=== PATIENT | male | born 1955 | race Native Hawaiian/Other Pacific Islander ===

== ENCOUNTER 2017-03-18 13:05 | Inpatient (IN) | payer MEDICARE ==
[2017-03-18] MEDS ORDERED: Sodium Chloride 0.9% 1,000 ML IV ONE ×2 (14:02→14:41)
[2017-03-18 14:13] LABS: BASO % 0.2 % (0.0-2.0); HEMATOCRIT 43.9 % (35.0-51.0); LYMPH # 0.2 K/uL (1.0-4.3); MEAN CELL VOLUME 83.5 fL (80.0-94.0); MEAN CORPUSCULAR HEMOGLOBIN 28.2 pg (27.0-31.0); MEAN CORPUSCULAR HGB CONC 33.8 g/dL (33.0-37.0); MONO # 0.4 K/uL (0.0-0.8); MONO % 5.1 % (0.0-10.0); PLATELET COUNT 366 K/uL (130-400); RED CELL DISTRIBUTION WIDTH 13.3 % (11.5-14.5); WHITE BLOOD COUNT 8.2 K/uL (4.8-10.8)
[2017-03-18 14:28] LABS: ALB/GLOB RATIO 0.9 (1.0-2.1); ALKALINE PHOSPHATASE 87 U/L (38-126); ALT/SGPT 54 U/L (21-72); AST/SGOT 27 U/L (17-59); BILIRUBIN,TOTAL 1.2 mg/dL (0.2-1.3); BLOOD UREA NITROGEN 18 mg/dL (9-20); CALCIUM 8.8 mg/dl (8.6-10.4); CARBON DIOXIDE 25 mmol/L (22-30); CHLORIDE 101 mmol/L (98-107); GFR AFRICAN-AMERICAN > 60; GLUCOSE,RANDOM 133 mg/dL (75-110); POTASSIUM 4.1 mmol/L (3.6-5.2); SODIUM 137 mmol/L (132-148); TOTAL PROTEIN 7.9 g/dL (6.3-8.3)
[2017-03-18 15:00] LABS: EOSINOPHIL 1 % (0-4); NEUTROPHIL 57 % (50-75); TOTAL CELLS COUNTED 100
--- NOTE | 2017-03-18 15:18 | C.PDOC ---
"History Of Present Illness Patient BIBA for evaluation of multiple episodes of vomiting for the past 1 week. Patient has h/o MS, ambulates only to bathroom/at home, etc with walker. He denies abdominal pain, diarrhea, fever, cough, chest pain, SOB. Patient/ states he has also had decreased appetite for the last several weeks. PMD Dr. Marlon Argueta Neurology Dr. Pelayo Time Seen by Provider: 03/18/17 13:53 Chief Complaint (Nursing): GI Problem History Per: Patient, EMS History/Exam Limitations: no limitations Onset/Duration Of Symptoms: Days (x 1 week) Current Symptoms Are (Timing): Still Present Severity: Mild Associated Symptoms: Nausea, Vomiting. denies: Diarrhea Past Medical History Reviewed: Historical Data, Nursing Documentation, Vital Signs Vital Signs: Last Vital Signs Temp 98.3 F 03/22/17 08:26 Pulse 91 H 03/22/17 08:26 Resp 20 03/22/17 08:26 BP 137/69 03/22/17 08:26 Pulse Ox 95 03/22/17 08:26 - Medical History PMH: Depression, Kidney Stones, Multiple Sclerosis, Chronic Kidney Disease Family History: States: No Known Family Hx - Social History Hx Alcohol Use: No Hx Substance Use: No Review Of Systems Except As Marked, All Systems Reviewed And Found Negative. Constitutional: Negative for: Fever, Chills Cardiovascular: Negative for: Chest Pain Respiratory: Negative for: Cough, Shortness of Breath Gastrointestinal: Positive for: Nausea, Vomiting. Negative for: Abdominal Pain , Diarrhea Genitourinary: Negative for: Dysuria, Hematuria Skin: Negative for: Rash Physical Exam - Physical Exam Appears: Well, Non-toxic, No Acute Distress Head: Normacephalic Eye(s): bilateral: Normal Inspection Oral Mucosa: Dry (fissured tongue) Cardiovascular: Rhythm Regular (tachycardic ) Respiratory: Normal Breath Sounds, No Rales, No Rhonchi, No Wheezing Gastrointestinal/Abdominal: Bowel Sounds, No Tenderness, No Distention, Guarding , No Ascites Neurological/Psych: Oriented x3 ED Course And Treatment - Laboratory Results Result Diagrams: 03/22/17 07:47 03/22/17 07:47 ECG: Interpreted By Me, Viewed By Me (sinus tachycardia 113 bpm, left axis deviation, RBBB, no acute ST changes) ECG Interpretation: Abnormal O2 Sat by Pulse Oximetry: 97 (RA) Pulse Ox Interpretation: Normal - Other Rad CXR X-Ray: Viewed By Me, Read By Radiologist Interpretation: Accession No. : [id number]. Patient Name / ID : FRANKY MEDELLIN / [id number]. Exam Date : 03/18/2017 14:57:46 ( Approved ). Study Comment : Sex / Age : M / 61Y. Creator : Jeremy Flanagan MD. Dictator : Jeremy Flanagan MD. Chef Assistant : Blower Operator : Jeremy Flanagan MD. Approver2 : Report Date : 03/18/2017 15:16:39. My Comment : . Chest x- ray single frontal view. History: Vomiting. Comparison: None available. Findings: Curvilinear radiopaque density seen at the right lung base with possible lucency underneath this level. This is of uncertain clinical etiology and underlying free intraperitoneal air cannot be excluded. Correlation with abdominal series and or CT of the abdomen and pelvis may be helpful for further evaluation if clinically indicated. Moderate venous congestion. Patchy bibasilar airspace opacities. Cardiomegaly. Degenerative changes in the spine and shoulders. Impression: Curvilinear radiopaque density seen at the right lung base with possible lucency underneath this level. This is of uncertain clinical etiology and underlying free intraperitoneal air cannot be excluded. Correlation with abdominal series and or CT of the abdomen and pelvis may be helpful for further evaluation if clinically indicated. Moderate venous congestion. Patchy bibasilar airspace opacities. Cardiomegaly. - CT Scan/US CT ABD/PELVIS Other Rad Studies (CT/US): Read By Radiologist, Radiology Report Reviewed CT/US Interpretation: Name: LACIE WILKINS Age: 61Years M Date: 03/18/2017. Requesting Physician: CHAD VALDEZ : 1955. [facility] Procedure Ordered As Accession Number of. Images. CT ABDOMEN/PELVIS. W. CT ABD PELVIS IV CONTRAST. ONLY. [id number]. J. 645. Provided Clinical History: free air under diaphragm. Page 1 of 2. EXAM: CT Abdomen and Pelvis With Intravenous Contrast. EXAM DATE/TIME: 03/18/2017 4:17 PM. CLINICAL HISTORY: 61 years old, male; Signs and symptoms; Bloating; Additional info: Free air under diaphragm. TECHNIQUE: Axial computed tomography images of the abdomen and pelvis with intravenous contrast. All CT. scans at this facility use one or more dose reduction techniques, viz.: automated exposure control;. ma/kV adjustment per patient size (including targeted exams where dose is matched to indication; i.e. head); or iterative reconstruction technique. Coronal and sagittal reformatted images were created and reviewed. CONTRAST: 100 mL of visipaque 320 administered intravenously. COMPARISON: No relevant prior studies available. FINDINGS: Lower thorax: Patchy alveolar infiltrates in left lower lobe. Wall thickening and edema distal. esophagus. Trace right pleural effusion. Trace pericardial effusion. ABDOMEN: Liver: Unremarkable. No mass. Gallbladder and bile ducts: Unremarkable. No calcified stones. No ductal dilation. Pancreas: Unremarkable. No mass. No ductal dilation. Spleen: Unremarkable. No splenomegaly. LACIE WILKINS | Preliminary Radiology Report. VACATION SALES ADVISOR (QA) DISCREPANCY? If there is a discrepancy between the preliminary and final interpretation, please notify [facility] via [email or web address]. If you do not have access to our QA portal, call our QA team at [phone]. CONFIDENTIALITY STATEMENT. This report is intended only for the use of the referring physician, and only in accordance with law, If you received this in error, call [phone]. Page 2 of 2. Adrenals: Unremarkable. No mass. Kidneys and ureters: Exophytic solid mass left kidney measures 3 cm. Right renal cysts, largest 2.2. cm. Stomach and bowel: Markedly thickened and edematous wall of gastric antrum and pylorus. Extraluminal air adjacent to anterior wall. No dilatation of small or large bowel. No intestinal. mucosal thickening. Appendix: Normal. PELVIS: Bladder : Unremarkable. No mass. Reproductive: Unremarkable as visualized. ABDOMEN and PELVIS: Intraperitoneal space: Free intraperitoneal air. Small amount of free fluid in the dependent pelvis. Bones/joints: No acute fracture. Soft tissues: Unremarkable. Vasculature: Unremarkable. No abdominal aortic aneurysm. Lymph nodes: No enlarged lymph nodes. Other findings: Critical findings were communicated with Dr. VALDEZ, on 03/18/2017 5:55 PM EST. The results were understood and acknowledged. IMPRESSION: 1. Abnormal gastric antrum and pylorus, differential considerations between severe peptic. ulcer disease and neoplasm. Anterior wall perforation and pneumoperitoneum. 2. Distal esophagitis. 3. Left solid renal mass. Comparison with the study on final interpretation. 4. Remaining findings as above. Thank you for allowing us to participate in the care of your patient. Dictated and Authenticated by: Tonia Chinchilla MD. 03/18/2017 5:58 PM Eastern Time ([place] & [place]) Progress Note: Blood work, CXR, EKG, UA ordered and reviewed. Patient given IV NS bolus x 2. 3:10pm- CXR reviewed, appears to have free air under right hemidiaphragm. Given patient's recurrent vomiting x 1 week, concerned for ronald alcala/boeerhave's. Dr. Damon's service paged, and sales consultant residential manager aware and will come down for evaluation. 3:45pm- vice president medical affairs has evaluated patient and will discuss with Dr. Damon - pending their recommendation on further imaging. Will admit to medicine Dr. Kay (covers for Marlon Argueta). 5:55pm- Called by [facility] radiology, patient has perforation at gastric antrum/pyloric area. Final read pending. vice president medical affairs aware of finding, requests CT surgery Dr. John consult be entered. She will come down and insert NG tube. 6:05PM- Patient to go to OR with Dr. Damon. 6:25pm- Dr. Pelayo aware of consult and patient condition, has spoken with patient's Nikki on the phone. - Physician Consult Information Physician Contacted: Dennys Kay Outcome Of Conversation: Discussed patient with Dr. Kay, agrees with admission to his service. Currently pending CT scan/surgery consult for further eval of free air under diaphragm. Critical Care Time - Critical Care Note Total Time (in mins): 50 Documented critical care: time excludes all time spent performing seperately billable procedures. Disposition - Disposition Disposition: HOSPITALIZED Disposition Time: 16:05 Condition: GUARDED - Clinical Impression Clinical Impression: Free intraperitoneal air, Tachycardia, Bandemia, Multiple sclerosis, Perforated abdominal viscus Decision To Admit - Pt Status Changed To: Hospital Disposition Of: Inpatient - Admit Certification Admit to Inpatient:: After my assessment, the patient will require hospitalization for at least two midnights. This is because of the severity of symptoms shown, intensity of services needed, and/or the medical risk in this patient being treated as an outpatient. - InPatient: Physician Admission Certification:: see notes - . Bed Request Type: Telemetry Admitting Physician: Dennys Kay Patient Diagnosis: Free intraperitoneal air, Tachycardia, Bandemia, Multiple sclerosis, Perforated abdominal viscus"
[2017-03-18] MEDS ORDERED: Piperacillin/Tazobact 3.375 gm 100 ML IV STA (15:45)
[2017-03-18 15:52] LABS: VENOUS BLOOD GAS BASE EXCESS -0.8 mmol/L (0.0-2.0); VENOUS BLOOD GAS PCO2 41 mmHg (40-60); VENOUS BLOOD PH 7.38 (7.32-7.43)
[2017-03-18 15:54] LABS: INR 1.3
[2017-03-18 15:58] LABS: RBC URINE 24 /hpf (0-3); URINE BACTERIA OCC (<OCC); URINE BILIRUBIN NEGATIVE (NEGATIVE); URINE BLOOD 1+ (NEGATIVE); URINE COLOR Amber (YELLOW); URINE GLUCOSE (UA) NORMAL (Normal); URINE KETONE TRACE mg/dL (NEGATIVE); URINE LEUKOCYTE ESTERASE TRACE Leu/uL (Negative); URINE PROTEIN 2+ mg/dL (NEGATIVE); WBC URINE 57 /hpf (0-5)
--- NOTE | 2017-03-18 16:19 | CP.PCM.CON ---
History of Present Illness - History of Present Illness History of Present Illness: General surgery consult note for Dr. Annie Haile, PGY-1 Pt S & E at bedside. History as per at bedside- pt with slurred speech. 61M w/PMH sig for MS consulted for findings concerning for free air on Abdominal x-ray. Per , pt has been having emesis x 1 week. Initially, emesis was with solid foods, pt able to tolerate Pedilyte, Gatorade, yogurt, apple sauce. Over last few days, pt has been vomiting with all PO intake. On day of consult, pt had emesis x 4 that was dark brown (pt had been given coffee). reports "gurgling" when pt breaths, slight non productive cough, last BM was 2 days prior to evaluation - normal caliber & consistency (normal BM habit is daily). Admits to sick contacts, some noted sputum in emesis, increased slurred speech, change in baseline mentation. Notes that pt does have increased dysphagia when MS episode occurring. Pt denies abdominal pain, changes in normal flatus habits, increased bleching, changes in baseline urinary habits (normally has frequent urination), dysuria, hematuria, jo ann hematemesis, other complaints or changes from baseline. PMH: MS (dx in 2004) w/neurogenic bladder PSH: Denies All: NDKA SH: Denies ETOH use, admits to tobacco use/hx avg 1ppd x 50 yrs, denies ilicit drug use; uses walker & wheelchair PMD: [facility] Neuro: Pierce Review of Systems - Review of Systems All systems: reviewed and no additional remarkable complaints except - Constitutional Constitutional: Weakness (chronic). absent: Chills, Fever - EENT Nose/Mouth/Throat: Dry Mouth, Dysphagia - Cardiovascular Cardiovascular: absent: Chest Pain, Palpitations - Respiratory Respiratory: Cough, Chest Congestion. absent: Hemoptysis - Gastrointestinal Gastrointestinal: Change in Bowel Habits, Nausea, Vomiting. absent: Abdominal Pain, Belching, Bloating, Change in Stool Character, Coffee Ground Emesis, Constipation, Diarrhea, Excessive Flatus, Hematemesis, Hematochezia, Melena - Genitourinary Genitourinary: Urinary Frequency (neurogenic bladder). absent: Change in Urinary Stream, Dysuria, Hematuria - Musculoskeletal Musculoskeletal: Muscle Weakness - Integumentary Integumentary: absent: Erythema - Psychiatric Psychiatric: Change in Appetite Past Patient History - Past Medical History & Family History Past Medical History?: Yes - Past Social History Smoking Status: Heavy Smoker > 10 Cigarettes Daily - CARDIAC Hx Cardiac Disorders: No - PULMONARY Hx Respiratory Disorders: No - NEUROLOGICAL Hx Multiple Sclerosis: Yes - HEENT Hx HEENT Problems: No - RENAL Hx Chronic Kidney Disease: Yes Hx Kidney Stones: Yes - ENDOCRINE/METABOLIC Hx Endocrine Disorders: No - HEMATOLOGICAL/ONCOLOGICAL Hx Blood Disorders: No - INTEGUMENTARY Hx Dermatological Problems: No - MUSCULOSKELETAL/RHEUMATOLOGICAL Hx Musculoskeletal Disorders: No - GASTROINTESTINAL Hx Gastrointestinal Disorders: No - GENITOURINARY/GYNECOLOGICAL Hx Genitourinary Disorders: Yes Hx Hematuria: Yes - PSYCHIATRIC Hx Depression: Yes Hx Substance Use: No - SURGICAL HISTORY Hx Surgeries: No - ANESTHESIA Hx Anesthesia: No Meds Allergies/Adverse Reactions: Allergies Allergy/AdvReac Type Severity Reaction Status Date / Time No Known Allergies Allergy Verified 03/18/17 13:37 Physical Exam - Constitutional Appears: Non-toxic, No Acute Distress - Head Exam Head Exam: ATRAUMATIC, NORMAL INSPECTION, NORMOCEPHALIC - Eye Exam Eye Exam: EOMI, Normal appearance - ENT Exam ENT Exam: Mucous Membranes Dry - Neck Exam Neck exam: Positive for: Full Rom, Normal Inspection - Respiratory Exam Respiratory Exam: Clear to Auscultation Bilateral, NORMAL BREATHING PATTERN. absent: Accessory Muscle Use, Decreased Breath Sounds, Rales, Rhonchi, Wheezes, Respiratory Distress, Stridor - Cardiovascular Exam Cardiovascular Exam: Tachycardia, +S1, +S2 - GI/Abdominal Exam GI & Abdominal Exam: Normal Bowel Sounds, Soft. absent: Distended, Firm, Guarding, Rebound, Rigid, Tenderness - Rectal Exam Rectal Exam: Deferred - Extremities Exam Extremities exam: Negative for: pedal edema - Neurological Exam Neurological exam: Alert, Oriented x3 Additional comments: speech slurred - Psychiatric Exam Psychiatric exam: Normal Affect, Normal Mood - Skin Skin Exam: Dry, Intact, Normal Color Additional comments: hands cold Results - Vital Signs Recent Vital Signs: Last Vital Signs Temp 98.2 F 03/18/17 13:36 Pulse 107 H 03/18/17 15:58 Resp 18 03/18/17 15:58 BP 146/84 03/18/17 15:58 Pulse Ox 97 03/18/17 16:00 - Labs Result Diagrams: 03/18/17 14:07 03/18/17 14:06 Labs: Laboratory Results - last 24 hr 03/18/17 03/18/17 03/18/17 14:06 14:07 15:42 WBC 8.2 RBC 5.26 Hgb 14.8 Hct 43.9 MCV 83.5 MCH 28.2 MCHC 33.8 RDW 13.3 Plt Count 366 MPV 10.0 Neut % (Auto) 91.7 H Lymph % (Auto) 3.0 L [place] % (Auto) 5.1 Eos % (Auto) 0.0 Baso % (Auto) 0.2 Neut # 7.6 H Lymph # 0.2 L [place] # 0.4 Eos # 0.0 Baso # 0.0 Neutrophils % (Manual) 57 Band Neutrophils % 27 H* Lymphocytes % (Manual) 8 L Monocytes % (Manual) 7 Eosinophils % (Manual) 1 Platelet Estimate Normal Ovalocytes Slight PT INR APTT pO2 VBG pH VBG pCO2 VBG HCO3 VBG Total CO2 VBG O2 Sat (Calc) VBG Base Excess VBG Potassium Glucose Lactate Sodium 137 Potassium 4.1 Chloride 101 Carbon Dioxide 25 Anion Gap 15 BUN 18 Creatinine 1.1 Est GFR ( Amer) > 60 Est GFR (Non-Af Amer) > 60 Random Glucose 133 H Calcium 8.8 Total Bilirubin 1.2 AST 27 ALT 54 Alkaline Phosphatase 87 Total Protein 7.9 Albumin 3.8 Globulin 4.1 H Albumin/Globulin Ratio 0.9 L Lipase 52 Venous Blood Potassium Urine Color [place] Urine Clarity Hazy Urine pH 5.0 Ur Specific [place] 1.020 Urine Protein 2+ H Urine Glucose (UA) Normal Urine Ketones Trace Urine Blood 1+ H Urine Nitrate Negative Urine Bilirubin Negative Urine Urobilinogen 4.0 Ur Leukocyte Esterase Trace Urine WBC (Auto) 57 H Urine RBC (Auto) 24 H Ur Squamous Epith Cells 2 Urine Bacteria Occ H 03/18/17 03/18/17 03/18/17 15:42 15:49 16:02 WBC RBC Hgb Hct MCV MCH MCHC RDW Plt Count MPV Neut % (Auto) Lymph % (Auto) [place] % (Auto) Eos % (Auto) Baso % (Auto) Neut # Lymph # [place] # Eos # Baso # Neutrophils % (Manual) Band Neutrophils % Lymphocytes % (Manual) Monocytes % (Manual) Eosinophils % (Manual) Platelet Estimate Ovalocytes PT 14.8 H INR 1.3 APTT 27 pO2 21 L VBG pH 7.38 VBG pCO2 41 VBG HCO3 22.6 VBG Total CO2 25.6 VBG O2 Sat (Calc) 42.9 VBG Base Excess -0.8 L VBG Potassium 4.0 Glucose 112 H Lactate 1.7 Sodium 137.0 Potassium Chloride 105.0 Carbon Dioxide Anion Gap BUN Creatinine Est GFR ( Amer) Est GFR (Non-Af Amer) Random Glucose Calcium Total Bilirubin AST ALT Alkaline Phosphatase Total Protein Albumin Globulin Albumin/Globulin Ratio Lipase 53 Venous Blood Potassium 4.0 Urine Color Urine Clarity Urine pH Ur Specific [place] Urine Protein Urine Glucose (UA) Urine Ketones Urine Blood Urine Nitrate Urine Bilirubin Urine Urobilinogen Ur Leukocyte Esterase Urine WBC (Auto) Urine RBC (Auto) Ur Squamous Epith Cells Urine Bacteria Assessment & Plan - Assessment and Plan (Free Text) Assessment: 61M w/PMH sig for MS consulted for findings concerning for free air on Abdominal x-ray Plan: Abx Fluid resuscitation NPO Insert NGT CT abdomen w/free air For OR tonight per attending Will consent DW attending Lazara, PGY-1 - Date & Time Date: 03/18/17 Time: 16:20
[2017-03-18] MEDS ORDERED: Iodixanol 320 MG/ML 100 ML BOTTLE IV ONE (17:10)
[2017-03-18] MEDS ORDERED: Lactated Ringer's 1,000 ML IV SCH (17:30)
[2017-03-18] MEDS ORDERED: Morphine 4 MG/ML VIAL IVP PRN (17:30)
[2017-03-18] MEDS ORDERED: Lactated Ringer's 1,000 ML IV ONE ×2 (20:20→21:18)
[2017-03-18] MEDS ORDERED: Succinylcholine Chloride 20 mg/ml Syr (5 ml) IV ONE (20:32)
[2017-03-18] MEDS ORDERED: Propofol 10 mg/ml Inj (20 ML) ONE (20:32)
[2017-03-18] MEDS ORDERED: Ciprofloxacin 400mg/200ml D5W 400 MG/200 ML BAG IVPB ONE (20:32)
[2017-03-18] MEDS ORDERED: Midazolam 2 MG/2 ML VIAL ONE (20:32)
[2017-03-18] MEDS ORDERED: Rocuronium 10 mg/ml (5 ml) ONE (20:32)
[2017-03-18] MEDS ORDERED: metroNIDAZOLE IV 500 mg/100 ml 500 MG/100 ML BAG ONE (20:32)
[2017-03-18] MEDS ORDERED: ePHEDrine 50 mg/ml Inj ONE (20:39)
[2017-03-18] MEDS ORDERED: Phenylephrine 10 mg/ml Inj ONE (20:41)
[2017-03-18] MEDS: Ciprofloxacin 400mg/200ml D5W 400 MG/200 ML BAG IVPB SCH (20:53)
[2017-03-18] MEDS ORDERED: HYDROmorphone 0.5 mg/0.5 ml ISec IVP PRN (21:13)
[2017-03-18] MEDS ORDERED: Lactated Ringer's 1,000 ML IV PRN (21:13)
[2017-03-18] MEDS ORDERED: Neostigmine Methylsulfate 3mg/3ml Syringe IV ONE (21:25)
[2017-03-18] MEDS ORDERED: Morphine 4 MG/ML VIAL ONE (21:39)
--- NOTE | 2017-03-18 21:51 | PCM.SURG1 ---
Surgeon's Initial Post Op Note - Surgeon's Notes Surgeon: Escobar Damon MD Pecan Gatherer: Soco Haile PGY-1 Pre-Operative Diagnosis: Abdominal free air due to small bowel perforation Operative Findings: See op report Post-Operative Diagnosis: Duodenal ulcer with perforation Operation Performed: Rubio patch repair of duodenal ulcer with perforation Specimen/Specimens Removed: None Estimated Blood Loss: EBL {In ML}: 50 Blood Products Given: N/A Drains Used: Bhupinder Post-Op Condition: Good Date of Surgery/Procedure: 03/18/17 Time of Surgery/Procedure: 21:51
[2017-03-18] MEDS: metroNIDAZOLE IV 500 mg/100 ml 500 MG/100 ML BAG IVPB SCH (22:32)
[2017-03-19] MEDS: Lactated Ringer's 1,000 ML IV SCH ×2 (02:50→14:14)
[2017-03-19] MEDS: metroNIDAZOLE IV 500 mg/100 ml 500 MG/100 ML BAG IVPB SCH ×3 (05:24→22:39)
--- NOTE | 2017-03-19 07:11 | CP.PCM.CON ---
History of Present Illness - History of Present Illness History of Present Illness: CONSULT DICTATED END STAGE MS PERFORATED DEUDINAL ULCER POST REPAIR NEURO STABLE Past Patient History - Past Medical History & Family History Past Medical History?: Yes - Past Social History Smoking Status: Heavy Smoker > 10 Cigarettes Daily - CARDIAC Hx Cardiac Disorders: No - PULMONARY Hx Respiratory Disorders: No - NEUROLOGICAL Hx Multiple Sclerosis: Yes - HEENT Hx HEENT Problems: No - RENAL Hx Chronic Kidney Disease: Yes Hx Kidney Stones: Yes - ENDOCRINE/METABOLIC Hx Endocrine Disorders: No - HEMATOLOGICAL/ONCOLOGICAL Hx Blood Disorders: No - INTEGUMENTARY Hx Dermatological Problems: No - MUSCULOSKELETAL/RHEUMATOLOGICAL Hx Musculoskeletal Disorders: No - GASTROINTESTINAL Hx Gastrointestinal Disorders: No - GENITOURINARY/GYNECOLOGICAL Hx Genitourinary Disorders: Yes Hx Hematuria: Yes - PSYCHIATRIC Hx Depression: Yes Hx Substance Use: No - SURGICAL HISTORY Hx Surgeries: No - ANESTHESIA Hx Anesthesia: No Meds Allergies/Adverse Reactions: Allergies Allergy/AdvReac Type Severity Reaction Status Date / Time No Known Allergies Allergy Verified 03/18/17 13:37 - Medications Medications: Current Medications Ciprofloxacin (Cipro 400mg/200ml Dsw) 400 mg in 200 mls @ 133 mls/hr IVPB Q12H [facility] [place] Last Admin: 03/18/17 20:53 Dose: Not Given Metronidazole (Flagyl) 500 mg in 100 mls @ 100 mls/hr IVPB Q8 [facility] [place] Last Admin: 03/19/17 05:24 Dose: 100 mls/hr Lactated Ringer's (Lactated Ringer's) 1,000 mls @ 1,000 mls/hr IV .Q1H PRN PRN Reason: Hypotension Lactated Ringer's (Lactated Ringer's) 1,000 mls @ 150 mls/hr IV .Q6H40M [facility] [place] Last Admin: 03/19/17 02:50 Dose: 150 mls/hr Morphine Sulfate (Morphine) 4 mg IVP Q6H PRN PRN Reason: Pain, severe (8-10) Morphine Sulfate (Morphine) 2 mg IVP Q4 PRN PRN Reason: Pain, moderate (4-7) Ondansetron HCl (Zofran Inj) 4 mg IVP Q6H PRN PRN Reason: Nausea/Vomiting Pantoprazole Sodium (Protonix Inj) 40 mg IVP DAILY [facility] [place] Pneumococcal Polyvalent Vaccine (Pneumovax 23 Vaccine) 0.5 ml IM .ONCE ONE Stop: 03/21/17 10:01 Results - Vital Signs Recent Vital Signs: Last Vital Signs Temp 98.0 F 03/19/17 04:20 Pulse 90 03/19/17 04:20 Resp 20 03/19/17 04:20 BP 122/80 03/19/17 04:20 Pulse Ox 99 03/19/17 04:20 - Labs Result Diagrams: 03/18/17 14:07 03/18/17 14:06 Labs: Laboratory Results - last 24 hr 03/18/17 03/18/17 03/18/17 14:06 14:07 15:42 WBC 8.2 RBC 5.26 Hgb 14.8 Hct 43.9 MCV 83.5 MCH 28.2 MCHC 33.8 RDW 13.3 Plt Count 366 MPV 10.0 Neut % (Auto) 91.7 H Lymph % (Auto) 3.[address] [place] % (Auto) 5.1 Eos % (Auto) 0.0 Baso % (Auto) 0.2 Neut # 7.6 H Lymph # 0.[address] [place] # 0.4 Eos # 0.0 Baso # 0.0 Neutrophils % (Manual) 57 Band Neutrophils % 27 H* Lymphocytes % (Manual) 8 L Monocytes % (Manual) 7 Eosinophils % (Manual) 1 Platelet Estimate Normal Ovalocytes Slight PT INR APTT pO2 VBG pH VBG pCO2 VBG HCO3 VBG Total CO2 VBG O2 Sat (Calc) VBG Base Excess VBG Potassium Glucose Lactate Sodium 137 Potassium 4.1 Chloride 101 Carbon Dioxide 25 Anion Gap 15 BUN 18 Creatinine 1.1 Est GFR ( Amer) > 60 Est GFR (Non-Af Amer) > 60 Random Glucose 133 H Calcium 8.8 Total Bilirubin 1.2 AST 27 ALT 54 Alkaline Phosphatase 87 Total Protein 7.9 Albumin 3.8 Globulin 4.1 H Albumin/Globulin Ratio 0.9 L Lipase 52 Venous Blood Potassium Urine Color [place] Urine Clarity Hazy Urine pH 5.0 Ur Specific [place] 1.020 Urine Protein 2+ H Urine Glucose (UA) Normal Urine Ketones Trace Urine Blood 1+ H Urine Nitrate Negative Urine Bilirubin Negative Urine Urobilinogen 4.0 Ur Leukocyte Esterase Trace Urine WBC (Auto) 57 H Urine RBC (Auto) 24 H Ur Squamous Epith Cells 2 Urine Bacteria Occ H Blood Type Antibody Screen 03/18/17 03/18/1717 15:42 15:49 15:53 WBC RBC Hgb Hct MCV MCH MCHC RDW Plt Count MPV Neut % (Auto) Lymph % (Auto) [place] % (Auto) Eos % (Auto) Baso % (Auto) Neut # Lymph # [place] # Eos # Baso # Neutrophils % (Manual) Band Neutrophils % Lymphocytes % (Manual) Monocytes % (Manual) Eosinophils % (Manual) Platelet Estimate Ovalocytes PT 14.8 H INR 1.3 APTT 27 pO2 21 L VBG pH 7.38 VBG pCO2 41 VBG HCO3 22.6 VBG Total CO2 25.6 VBG O2 Sat (Calc) 42.9 VBG Base Excess -0.8 L VBG Potassium 4.0 Glucose 112 H Lactate 1.7 Sodium 137.0 Potassium Chloride 105.0 Carbon Dioxide Anion Gap BUN Creatinine Est GFR ( Amer) Est GFR (Non-Af Amer) Random Glucose Calcium Total Bilirubin AST ALT Alkaline Phosphatase Total Protein Albumin Globulin Albumin/Globulin Ratio Lipase Venous Blood Potassium 4.0 Urine Color Urine Clarity Urine pH Ur Specific [place] Urine Protein Urine Glucose (UA) Urine Ketones Urine Blood Urine Nitrate Urine Bilirubin Urine Urobilinogen Ur Leukocyte Esterase Urine WBC (Auto) Urine RBC (Auto) Ur Squamous Epith Cells Urine Bacteria Blood Type A POSITIVE Antibody Screen Negative 03/18/17 16:02 WBC RBC Hgb Hct MCV MCH MCHC RDW Plt Count MPV Neut % (Auto) Lymph % (Auto) [place] % (Auto) Eos % (Auto) Baso % (Auto) Neut # Lymph # [place] # Eos # Baso # Neutrophils % (Manual) Band Neutrophils % Lymphocytes % (Manual) Monocytes % (Manual) Eosinophils % (Manual) Platelet Estimate Ovalocytes PT INR APTT pO2 VBG pH VBG pCO2 VBG HCO3 VBG Total CO2 VBG O2 Sat (Calc) VBG Base Excess VBG Potassium Glucose Lactate Sodium Potassium Chloride Carbon Dioxide Anion Gap BUN Creatinine Est GFR ( Amer) Est GFR (Non-Af Amer) Random Glucose Calcium Total Bilirubin AST ALT Alkaline Phosphatase Total Protein Albumin Globulin Albumin/Globulin Ratio Lipase 53 Venous Blood Potassium Urine Color Urine Clarity Urine pH Ur Specific [place] Urine Protein Urine Glucose (UA) Urine Ketones Urine Blood Urine Nitrate Urine Bilirubin Urine Urobilinogen Ur Leukocyte Esterase Urine WBC (Auto) Urine RBC (Auto) Ur Squamous Epith Cells Urine Bacteria Blood Type Antibody Screen
[2017-03-19 08:10] LABS: EOS % 0.1 % (0.0-4.0); MEAN PLATELET VOLUME 9.4 fL (7.2-11.7); MONO # 0.5 K/uL (0.0-0.8)
[2017-03-19 08:16] LABS: BASO % 0.1 % (0.0-2.0); HEMATOCRIT 33.3 % (35.0-51.0); LYMPH # 0.5 K/uL (1.0-4.3); LYMPH % 6.3 % (20.0-40.0); MEAN CELL VOLUME 82.1 fL (80.0-94.0); MEAN CORPUSCULAR HEMOGLOBIN 28.4 pg (27.0-31.0); MEAN CORPUSCULAR HGB CONC 34.6 g/dL (33.0-37.0); MONO % 7.6 % (0.0-10.0); RED CELL DISTRIBUTION WIDTH 13.3 % (11.5-14.5); WHITE BLOOD COUNT 7.2 K/uL (4.8-10.8)
[2017-03-19 08:19] LABS: PLATELET COUNT 249 K/uL (130-400)
--- NOTE | 2017-03-19 08:21 | RAD ---
HISTORY: NGT placement COMPARISON: Plain radiographs performed the same day. FINDINGS: The nasogastric tube terminates in the stomach LUNGS: The lungs are well inflated. There is diffuse pulmonary venous congestion. There are chronic changes in both lower lobes. PLEURA: No significant pleural effusion identified, no pneumothorax apparent. CARDIOVASCULAR: The heart is enlarged and there is prominent central vasculature. OSSEOUS STRUCTURES: No significant abnormalities. VISUALIZED UPPER ABDOMEN: Normal. OTHER FINDINGS: There is free air under the diaphragms also seen on the prior examination. IMPRESSION: Nasogastric tube terminates in the stomach. Persistent cardiomegaly and pulmonary venous congestion. Redemonstration of pneumoperitoneum.
[2017-03-19 08:33] LABS: ALB/GLOB RATIO 1.2 (1.0-2.1); ALKALINE PHOSPHATASE 72 U/L (38-126); ALT/SGPT 56 U/L (21-72); AST/SGOT 28 U/L (17-59); BILIRUBIN,TOTAL 1.6 mg/dL (0.2-1.3); BLOOD UREA NITROGEN 14 mg/dL (9-20); CALCIUM 7.7 mg/dl (8.6-10.4); CARBON DIOXIDE 25 mmol/L (22-30); CHLORIDE 106 mmol/L (98-107); GFR AFRICAN-AMERICAN > 60; GLUCOSE,RANDOM 74 mg/dL (75-110); POTASSIUM 3.8 mmol/L (3.6-5.2); SODIUM 138 mmol/L (132-148); TOTAL PROTEIN 4.7 g/dL (6.3-8.3)
[2017-03-19] MEDS: Ciprofloxacin 400mg/200ml D5W 400 MG/200 ML BAG IVPB SCH ×2 (08:33→19:16)
[2017-03-19 09:24] LABS: NEUTROPHIL 84 % (50-75); TOTAL CELLS COUNTED 100
--- NOTE | 2017-03-19 09:36 | CON ---
DATE: 03/18/2017 PREOPERATIVE DIAGNOSIS: Perforated viscus. POSTOPERATIVE DIAGNOSIS: Perforated duodenal ulcer, large. PROCEDURE PERFORMED: Exploratory laparotomy and Rubio patch to the ulcer. FINDINGS: There is a considerable amount of fluid in the peritoneal cavity consistent with visceral perforation. There is a large area of induration noted in the second portion of the duodenum, just underneath the liver. A huge ulcer measuring approximately 4 cm x 3 cm was noted in this area with borders like very, very friable and almost immovable. A portion of the side of the ulcer was adherent to the undersurface of the liver. DESCRIPTION OF PROCEDURE: Under general anesthesia, patient was prepared and draped in the usual sterile fashion. A midline incision was made from the xyphoid process down to almost the umbilicus. The incision was then carried down through the subcutaneous tissue. Bleeding was controlled with electrocautery. The peritoneal cavity was entered and then the above finding was demonstrated. The suctioning of the peritoneal fluid was done and then manual examination suggested that there was a very large indurate area with a palpable perforation noted on the second portion of the duodenum. This perforation measures at least 4 cm in length and about 2 cm to 3 cm in width. It has immovable borders as most of the superior border of the ulcer was adherent to the under surface of the liver. First the transverse colon was rolled off with laparotomy pads. Traction was applied on the stomach by applying some [place] forceps. The ulcer was then visible and functional mobilization of the ulcer was done by taking the adhesions down with sharp dissection of the liver. Multiple sutures of 0-silk were applied on each side of the ulcer, starting from the distal tip to the proximal tip. The number of sutures, number about 3 and then in the middle of which a piece of omentum was mobilized to cover that and then the sutures were tied around the omentum to keep it in place and to cover the wide opening by the ulcer. A drain was left in the left upper quadrant of the abdomen, close to the area of the perforation. The area was irrigated with a large amount of saline solution. The irrigating fluid was suctioned out. The wound was then closed utilizing continuous over and over suture of #1 Maxon double strand to suture the fascia, muscle and peritoneum all in one layer. Skin was closed with multiple skin james. The estimated blood loss for the procedure, approximately about 50 mL. Incidentally, this patient throughout the admission did not complain of any pain and we attributed this to the multiple sclerosis that the patient was suffering from. The only positive finding was the presence of some guarding and free air underneath the diaphragm on x-ray. Escobar Damon MD
--- NOTE | 2017-03-19 09:54 | CP.PCM.PN ---
Subjective - Date & Time of Evaluation Date of Evaluation: 03/19/17 Time of Evaluation: 06:10 - Subjective Subjective: General Surgery Dr. Damon Pt S&E @bedside. Pt underwent ex-lap w/ Rubio patch repair of perf'ed duodenal ulcer overnight. Pt tolerated the procedure well w/ no complications. Pt denies pain this AM. reports some throat irritation from the NGT. Denies F/C, N/V. Pt is NPO. Objective - Vital Signs/Intake and Output Vital Signs (last 24 hours): Temp Pulse Resp BP Pulse Ox 98.2 F 75 20 132/78 99 03/19/17 07:49 03/19/17 07:49 03/19/17 07:49 03/19/17 07:49 03/19/17 07:49 Intake and Output: 03/19/17 03/19/17 06:59 18:59 Intake Total 1150 Output Total 480 Balance 670 - Medications Medications: Current Medications Ciprofloxacin (Cipro 400mg/200ml Dsw) 400 mg in 200 mls @ 133 mls/hr IVPB Q12H [facility] Last Admin: 03/19/17 08:33 Dose: 133 mls/hr Metronidazole (Flagyl) 500 mg in 100 mls @ 100 mls/hr IVPB Q8 [facility] Last Admin: 03/19/17 05:24 Dose: 100 mls/hr Lactated Ringer's (Lactated Ringer's) 1,000 mls @ 1,000 mls/hr IV .Q1H PRN PRN Reason: Hypotension Lactated Ringer's (Lactated Ringer's) 1,000 mls @ 150 mls/hr IV .Q6H40M [facility] Last Admin: 03/19/17 02:50 Dose: 150 mls/hr Morphine Sulfate (Morphine) 4 mg IVP Q6H PRN PRN Reason: Pain, severe (8-10) Morphine Sulfate (Morphine) 2 mg IVP Q4 PRN PRN Reason: Pain, moderate (4-7) Ondansetron HCl (Zofran Inj) 4 mg IVP Q6H PRN PRN Reason: Nausea/Vomiting Pantoprazole Sodium (Protonix Inj) 40 mg IVP DAILY [facility] Pneumococcal Polyvalent Vaccine (Pneumovax 23 Vaccine) 0.5 ml IM .ONCE ONE Stop: 03/21/17 10:01 - Labs Labs: 03/19/17 08:03 03/19/17 08:03 PT 14.8 SECONDS (9.7-12.2) H 03/18/17 15:42 INR 1.3 03/18/17 15:42 APTT 27 SECONDS (21-34) 03/18/17 15:42 - Constitutional Appears: Non-toxic, No Acute Distress - Head Exam Head Exam: NORMAL INSPECTION - Eye Exam Eye Exam: Normal appearance - ENT Exam ENT Exam: Mucous Membranes Moist - Respiratory Exam Respiratory Exam: NORMAL BREATHING PATTERN. absent: Accessory Muscle Use, Respiratory Distress - Cardiovascular Exam Cardiovascular Exam: absent: Bradycardia, Tachycardia - GI/Abdominal Exam GI & Abdominal Exam: Soft, Tenderness (srikanth-incisional TTP). absent: Distended , Firm, Guarding, Rebound Additional comments: dressing c.d.i - Exam Additional comments: breen catheter in place - Extremities Exam Extremities Exam: Normal Inspection - Neurological Exam Neurological Exam: Alert, Awake - Psychiatric Exam Psychiatric exam: Normal Affect, Normal Mood - Skin Skin Exam: Dry, Normal Color, Warm Assessment and Plan - Assessment and Plan (Free Text) Assessment: 61 y/o M POD#1 s/p ex-lap w/ Rubio patch repair of perf'ed duodenal ulcer - cont NPO, IVF - NGT on low continuous suction - Urology consulted for Hx of neurogenic bladder --> to stay in place as per Dr. Nation - monitor outputs - monitor bowel function - cont pain management - monitor electrolytes - replete PRN - GI/DVT PPx - encourage OOB to chair/Amb/IS use Pt discussed w/ Dr. Nelson Snyder DO PGY2
--- NOTE | 2017-03-19 11:07 | CT ---
PROCEDURE: CT Abdomen and Pelvis with contrast HISTORY: free air under diaphragm COMPARISON: Abdomen pelvis CT examination with contrast 12/09/2014. TECHNIQUE: Contrast dose: Visipaque 320, 100 cc Radiation dose: Total exam DLP = 528.24 mGy-cm. This CT exam was performed using one or more of the following dose reduction techniques: Automated exposure control, adjustment of the mA and/or kV according to patient size, and/or use of iterative reconstruction technique. FINDINGS: LOWER THORAX: Hiatal hernia is appreciate well as bilateral dependent atelectasis and mild cardiomegaly. Thickening of the distal esophagus is appreciated suspicious for esophagitis or even gastritis involving the hiatal hernia. LIVER: Hepatic steatosis is appreciate without discrete mass evident. No intrahepatic biliary dilatation. GALLBLADDER AND BILE DUCTS: Gallbladder is contracted with thick escobar likely a function of hydrops as limited ascites is seen in the upper abdomen centrally. PANCREAS: No pancreatic lesion is identified. SPLEEN: Unremarkable. ADRENALS: Unremarkable. No mass. KIDNEYS AND URETERS: Unremarkable. No hydronephrosis. No solid massMultiple cysts are seen at the right kidney in the dominant cyst at the lower pole measuring 2.9 cm once again. A 3.4 x 2.9 cm exophytic mass seen related to the midpole left kidney anteriorly once again. This is increased in size compared to 1.8 cm previously on 12/09/2014 CT. VASCULATURE: Unremarkable. No aortic aneurysm. BOWEL: Images through the stomach reveal trace local extraluminal gas and adjacent to the antrum with a few bubbles also seen in the gastrohepatic ligament. Trace fluid is appreciated posterior to the antrum as well with prominent mural thickening seen throughout the antrum in a pattern suspicious for possible perforation, potentially from gastric peptic ulcer disease. This is the likely source of the free intrarenal gas noted in the upper abdomen. Further clinical correlation is recommended. Lack of oral contrast limits exam. The bowel is not appear obstructed or unusually thick walled. A moderate amount retained fecal material scattered throughout the ascending colon predominantly. APPENDIX: Normal appendix. PERITONEUM: Limited ascites seen the pelvis and upper abdomen. LYMPH NODES: Unremarkable. No enlarged lymph nodes. BLADDER: Unremarkable. REPRODUCTIVE: Prostate gland enlargement again evident. BONES: No acute fracture. OTHER FINDINGS: None. IMPRESSION: 1. A [id number] free intrarenal gas in the upper abdomen, likely a function of gastric antral perforation, potentially from peptic ulcer disease. Clinically correlate further. Limited upper abdominal and lower pelvic ascites is identified. Please see discussion above. 2. Hepatic steatosis. 3. Enlarging left renal mass as discussed above. 4. Distal esophagitis suggested versus as gastritis hiatal hernia gastric folds. Concordant preliminary report from [facility], 03/18/2017.
--- NOTE | 2017-03-19 13:55 | CP.PCM.HP ---
History of Present Illness - History of Present Illness History of Present Illness: AMITTED WITH 1 WEEK H/O VOMITING AT HOME PT HAS MS WALKS AT HOME WITH WALKER FOR 1 WEEK PT HAD FEW VOMITING A DAY AND ON DOA PT HAD FEW VOMITING IN SHORT TIME NO DIARRHEA OR GI BLEEDING EPIGASTRIC PAIN SMOKES 10 CIG. A DAY FOR [address] OF ABD SHOWED PERFORATION OF DU AND INCREASING MASS IN LEFT KIDNEY PT WENT TO OR WITH SURGICAL CORRECTION OF PERFORATED DU Present on Admission - Present on Admission Any Indicators Present on Admission: No Review of Systems - Constitutional Constitutional: Fatigue, Malaise. absent: Chills, Fever - EENT Eyes: absent: As Per HPI, Blind Spots, Blurred Vision, Change in Vision, Decreased Night Vision, Diplopia, Discharge, Dry Eye, Exophthalmos, Floaters, Irritation, Itchy Eyes, Loss of Peripheral Vision, Pain, Photophobia, Requires Corrective Lenses, Sees Flashes, Spots in Vision, Tunnel Vision, Other Visual Disturbances, Loss of Vision, Other Nose/Mouth/Throat: absent: As Per HPI, Epistaxis, Nasal Congestion, Nasal Discharge, Nasal Obstruction, Nasal Trauma, Nose Pain, Post Nasal Drip, Sinus Pain, Sinus Pressure, Bleeding Gums, Change in Voice, Dental Pain, Dry Mouth, Dysphagia, Halitosis, Hoarsness, Lip Swelling, Mouth Lesions, Mouth Pain, Odynophagia, Sore Throat, Throat Swelling, Tongue Swelling, Facial Pain, Neck Pain, Neck Mass, Other - Cardiovascular Cardiovascular: absent: As Per HPI, Acrocyanosis, Chest Pain, Chest Pain at Rest , Chest Pain with Activity, Claudication, Diaphoresis, Dyspnea, Dyspnea on Exertion, Edema, Irregular Heart Rhythm, Pain Radiating to Arm/Neck/Jaw, Leg Edema, Leg Ulcers, Lightheadedness, Orthopnea, Palpitations, Paroxysmal Nocturnal Dyspnea, Pedal Edema, Radiating Pain, Rapid Heart Rate, Slow Heart Rate, Syncope, Other - Respiratory Respiratory: absent: As Per HPI, Cough, Dyspnea, Hemoptysis, Dyspnea on Exertion , Wheezing, Snoring, Stridor, Pain on Inspiration, Chest Congestion, Excessive Mucous Production, Change in Mucous Color, Pain with Coughing, Other - Gastrointestinal Gastrointestinal: Abdominal Pain, Bloating, Nausea. absent: Coffee Ground Emesis, Diarrhea, Hematemesis, Melena - Genitourinary Genitourinary: Urinary Incontinence, Urinary Urgency - Musculoskeletal Musculoskeletal: Abnormal Gait, Limited Range of Motion, Muscle Cramps, Muscle Weakness - Integumentary Integumentary: absent: As Per HPI, Acne, Alopecia, Bleeding Lesions, Change in Hair, Change in Nails, Change in Pigmentation, Changing Lesions, Dry Skin, Erythema, Furuncle, Hirsutism, Lesions, New Lesions, Non-Healing Lesions, Photosensitivity, Pruritus, Rash, Skin Pain, Skin Ulcer, Sores, Striae, Swelling , Unusual Bruising, Wounds, Jaundice, Other Past Patient History - Past Medical History & Family History Past Medical History?: Yes - Past Social History Smoking Status: Heavy Smoker > 10 Cigarettes Daily - CARDIAC Hx Cardiac Disorders: No - PULMONARY Hx Respiratory Disorders: No - NEUROLOGICAL Hx Multiple Sclerosis: Yes - HEENT Hx HEENT Problems: No - RENAL Hx Chronic Kidney Disease: Yes Hx Kidney Stones: Yes - ENDOCRINE/METABOLIC Hx Endocrine Disorders: No - HEMATOLOGICAL/ONCOLOGICAL Hx Blood Disorders: No - INTEGUMENTARY Hx Dermatological Problems: No - MUSCULOSKELETAL/RHEUMATOLOGICAL Hx Musculoskeletal Disorders: No - GASTROINTESTINAL Hx Gastrointestinal Disorders: No - GENITOURINARY/GYNECOLOGICAL Hx Genitourinary Disorders: Yes Hx Hematuria: Yes - PSYCHIATRIC Hx Depression: Yes Hx Substance Use: No - SURGICAL HISTORY Hx Surgeries: No - ANESTHESIA Hx Anesthesia: No Meds Allergies/Adverse Reactions: Allergies Allergy/AdvReac Type Severity Reaction Status Date / Time No Known Allergies Allergy Verified 03/18/17 13:37 Physical Exam - Constitutional Appears: Non-toxic - Head Exam Head Exam: ATRAUMATIC - Eye Exam Eye Exam: EOMI, Normal appearance, PERRL - ENT Exam ENT Exam: Mucous Membranes Moist, Normal Exam - Neck Exam Neck exam: Positive for: Normal Inspection - Respiratory Exam Respiratory Exam: Clear to Auscultation Bilateral, NORMAL BREATHING PATTERN - Cardiovascular Exam Cardiovascular Exam: REGULAR RHYTHM, +S1, +S2, +S4 - GI/Abdominal Exam GI & Abdominal Exam: Soft, Tenderness - Rectal Exam Rectal Exam: Deferred - Extremities Exam Extremities exam: Negative for: calf tenderness, joint swelling - Neurological Exam Neurological exam: Alert, CN II-XII Intact, Oriented x3 Results - Vital Signs Recent Vital Signs: Last Vital Signs Temp 98.2 F 03/19/17 07:49 Pulse 97 H 03/19/17 08:00 Resp 20 03/19/17 07:49 BP 132/78 03/19/17 07:49 Pulse Ox 99 03/19/17 07:49 - Labs Result Diagrams: 03/19/17 08:03 03/19/17 08:03 Labs: Laboratory Results - last 24 hr 03/18/17 03/18/17 03/18/17 14:06 14:07 15:42 WBC 8.2 RBC 5.26 Hgb 14.8 Hct 43.9 MCV 83.5 MCH 28.2 MCHC 33.8 RDW 13.3 Plt Count 366 MPV 10.0 Neut % (Auto) 91.7 H Lymph % (Auto) 3.0 L [place] % (Auto) 5.1 Eos % (Auto) 0.0 Baso % (Auto) 0.2 Neut # 7.6 H Lymph # 0.2 L [place] # 0.4 Eos # 0.0 Baso # 0.0 Neutrophils % (Manual) 57 Band Neutrophils % 27 H* Lymphocytes % (Manual) 8 L Monocytes % (Manual) 7 Eosinophils % (Manual) 1 Platelet Estimate Normal Polychromasia Hypochromasia (manual) Microcytosis (manual) Ovalocytes Slight Jayme Cells PT INR APTT pO2 VBG pH VBG pCO2 VBG HCO3 VBG Total CO2 VBG O2 Sat (Calc) VBG Base Excess VBG Potassium Glucose Lactate Sodium 137 Potassium 4.1 Chloride 101 Carbon Dioxide 25 Anion Gap 15 BUN 18 Creatinine 1.1 Est GFR ( Amer) > 60 Est GFR (Non-Af Amer) > 60 Random Glucose 133 H Calcium 8.8 Total Bilirubin 1.2 AST 27 ALT 54 Alkaline Phosphatase 87 Total Protein 7.9 Albumin 3.8 Globulin 4.1 H Albumin/Globulin Ratio 0.9 L Lipase 52 Venous Blood Potassium Urine Color Kenna Urine Clarity Hazy Urine pH 5.0 Ur Specific [place] 1.020 Urine Protein 2+ H Urine Glucose (UA) Normal Urine Ketones Trace Urine Blood 1+ H Urine Nitrate Negative Urine Bilirubin Negative Urine Urobilinogen 4.0 Ur Leukocyte Esterase Trace Urine WBC (Auto) 57 H Urine RBC (Auto) 24 H Ur Squamous Epith Cells 2 Urine Bacteria Occ H Blood Type Antibody Screen 03/18/17 03/18/17 03/18/17 15:42 15:49 15:53 WBC RBC Hgb Hct MCV MCH MCHC RDW Plt Count MPV Neut % (Auto) Lymph % (Auto) [place] % (Auto) Eos % (Auto) Baso % (Auto) Neut # Lymph # [place] # Eos # Baso # Neutrophils % (Manual) Band Neutrophils % Lymphocytes % (Manual) Monocytes % (Manual) Eosinophils % (Manual) Platelet Estimate Polychromasia Hypochromasia (manual) Microcytosis (manual) Ovalocytes [place] Cells PT 14.8 H INR 1.3 APTT 27 pO2 21 L VBG pH 7.38 VBG pCO2 41 VBG HCO3 22.6 VBG Total CO2 25.6 VBG O2 Sat (Calc) 42.9 VBG Base Excess -0.8 L VBG Potassium 4.0 Glucose 112 H Lactate 1.7 Sodium 137.0 Potassium Chloride 105.0 Carbon Dioxide Anion Gap BUN Creatinine Est GFR ( Amer) Est GFR (Non-Af Amer) Random Glucose Calcium Total Bilirubin AST ALT Alkaline Phosphatase Total Protein Albumin Globulin Albumin/Globulin Ratio Lipase Venous Blood Potassium 4.0 Urine Color Urine Clarity Urine pH Ur Specific [place] Urine Protein Urine Glucose (UA) Urine Ketones Urine Blood Urine Nitrate Urine Bilirubin Urine Urobilinogen Ur Leukocyte Esterase Urine WBC (Auto) Urine RBC (Auto) Ur Squamous Epith Cells Urine Bacteria Blood Type A POSITIVE Antibody Screen Negative 03/18/17 03/19/17 03/19/17 16:02 08:03 08:03 WBC 7.2 RBC 4.06 L Hgb 11.5 L D Hct 33.3 L MCV 82.1 MCH 28.4 MCHC 34.6 RDW 13.3 Plt Count 249 D MPV 9.4 Neut % (Auto) 85.9 H Lymph % (Auto) 6.3 L [place] % (Auto) 7.6 Eos % (Auto) 0.1 Baso % (Auto) 0.1 Neut # 6.2 Lymph # 0.5 L [place] # 0.5 Eos # 0.0 Baso # 0.0 Neutrophils % (Manual) 84 H Band Neutrophils % 6 H Lymphocytes % (Manual) 7 L Monocytes % (Manual) 3 Eosinophils % (Manual) Platelet Estimate Normal Polychromasia Slight Hypochromasia (manual) Slight Microcytosis (manual) Slight Ovalocytes Slight [place] Cells Slight PT INR APTT pO2 VBG pH VBG pCO2 VBG HCO3 VBG Total CO2 VBG O2 Sat (Calc) VBG Base Excess VBG Potassium Glucose Lactate Sodium 138 Potassium 3.8 Chloride 106 Carbon Dioxide 25 Anion Gap 10 BUN 14 Creatinine 0.7 L Est GFR ( Amer) > 60 Est GFR (Non-Af Amer) > 60 Random Glucose 74 L Calcium 7.7 L Total Bilirubin 1.6 H AST 28 ALT 56 Alkaline Phosphatase 72 Total Protein 4.7 L Albumin 2.6 L D Globulin 2.1 L Albumin/Globulin Ratio 1.2 Lipase 53 Venous Blood Potassium Urine Color Urine Clarity Urine pH Ur Specific [place] Urine Protein Urine Glucose (UA) Urine Ketones Urine Blood Urine Nitrate Urine Bilirubin Urine Urobilinogen Ur Leukocyte Esterase Urine WBC (Auto) Urine RBC (Auto) Ur Squamous Epith Cells Urine Bacteria Blood Type Antibody Screen Assessment & Plan (1) Perforated abdominal viscus Status: Acute Comment: SURGICALLY CORRECTED (2) Neurogenic bladder Status: Chronic (3) Mass of left kidney Status: Chronic Comment: INCREASE IN SIZE . URO EVAL (4) Multiple sclerosis Status: Chronic
--- NOTE | 2017-03-19 22:16 | CARD ---
APPROVED REPORT EKG Measurement Heart [id number] <Conclusion> Sinus tachycardia Right bundle branch block Abnormal ECG
[2017-03-20] MEDS: Lactated Ringer's 1,000 ML IV SCH (01:20)
[2017-03-20] MEDS: metroNIDAZOLE IV 500 mg/100 ml 500 MG/100 ML BAG IVPB SCH ×3 (05:35→21:16)
[2017-03-20 06:37] LABS: BASO % 0.1 % (0.0-2.0); EOS % 0.1 % (0.0-4.0); HEMATOCRIT 33.1 % (35.0-51.0); LYMPH # 0.3 K/uL (1.0-4.3); LYMPH % 3.4 % (20.0-40.0); MEAN CELL VOLUME 82.3 fL (80.0-94.0); MEAN CORPUSCULAR HEMOGLOBIN 28.3 pg (27.0-31.0); MEAN CORPUSCULAR HGB CONC 34.4 g/dL (33.0-37.0); MEAN PLATELET VOLUME 9.6 fL (7.2-11.7); MONO # 0.5 K/uL (0.0-0.8); MONO % 6.2 % (0.0-10.0); PLATELET COUNT 242 K/uL (130-400); RED CELL DISTRIBUTION WIDTH 13.1 % (11.5-14.5); WHITE BLOOD COUNT 8.2 K/uL (4.8-10.8)
[2017-03-20 06:59] LABS: ALB/GLOB RATIO 0.8 (1.0-2.1); ALKALINE PHOSPHATASE 76 U/L (38-126); ALT/SGPT 47 U/L (21-72); AST/SGOT 27 U/L (17-59); BILIRUBIN,TOTAL 0.9 mg/dL (0.2-1.3); BLOOD UREA NITROGEN 12 mg/dL (9-20); CALCIUM 7.8 mg/dl (8.6-10.4); CARBON DIOXIDE 24 mmol/L (22-30); CHLORIDE 101 mmol/L (98-107); GFR AFRICAN-AMERICAN > 60; GLUCOSE,RANDOM 65 mg/dL (75-110); POTASSIUM 3.4 mmol/L (3.6-5.2); SODIUM 130 mmol/L (132-148); TOTAL PROTEIN 5.8 g/dL (6.3-8.3)
--- NOTE | 2017-03-20 07:49 | CON ---
DATE: 03/19/2017 REASON FOR THE CONSULTATION: Multiple sclerosis. CHIEF COMPLAINT: The patient was brought in as per the advise of mine because of history of persistent vomiting and throwing up, could not be able to keep his food down. HISTORY OF PRESENT ILLNESS: Mr. Antonio Jose is a 61-year-old right-handed [place] male, who is known to me for more than 15 years, been diagnosed for multiple sclerosis, failed with 2 to 3 drugs for MS, been treated recently with Lemtrada infusion few months ago, been stable at home, recently developed gastrointestinal symptoms. The patient's called in last week for the management of his persistent nausea, vomiting. The patient was advised to brought into [facility] for further evaluation, if symptoms persist. During the hospitalization, the patient was found to have perforated duodenal ulcer, who had undergone emergency surgery by laparotomy and repair of the ulcer with Rubio patch. PAST MEDICAL HISTORY: As stated above. PERSONAL HISTORY: He is a constant smoker. No alcohol use. He is wheelchair-bound. REVIEW OF SYSTEMS: Twelve-point system had been reviewed. From neuro, existing multiple sclerosis. MEDICATIONS: Cipro, Flagyl, morphine, pantoprazole, and ondansetron. PHYSICAL EXAMINATION: VITAL SIGNS: Blood pressure 122/80, mean arterial pressure 94, respiratory rate 16, temperature is afebrile. NECK: Supple. No carotid bruit. HEART: Sounds are regular. CHEST: Fair air entry. EXTREMITIES: No edema in legs. NEUROLOGIC: The patient is awake, alert, and oriented to person, place. Speech is coherent. He follows 1 to 2 step command. No right and left confusion. Cranial nerves: Visual field intact. Pupils react to light. Extraocular movement normal. No nystagmus. No facial sensory deficit. No facial asymmetry. Tone is increased in all 4 extremities. Deep tendon reflexes 2+, both knees are 2+, both ankles are absent. Plantars are upgoing on both sides. Sensory: Responds to pain symmetrically on both sides. Coordination is deferred at this time. The patient did have surgery and surgical dressing had been noted with drainage. LABORATORY WORKUP: WBC 8.2, hemoglobin 14.8, hematocrit 43.9, bands 27. PT 14.8, INR 1.3, PTT 27. Urinalysis; 2+ proteinuria, 1+ blood, and 54 wbc's noted. CONCLUSION: Mr. Antonio Jose has been presenting with gastroenterological system problem manifesting with persistent nausea and vomiting with the diagnosis of perforated duodenal ulcer, been repaired. At present from neurological point of view, stable. No further workup is needed. The patient has to be followed by study director for further management. When he is stable, the patient should get physical therapy while he is in the hospital. The patient will be followed while he is in the hospital. Tariq Pelayo MD
--- NOTE | 2017-03-20 08:05 | CP.PCM.PN ---
Subjective - Date & Time of Evaluation Date of Evaluation: 03/20/17 Time of Evaluation: 08:03 - Subjective Subjective: General Surgery: Dr Damon Pt S&E. BRANDON. Resting comfortably. Has not been OOB to ambulate yet. Denies N/V, F/C. Making adequate urine. Objective - Vital Signs/Intake and Output Vital Signs (last 24 hours): Temp Pulse Resp BP Pulse Ox 98.2 F 97 H 20 148/86 96 03/20/17 04:08 03/20/17 04:11 03/20/17 04:08 03/20/17 04:08 03/20/17 04:08 Intake and Output: 03/20/17 03/20/17 06:59 18:59 Intake Total 1150 Output Total 690 Balance 460 - Medications Medications: Current Medications Ciprofloxacin (Cipro 400mg/200ml Dsw) 400 mg in 200 mls @ 133 mls/hr IVPB Q12H [facility] Last Admin: 03/19/17 19:16 Dose: 133 mls/hr Metronidazole (Flagyl) 500 mg in 100 mls @ 100 mls/hr IVPB Q8 [facility] Last Admin: 03/20/17 05:35 Dose: 100 mls/hr Acyclovir 100 mg/ Sodium (Chloride) 100 mls @ 100 mls/hr IV Q8H [facility] Sodium Chloride (Sodium Chloride 0.9%) 1,000 mls @ 125 mls/hr IV .Q8H [facility] Morphine Sulfate (Morphine) 4 mg IVP Q6H PRN PRN Reason: Pain, severe (8-10) Morphine Sulfate (Morphine) 2 mg IVP Q4 PRN PRN Reason: Pain, moderate (4-7) Ondansetron HCl (Zofran Inj) 4 mg IVP Q6H PRN PRN Reason: Nausea/Vomiting Pantoprazole Sodium (Protonix Inj) 40 mg IVP DAILY [facility] Last Admin: 03/19/17 11:18 Dose: 40 mg Pneumococcal Polyvalent Vaccine (Pneumovax 23 Vaccine) 0.5 ml IM .ONCE ONE Stop: 03/21/17 10:01 - Labs Labs: 03/20/17 06:23 03/20/17 06:23 PT 14.8 SECONDS (9.7-12.2) H 03/18/17 15:42 INR 1.3 03/18/17 15:42 APTT 27 SECONDS (21-34) 03/18/17 15:42 - Constitutional Appears: Non-toxic, No Acute Distress - ENT Exam ENT Exam: Mucous Membranes Dry - Respiratory Exam Respiratory Exam: absent: Accessory Muscle Use, Respiratory Distress - Cardiovascular Exam Cardiovascular Exam: REGULAR RHYTHM - GI/Abdominal Exam GI & Abdominal Exam: Soft, Tenderness (post-op and appropriate). absent: Distended, Firm, Guarding - Neurological Exam Neurological Exam: Alert, Awake, Oriented x3 - Psychiatric Exam Psychiatric exam: Normal Affect, Normal Mood - Skin Skin Exam: Normal Color, Warm Assessment and Plan - Assessment and Plan (Free Text) Assessment: 61M POD#2 s/p ex-lap with Rubio patch repair of perforated duodenal ulcer Plan: keep NGT to LIS being seen by urology for neurogenic bladder - continue breen will order physical therapy LR switched to NS given hyponatremia K+ replaced will monitor closely d/w Dr Nelson Paniagua, PGY3
[2017-03-20] MEDS: Ciprofloxacin 400mg/200ml D5W 400 MG/200 ML BAG IVPB SCH ×2 (08:12→19:56)
--- NOTE | 2017-03-20 08:44 | CON ---
DATE: 03/19/2017 UROLOGY CONSULTATION REASON FOR CONSULTATION: Postop retention. HISTORY OF PRESENT ILLNESS: History is from the patient and from the and he is here at the bedside actually with his mother, and the patient. The patient is a very pleasant 61-year-old gentleman. He comes in with a perforated ulcer and he underwent a surgical resection last night and repair as an emergency operation. Urology is consulted for urinary retention. However, his baseline is quite sometime ago he had seen Dr. Tovar, his urologist for one visit and then has not recently seen anybody. He has multiple sclerosis. He voids with urinary frequency. He has difficulty ambulating, getting out of bed. He is not sure whether he empties his bladder all the way and that is difficult for him to assess, but he is going frequently anywhere from every 20 minutes to every hour round the clock. Right now, he has a Montanez catheter in place. I am not sure of the exact volume for this catheter (although, this may irrelevant even if it was. The patient may have come in very dry with the perforation and tachycardia and potential sepsis). From urology standpoint, he currently has an indwelling Montanez catheter and he is relatively comfortable and Urology is consulted for further recommendations. Past medical and surgical as listed on the chart. SOCIAL HISTORY: As mentioned. PHYSICAL EXAMINATION: GENERAL: He is a well-nourished male. He is currently resting comfortably in his bed. He has an NG tube still in place and he has a Montanez catheter draining clear yellow urine. RECTAL: Deferred at this point (that will be a plan). DIAGNOSES: Voiding dysfunction, urinary frequency, possible urinary retention. PLAN: The plan is as follows. He is a very pleasant gentleman who is 61 years old. I explained to the patient, the family, I believe multiple issues including enlargement of his prostate, it could also be neurologic involvement secondary to his multiple sclerosis. The recommended testing would be cystograms, cystoscopy and a urodynamic study. The timing will need to be worked out. I have to find out if there is urodynamics available in this hospital. We can still perform a cystogram. Either way, for now, the patient is definitely more comfortable with an indwelling Montanez catheter and not have to run to the bathroom, so for now, we are going to leave that catheter. The plan is as follows, therefore, 1. PSA. 2. Maintain Montanez. 3. We will discuss workup and testing and the timing depending on the patient's clinical course. Thank you for the urology consult. Daniel Nation MD
[2017-03-20] MEDS: Sodium Chloride 0.9% 1,000 ML IV SCH ×2 (08:54→21:17)
[2017-03-20 09:35] LABS: NEUTROPHIL 86 % (50-75); TOTAL CELLS COUNTED 100
[2017-03-20] MEDS ORDERED: SODIUM CHLORIDE 0.9% IV SCH ×2 (10:00→14:00)
[2017-03-20] MEDS ORDERED: ACYCLOVIR IV SCH ×2 (10:00→14:00)
--- NOTE | 2017-03-20 11:00 | PN ---
DATE: NEUROLOGICAL PROBLEM: End-stage multiple sclerosis. The patient did undergo laparotomy for his duodenal ulcer. Still he is n.p.o. PHYSICAL EXAMINATION: Unchanged. The patient used to take acyclovir for his antiviral prophylaxis because being under Lemtrada treatment. Because of the n.p.o., the medications can be switched to acyclovir IV form 100 mg q.8 hour period for now. When the patient tolerated p.o., then we will switch to acyclovir p.o. 400 mg daily. The patient will be followed closely with you. Tariq Pelayo MD
--- NOTE | 2017-03-20 13:30 | CP.PCM.PN ---
Subjective - Date & Time of Evaluation Date of Evaluation: 03/20/17 Time of Evaluation: 13:27 - Subjective Subjective: CHIEF COMPLAINTS TODAY : DOES NOT GIVE ANY COMPLAINTS ROS. HEENT : N. Resp : No cough, wheezing ,pleuritic CP ,or hemoptysis Cardio : No anginal CP, PND, orthopnea, palpitation GI : No abd.pain, n/v ,diarrhea or GI bleeding . REGIONAL CRA : No headache, vertigo, focal deficit. Musculoskel : No joint swelling , Derm : No rash Psych : Normal affect. Ext : No swelling ,calf pain PE. Pt. is alert awake in no distress. V.S As noted in the chart Head ,ear nose,throat and eyes : Normal. Neck : Supple with normal carotids. Lungs: Clear air entry. Heart : S1 & S2 normal with S4. No murmur. Abd : Soft non tender with normal bowel sounds. POST OP Neuro : Moves all ext. with no POOR POOR Ext : No edema with intact pulses.Non tender calves Derm : No rashes or decubitus ulcer. LABS/RADIOLOGY: ASSESSMENT/PLAN : PT. WAS RECENTLY ON LEVATRAD FOR MS, MONOCLONAL AB , ON PROPHYLACTIC IV ZOVIREX UNEVENTFUL POST OP RECOVERY NEED TO D/W UROLOGY OF LEFT KIDNEY MASS Objective - Vital Signs/Intake and Output Vital Signs (last 24 hours): Temp Pulse Resp BP Pulse Ox 98.2 F 96 H 20 148/86 96 03/20/17 04:08 03/20/17 13:06 03/20/17 04:08 03/20/17 04:08 03/20/17 04:08 Intake and Output: 03/20/17 03/20/17 11:59 23:59 Intake Total 1150 Output Total 805 Balance 345 - Medications Medications: Current Medications Ciprofloxacin (Cipro 400mg/200ml Dsw) 400 mg in 200 mls @ 133 mls/hr IVPB Q12H [facility] Last Admin: 03/20/17 08:12 Dose: 133 mls/hr Metronidazole (Flagyl) 500 mg in 100 mls @ 100 mls/hr IVPB Q8 [facility] Last Admin: 03/20/17 13:25 Dose: 100 mls/hr Sodium Chloride (Sodium Chloride 0.9%) 1,000 mls @ 125 mls/hr IV .Q8H [facility] Last Admin: 03/20/17 08:54 Dose: 125 mls/hr Acyclovir 100 mg/ Sodium (Chloride) 100 mls @ 100 mls/hr IV Q8H [facility] Morphine Sulfate (Morphine) 4 mg IVP Q6H PRN PRN Reason: Pain, severe (8-10) Morphine Sulfate (Morphine) 2 mg IVP Q4 PRN PRN Reason: Pain, moderate (4-7) Last Admin: 03/20/17 10:03 Dose: 2 mg Ondansetron HCl (Zofran Inj) 4 mg IVP Q6H PRN PRN Reason: Nausea/Vomiting Pantoprazole Sodium (Protonix Inj) 40 mg IVP DAILY [facility] Last Admin: 03/20/17 10:03 Dose: 40 mg Pneumococcal Polyvalent Vaccine (Pneumovax 23 Vaccine) 0.5 ml IM .ONCE ONE Stop: 03/21/17 10:01 - Labs Labs: 03/20/17 06:23 03/20/17 06:23 PT 14.8 SECONDS (9.7-12.2) H 03/18/17 15:42 INR 1.3 03/18/17 15:42 APTT 27 SECONDS (21-34) 03/18/17 15:42 Assessment and Plan (1) Perforated abdominal viscus Status: Acute (2) Neurogenic bladder Status: Chronic (3) Mass of left kidney Status: Chronic (4) Multiple sclerosis Status: Chronic
--- NOTE | 2017-03-20 16:11 | RAD ---
HISTORY: congested COMPARISON: 03/18/2017 FINDINGS: LUNGS: Minimal left basal infiltrate and/or atelectasis and/or pleural effusion possible given left hemidiaphragmatic obscuration PLEURA: No significant right pleural effusion identified ; minimal left pleural effusion not excluded, no pneumothorax apparent. CARDIOVASCULAR: Cardiomegaly similar. Central pulmonary vasculature minimally prominent-not significantly changed. Some central perihilar cystic emphysematous changes not excluded. OSSEOUS STRUCTURES: Unremarkable VISUALIZED UPPER ABDOMEN: The prior right subdiaphragmatic free air is not real produced on this semi-erect portable operate OTHER FINDINGS: The NG tube insertion tip probably in stomach multiple overlying lines wires leads over lower chest upper abdomen IMPRESSION: Right subdiaphragmatic free air no longer seen- re-absorption inferred Cardiomegaly as before. Small left pleural effusion possible. Left hemidiaphragm obscured -contiguous left pleural effusion, minimal infiltrate here and/or minimal atelectasis - are all considerations.
--- NOTE | 2017-03-20 22:04 | PCM.URO ---
Urology Progress Note - Objective Lab Studies: Reviewed (no gu change maintain breen) Lab Results Last 24 Hours: Laboratory Results - last 24 hr 03/20/17 03/20/17 06:23 06:23 WBC 8.2 RBC 4.02 L Hgb 11.4 L Hct 33.1 L MCV 82.3 MCH 28.3 MCHC 34.4 RDW 13.1 Plt Count 242 MPV 9.6 Neut % (Auto) 90.2 H Lymph % (Auto) 3.4 L [place] % (Auto) 6.2 Eos % (Auto) 0.1 Baso % (Auto) 0.1 Neut # 7.4 H Lymph # 0.3 L [place] # 0.5 Eos # 0.0 Baso # 0.0 Neutrophils % (Manual) 86 H Band Neutrophils % 8 H Lymphocytes % (Manual) 2 L Monocytes % (Manual) 4 Platelet Estimate Normal Polychromasia Slight Hypochromasia (manual) Slight Ovalocytes Slight [place] Cells Slight Sodium 130 L Potassium 3.4 L Chloride 101 Carbon Dioxide 24 Anion Gap 8 L BUN 12 Creatinine 0.6 L Est GFR ( Amer) > 60 Est GFR (Non-Af Amer) > 60 Random Glucose 65 L Calcium 7.8 L Total Bilirubin 0.9 AST 27 ALT 47 Alkaline Phosphatase 76 Total Protein 5.8 L Albumin 2.6 L Globulin 3.3 Albumin/Globulin Ratio 0.8 L Intake & Output: Intake & Output 03/20/17 03/20/17 03/21/17 06:59 18:59 06:59 Intake Total 1150 1025 Output Total 805 950 Balance 345 75 Intake: Intake, IV Amount 1150 1025 Left Antecubital 1150 1025 Oral 0 Output: Gastric Amount 80 310 Left Nares 80 310 Drainage 125 340 Right Abdomen 125 340 Urine 600 300 Urethral (Beren) 600 300 Vital Signs: Vital Signs - 24 hr 03/19/17 03/20/17 03/20/17 23:15 00:18 00:59 Temperature 98.1 F Pulse Rate 102 H 122 H 103 H Respiratory 20 Rate Blood Pressure 128/81 O2 Sat by Pulse 95 Oximetry 03/20/17 03/20/17 03/20/17 04:08 04:11 07:06 Temperature 98.2 F Pulse Rate 99 H 97 H 100 H Respiratory 20 Rate Blood Pressure 148/86 O2 Sat by Pulse 96 Oximetry 03/20/17 03/20/17 03/20/17 13:06 15:45 16:00 Temperature 98.2 F Pulse Rate 96 H 67 95 H Respiratory 20 Rate Blood Pressure 130/77 O2 Sat by Pulse 94 L Oximetry
[2017-03-20] MEDS: WATER IV SCH (22:49)
[2017-03-20] MEDS: DEXTROSE 5% IV SCH (22:49)
[2017-03-20] MEDS: ACYCLOVIR IV SCH (22:49)
[2017-03-21] MEDS: metroNIDAZOLE IV 500 mg/100 ml 500 MG/100 ML BAG IVPB SCH ×3 (05:15→23:31)
[2017-03-21] MEDS: DEXTROSE 5% IV SCH ×3 (06:22→22:03)
[2017-03-21] MEDS: ACYCLOVIR IV SCH ×3 (06:22→22:03)
[2017-03-21] MEDS: WATER IV SCH ×3 (06:22→22:03)
[2017-03-21 06:52] LABS: BASO % 0.5 % (0.0-2.0); EOS # 0.1 K/uL (0.0-0.7); EOS % 1.4 % (0.0-4.0); HEMATOCRIT 31.6 % (35.0-51.0); LYMPH # 0.3 K/uL (1.0-4.3); LYMPH % 3.7 % (20.0-40.0); MEAN CELL VOLUME 81.1 fL (80.0-94.0); MEAN CORPUSCULAR HEMOGLOBIN 28.2 pg (27.0-31.0); MEAN CORPUSCULAR HGB CONC 34.7 g/dL (33.0-37.0); MEAN PLATELET VOLUME 9.4 fL (7.2-11.7); MONO # 0.5 K/uL (0.0-0.8); MONO % 6.8 % (0.0-10.0); PLATELET COUNT 252 K/uL (130-400); RED CELL DISTRIBUTION WIDTH 13.3 % (11.5-14.5); WHITE BLOOD COUNT 6.8 K/uL (4.8-10.8)
[2017-03-21 07:07] LABS: ALB/GLOB RATIO 0.8 (1.0-2.1); ALKALINE PHOSPHATASE 60 U/L (38-126); ALT/SGPT 33 U/L (21-72); AST/SGOT 31 U/L (17-59); BILIRUBIN,TOTAL 0.7 mg/dL (0.2-1.3); BLOOD UREA NITROGEN 13 mg/dL (9-20); CALCIUM 7.5 mg/dl (8.6-10.4); CARBON DIOXIDE 24 mmol/L (22-30); CHLORIDE 102 mmol/L (98-107); GFR AFRICAN-AMERICAN > 60; GLUCOSE,RANDOM 65 mg/dL (75-110); POTASSIUM 3.4 mmol/L (3.6-5.2); SODIUM 132 mmol/L (132-148); TOTAL PROTEIN 5.4 g/dL (6.3-8.3)
--- NOTE | 2017-03-21 08:09 | PN ---
NEUROLOGICAL PROBLEM: End-stage multiple sclerosis, stable status post Lemtrada. Status post laparotomy surgery for duodenal ulcer. PHYSICAL EXAMINATION: VITAL SIGNS: Blood pressure 113/71, mean arterial pressure of 85, respiratory rate 18, temperature 98.6, pulse rate 89 and regular. NEUROLOGIC: The patient is comfortably lying down in the bed. Mentation is normal. Speech is intact and he moves all 4 extremities. ASSESSMENT: The patient is neurologically stable. The patient has been getting acyclovir intravenous because of prophylactic measures because of Lemtrada. Lemtrada infusion in the past. RECOMMENDATION: Continue the present management. When the patient is stable to get p.o., at that point acyclovir IV can be switched to acyclovir 400 mg once a day. From neurological point of view, no further workup is needed. When medically stable, the patient can be discharged and should have followup visit with me as outpatient. Tariq Pelayo MD
[2017-03-21] MEDS: Ciprofloxacin 400mg/200ml D5W 400 MG/200 ML BAG IVPB SCH ×2 (08:19→20:25)
[2017-03-21 09:01] LABS: EOSINOPHIL 1 % (0-4); NEUTROPHIL 90 % (50-75); TOTAL CELLS COUNTED 100
[2017-03-21] MEDS ORDERED: Pneumococcal 23-Valent Vaccine IM ONE (10:00)
--- NOTE | 2017-03-21 13:25 | CP.PCM.PN ---
Subjective - Date & Time of Evaluation Date of Evaluation: 03/21/17 Time of Evaluation: 13:24 - Subjective Subjective: CHIEF COMPLAINTS TODAY : DOES NOT GIVE ANY COMPLAINTS POST OP ROS. HEENT : N. Resp : No cough, wheezing ,pleuritic CP ,or hemoptysis Cardio : No anginal CP, PND, orthopnea, palpitation GI : No abd.pain, n/v ,diarrhea or GI bleeding . 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 Musculoskel : No joint swelling , Derm : No rash Psych : Normal affect. Ext : No swelling ,calf pain PE. Pt. is alert awake in no distress. V.S As noted in the chart Head ,ear nose,throat and eyes : Normal. Neck : Supple with normal carotids. Lungs: Clear air entry. Heart : S1 & S2 normal with S4. No murmur. Abd : Soft non tender with normal bowel sounds. POST OP Neuro : Moves all ext. with no POOR POOR Ext : No edema with intact pulses.Non tender calves Derm : No rashes or decubitus ulcer. LABS/RADIOLOGY: ASSESSMENT/PLAN : PT. WAS RECENTLY ON LEVATRAD FOR MS, MONOCLONAL AB , ON PROPHYLACTIC IV ZOVIREX PER SURGERY POST OP CARE NEED TO D/W UROLOGY OF LEFT KIDNEY MASS Objective - Vital Signs/Intake and Output Vital Signs (last 24 hours): Temp Pulse Resp BP Pulse Ox 97.2 F L 90 18 134/73 95 03/21/17 08:02 03/21/17 11:44 03/21/17 08:02 03/21/17 08:02 03/21/17 11:44 Intake and Output: 03/21/17 03/21/17 11:59 23:59 Intake Total 950 Output Total 465 Balance 485 - Medications Medications: Current Medications Ciprofloxacin (Cipro 400mg/200ml Dsw) 400 mg in 200 mls @ 133 mls/hr IVPB Q12H [facility] Last Admin: 03/21/17 08:19 Dose: 133 mls/hr Metronidazole (Flagyl) 500 mg in 100 mls @ 100 mls/hr IVPB Q8 [facility] Last Admin: 03/21/17 05:15 Dose: 100 mls/hr Sodium Chloride (Sodium Chloride 0.9%) 1,000 mls @ 125 mls/hr IV .Q8H [facility] Last Admin: 03/20/17 21:17 Dose: 125 mls/hr Acyclovir 100 mg/ Dextrose 100 mls @ 100 mls/hr IV Q8H [facility] Last Admin: 03/21/17 06:22 Dose: 100 mls/hr Morphine Sulfate (Morphine) 4 mg IVP Q6H PRN PRN Reason: Pain, severe (8-10) Morphine Sulfate (Morphine) 2 mg IVP Q4 PRN PRN Reason: Pain, moderate (4-7) Last Admin: 03/20/17 18:36 Dose: 2 mg Ondansetron HCl (Zofran Inj) 4 mg IVP Q6H PRN PRN Reason: Nausea/Vomiting Pantoprazole Sodium (Protonix Inj) 40 mg IVP DAILY [facility] Last Admin: 03/21/17 10:29 Dose: 40 mg - Labs Labs: 03/21/17 06:33 03/21/17 06:33 PT 14.8 SECONDS (9.7-12.2) H 03/18/17 15:42 INR 1.3 03/18/17 15:42 APTT 27 SECONDS (21-34) 03/18/17 15:42 Assessment and Plan (1) Perforated abdominal viscus Status: Acute (2) Neurogenic bladder Status: Chronic (3) Mass of left kidney Status: Chronic (4) Multiple sclerosis Status: Chronic
[2017-03-21] MEDS: Sodium Chloride 0.9% 1,000 ML IV SCH ×2 (14:15→18:06)
--- NOTE | 2017-03-21 14:22 | CP.PCM.PN ---
Subjective - Date & Time of Evaluation Date of Evaluation: 03/21/17 Time of Evaluation: 08:45 - Subjective Subjective: General Surgery Dr. Damon Pt S&E @bedside. NAEO. John in better spirits today. No complaints. Denies F/C, N/ V, D/C. currently NPO Objective - Vital Signs/Intake and Output Vital Signs (last 24 hours): Temp Pulse Resp BP Pulse Ox 97.2 F L 90 18 134/73 95 03/21/17 08:02 03/21/17 11:44 03/21/17 08:02 03/21/17 08:02 03/21/17 11:44 Intake and Output: 03/21/17 03/21/17 06:59 18:59 Intake Total 1500 Output Total 1075 Balance 425 - Medications Medications: Current Medications Ciprofloxacin (Cipro 400mg/200ml Dsw) 400 mg in 200 mls @ 133 mls/hr IVPB Q12H [facility] Last Admin: 03/21/17 08:19 Dose: 133 mls/hr Metronidazole (Flagyl) 500 mg in 100 mls @ 100 mls/hr IVPB Q8 [facility] Last Admin: 03/21/17 05:15 Dose: 100 mls/hr Sodium Chloride (Sodium Chloride 0.9%) 1,000 mls @ 125 mls/hr IV .Q8H [facility] Last Admin: 03/21/17 14:15 Dose: 125 mls/hr Acyclovir 100 mg/ Dextrose 100 mls @ 100 mls/hr IV Q8H [facility] Last Admin: 03/21/17 14:13 Dose: 100 mls/hr Morphine Sulfate (Morphine) 4 mg IVP Q6H PRN PRN Reason: Pain, severe (8-10) Morphine Sulfate (Morphine) 2 mg IVP Q4 PRN PRN Reason: Pain, moderate (4-7) Last Admin: 03/20/17 18:36 Dose: 2 mg Ondansetron HCl (Zofran Inj) 4 mg IVP Q6H PRN PRN Reason: Nausea/Vomiting Pantoprazole Sodium (Protonix Inj) 40 mg IVP DAILY [facility] Last Admin: 03/21/17 10:29 Dose: 40 mg - Labs Labs: 03/21/17 06:33 03/21/17 06:33 PT 14.8 SECONDS (9.7-12.2) H 03/18/17 15:42 INR 1.3 03/18/17 15:42 APTT 27 SECONDS (21-34) 03/18/17 15:42 - Constitutional Appears: Non-toxic, No Acute Distress - Head Exam Head Exam: NORMAL INSPECTION - Eye Exam Eye Exam: Normal appearance - ENT Exam ENT Exam: Mucous Membranes Moist Additional comments: NGT in place light green drainage present - Respiratory Exam Respiratory Exam: NORMAL BREATHING PATTERN. absent: Accessory Muscle Use, Respiratory Distress - Cardiovascular Exam Cardiovascular Exam: REGULAR RHYTHM. absent: Bradycardia, Tachycardia - GI/Abdominal Exam GI & Abdominal Exam: Soft. absent: Firm, Guarding, Tenderness Additional comments: dressings c/d/i - Exam Additional comments: breen in place - Extremities Exam Extremities Exam: Normal Inspection - Neurological Exam Neurological Exam: Alert, Awake, Oriented x3 - Psychiatric Exam Psychiatric exam: Normal Affect, Normal Mood - Skin Skin Exam: Dry, Normal Color, Warm Assessment and Plan - Assessment and Plan (Free Text) Assessment: 61 y/o M POD#3 s/p ex-lap w/ Rubio patch of perf'ed duodenal ulcer - cont pain management - Encourage OOB to chair/Amb/IS use - aggressive physical therapy - clamp NGT, advance to CLD - cont PTX - cont medical management Pt discussed w/ Dr. Nelson Snyder DO PGY2
--- NOTE | 2017-03-21 23:37 | PCM.URO ---
Urology Progress Note - General General: NPO (NG tube in place) - Subjective Flank Pain: No Voiding Well: No (catheter in place) Chest Pain: No - Objective Lab Studies: Reviewed Lab Results Last 24 Hours: Laboratory Results - last 24 hr 03/21/17 03/21/17 06:33 06:33 WBC 6.8 RBC 3.90 L Hgb 11.0 L Hct 31.6 L MCV 81.1 MCH 28.2 MCHC 34.7 RDW 13.3 Plt Count 252 MPV 9.4 Neut % (Auto) 87.6 H Lymph % (Auto) 3.7 L [place] % (Auto) 6.8 Eos % (Auto) 1.4 Baso % (Auto) 0.5 Neut # 6.0 Lymph # 0.3 L [place] # 0.5 Eos # 0.1 Baso # 0.0 Neutrophils % (Manual) 90 H Lymphocytes % (Manual) 5 L Monocytes % (Manual) 4 Eosinophils % (Manual) 1 Platelet Estimate Normal RBC Morphology Normal Sodium 132 Potassium 3.4 L Chloride 102 Carbon Dioxide 24 Anion Gap 9 L BUN 13 Creatinine 0.6 L Est GFR ( Amer) > 60 Est GFR (Non-Af Amer) > 60 Random Glucose 65 L Calcium 7.5 L Total Bilirubin 0.7 AST 31 ALT 33 Alkaline Phosphatase 60 Total Protein 5.4 L Albumin 2.3 L Globulin 3.0 Albumin/Globulin Ratio 0.8 L Intake & Output: Intake & Output 03/21/17 03/21/17 03/22/17 06:59 18:59 06:59 Intake Total 1500 1200 Output Total 1075 630 Balance 425 570 Intake: Intake, IV Amount 1500 900 Left Antecubital 1500 900 Oral 0 300 Output: Gastric Amount 380 0 Left Nares 380 0 Drainage 120 30 Right Abdomen 120 30 Urine 575 600 Urethral (Montanez) 575 600 Stool 0 Vital Signs: Vital Signs - 24 hr 03/21/17 03/21/17 03/21/17 00:22 08:02 08:27 Temperature 97.2 F L Pulse Rate 87 87 94 H Respiratory 18 Rate Blood Pressure 134/73 O2 Sat by Pulse 95 Oximetry 03/21/17 03/21/17 11:44 16:00 Temperature 98.9 F Pulse Rate 90 95 H Respiratory 20 Rate Blood Pressure 164/77 H O2 Sat by Pulse 95 95 Oximetry Imaging Studies: Reviewed - Physical Exam Abdominal Exam: Soft, Non-Distended Dressing: Intact Back: No CVA Tenderness Genitalia: Without Inflammation Urinary Catheter Draining Well: Yes Urine Color: Yellow - Plan Additional Information: Imp: Stable p laparotomy. urinary catheter in place. L renal mass, prob carcinoma. Multiple sclerosis. Dementia. REC/P: Catheter in place poss trial of voiding t/f, once overall status imporves. and once level of activity increases. Further rx of L renal mass to be considered. Discussed with patient's family, i.e. and son - Date & Time of Note Date: 03/21/17 Time: 16:10
[2017-03-22] MEDS: metroNIDAZOLE IV 500 mg/100 ml 500 MG/100 ML BAG IVPB SCH ×3 (05:12→21:39)
[2017-03-22] MEDS: WATER IV SCH (06:20)
[2017-03-22] MEDS: ACYCLOVIR IV SCH ×2 (06:20→22:35)
[2017-03-22] MEDS: DEXTROSE 5% IV SCH (06:20)
[2017-03-22 08:02] LABS: BASO % 0.2 % (0.0-2.0); EOS # 0.2 K/uL (0.0-0.7); EOS % 2.5 % (0.0-4.0); HEMATOCRIT 31.5 % (35.0-51.0); LYMPH # 0.3 K/uL (1.0-4.3); LYMPH % 4.3 % (20.0-40.0); MEAN CELL VOLUME 81.2 fL (80.0-94.0); MEAN CORPUSCULAR HEMOGLOBIN 28.7 pg (27.0-31.0); MEAN CORPUSCULAR HGB CONC 35.3 g/dL (33.0-37.0); MEAN PLATELET VOLUME 9.1 fL (7.2-11.7); MONO # 0.5 K/uL (0.0-0.8); MONO % 7.8 % (0.0-10.0); PLATELET COUNT 262 K/uL (130-400); RED CELL DISTRIBUTION WIDTH 13.3 % (11.5-14.5); WHITE BLOOD COUNT 6.6 K/uL (4.8-10.8)
[2017-03-22 08:12] LABS: ALKALINE PHOSPHATASE 68 U/L (38-126); ALT/SGPT 32 U/L (21-72); AST/SGOT 29 U/L (17-59); BILIRUBIN,TOTAL 0.7 mg/dL (0.2-1.3); BLOOD UREA NITROGEN 11 mg/dL (9-20); CALCIUM 7.6 mg/dl (8.6-10.4); CARBON DIOXIDE 25 mmol/L (22-30); CHLORIDE 101 mmol/L (98-107); GFR AFRICAN-AMERICAN > 60; GLUCOSE,RANDOM 105 mg/dL (75-110); POTASSIUM 3.4 mmol/L (3.6-5.2); SODIUM 131 mmol/L (132-148); TOTAL PROTEIN 5.6 g/dL (6.3-8.3)
[2017-03-22 08:13] LABS: ALB/GLOB RATIO 0.8 (1.0-2.1)
[2017-03-22] MEDS: Sodium Chloride 0.9% 1,000 ML IV SCH ×2 (08:33→16:25)
[2017-03-22] MEDS: Ciprofloxacin 400mg/200ml D5W 400 MG/200 ML BAG IVPB SCH ×2 (08:34→20:36)
[2017-03-22 09:08] LABS: EOSINOPHIL 1 % (0-4); MYELOCYTE 1 % (0-0); NEUTROPHIL 87 % (50-75); TOTAL CELLS COUNTED 100
--- NOTE | 2017-03-22 09:16 | CP.PCM.PN ---
Subjective - Date & Time of Evaluation Date of Evaluation: 03/22/17 Time of Evaluation: 09:14 - Subjective Subjective: Gen Surg: Dr Damon Pt S&E. BRANDON. Has had NGT clamped for ~24 hours while on CLD. There have been no residuals. Pt has been OOB to chair. Using incentive spirometer. Pain well controlled Objective - Vital Signs/Intake and Output Vital Signs (last 24 hours): Temp Pulse Resp BP Pulse Ox 98.3 F 91 H 20 137/69 95 03/22/17 08:26 03/22/17 08:26 03/22/17 08:26 03/22/17 08:26 03/22/17 08:26 Intake and Output: 03/22/17 03/22/17 06:59 18:59 Intake Total 2200 Output Total 850 Balance 1350 - Medications Medications: Current Medications Ciprofloxacin (Cipro 400mg/200ml Dsw) 400 mg in 200 mls @ 133 mls/hr IVPB Q12H [facility] Last Admin: 03/22/17 08:34 Dose: 133 mls/hr Metronidazole (Flagyl) 500 mg in 100 mls @ 100 mls/hr IVPB Q8 [facility] Last Admin: 03/22/17 05:12 Dose: 100 mls/hr Sodium Chloride (Sodium Chloride 0.9%) 1,000 mls @ 125 mls/hr IV .Q8H [facility] Last Admin: 03/22/17 08:33 Dose: 125 mls/hr Acyclovir 100 mg/ Dextrose 100 mls @ 100 mls/hr IV Q8H [facility] Last Admin: 03/22/17 06:20 Dose: 100 mls/hr Potassium Chloride (Potassium Chloride 20 Meq/100 Ml) 20 meq in 100 mls @ 25 mls/hr IVPB ONCE ONE Stop: 03/22/17 12:59 Morphine Sulfate (Morphine) 4 mg IVP Q6H PRN PRN Reason: Pain, severe (8-10) Morphine Sulfate (Morphine) 2 mg IVP Q4 PRN PRN Reason: Pain, moderate (4-7) Last Admin: 03/20/17 18:36 Dose: 2 mg Ondansetron HCl (Zofran Inj) 4 mg IVP Q6H PRN PRN Reason: Nausea/Vomiting Pantoprazole Sodium (Protonix Inj) 40 mg IVP DAILY [facility] Last Admin: 03/21/17 10:29 Dose: 40 mg - Labs Labs: 03/22/17 07:47 03/22/17 07:47 PT 14.8 SECONDS (9.7-12.2) H 03/18/17 15:42 INR 1.3 03/18/17 15:42 APTT 27 SECONDS (21-34) 03/18/17 15:42 - Constitutional Appears: Non-toxic, No Acute Distress - Head Exam Head Exam: NORMAL INSPECTION - ENT Exam ENT Exam: Mucous Membranes Dry - Respiratory Exam Respiratory Exam: absent: Respiratory Distress - Cardiovascular Exam Cardiovascular Exam: REGULAR RHYTHM. absent: Tachycardia - GI/Abdominal Exam GI & Abdominal Exam: Soft. absent: Distended, Firm, Guarding, Tenderness Additional comments: filiberto serosanguinous - Extremities Exam Extremities Exam: absent: Pedal Edema - Neurological Exam Neurological Exam: Alert, Awake, Oriented x3 - Psychiatric Exam Psychiatric exam: Normal Affect, Normal Mood - Skin Skin Exam: Normal Color, Warm Assessment and Plan - Assessment and Plan (Free Text) Assessment: 61M POD#4 s/p ex-lap with rosa patch of perf duodenal ulcer Plan: cont NGT off suction monitor filiberto for billous output cont CLD OOB and ambulate K+ replaced, Na will be addressed via NS d/w Dr Nelson [place], PGY3
[2017-03-22] MEDS ORDERED: Influenza Vaccine 60 mcg/0.5 mL SYR (4YR UP) IM ONE (10:00)
--- NOTE | 2017-03-22 12:17 | PN ---
DATE: 03/22/2017 TIME OF EVALUATION: 07:10 a.m. NEUROLOGICAL PROBLEM: End-stage multiple sclerosis, which is stable at present. Status post laparotomy for his duodenal ulcer. PHYSICAL EXAMINATION: GENERAL: The patient is on NG tube. NEUROLOGIC: The patient is awake, alert, and oriented to person and place. He moves all 4 extremities. His neuro status is unchanged. ASSESSMENT AND PLAN: When medically stable, the patient can be getting p.o. The patient states that he has been passing gas; however, he did have no bowel movement. Continue the present management and follow up with the recommendation from the head of english. Tariq Pelayo MD MTDD
--- NOTE | 2017-03-22 13:54 | CP.PCM.PN ---
Subjective - Date & Time of Evaluation Date of Evaluation: 03/22/17 Time of Evaluation: 13:53 - Subjective Subjective: CHIEF COMPLAINTS TODAY : DOES NOT GIVE ANY COMPLAINTS POST OP OOB CHAIR ROS. HEENT : N. Resp : No cough, wheezing ,pleuritic CP ,or hemoptysis Cardio : No anginal CP, PND, orthopnea, palpitation GI : No abd.pain, n/v ,diarrhea or GI bleeding . HAND STEMMER : No headache, vertigo, focal deficit. Musculoskel : No joint swelling , Derm : No rash Psych : Normal affect. Ext : No swelling ,calf pain PE. Pt. is alert awake in no distress. V.S As noted in the chart Head ,ear nose,throat and eyes : Normal. Neck : Supple with normal carotids. Lungs: Clear air entry. Heart : S1 & S2 normal with S4. No murmur. Abd : Soft non tender with normal bowel sounds. POST OP Neuro : Moves all ext. with no POOR POOR Ext : No edema with intact pulses.Non tender calves Derm : No rashes or decubitus ulcer. LABS/RADIOLOGY: ASSESSMENT/PLAN : PT. WAS RECENTLY ON LEVATRAD FOR MS, MONOCLONAL AB , ON PROPHYLACTIC IV ZOVIREX PER SURGERY POST OP CARE NEED TO D/W UROLOGY OF LEFT KIDNEY MASS Objective - Vital Signs/Intake and Output Vital Signs (last 24 hours): Temp Pulse Resp BP Pulse Ox 98.3 F 91 H 20 137/69 97 03/22/17 08:26 03/22/17 11:56 03/22/17 08:26 03/22/17 08:26 03/22/17 10:42 Intake and Output: 03/22/17 03/22/17 11:59 23:59 Intake Total 1000 Output Total 220 Balance 780 - Medications Medications: Current Medications Ciprofloxacin (Cipro 400mg/200ml Dsw) 400 mg in 200 mls @ 133 mls/hr IVPB Q12H [facility] Last Admin: 03/22/17 08:34 Dose: 133 mls/hr Metronidazole (Flagyl) 500 mg in 100 mls @ 100 mls/hr IVPB Q8 [facility] Last Admin: 03/22/17 13:23 Dose: 100 mls/hr Sodium Chloride (Sodium Chloride 0.9%) 1,000 mls @ 125 mls/hr IV .Q8H [facility] Last Admin: 03/22/17 08:33 Dose: 125 mls/hr Acyclovir 100 mg/ Sodium (Chloride) 100 mls @ 100 mls/hr IV Q8H [facility] Morphine Sulfate (Morphine) 4 mg IVP Q6H PRN PRN Reason: Pain, severe (8-10) Morphine Sulfate (Morphine) 2 mg IVP Q4 PRN PRN Reason: Pain, moderate (4-7) Last Admin: 03/20/17 18:36 Dose: 2 mg Ondansetron HCl (Zofran Inj) 4 mg IVP Q6H PRN PRN Reason: Nausea/Vomiting Pantoprazole Sodium (Protonix Inj) 40 mg IVP DAILY [facility] Last Admin: 03/22/17 11:08 Dose: 40 mg - Labs Labs: 03/22/17 07:47 03/22/17 07:47 PT 14.8 SECONDS (9.7-12.2) H 03/18/17 15:42 INR 1.3 03/18/17 15:42 APTT 27 SECONDS (21-34) 03/18/17 15:42 Assessment and Plan (1) Perforated abdominal viscus Status: Acute (2) Neurogenic bladder Status: Chronic (3) Mass of left kidney Status: Chronic (4) Multiple sclerosis Status: Chronic
[2017-03-22] MEDS: SODIUM CHLORIDE 0.9% IV SCH (22:35)
[2017-03-23] MEDS: Sodium Chloride 0.9% 1,000 ML IV SCH ×4 (00:48→18:59)
[2017-03-23] MEDS: SODIUM CHLORIDE 0.9% IV SCH ×4 (05:33→23:17)
[2017-03-23] MEDS: ACYCLOVIR IV SCH ×4 (05:33→23:17)
[2017-03-23] MEDS: metroNIDAZOLE IV 500 mg/100 ml 500 MG/100 ML BAG IVPB SCH ×3 (05:34→22:18)
[2017-03-23 06:41] LABS: BASO % 0.3 % (0.0-2.0); EOS # 0.3 K/uL (0.0-0.7); EOS % 5.1 % (0.0-4.0); LYMPH # 0.3 K/uL (1.0-4.3); LYMPH % 4.4 % (20.0-40.0); MEAN CELL VOLUME 81.5 fL (80.0-94.0); MEAN CORPUSCULAR HEMOGLOBIN 28.5 pg (27.0-31.0); MEAN CORPUSCULAR HGB CONC 34.9 g/dL (33.0-37.0); MEAN PLATELET VOLUME 8.8 fL (7.2-11.7); MONO # 0.5 K/uL (0.0-0.8); MONO % 8.3 % (0.0-10.0); PLATELET COUNT 253 K/uL (130-400); RED CELL DISTRIBUTION WIDTH 13.1 % (11.5-14.5); WHITE BLOOD COUNT 6.5 K/uL (4.8-10.8)
--- NOTE | 2017-03-23 08:01 | CP.PCM.PN ---
Subjective - Date & Time of Evaluation Date of Evaluation: 03/23/17 Time of Evaluation: 12:04 - Subjective Subjective: Surgery Progress note. Dr. Damon Patient seen and examined at bedside. No acute events overnight. Tolerating CLD. No N/V/D. No F/C. Ambulating with room. Pulled out his NG tube yesterday. Objective - Vital Signs/Intake and Output Vital Signs (last 24 hours): Temp Pulse Resp BP Pulse Ox 98.6 F 87 20 154/89 H 97 03/22/17 23:15 03/22/17 23:15 03/22/17 23:15 03/22/17 23:15 03/22/17 23:15 Intake and Output: 03/23/17 03/23/17 06:59 18:59 Intake Total 1100 Output Total 1255 Balance -155 - Medications Medications: Current Medications Ciprofloxacin (Cipro 400mg/200ml Dsw) 400 mg in 200 mls @ 133 mls/hr IVPB Q12H [facility] Last Admin: 03/22/17 20:36 Dose: 133 mls/hr Metronidazole (Flagyl) 500 mg in 100 mls @ 100 mls/hr IVPB Q8 [facility] Last Admin: 03/23/17 05:34 Dose: 100 mls/hr Sodium Chloride (Sodium Chloride 0.9%) 1,000 mls @ 125 mls/hr IV .Q8H [facility] Last Admin: 03/23/17 00:48 Dose: 125 mls/hr Acyclovir 100 mg/ Sodium (Chloride) 100 mls @ 100 mls/hr IV Q8H [facility] Last Admin: 03/23/17 05:33 Dose: 100 mls/hr Ondansetron HCl (Zofran Inj) 4 mg IVP Q6H PRN PRN Reason: Nausea/Vomiting Last Admin: 03/22/17 17:57 Dose: 4 mg Pantoprazole Sodium (Protonix Inj) 40 mg IVP DAILY [facility] Last Admin: 03/22/17 11:08 Dose: 40 mg - Labs Labs: 03/23/17 06:25 03/22/17 07:47 PT 14.8 SECONDS (9.7-12.2) H 03/18/17 15:42 INR 1.3 03/18/17 15:42 APTT 27 SECONDS (21-34) 03/18/17 15:42 - Constitutional Appears: Well, Non-toxic, No Acute Distress - Head Exam Head Exam: ATRAUMATIC, NORMAL INSPECTION, NORMOCEPHALIC - Eye Exam Eye Exam: EOMI - ENT Exam ENT Exam: Mucous Membranes Moist - Respiratory Exam Respiratory Exam: NORMAL BREATHING PATTERN. absent: Accessory Muscle Use, Wheezes - GI/Abdominal Exam GI & Abdominal Exam: Soft. absent: Distended, Guarding, Rigid, Tenderness Additional comments: Midline incision intact with james. ALBERTO drain in place with serosanguinous output. Two mild skin blisters noted at adhesive tape site. - Extremities Exam Extremities Exam: absent: Calf Tenderness, Pedal Edema - Neurological Exam Neurological Exam: Alert, Awake, Oriented x3 - Skin Skin Exam: Dry, Intact, Warm Assessment and Plan - Assessment and Plan (Free Text) Assessment: 61yo M s/p Ex Lap Rubio Patch repair of perforated duodenal ulcer. POD 5 - Encourage OOB to chair, Ambulation, IS use - Pain management - NGT removed by patient yesterday - Monitor ALBERTO output - Continue with clears Further recs as per Dr. Nelson Juarez PGY1 surgery pager: [phone]
[2017-03-23 08:42] LABS: ALB/GLOB RATIO 0.8 (1.0-2.1); ALKALINE PHOSPHATASE 58 U/L (38-126); ALT/SGPT 29 U/L (21-72); AST/SGOT 24 U/L (17-59); BILIRUBIN,TOTAL 0.7 mg/dL (0.2-1.3); BLOOD UREA NITROGEN 7 mg/dL (9-20); CALCIUM 7.3 mg/dl (8.6-10.4); CARBON DIOXIDE 25 mmol/L (22-30); CHLORIDE 101 mmol/L (98-107); GFR AFRICAN-AMERICAN > 60; GLUCOSE,RANDOM 84 mg/dL (75-110); POTASSIUM 3.6 mmol/L (3.6-5.2); SODIUM 130 mmol/L (132-148); TOTAL PROTEIN 5.3 g/dL (6.3-8.3)
--- NOTE | 2017-03-23 08:52 | PCM.URO ---
Urology Progress Note - Subjective Frequency: Yes - Objective Lab Studies: Reviewed (gu dx: retention , and renal mass gu plans : regarding the mass , will follow and suggest out pt work up) Lab Results Last 24 Hours: Laboratory Results - last 24 hr 03/22/17 03/23/17 03/23/17 07:47 06:25 06:25 WBC 6.5 RBC 4.04 L Hgb 11.5 L Hct 33.0 L MCV 81.5 MCH 28.5 MCHC 34.9 RDW 13.1 Plt Count 253 MPV 8.8 Neut % (Auto) 81.9 H Lymph % (Auto) 4.4 L Kerr % (Auto) 8.3 Eos % (Auto) 5.1 H Baso % (Auto) 0.3 Neut # 5.3 Lymph # 0.3 L Kerr # 0.5 Eos # 0.3 Baso # 0.0 Neutrophils % (Manual) 87 H Band Neutrophils % 1 Lymphocytes % (Manual) 6 L Monocytes % (Manual) 4 Eosinophils % (Manual) 1 Myelocytes % 1 H Platelet Estimate Normal Hypochromasia (manual) Slight Poikilocytosis (manual Slight Anisocytosis (manual) Slight Sodium 130 L Potassium 3.6 Chloride 101 Carbon Dioxide 25 Anion Gap 8 L BUN 7 L Creatinine 0.5 L Est GFR ( Amer) > 60 Est GFR (Non-Af Amer) > 60 Random Glucose 84 Calcium 7.3 L Total Bilirubin 0.7 AST 24 ALT 29 Alkaline Phosphatase 58 Total Protein 5.3 L Albumin 2.3 L Globulin 3.0 Albumin/Globulin Ratio 0.8 L Intake & Output: Intake & Output 03/22/17 03/23/17 03/23/17 18:59 06:59 18:59 Intake Total 1009 1100 Output Total 345 1255 Balance 664 -155 Intake: Intake, IV Amount 769 1100 Left Antecubital 769 1100 Oral 240 Output: Drainage 20 5 Right Abdomen 20 5 Urine 325 1250 Urethral (Montanez) 325 1250 Other: # Bowel Movements 0 Vital Signs: Vital Signs - 24 hr 03/22/17 03/22/17 03/22/17 10:42 11:56 15:08 Temperature 98.7 F Pulse Rate 91 H 92 H Respiratory 20 Rate Blood Pressure 146/90 O2 Sat by Pulse 97 98 Oximetry 03/22/17 03/22/17 03/23/17 16:23 23:15 08:00 Temperature 98.6 F Pulse Rate 90 87 80 Respiratory 20 Rate Blood Pressure 154/89 H O2 Sat by Pulse 97 Oximetry 03/23/17 08:29 Temperature 97.4 F L Pulse Rate 80 Respiratory 18 Rate Blood Pressure 135/74 O2 Sat by Pulse 98 Oximetry
[2017-03-23 09:05] LABS: EOSINOPHIL 3 % (0-4); NEUTROPHIL 79 % (50-75); REACTIVE LYMPHOCYTES 2 % (0-0); TOTAL CELLS COUNTED 100
[2017-03-23 09:06] LABS: GIANT PLATELETS PRESENT
[2017-03-23] MEDS: Ciprofloxacin 400mg/200ml D5W 400 MG/200 ML BAG IVPB SCH ×2 (09:31→19:42)
--- NOTE | 2017-03-23 14:01 | CP.PCM.PN ---
Subjective - Date & Time of Evaluation Date of Evaluation: 03/23/17 Time of Evaluation: 14:00 - Subjective Subjective: CHIEF COMPLAINTS TODAY : DOES NOT GIVE ANY COMPLAINTS POST OP OOB CHAIR ROS. HEENT : N. Resp : No cough, wheezing ,pleuritic CP ,or hemoptysis Cardio : No anginal CP, PND, orthopnea, palpitation GI : No abd.pain, n/v ,diarrhea or GI bleeding . SEWER INSPECTOR : No headache, vertigo, focal deficit. Musculoskel : No joint swelling , Derm : No rash Psych : Normal affect. Ext : No swelling ,calf pain PE. Pt. is alert awake in no distress. V.S As noted in the chart Head ,ear nose,throat and eyes : Normal. Neck : Supple with normal carotids. Lungs: Clear air entry. Heart : S1 & S2 normal with S4. No murmur. Abd : Soft non tender with normal bowel sounds. POST OP Neuro : Moves all ext. with no POOR POOR Ext : No edema with intact pulses.Non tender calves Derm : No rashes or decubitus ulcer. LABS/RADIOLOGY: ASSESSMENT/PLAN : PT. WAS RECENTLY ON LEVATRAD FOR MS, MONOCLONAL AB , ON PROPHYLACTIC IV ZOVIREX PER SURGERY POST OP CARE KIDNEY MASS , W/U LATER PER [facility] Objective - Vital Signs/Intake and Output Vital Signs (last 24 hours): Temp Pulse Resp BP Pulse Ox 97.4 F L 84 18 135/74 98 03/23/17 08:29 03/23/17 12:15 03/23/17 08:29 03/23/17 08:29 03/23/17 08:29 Intake and Output: 03/23/17 03/23/17 11:59 23:59 Output Total 705 Balance -705 - Medications Medications: Current Medications Ciprofloxacin (Cipro 400mg/200ml Dsw) 400 mg in 200 mls @ 133 mls/hr IVPB Q12H [facility] Last Admin: 03/23/17 09:31 Dose: 133 mls/hr Metronidazole (Flagyl) 500 mg in 100 mls @ 100 mls/hr IVPB Q8 [facility] Last Admin: 03/23/17 13:14 Dose: 100 mls/hr Sodium Chloride (Sodium Chloride 0.9%) 1,000 mls @ 125 mls/hr IV .Q8H [facility] Last Admin: 03/23/17 09:43 Dose: Not Given Acyclovir 100 mg/ Sodium (Chloride) 100 mls @ 100 mls/hr IV Q8H [facility] Last Admin: 03/23/17 13:20 Dose: 100 mls/hr Ondansetron HCl (Zofran Inj) 4 mg IVP Q6H PRN PRN Reason: Nausea/Vomiting Last Admin: 03/22/17 17:57 Dose: 4 mg Pantoprazole Sodium (Protonix Inj) 40 mg IVP DAILY [facility] Last Admin: 03/23/17 11:03 Dose: 40 mg - Labs Labs: 03/23/17 06:25 03/23/17 06:25 PT 14.8 SECONDS (9.7-12.2) H 03/18/17 15:42 INR 1.3 03/18/17 15:42 APTT 27 SECONDS (21-34) 03/18/17 15:42 Assessment and Plan (1) Perforated abdominal viscus Status: Acute (2) Neurogenic bladder Status: Chronic (3) Mass of left kidney Status: Chronic (4) Multiple sclerosis Status: Chronic
[2017-03-24] MEDS: Sodium Chloride 0.9% 1,000 ML IV SCH ×4 (00:22→23:52)
[2017-03-24] MEDS: ACYCLOVIR IV SCH ×3 (05:17→23:02)
[2017-03-24] MEDS: metroNIDAZOLE IV 500 mg/100 ml 500 MG/100 ML BAG IVPB SCH ×3 (05:17→21:44)
[2017-03-24] MEDS: SODIUM CHLORIDE 0.9% IV SCH ×3 (05:17→23:02)
[2017-03-24 07:46] LABS: BASO % 0.3 % (0.0-2.0); EOS # 0.3 K/uL (0.0-0.7); EOS % 3.9 % (0.0-4.0); HEMATOCRIT 33.6 % (35.0-51.0); LYMPH # 0.5 K/uL (1.0-4.3); LYMPH % 5.9 % (20.0-40.0); MEAN CELL VOLUME 80.5 fL (80.0-94.0); MEAN CORPUSCULAR HEMOGLOBIN 28.7 pg (27.0-31.0); MEAN CORPUSCULAR HGB CONC 35.7 g/dL (33.0-37.0); MEAN PLATELET VOLUME 8.8 fL (7.2-11.7); MONO # 0.5 K/uL (0.0-0.8); MONO % 6.5 % (0.0-10.0); PLATELET COUNT 301 K/uL (130-400); RED CELL DISTRIBUTION WIDTH 13.2 % (11.5-14.5); WHITE BLOOD COUNT 8.1 K/uL (4.8-10.8)
[2017-03-24 08:16] LABS: ALB/GLOB RATIO 0.8 (1.0-2.1); ALKALINE PHOSPHATASE 76 U/L (38-126); ALT/SGPT 27 U/L (21-72); AST/SGOT 26 U/L (17-59); BILIRUBIN,TOTAL 0.5 mg/dL (0.2-1.3); BLOOD UREA NITROGEN 5 mg/dL (9-20); CALCIUM 7.6 mg/dl (8.6-10.4); CARBON DIOXIDE 27 mmol/L (22-30); CHLORIDE 100 mmol/L (98-107); GFR AFRICAN-AMERICAN > 60; GLUCOSE,RANDOM 93 mg/dL (75-110); POTASSIUM 3.8 mmol/L (3.6-5.2); SODIUM 131 mmol/L (132-148); TOTAL PROTEIN 5.5 g/dL (6.3-8.3)
[2017-03-24] MEDS: Ciprofloxacin 400mg/200ml D5W 400 MG/200 ML BAG IVPB SCH ×2 (08:24→19:59)
[2017-03-24 09:01] LABS: EOSINOPHIL 1 % (0-4); METAMYELOCYTE 1 % (0-0); NEUTROPHIL 81 % (50-75); TOTAL CELLS COUNTED 100
--- NOTE | 2017-03-24 14:37 | CP.PCM.PN ---
Subjective - Date & Time of Evaluation Date of Evaluation: 03/24/17 Time of Evaluation: 14:36 - Subjective Subjective: CHIEF COMPLAINTS TODAY : DOES NOT GIVE ANY COMPLAINTS POST OP OOB CHAIR ROS. HEENT : N. Resp : No cough, wheezing ,pleuritic CP ,or hemoptysis Cardio : No anginal CP, PND, orthopnea, palpitation GI : No abd.pain, n/v ,diarrhea or GI bleeding . NEWS OPERATIONS MANAGER : No headache, vertigo, focal deficit. Musculoskel : No joint swelling , Derm : No rash Psych : Normal affect. Ext : No swelling ,calf pain PE. Pt. is alert awake in no distress. V.S As noted in the chart Head ,ear nose,throat and eyes : Normal. Neck : Supple with normal carotids. Lungs: Clear air entry. Heart : S1 & S2 normal with S4. No murmur. Abd : Soft non tender with normal bowel sounds. POST OP Neuro : Moves all ext. with no POOR POOR Ext : No edema with intact pulses.Non tender calves Derm : No rashes or decubitus ulcer. LABS/RADIOLOGY: ALBERTO STILL DRAINING ASSESSMENT/PLAN : ARON POST OP CARE AND IV AB PER SURGERY Objective - Vital Signs/Intake and Output Vital Signs (last 24 hours): Temp Pulse Resp BP Pulse Ox 97.3 F L 86 18 130/72 95 03/24/17 08:40 03/24/17 12:44 03/24/17 08:40 03/24/17 08:40 03/24/17 08:40 Intake and Output: 03/24/17 03/24/17 11:59 23:59 Output Total 1105 1740 Balance -1105 -1740 - Medications Medications: Current Medications Ciprofloxacin (Cipro 400mg/200ml Dsw) 400 mg in 200 mls @ 133 mls/hr IVPB Q12H [facility] Last Admin: 03/24/17 08:24 Dose: 133 mls/hr Sodium Chloride (Sodium Chloride 0.9%) 1,000 mls @ 125 mls/hr IV .Q8H [facility] Last Admin: 03/24/17 08:27 Dose: 125 mls/hr Acyclovir 100 mg/ Sodium (Chloride) 100 mls @ 100 mls/hr IV Q8H [facility] Last Admin: 03/24/17 14:31 Dose: 100 mls/hr Metronidazole (Flagyl) 500 mg in 100 mls @ 100 mls/hr IVPB Q8 [facility] Last Admin: 03/24/17 13:41 Dose: 100 mls/hr Ondansetron HCl (Zofran Inj) 4 mg IVP Q6H PRN PRN Reason: Nausea/Vomiting Last Admin: 03/22/17 17:57 Dose: 4 mg Pantoprazole Sodium (Protonix Inj) 40 mg IVP DAILY [facility] Last Admin: 03/24/17 10:19 Dose: 40 mg - Labs Labs: 03/24/17 07:32 03/24/17 07:32 PT 14.8 SECONDS (9.7-12.2) H 03/18/17 15:42 INR 1.3 03/18/17 15:42 APTT 27 SECONDS (21-34) 03/18/17 15:42 Assessment and Plan (1) Perforated abdominal viscus Status: Acute (2) Neurogenic bladder Status: Chronic (3) Mass of left kidney Status: Chronic (4) Multiple sclerosis Status: Chronic
--- NOTE | 2017-03-24 18:18 | CP.PCM.PN ---
Subjective - Date & Time of Evaluation Date of Evaluation: 03/24/17 Time of Evaluation: 17:30 - Subjective Subjective: General surgery progress note for Dr. Annie Haile, PGY-1 Pt S & E at bedside. Pt reports tolerating FLD- declining diet advancement - reports he is not hungry. Denies N & V, F & C, abdominal pain, other complaints. Bhupinder with 75cc serous, slightly sanguinous output/24H. No acute events overnight as per nursing. Objective - Vital Signs/Intake and Output Vital Signs (last 24 hours): Temp Pulse Resp BP Pulse Ox 97.9 F 89 20 117/74 96 03/24/17 16:00 03/24/17 16:00 03/24/17 16:00 03/24/17 16:00 03/24/17 16:00 Intake and Output: 03/24/17 03/24/17 06:59 18:59 Intake Total 1200 Output Total 720 2845 Balance 480 -2845 - Medications Medications: Current Medications Ciprofloxacin (Cipro 400mg/200ml Dsw) 400 mg in 200 mls @ 133 mls/hr IVPB Q12H [facility] Last Admin: 03/24/17 08:24 Dose: 133 mls/hr Sodium Chloride (Sodium Chloride 0.9%) 1,000 mls @ 125 mls/hr IV .Q8H [facility] Last Admin: 03/24/17 16:52 Dose: Not Given Acyclovir 100 mg/ Sodium (Chloride) 100 mls @ 100 mls/hr IV Q8H [facility] Last Admin: 03/24/17 14:31 Dose: 100 mls/hr Metronidazole (Flagyl) 500 mg in 100 mls @ 100 mls/hr IVPB Q8 [facility] Last Admin: 03/24/17 13:41 Dose: 100 mls/hr Ondansetron HCl (Zofran Inj) 4 mg IVP Q6H PRN PRN Reason: Nausea/Vomiting Last Admin: 03/22/17 17:57 Dose: 4 mg Pantoprazole Sodium (Protonix Inj) 40 mg IVP DAILY [facility] Last Admin: 03/24/17 10:19 Dose: 40 mg - Labs Labs: 03/24/17 07:32 03/24/17 07:32 PT 14.8 SECONDS (9.7-12.2) H 03/18/17 15:42 INR 1.3 03/18/17 15:42 APTT 27 SECONDS (21-34) 03/18/17 15:42 - Constitutional Appears: Non-toxic, No Acute Distress - Head Exam Head Exam: ATRAUMATIC, NORMAL INSPECTION, NORMOCEPHALIC - Eye Exam Eye Exam: EOMI, Normal appearance - ENT Exam ENT Exam: Mucous Membranes Moist, Normal Exam - Neck Exam Neck Exam: Full ROM, Normal Inspection - Respiratory Exam Respiratory Exam: NORMAL BREATHING PATTERN - Cardiovascular Exam Cardiovascular Exam: REGULAR RHYTHM, +S1, +S2 - GI/Abdominal Exam GI & Abdominal Exam: Guarding, Soft. absent: Distended, Firm, Rigid, Tenderness Additional comments: Bhupinder with ~15cc serosanguinous output. Midline incision with james in place - slightly erythematous/no drainage noted. Superficial skin tear with medihoney and dressing in place lateral to midline incision. - Exam Additional comments: Montanez in place with clear urine - Extremities Exam Extremities Exam: Normal Inspection - Neurological Exam Neurological Exam: Alert, Awake, CN II-XII Intact, Oriented x3 - Psychiatric Exam Psychiatric exam: Normal Affect, Normal Mood - Skin Skin Exam: Dry, Intact, Normal Color, Warm Assessment and Plan - Assessment and Plan (Free Text) Assessment: 61yo M s/p Ex Lap Rubio Patch repair of perforated duodenal ulcer. POD 6 Plan: OOBTC Encourage IS use Encourage ambulation/working with PT Monitor ALBERTO output Cont FLD DW attending Lazara, PGY-1
[2017-03-25] MEDS: metroNIDAZOLE IV 500 mg/100 ml 500 MG/100 ML BAG IVPB SCH ×3 (05:40→21:00)
[2017-03-25] MEDS: ACYCLOVIR IV SCH ×3 (05:40→21:00)
[2017-03-25] MEDS: SODIUM CHLORIDE 0.9% IV SCH ×3 (05:40→21:00)
[2017-03-25] MEDS: Ciprofloxacin 400mg/200ml D5W 400 MG/200 ML BAG IVPB SCH ×2 (08:36→19:02)
[2017-03-25] MEDS: Sodium Chloride 0.9% 1,000 ML IV SCH (08:38)
[2017-03-25 08:54] LABS: BASO % 0.5 % (0.0-2.0); EOS # 0.3 K/uL (0.0-0.7); EOS % 3.8 % (0.0-4.0); HEMATOCRIT 33.2 % (35.0-51.0); LYMPH # 0.3 K/uL (1.0-4.3); LYMPH % 4.6 % (20.0-40.0); MEAN CELL VOLUME 81.1 fL (80.0-94.0); MEAN CORPUSCULAR HEMOGLOBIN 28.5 pg (27.0-31.0); MEAN CORPUSCULAR HGB CONC 35.2 g/dL (33.0-37.0); MONO # 0.5 K/uL (0.0-0.8); MONO % 6.3 % (0.0-10.0); PLATELET COUNT 326 K/uL (130-400); RED CELL DISTRIBUTION WIDTH 13.4 % (11.5-14.5); WHITE BLOOD COUNT 7.4 K/uL (4.8-10.8)
--- NOTE | 2017-03-25 09:02 | CP.PCM.PN ---
Subjective - Date & Time of Evaluation Date of Evaluation: 03/25/17 Time of Evaluation: 07:10 - Subjective Subjective: General surgery progress note for Dr. Annie Haile, PGY-1 Pt S & E at bedside. Pt still tolerating FLD- stil declining diet advancement (not hungry). Denies N & V, F & C, abdominal pain, other complaints. Bhupinder with 105cc serous output/ 24H. No acute events overnight. Objective - Vital Signs/Intake and Output Vital Signs (last 24 hours): Temp Pulse Resp BP Pulse Ox 98.2 F 81 19 128/72 97 03/25/17 05:46 03/25/17 07:07 03/25/17 05:46 03/25/17 05:46 03/24/17 23:15 Intake and Output: 03/25/17 03/25/17 06:59 18:59 Intake Total 2300 Output Total 1860 Balance 440 - Medications Medications: Current Medications Ciprofloxacin (Cipro 400mg/200ml Dsw) 400 mg in 200 mls @ 133 mls/hr IVPB Q12H [facility] Last Admin: 03/25/17 08:36 Dose: 133 mls/hr Sodium Chloride (Sodium Chloride 0.9%) 1,000 mls @ 125 mls/hr IV .Q8H [facility] Last Admin: 03/25/17 08:38 Dose: Not Given Acyclovir 100 mg/ Sodium (Chloride) 100 mls @ 100 mls/hr IV Q8H [facility] Last Admin: 03/25/17 05:40 Dose: 100 mls/hr Metronidazole (Flagyl) 500 mg in 100 mls @ 100 mls/hr IVPB Q8 [facility] Last Admin: 03/25/17 05:40 Dose: 100 mls/hr Ondansetron HCl (Zofran Inj) 4 mg IVP Q6H PRN PRN Reason: Nausea/Vomiting Last Admin: 03/22/17 17:57 Dose: 4 mg Pantoprazole Sodium (Protonix Inj) 40 mg IVP DAILY [facility] Last Admin: 03/24/17 10:19 Dose: 40 mg - Labs Labs: 03/25/17 08:24 03/24/17 07:32 PT 14.8 SECONDS (9.7-12.2) H 03/18/17 15:42 INR 1.3 03/18/17 15:42 APTT 27 SECONDS (21-34) 03/18/17 15:42 - Constitutional Appears: Non-toxic, No Acute Distress - Head Exam Head Exam: ATRAUMATIC, NORMAL INSPECTION, NORMOCEPHALIC - Eye Exam Eye Exam: EOMI, Normal appearance - ENT Exam ENT Exam: Mucous Membranes Moist, Normal Exam - Neck Exam Neck Exam: Full ROM, Normal Inspection - Respiratory Exam Respiratory Exam: NORMAL BREATHING PATTERN - Cardiovascular Exam Cardiovascular Exam: REGULAR RHYTHM, +S1, +S2 - GI/Abdominal Exam GI & Abdominal Exam: Soft, Normal Bowel Sounds. absent: Distended, Firm, Rigid , Tenderness, Mass Additional comments: Midline incision with james in place, no drainage noted. Bhupinder drain with ~ 5cc serous output. - Extremities Exam Extremities Exam: Normal Inspection - Neurological Exam Neurological Exam: Alert, Awake, CN II-XII Intact, Oriented x3 - Psychiatric Exam Psychiatric exam: Depressed, Normal Affect - Skin Skin Exam: Dry, Intact, Normal Color, Warm Assessment and Plan - Assessment and Plan (Free Text) Assessment: 61yo M s/p Ex Lap Rubio Patch repair of perforated duodenal ulcer. POD 7 Plan: Monitor ALBERTO output - will d Cont FLD OOBTC Encourage IS use Encourage ambulation/working with PT KARAN attending Lazara, PGY-1
[2017-03-25 09:04] LABS: ALKALINE PHOSPHATASE 71 U/L (38-126); ALT/SGPT 28 U/L (21-72); AST/SGOT 26 U/L (17-59); BILIRUBIN,TOTAL 0.5 mg/dL (0.2-1.3); BLOOD UREA NITROGEN 4 mg/dL (9-20); CALCIUM 7.5 mg/dl (8.6-10.4); CARBON DIOXIDE 27 mmol/L (22-30); CHLORIDE 101 mmol/L (98-107); GFR AFRICAN-AMERICAN > 60; GLUCOSE,RANDOM 83 mg/dL (75-110); POTASSIUM 3.6 mmol/L (3.6-5.2); SODIUM 130 mmol/L (132-148); TOTAL PROTEIN 4.8 g/dL (6.3-8.3)
[2017-03-25 10:41] LABS: EOSINOPHIL 6 % (0-4); NEUTROPHIL 83 % (50-75); TOTAL CELLS COUNTED 100
--- NOTE | 2017-03-25 15:30 | CP.PCM.PN ---
Subjective - Date & Time of Evaluation Date of Evaluation: 03/25/17 Time of Evaluation: 15:30 - Subjective Subjective: CHIEF COMPLAINTS TODAY : DOES NOT GIVE ANY COMPLAINTS POST OP OOB CHAIR ROS. HEENT : N. Resp : No cough, wheezing ,pleuritic CP ,or hemoptysis Cardio : No anginal CP, PND, orthopnea, palpitation GI : No abd.pain, n/v ,diarrhea or GI bleeding . SHIRT CREASER : No headache, vertigo, focal deficit. Musculoskel : No joint swelling , Derm : No rash Psych : Normal affect. Ext : No swelling ,calf pain PE. Pt. is alert awake in no distress. V.S As noted in the chart Head ,ear nose,throat and eyes : Normal. Neck : Supple with normal carotids. Lungs: Clear air entry. Heart : S1 & S2 normal with S4. No murmur. Abd : Soft non tender with normal bowel sounds. POST OP Neuro : Moves all ext. with no POOR POOR Ext : No edema with intact pulses.Non tender calves Derm : No rashes or decubitus ulcer. LABS/RADIOLOGY: ALBERTO STILL DRAINING ASSESSMENT/PLAN : ARON POST OP CARE AND IV AB PER SURGER Objective - Vital Signs/Intake and Output Vital Signs (last 24 hours): Temp Pulse Resp BP Pulse Ox 97.9 F 96 H 20 149/87 95 03/25/17 08:00 03/25/17 12:11 03/25/17 08:00 03/25/17 08:00 03/25/17 08:00 Intake and Output: 03/25/17 03/25/17 11:59 23:59 Intake Total 1000 Output Total 1120 1540 Balance -120 -1540 - Medications Medications: Current Medications Ciprofloxacin (Cipro 400mg/200ml Dsw) 400 mg in 200 mls @ 133 mls/hr IVPB Q12H [facility] Last Admin: 03/25/17 08:36 Dose: 133 mls/hr Acyclovir 100 mg/ Sodium (Chloride) 100 mls @ 100 mls/hr IV Q8H [facility] Last Admin: 03/25/17 14:19 Dose: 100 mls/hr Metronidazole (Flagyl) 500 mg in 100 mls @ 100 mls/hr IVPB Q8 [facility] Last Admin: 03/25/17 13:30 Dose: 100 mls/hr Ondansetron HCl (Zofran Inj) 4 mg IVP Q6H PRN PRN Reason: Nausea/Vomiting Last Admin: 03/22/17 17:57 Dose: 4 mg Pantoprazole Sodium (Protonix Inj) 40 mg IVP DAILY [facility] Last Admin: 03/25/17 10:12 Dose: 40 mg - Labs Labs: 03/25/17 08:24 03/25/17 08:24 PT 14.8 SECONDS (9.7-12.2) H 03/18/17 15:42 INR 1.3 03/18/17 15:42 APTT 27 SECONDS (21-34) 03/18/17 15:42 Assessment and Plan (1) Perforated abdominal viscus Status: Acute (2) Neurogenic bladder Status: Chronic (3) Mass of left kidney Status: Chronic (4) Multiple sclerosis Status: Chronic
--- NOTE | 2017-03-26 05:23 | CP.PCM.PN ---
Subjective - Date & Time of Evaluation Date of Evaluation: 03/26/17 Time of Evaluation: 05:22 - Subjective Subjective: General Surgery: Dr Damon Pt S&E. BRANDON. Pt has been tolerating FLD. Having BMs. Has been OOB w/ PT but minimally. Pt remains non-verbal by choice. Per family is depressed. Objective - Vital Signs/Intake and Output Vital Signs (last 24 hours): Temp Pulse Resp BP Pulse Ox 98.4 F 87 20 140/93 H 98 03/25/17 23:10 03/26/17 04:41 03/25/17 23:10 03/25/17 23:10 03/25/17 23:10 Intake and Output: 03/25/17 03/26/17 18:59 06:59 Intake Total 1000 Output Total 2039 1030 Balance -2039 - Medications Medications: Current Medications Ciprofloxacin (Cipro 400mg/200ml Dsw) 400 mg in 200 mls @ 133 mls/hr IVPB Q12H [facility] Last Admin: 03/25/17 19:02 Dose: 133 mls/hr Acyclovir 100 mg/ Sodium (Chloride) 100 mls @ 100 mls/hr IV Q8H [facility] Last Admin: 03/25/17 21:00 Dose: 100 mls/hr Metronidazole (Flagyl) 500 mg in 100 mls @ 100 mls/hr IVPB Q8 [facility] Last Admin: 03/25/17 21:00 Dose: 100 mls/hr Ondansetron HCl (Zofran Inj) 4 mg IVP Q6H PRN PRN Reason: Nausea/Vomiting Last Admin: 03/22/17 17:57 Dose: 4 mg Pantoprazole Sodium (Protonix Inj) 40 mg IVP DAILY [facility] Last Admin: 03/25/17 10:12 Dose: 40 mg - Labs Labs: 03/25/17 08:24 03/25/17 08:24 PT 14.8 SECONDS (9.7-12.2) H 03/18/17 15:42 INR 1.3 03/18/17 15:42 APTT 27 SECONDS (21-34) 03/18/17 15:42 - Constitutional Appears: Non-toxic, No Acute Distress - Eye Exam Eye Exam: Normal appearance - Respiratory Exam Respiratory Exam: absent: Respiratory Distress - Cardiovascular Exam Cardiovascular Exam: REGULAR RHYTHM. absent: Tachycardia - GI/Abdominal Exam GI & Abdominal Exam: Soft. absent: Distended, Firm, Guarding, Tenderness Additional comments: midline incision c/d/i filiberto drain serosanguinous - Neurological Exam Neurological Exam: Alert, Awake, Oriented x3 Assessment and Plan - Assessment and Plan (Free Text) Assessment: 61M POD#8 s/p ex-lap with rosa patch Plan: adv to regular diet from a surgical standpoint pt is doing well, clear for d/c from home vs rehab at discretion of primary pt pending breen removal as per further mgmt per primary team will d/w Dr Nelson Paniagua, PGY3
[2017-03-26] MEDS: Sodium Chloride 0.9% 1,000 ML IV SCH (05:25)
[2017-03-26] MEDS: metroNIDAZOLE IV 500 mg/100 ml 500 MG/100 ML BAG IVPB SCH ×3 (05:26→21:08)
[2017-03-26] MEDS: SODIUM CHLORIDE 0.9% IV SCH ×3 (06:38→21:09)
[2017-03-26] MEDS: ACYCLOVIR IV SCH ×3 (06:38→21:09)
[2017-03-26 06:51] LABS: BASO % 0.5 % (0.0-2.0); EOS # 0.2 K/uL (0.0-0.7); EOS % 3.4 % (0.0-4.0); HEMATOCRIT 34.1 % (35.0-51.0); LYMPH # 0.3 K/uL (1.0-4.3); LYMPH % 4.4 % (20.0-40.0); MEAN CELL VOLUME 80.9 fL (80.0-94.0); MEAN CORPUSCULAR HEMOGLOBIN 27.7 pg (27.0-31.0); MEAN CORPUSCULAR HGB CONC 34.3 g/dL (33.0-37.0); MEAN PLATELET VOLUME 8.6 fL (7.2-11.7); MONO # 0.5 K/uL (0.0-0.8); MONO % 6.4 % (0.0-10.0); PLATELET COUNT 377 K/uL (130-400); RED CELL DISTRIBUTION WIDTH 13.4 % (11.5-14.5); WHITE BLOOD COUNT 7.3 K/uL (4.8-10.8)
[2017-03-26 06:57] LABS: ALB/GLOB RATIO 0.9 (1.0-2.1); ALKALINE PHOSPHATASE 66 U/L (38-126); ALT/SGPT 29 U/L (21-72); AST/SGOT 26 U/L (17-59); BILIRUBIN,TOTAL 0.4 mg/dL (0.2-1.3); BLOOD UREA NITROGEN 5 mg/dL (9-20); CALCIUM 7.5 mg/dl (8.6-10.4); CARBON DIOXIDE 28 mmol/L (22-30); CHLORIDE 98 mmol/L (98-107); GFR AFRICAN-AMERICAN > 60; GLUCOSE,RANDOM 93 mg/dL (75-110); POTASSIUM 3.9 mmol/L (3.6-5.2); SODIUM 127 mmol/L (132-148); TOTAL PROTEIN 5.2 g/dL (6.3-8.3)
[2017-03-26] MEDS: Ciprofloxacin 400mg/200ml D5W 400 MG/200 ML BAG IVPB SCH ×2 (08:30→19:42)
[2017-03-26 10:03] LABS: NEUTROPHIL 90 % (50-75); TOTAL CELLS COUNTED 100
[2017-03-26 10:04] LABS: LARGE PLATELETS PRESENT
--- NOTE | 2017-03-26 14:08 | CP.PCM.PN ---
Subjective - Date & Time of Evaluation Date of Evaluation: 03/26/17 Time of Evaluation: 14:07 - Subjective Subjective: CHIEF COMPLAINTS TODAY : DOES NOT GIVE ANY COMPLAINTS POST OP OOB CHAIR ROS. HEENT : N. Resp : No cough, wheezing ,pleuritic CP ,or hemoptysis Cardio : No anginal CP, PND, orthopnea, palpitation GI : No abd.pain, n/v ,diarrhea or GI bleeding . 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 Musculoskel : No joint swelling , Derm : No rash Psych : Normal affect. Ext : No swelling ,calf pain PE. Pt. is alert awake in no distress. V.S As noted in the chart Head ,ear nose,throat and eyes : Normal. Neck : Supple with normal carotids. Lungs: Clear air entry. Heart : S1 & S2 normal with S4. No murmur. Abd : Soft non tender with normal bowel sounds. POST OP Neuro : Moves all ext. with no POOR POOR Ext : No edema with intact pulses.Non tender calves Derm : No rashes or decubitus ulcer. LABS/RADIOLOGY: ALBERTO STILL DRAINING ASSESSMENT/PLAN : ARON PER SURGERY , ALBERTO WILL STAY NO W/U ORDERED BY FOR MASS Objective - Vital Signs/Intake and Output Vital Signs (last 24 hours): Temp Pulse Resp BP Pulse Ox 97.4 F L 74 18 137/83 98 03/26/17 08:05 03/26/17 08:05 03/26/17 08:05 03/26/17 08:05 03/26/17 08:05 Intake and Output: 03/26/17 03/26/17 11:59 23:59 Intake Total 200 Output Total 690 Balance -490 - Medications Medications: Current Medications Ciprofloxacin (Cipro 400mg/200ml Dsw) 400 mg in 200 mls @ 133 mls/hr IVPB Q12H [facility] Last Admin: 03/26/17 08:30 Dose: 133 mls/hr Acyclovir 100 mg/ Sodium (Chloride) 100 mls @ 100 mls/hr IV Q8H [facility] Last Admin: 03/26/17 13:06 Dose: 100 mls/hr Metronidazole (Flagyl) 500 mg in 100 mls @ 100 mls/hr IVPB Q8 [facility] Last Admin: 03/26/17 13:05 Dose: 100 mls/hr Ondansetron HCl (Zofran Inj) 4 mg IVP Q6H PRN PRN Reason: Nausea/Vomiting Last Admin: 03/22/17 17:57 Dose: 4 mg Pantoprazole Sodium (Protonix Inj) 40 mg IVP DAILY [facility] Last Admin: 03/26/17 10:15 Dose: 40 mg - Labs Labs: 03/26/17 06:31 03/26/17 06:31 PT 14.8 SECONDS (9.7-12.2) H 03/18/17 15:42 INR 1.3 03/18/17 15:42 APTT 27 SECONDS (21-34) 03/18/17 15:42 Assessment and Plan (1) Perforated abdominal viscus Status: Acute (2) Neurogenic bladder Status: Chronic (3) Mass of left kidney Status: Chronic (4) Multiple sclerosis Status: Chronic
[2017-03-26 16:30] VITALS: RESP 20
[2017-03-27] MEDS: metroNIDAZOLE IV 500 mg/100 ml 500 MG/100 ML BAG IVPB SCH ×3 (05:06→23:55)
[2017-03-27] MEDS: SODIUM CHLORIDE 0.9% IV SCH ×2 (06:26→21:34)
[2017-03-27] MEDS: ACYCLOVIR IV SCH ×2 (06:26→21:34)
--- NOTE | 2017-03-27 07:48 | CP.PCM.PN ---
Subjective - Date & Time of Evaluation Date of Evaluation: 03/27/17 Time of Evaluation: 07:45 - Subjective Subjective: Gen Surg: Dr Damon Pt S&E. NAEO. Resting comfortably. Denies pain. Tolerating diet. Having BMs. OOB and ambulating. Objective - Vital Signs/Intake and Output Vital Signs (last 24 hours): Temp Pulse Resp BP Pulse Ox 98.1 F 73 20 134/80 95 03/26/17 23:10 03/27/17 05:00 03/26/17 23:10 03/26/17 23:10 03/26/17 23:10 Intake and Output: 03/27/17 03/27/17 06:59 18:59 Intake Total 1850 Output Total 2240 Balance -390 - Medications Medications: Current Medications Ciprofloxacin (Cipro 400mg/200ml Dsw) 400 mg in 200 mls @ 133 mls/hr IVPB Q[facility]H [facility] Last Admin: 03/26/17 19:42 Dose: 133 mls/hr Acyclovir 100 mg/ Sodium (Chloride) 100 mls @ 100 mls/hr IV Q8H [facility] Last Admin: 03/27/17 06:26 Dose: 100 mls/hr Metronidazole (Flagyl) 500 mg in 100 mls @ 100 mls/hr IVPB Q8 [facility] Last Admin: 03/27/17 05:06 Dose: 100 mls/hr Ondansetron HCl (Zofran Inj) 4 mg IVP Q6H PRN PRN Reason: Nausea/Vomiting Last Admin: 03/22/17 17:57 Dose: 4 mg Pantoprazole Sodium (Protonix Inj) 40 mg IVP DAILY [facility] Last Admin: 03/26/17 10:15 Dose: 40 mg - Labs Labs: 03/26/17 06:31 03/26/17 06:31 PT 14.8 SECONDS (9.7-12.2) H 03/18/17 15:42 INR 1.3 03/18/17 15:42 APTT 27 SECONDS (21-34) 03/18/17 15:42 - Constitutional Appears: Non-toxic, No Acute Distress - Eye Exam Eye Exam: Normal appearance - ENT Exam ENT Exam: Mucous Membranes Moist - Respiratory Exam Respiratory Exam: absent: Accessory Muscle Use, Respiratory Distress - Cardiovascular Exam Cardiovascular Exam: REGULAR RHYTHM - GI/Abdominal Exam GI & Abdominal Exam: Soft. absent: Tenderness Additional comments: midline c/d/i - Extremities Exam Extremities Exam: absent: Pedal Edema - Neurological Exam Neurological Exam: Alert, Awake, Oriented x3 Assessment and Plan - Assessment and Plan (Free Text) Assessment: 61M POD#9 s/p ex-lap with rosa patch of duodenum Plan: pt clear for discharge will remove drain and james breen mgmt per Dr Nation d/w Dr Nelson Paniagua, PGY3
--- NOTE | 2017-03-27 09:28 | US ---
PROCEDURE: Ultrasound of the Kidneys HISTORY: renal mass // cystic or solid-- multiple masses COMPARISON: None available. TECHNIQUE: Sonogram of the kidneys. FINDINGS: RIGHT KIDNEY: Measures: 12.1 x 5.3 x 4.6 cm. No hydro nephrosis is appreciated with the overall size of the kidney appear normal. No perinephric fluid collection or urolithiasis is related however multiple small cysts are identified. Dominant cyst is seen at the lower pole measuring 3.6 x 1.7 by 2.0 cm, avascular on color ultrasound with no nodularity or septation related. A 2.0 x 2.1 x 1.8 cm simple cyst seen at the upper to midpole with both of these 2 Dom 2 largest cysts well seen in the prior CT 03/18/2017. 1.2 cm simple cyst seen at the upper pole right kidney with 2 additional tiny cyst seen in the prior CT not seen on the current exam of the mid and lower pole right kidney. Normal in size, contour and echogenicity. No solid mass lesion visualized. LEFT KIDNEY: Measures: 11.1 x 5.8 x 5.2 cm. The left kidney is also normal in size with no obstructive uropathy urolithiasis identified. There is no perinephric fluid collection appreciated. However, there is a hypo echoic lesion identified at the midpole corresponding to the abnormality in the CT exam noted above, measuring 3.3 x 3.3 x 3.6 cm. There is borderline peripheral color Doppler blood flow. Remainder of the left kidney is unremarkable. OTHER FINDINGS: None. IMPRESSION: A 3.6 cm predominate hypoechoic mass is seen related to the midpole left kidney corresponding to the CT finding from 03/18/2017. Tissue diagnosis is advised. Multiple simple cysts right kidney. No solid mass seen related to the right kidney. No obstructive uropathy bilaterally.
[2017-03-27] MEDS: Ciprofloxacin 400mg/200ml D5W 400 MG/200 ML BAG IVPB SCH ×2 (11:56→20:01)
--- NOTE | 2017-03-27 13:08 | CP.PCM.CON ---
<Geovanni Fong - Last Filed: 03/27/17 12:51> History of Present Illness - History of Present Illness History of Present Illness: 61 yo male patient with PMHx of MS (dx 2005) 9 days s/p Rubio patch repair of duodenal ulcer was seen at bedside this morning after request for podiatry consultation concerning painful, elongated, mycotic toenails. Patient complains thickened Left hallux nail that generate pain and irritation upon walking in shoe. Patient first noticed the thickening and discoloration of the left hallux toenail a few years ago, but is not sure when it started. Patient denies of being treated for the mycotic nail in the past. Patient denies of any trauma to the left hallux in the past. Patient denies of any other pedal complaints. He denies of any N/V/F/C or SOB today Review of Systems - Constitutional Constitutional: As Per HPI Past Patient History - Past Medical History & Family History Past Medical History?: Yes - Past Social History Smoking Status: Heavy Smoker > 10 Cigarettes Daily - CARDIAC Hx Cardiac Disorders: No - PULMONARY Hx Respiratory Disorders: No - NEUROLOGICAL Hx Multiple Sclerosis: Yes - HEENT Hx HEENT Problems: No - RENAL Hx Chronic Kidney Disease: Yes Hx Kidney Stones: Yes - ENDOCRINE/METABOLIC Hx Endocrine Disorders: No - HEMATOLOGICAL/ONCOLOGICAL Hx Blood Disorders: No - INTEGUMENTARY Hx Dermatological Problems: No - MUSCULOSKELETAL/RHEUMATOLOGICAL Hx Musculoskeletal Disorders: No - GASTROINTESTINAL Hx Gastrointestinal Disorders: No - GENITOURINARY/GYNECOLOGICAL Hx Genitourinary Disorders: Yes Hx Hematuria: Yes - PSYCHIATRIC Hx Depression: Yes Hx Substance Use: No - SURGICAL HISTORY Hx Surgeries: No - ANESTHESIA Hx Anesthesia: No Meds Allergies/Adverse Reactions: Allergies Allergy/AdvReac Type Severity Reaction Status Date / Time No Known Allergies Allergy Verified 03/18/17 13:37 - Medications Medications: Current Medications Ciprofloxacin (Cipro 400mg/200ml Dsw) 400 mg in 200 mls @ 133 mls/hr IVPB Q12H [facility] Last Admin: 03/27/17 11:56 Dose: 133 mls/hr Acyclovir 100 mg/ Sodium (Chloride) 100 mls @ 100 mls/hr IV Q8H [facility] Last Admin: 03/27/17 06:26 Dose: 100 mls/hr Metronidazole (Flagyl) 500 mg in 100 mls @ 100 mls/hr IVPB Q8 [facility] Last Admin: 03/27/17 05:06 Dose: 100 mls/hr Ondansetron HCl (Zofran Inj) 4 mg IVP Q6H PRN PRN Reason: Nausea/Vomiting Last Admin: 03/22/17 17:57 Dose: 4 mg Pantoprazole Sodium (Protonix Inj) 40 mg IVP DAILY [facility] Last Admin: 03/27/17 09:07 Dose: 40 mg Physical Exam - Constitutional Appears: Well, Non-toxic, No Acute Distress - Head Exam Head Exam: ATRAUMATIC - Extremities Exam Additional comments: Bilateral lower extremity exam DERM: No open wound noted bilaterally. No erythema noted, no drainage is noted. No interdigital maceration is noted. Painful, elongated, thickened, discolored, mycotic toenail was noted to Left hallux consistent with onychogryphosis. No sign of acute infection is noted anywhere in the bilateral feet. VASC: Palpable DP and PT noted bilaterally 2/4. [employer]CH[employer] less than 3 secodns noted to all digits bilaterally. ORTHO: No pain on palpation to lower extremities. NEURO: Gross sensation intact bilaterally tested with Brunson Joselyn Monofilament. - Neurological Exam Neurological exam: Alert, Oriented x3 - Psychiatric Exam Psychiatric exam: Normal Affect, Normal Mood - Skin Skin Exam: Warm Results - Vital Signs Recent Vital Signs: Last Vital Signs Temp 97.8 F 03/27/17 07:46 Pulse 85 03/27/17 09:00 Resp 20 03/27/17 07:46 BP 144/89 03/27/17 07:46 Pulse Ox 90 L 03/27/17 07:46 - Labs Result Diagrams: 03/26/17 06:31 03/26/17 06:31 Assessment & Plan - Assessment and Plan (Free Text) Assessment: 61 yo male patient 9 days s/p Rubio patch to perforated duodenal ulceration presents with Onychogryphosis to Left hallux nail Plan: Patient was seen at bedside this morning Labs and vitals reviewed Discussed with attending Dr. Argueta in detail Utilizing a nail nipper, thickened, mycotic nail to Left hallux was sharply cut up to level of normal length without any incident. Patient was advised to follow up with a hospital aide as an outpatient for the treatment of Left hallux mycotic toenail. Podiatry signing off, please re-consult if any other pedal problems arise. Thank you very much for the opportunity to treat this patient. <Ugo Argueta - Last Filed: 03/27/17 13:31> Meds - Medications Medications: Current Medications Ciprofloxacin (Cipro 400mg/200ml Dsw) 400 mg in 200 mls @ 133 mls/hr IVPB Q12H [facility] Last Admin: 03/27/17 11:56 Dose: 133 mls/hr Acyclovir 100 mg/ Sodium (Chloride) 100 mls @ 100 mls/hr IV Q8H [facility] Last Admin: 03/27/17 06:26 Dose: 100 mls/hr Metronidazole (Flagyl) 500 mg in 100 mls @ 100 mls/hr IVPB Q8 [facility] Last Admin: 03/27/17 05:06 Dose: 100 mls/hr Ondansetron HCl (Zofran Inj) 4 mg IVP Q6H PRN PRN Reason: Nausea/Vomiting Last Admin: 03/22/17 17:57 Dose: 4 mg Pantoprazole Sodium (Protonix Inj) 40 mg IVP DAILY [facility] Last Admin: 03/27/17 09:07 Dose: 40 mg Results - Vital Signs Recent Vital Signs: Last Vital Signs Temp 97.8 F 03/27/17 07:46 Pulse 85 03/27/17 09:00 Resp 20 03/27/17 07:46 BP 144/89 03/27/17 07:46 Pulse Ox 90 L 03/27/17 07:46 - Labs Result Diagrams: 03/26/17 06:31 03/26/17 06:31 Attending/Attestation - Attestation I have personally seen and examined this patient.: Yes I have fully participated in the care of the patient.: Yes I have reviewed all pertinent clinical information: Yes Notes (Text): 03/27/17 13:31 Pt given RX for Ciclopirox - to be used as directed. Pt to f/u in office when D /C to home.
--- NOTE | 2017-03-27 13:52 | CP.PCM.PN ---
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 HEENT : N. Resp : No cough, wheezing ,pleuritic CP ,or hemoptysis Cardio : No anginal CP, PND, orthopnea, palpitation GI : No abd.pain, n/v ,diarrhea or GI bleeding . 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 Musculoskel : No joint swelling , Derm : No rash Psych : Normal affect. Ext : No swelling ,calf pain PE. Pt. is alert awake in no distress. V.S As noted in the chart Head ,ear nose,throat and eyes : Normal. Neck : Supple with normal carotids. Lungs: Clear air entry. Heart : S1 & S2 normal with S4. No murmur. Abd : Soft non tender with normal bowel sounds. POST OP Neuro : Moves all ext. with no POOR POOR Ext : No edema with intact pulses.Non tender calves Derm : No rashes or decubitus ulcer. LABS/RADIOLOGY: ALBERTO STILL DRAINING ASSESSMENT/PLAN : ARON PER SURGERY , ALBERTO D/CR NO W/U ORDERED BY FOR MASS Objective - Vital Signs/Intake and Output Vital Signs (last 24 hours): Temp Pulse Resp BP Pulse Ox 97.8 F 85 20 144/89 90 L 03/27/17 07:46 03/27/17 09:00 03/27/17 07:46 03/27/17 07:46 03/27/17 07:46 Intake and Output: 03/27/17 03/27/17 11:59 23:59 Intake Total 850 Output Total 1600 Balance -750 - Medications Medications: Current Medications Ciprofloxacin (Cipro 400mg/200ml Dsw) 400 mg in 200 mls @ 133 mls/hr IVPB Q12H [facility] Last Admin: 03/27/17 11:56 Dose: 133 mls/hr Acyclovir 100 mg/ Sodium (Chloride) 100 mls @ 100 mls/hr IV Q8H [facility] Last Admin: 03/27/17 06:26 Dose: 100 mls/hr Metronidazole (Flagyl) 500 mg in 100 mls @ 100 mls/hr IVPB Q8 [facility] Last Admin: 03/27/17 13:35 Dose: 100 mls/hr Ondansetron HCl (Zofran Inj) 4 mg IVP Q6H PRN PRN Reason: Nausea/Vomiting Last Admin: 03/22/17 17:57 Dose: 4 mg Pantoprazole Sodium (Protonix Inj) 40 mg IVP DAILY [facility] Last Admin: 03/27/17 09:07 Dose: 40 mg - Labs Labs: 03/26/17 06:31 03/26/17 06:31 PT 14.8 SECONDS (9.7-12.2) H 03/18/17 15:42 INR 1.3 03/18/17 15:42 APTT 27 SECONDS (21-34) 03/18/17 15:42 Assessment and Plan (1) Perforated abdominal viscus Status: Acute (2) Neurogenic bladder Status: Chronic (3) Mass of left kidney Status: Chronic (4) Multiple sclerosis Status: Chronic
--- NOTE | 2017-03-27 16:24 | MRI ---
MRI abdomen without IV contrast Indication: Left renal mass on CT Technique: Multiplanar, multi sequence magnetic resonance images of the abdomen were obtained without the administration of intravenous gadolinium. A total of 549 images submitted for review Comparison: CT abdomen pelvis with contrast performed 03/18/17, renal ultrasound performed 03/27/17 Findings: Examination is severely degraded by patient motion and limited by lack of IV contrast. Complex heterogeneous appearing left upper pole renal mass seen to better advantage on prior CT performed 03/18/17 ; lesion measures approximately 3.5 x 2.7 cm and appearance remains worrisome for malignant neoplasm. Additional T2 renal hyperdensities favored to reflect cysts. Cholelithiasis. The liver, spleen, pancreas, adrenal glands and adrenal glands appear grossly unremarkable. No bulky adenopathy appreciated. Suspect gastric wall thickening of the mid to distal portions of the stomach; suboptimally visualized by MRI. Correlate clinically. Limited views of the inferior thorax appear unremarkable. Impression: Examination is severely degraded by patient motion and limited by lack of IV contrast. Complex heterogeneous appearing left upper pole renal mass seen to better advantage on prior CT performed 03/18/17 ; lesion measures approximately 3.5 x 2.7 cm and appearance remains worrisome for malignant neoplasm. Additional T2 renal hyperdensities favored to reflect cysts. Cholelithiasis. Suspect gastric wall thickening of the mid to distal portions of the stomach; suboptimally visualized by MRI. Correlate clinically.
[2017-03-28] MEDS: metroNIDAZOLE IV 500 mg/100 ml 500 MG/100 ML BAG IVPB SCH ×2 (05:00→13:17)
[2017-03-28] MEDS: ACYCLOVIR IV SCH ×2 (05:58→14:59)
[2017-03-28] MEDS: SODIUM CHLORIDE 0.9% IV SCH ×2 (05:58→14:59)
[2017-03-28 08:13] VITALS: O2SAT 98
[2017-03-28] MEDS: Ciprofloxacin 400mg/200ml D5W 400 MG/200 ML BAG IVPB SCH (08:39)
--- NOTE | 2017-03-28 14:11 | CP.PCM.DIS ---
Provider - Provider Date of Admission: 03/18/17 16:05 Attending physician: Dennys Kay MD Time Spent in preparation of Discharge (in minutes): 35 Diagnosis - Discharge Diagnosis (1) Perforated abdominal viscus Status: Acute (2) Neurogenic bladder Status: Chronic (3) Mass of left kidney Status: Chronic (4) Multiple sclerosis Status: Chronic Hospital Course - Lab Results Lab Results: Micro Results 03/18/17 20:45 Blood Blood Culture - Final NO GROWTH AFTER 5 DAYS 03/18/17 20:45 Blood Gram Stain - Final TEST NOT PERFORMED 03/18/17 20:45 Blood Blood Culture - Final NO GROWTH AFTER 5 DAYS 03/18/17 20:45 Blood Gram Stain - Final TEST NOT PERFORMED Most Recent Lab Values WBC 7.3 K/uL (4.8-10.8) 03/26/17 06:31 RBC 4.22 Mil/uL (4.40-5.90) L 03/26/17 06:31 Hgb 11.7 g/dL (12.0-18.0) L 03/26/17 06:31 Hct 34.1 % (35.0-51.0) L 03/26/17 06:31 MCV 80.9 fL (80.0-94.0) 03/26/17 06:31 MCH 27.7 pg (27.0-31.0) 03/26/17 06:31 MCHC 34.3 g/dL (33.0-37.0) 03/26/17 06:31 RDW 13.4 % (11.5-14.5) 03/26/17 06:31 Plt Count 377 K/uL (130-400) 03/26/17 06:31 MPV 8.6 fL (7.2-11.7) 03/26/17 06:31 Neut % (Auto) 85.3 % (50.0-75.0) H 03/26/17 06:31 Lymph % (Auto) 4.4 % (20.0-40.0) L 03/26/17 06:31 [place] % (Auto) 6.4 % (0.0-10.0) 03/26/17 06:31 Eos % (Auto) 3.4 % (0.0-4.0) 03/26/17 06:31 Baso % (Auto) 0.5 % (0.0-2.0) 03/26/17 06:31 Neut # 6.2 K/uL (1.8-7.0) 03/26/17 06:31 Lymph # 0.3 K/uL (1.0-4.3) L 03/26/17 06:31 [place] # 0.5 K/uL (0.0-0.8) 03/26/17 06:31 Eos # 0.2 K/uL (0.0-0.7) 03/26/17 06:31 Baso # 0.0 K/uL (0.0-0.2) 03/26/17 06:31 Neutrophils % (Manual) 90 % (50-75) H 03/26/17 06:31 Band Neutrophils % 4 % (0-2) H 03/24/17 07:32 Lymphocytes % (Manual) 3 % (20-40) L 03/26/17 06:31 Reactive Lymphs % 2 % (0-0) H 03/23/17 06:25 Monocytes % (Manual) 7 % (0-10) 03/26/17 06:31 Eosinophils % (Manual) 6 % (0-4) H 03/25/17 08:24 Metamyelocytes % 1 % (0-0) H 03/24/17 07:32 Myelocytes % 1 % (0-0) H 03/22/17 07:47 Toxic Granulation Present 03/26/17 06:31 Platelet Estimate Normal (NORMAL) 03/26/17 06:31 Plt Clumps, EDTA 03/23/17 06:25 Large Platelets Present 03/26/17 06:31 Giant Platelets Present 03/23/17 06:25 RBC Morphology Normal 03/25/17 08:24 Polychromasia Slight 03/26/17 06:31 Hypochromasia (manual) Slight 03/26/17 06:31 Poikilocytosis (manual Slight 03/26/17 06:31 Anisocytosis (manual) Slight 03/26/17 06:31 Microcytosis (manual) Slight 03/19/17 08:03 Ovalocytes Slight 03/26/17 06:31 Odem Cells Slight 03/20/17 06:23 PT 14.8 SECONDS (9.7-12.2) H 03/18/17 15:42 INR 1.3 03/18/17 15:42 APTT 27 SECONDS (21-34) 03/18/17 15:42 pO2 21 mm/Hg (30-55) L 03/18/17 15:49 VBG pH 7.38 (7.32-7.43) 03/18/17 15:49 VBG pCO2 41 mmHg (40-60) 03/18/17 15:49 VBG HCO3 22.6 mmol/L 03/18/17 15:49 VBG Total CO2 25.6 mmol/L (22-28) 03/18/17 15:49 VBG O2 Sat (Calc) 42.9 % (40-65) 03/18/17 15:49 VBG Base Excess -0.8 mmol/L (0.0-2.0) L 03/18/17 15:49 VBG Potassium 4.0 mmol/L (3.6-5.2) 03/18/17 15:49 Sodium 137.0 mmol/l (132-148) 03/18/17 15:49 Chloride 105.0 mmol/L (98-107) 03/18/17 15:49 Glucose 112 mg/dl (75-110) H 03/18/17 15:49 Lactate 1.7 mmol/L (0.7-2.1) 03/18/17 15:49 Sodium 127 mmol/L (132-148) L 03/26/17 06:31 Potassium 3.9 mmol/L (3.6-5.2) 03/26/17 06:31 Chloride 98 mmol/L (98-107) 03/26/17 06:31 Carbon Dioxide 28 mmol/L (22-30) 03/26/17 06:31 Anion Gap 5 (10-20) L 03/26/17 06:31 BUN 5 mg/dL (9-20) L 03/26/17 06:31 Creatinine 0.5 mg/dL (0.8-1.5) L 03/26/17 06:31 Est GFR ( Amer) > 60 03/26/17 06:31 Est GFR (Non-Af Amer) > 60 03/26/17 06:31 Random Glucose 93 mg/dL (75-110) 03/26/17 06:31 Calcium 7.5 mg/dl (8.6-10.4) L 03/26/17 06:31 Total Bilirubin 0.4 mg/dL (0.2-1.3) 03/26/17 06:31 AST 26 U/L (17-59) 03/26/17 06:31 ALT 29 U/L (21-72) 03/26/17 06:31 Alkaline Phosphatase 66 U/L (38-126) 03/26/17 06:31 Total Protein 5.2 g/dL (6.3-8.3) L 03/26/17 06:31 Albumin 2.5 g/dL (3.5-5.0) L 03/26/17 06:31 Globulin 2.7 gm/dL (2.2-3.9) 03/26/17 06:31 Albumin/Globulin Ratio 0.9 (1.0-2.1) L 03/26/17 06:31 Lipase 53 U/L (23-300) 03/18/17 16:02 Venous Blood Potassium 4.0 mmol/L (3.6-5.2) 03/18/17 15:49 Urine Color [place] (YELLOW) 03/18/17 15:42 Urine Clarity Hazy (Clear) 03/18/17 15:42 Urine pH 5.0 (5.0-8.0) 03/18/17 15:42 Ur Specific [place] 1.020 (1.003-1.030) 03/18/17 15:42 Urine Protein 2+ mg/dL (NEGATIVE) H 03/18/17 15:42 Urine Glucose (UA) Normal mg/dL (Normal) 03/18/17 15:42 Urine Ketones Trace mg/dL (NEGATIVE) 03/18/17 15:42 Urine Blood 1+ (NEGATIVE) H 03/18/17 15:42 Urine Nitrate Negative (NEGATIVE) 03/18/17 15:42 Urine Bilirubin Negative (NEGATIVE) 03/18/17 15:42 Urine Urobilinogen 4.0 mg/dL (0.2-1.0) 03/18/17 15:42 Ur Leukocyte Esterase Trace Tanja/uL (Negative) 03/18/17 15:42 Urine WBC (Auto) 57 /hpf (0-5) H 03/18/17 15:42 Urine RBC (Auto) 24 /hpf (0-3) H 12/17/17 15:42 Ur Squamous Epith Cells 2 /hpf (0-5) 03/18/17 15:42 Urine Bacteria Occ (<OCC) H 03/18/17 15:42 Blood Type A POSITIVE 03/18/17 15:53 Antibody Screen Negative 03/18/17 15:53 - Hospital Course Hospital Course: AMITTED WITH 1 WEEK H/O VOMITING AT HOME PT HAS MS WALKS AT HOME WITH WALKER FOR 1 WEEK PT HAD FEW VOMITING A DAY AND ON DOA PT HAD FEW VOMITING IN SHORT TIME NO DIARRHEA OR GI BLEEDING EPIGASTRIC PAIN SMOKES 10 CIG. A DAY FOR [address] OF ABD SHOWED PERFORATION OF DU AND INCREASING MASS IN LEFT KIDNEY PT WENT TO OR WITH SURGICAL CORRECTION OF PERFORATED DU PT HAD PATCH PLACED ON PERFORATION UNEVENTFUL POST OP[ HAS NEUROGENIC BLADDER WILL NEED ALEX S CATHER FOR TIME BEING ALL STABLES AND AXEL REMOVED PT TRANSFERRED TO [facility] PT ALSO HAS KIDNEY MASS ANS PER WILL NEED W/U LATER AND POSSIBLE PARTIAL NEPHRECTOMY Discharge Exam - Head Exam Head Exam: ATRAUMATIC Discharge Plan - Follow Up Plan Condition: GUARDED Disposition: HOME/ ROUTINE Referrals: Escobar Damon MD [Staff Provider] - Tariq Pelayo MD [Staff Provider] - Dennys Kay MD [Staff Provider] - Ugo Argueta DPM [Staff Provider] - Kingston Nation MD [Staff Provider] -
[2017-03-28 14:22] LABS: BASO % 0.5 % (0.0-2.0); EOS # 0.1 K/uL (0.0-0.7); HEMATOCRIT 34.2 % (35.0-51.0); LYMPH # 0.4 K/uL (1.0-4.3); LYMPH % 7.7 % (20.0-40.0); MEAN CELL VOLUME 81.2 fL (80.0-94.0); MEAN CORPUSCULAR HEMOGLOBIN 28.4 pg (27.0-31.0); MEAN PLATELET VOLUME 8.5 fL (7.2-11.7); MONO # 0.4 K/uL (0.0-0.8); MONO % 7.7 % (0.0-10.0); PLATELET COUNT 448 K/uL (130-400); RED CELL DISTRIBUTION WIDTH 13.8 % (11.5-14.5); WHITE BLOOD COUNT 5.6 K/uL (4.8-10.8)
[2017-03-28 14:42] LABS: BLOOD UREA NITROGEN 6 mg/dL (9-20); CALCIUM 7.9 mg/dl (8.6-10.4); CARBON DIOXIDE 26 mmol/L (22-30); CHLORIDE 99 mmol/L (98-107); GFR AFRICAN-AMERICAN > 60; GLUCOSE,RANDOM 94 mg/dL (75-110); POTASSIUM 4.2 mmol/L (3.6-5.2); SODIUM 130 mmol/L (132-148)
[2017-03-28 14:45] LABS: EOSINOPHIL 2 % (0-4); NEUTROPHIL 83 % (50-75); REACTIVE LYMPHOCYTES 1 % (0-0); TOTAL CELLS COUNTED 100
--- NOTE | 2017-03-28 15:20 | CP.PCM.PN ---
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 Patient seen today , comfortable, denies any chest pain, sob abdominal pain, tolerating diet a febrile s/p ex-lap with rosa patch of duodenum POD#10 No overnight events reported by RN , Objective - Vital Signs/Intake and Output Vital Signs (last 24 hours): Temp Pulse Resp BP Pulse Ox 97.7 F 87 20 151/72 H 98 03/28/17 07:00 03/28/17 12:56 03/28/17 07:00 03/28/17 07:00 03/28/17 07:00 Intake and Output: 03/28/17 03/28/17 06:59 18:59 Intake Total 720 600 Output Total 1200 750 Balance -480 -150 - Medications Medications: Current Medications Ciprofloxacin (Cipro 400mg/200ml Dsw) 400 mg in 200 mls @ 133 mls/hr IVPB Q12H [facility] Last Admin: 03/28/17 08:39 Dose: 133 mls/hr Acyclovir 100 mg/ Sodium (Chloride) 100 mls @ 100 mls/hr IV Q8H [facility] Last Admin: 03/28/17 14:59 Dose: 100 mls/hr Metronidazole (Flagyl) 500 mg in 100 mls @ 100 mls/hr IVPB Q8 [facility] Last Admin: 03/28/17 13:17 Dose: 100 mls/hr Nystatin (Nystop Topical Powder) 1 applic TOP BID [facility] Last Admin: 03/28/17 15:18 Dose: 1 pow Ondansetron HCl (Zofran Inj) 4 mg IVP Q6H PRN PRN Reason: Nausea/Vomiting Last Admin: 03/22/17 17:57 Dose: 4 mg Oxybutynin Chloride (Ditropan Tab) 5 mg PO TID [facility] Last Admin: 03/28/17 13:17 Dose: 5 mg Pantoprazole Sodium (Protonix Inj) 40 mg IVP DAILY [facility] Last Admin: 03/28/17 10:49 Dose: 40 mg - Labs Labs: 03/28/17 14:13 03/28/17 14:13 PT 14.8 SECONDS (9.7-12.2) H 03/18/17 15:42 INR 1.3 03/18/17 15:42 APTT 27 SECONDS (21-34) 03/18/17 15:42 - Constitutional Appears: Well, No Acute Distress - Respiratory Exam Respiratory Exam: Clear to Ausculation Bilateral, NORMAL BREATHING PATTERN - Cardiovascular Exam Cardiovascular Exam: REGULAR RHYTHM, +S1, +S2 - GI/Abdominal Exam GI & Abdominal Exam: Soft, Normal Bowel Sounds (surgical site clean and intact , ) Assessment and Plan - Assessment and Plan (Free Text) Assessment: A/P 61 yr old male with pmhx of MS admitted with 1 week of abdominal pain an d nausea s/p ex-lap with rosa patch of duodenum POD#10 f/c discontinued today and pt voids after f/c d/c d and ditropan started by Dr. brown Patient [place] [facility] [place]W Dr. Kay , stable for discharge to [facility] today and Dr. Veliz will follow the [place] [facility] Discharge plan discussed with patient and at bedside, who understands and agrees with plan
[2017-03-28 16:38] VITALS: PULSE 88
[2017-03-28 17:32] VITALS: BP 118/75; TEMP 98.1
== END 2017-03-28 18:54 | DRG 331 ==
LOC: C.ER 13:05 → C.9E 16:05 → C.6T 17:31 → C.9E 19:04 → C.6T 19:05
PROVIDERS: ADMIT Internal Medicine Cardiovascular Disease; ATTEND Internal Medicine Cardiovascular Disease
PROC: 0DU907Z Supplement Duodenum with Autologous Tissue Substitute, Open Approach (ICD-10-PCS; principal; 2017-03-18 20:00)
DX: K26.5 Chronic or unspecified duodenal ulcer with perforation (principal); K66.8 Other specified disorders of peritoneum; G35 Multiple sclerosis; N28.1 Cyst of kidney, acquired; N31.9 Neuromuscular dysfunction of bladder, unspecified; F17.200 Nicotine dependence, unspecified, uncomplicated; I51.7 Cardiomegaly; K20.9 Esophagitis, unspecified; L60.2 Onychogryphosis; N18.9 Chronic kidney disease, unspecified; N28.89 Other specified disorders of kidney and ureter; R13.10 Dysphagia, unspecified; Z87.442 Personal history of urinary calculi; Z99.3 Dependence on wheelchair; F32.9 Major depressive disorder, single episode, unspecified; R35.0 Frequency of micturition

== ENCOUNTER 2017-04-09 17:22 | Inpatient (IN) | payer MEDICARE ==
[2017-04-09 18:29] LABS: BASO % 0.1 % (0.0-2.0); EOS # 0.1 K/uL (0.0-0.7); EOS % 1.4 % (0.0-4.0); HEMOGLOBIN 12.3 g/dL (12.0-18.0); LYMPH # 0.4 K/uL (1.0-4.3); LYMPH % 4.5 % (20.0-40.0); MEAN CELL VOLUME 81.8 fL (80.0-94.0); MEAN CORPUSCULAR HEMOGLOBIN 27.3 pg (27.0-31.0); MEAN CORPUSCULAR HGB CONC 33.3 g/dL (33.0-37.0); MEAN PLATELET VOLUME 8.4 fL (7.2-11.7); MONO # 0.9 K/uL (0.0-0.8); MONO % 9.3 % (0.0-10.0); NEUT # 8.3 K/uL (1.8-7.0); NEUT % 84.7 % (50.0-75.0); NRBC % 0.1 % (0.0-2.0); PLATELET COUNT 273 K/uL (130-400); RED CELL DISTRIBUTION WIDTH 14.7 % (11.5-14.5); WHITE BLOOD COUNT 9.9 K/uL (4.8-10.8)
[2017-04-09 18:37] LABS: INR 1.4; PROTHROMBIN TIME 15.4 SECONDS (9.7-12.2)
[2017-04-09 18:59] LABS: ALBUMIN 3.7 g/dL (3.5-5.0); CALCIUM 8.7 mg/dl (8.6-10.4)
[2017-04-09 19:01] LABS: EOSINOPHIL 1 % (0-4); LYMPHOCYTE 3 % (20-40); MONOCYTE 11 % (0-10); NEUTROPHIL 85 % (50-75); PLATELET ESTIMATE NORMAL (NORMAL); TOTAL CELLS COUNTED 100
[2017-04-09 19:57] LABS: URINE AMORPHOUS SEDIMENT FEW /ul (<OCC); URINE BACTERIA OCC (<OCC); URINE BILIRUBIN NEGATIVE (NEGATIVE); URINE BLOOD 3+ (NEGATIVE); URINE CLARITY Hazy (Clear); URINE COLOR Amber (YELLOW); URINE GLUCOSE (UA) NORMAL (Normal); URINE LEUKOCYTE ESTERASE TRACE Leu/uL (Negative); URINE NITRATE NEGATIVE (NEGATIVE); URINE PROTEIN 2+ mg/dL (NEGATIVE); URINE UROBILINOGEN NORMAL mg/dL (0.2-1.0)
--- NOTE | 2017-04-09 20:22 | C.PDOC ---
History Of Present Illness 61 year old male, whose PMHx includes multiple sclerosis, is brought to the ED via EMS after [facility] for evaluation of hematuria. Patient' s also notes that he is bleeding from his mouth. Patient denies fever, chills, abdominal pain, back pain, dysuria. Patient underwent a surgery in March after he was found to have free air in his abdomen. Patient underwent exploratory laparoscopy for a gram patch for peptic ulcer perforation on 03/18. Patient previously had a breen catheter placed during his previous admission for urinary retention. Time Seen by Provider: 04/09/17 18:59 Chief Complaint (Nursing): Male Genitourinary History Per: Patient, Family History/Exam Limitations: no limitations Onset/Duration Of Symptoms: Hrs Current Symptoms Are (Timing): Still Present Associated Symptoms: Urinary Symptoms (hematuria ). denies: Fever, Chills, Back Pain Additional History Per: Patient, Family, Halfway Past Medical History Reviewed: Historical Data, Nursing Documentation, Vital Signs Vital Signs: Last Vital Signs Temp 98 F 04/10/17 00:07 Pulse 83 04/10/17 00:07 Resp 20 04/10/17 00:07 BP 112/67 04/10/17 00:07 Pulse Ox 98 04/10/17 00:07 - Medical History PMH: Depression, Kidney Stones, Multiple Sclerosis, Chronic Kidney Disease - [facility] Procedures SUPPLEMENT DUODENUM WITH AUTOL SUB, OPEN APPROACH (03/18/17) Family History: States: No Known Family Hx - Social History Hx Alcohol Use: No Hx Substance Use: No - Immunization History Hx Tetanus Toxoid Vaccination: No Hx Influenza Vaccination: No Hx Pneumococcal Vaccination: Yes Review Of Systems Constitutional: Negative for: Fever, Chills Gastrointestinal: Negative for: Abdominal Pain Genitourinary: Positive for: Hematuria. Negative for: Dysuria Musculoskeletal: Negative for: Back Pain Physical Exam - Physical Exam Appears: Non-toxic, No Acute Distress Skin: Normal Color, Warm, Dry Head: Atraumatic, Normacephalic Eye(s): bilateral: Normal Inspection Oral Mucosa: Moist Neck: Supple Chest: Symmetrical, No Deformity, No Tenderness Cardiovascular: Rhythm Regular, No Murmur Respiratory: Normal Breath Sounds, No Rales, No Rhonchi, No Wheezing Gastrointestinal/Abdominal: No Guarding, No Rebound, Other (suprapubic fullness. midline surgical scar and bandage in epigastrium ) Extremity: Normal ROM, Capillary Refill (less than 2 seconds ) Neurological/Psych: Oriented x3, Normal Speech, Normal Cognition Gait: Steady ED Course And Treatment - Laboratory Results Result Diagrams: 04/09/17 18:26 04/09/17 18:26 Lab Interpretation: Abnormal (c/w acute renal insufficiency, prior creat 0.5 ) ECG: Interpreted By Me ECG Rhythm: Sinus Rhythm O2 Sat by Pulse Oximetry: 99 (on RA ) Pulse Ox Interpretation: Normal - Radiology CXR: Interpreted by Me CXR Interpretation: Yes: No Acute Disease - Other Rad abd x 2 X-Ray: Interpreted by Me (increased stool/gas, no free air) Progress Note: Bloodwork, Urinalysis, CT A/P, Obstructive Series abdomen ordered and reviewed. - Physician Consult Information Outcome Of Conversation: 2129: d/w Dr. Kay- adm Med/Surg. 2139: d/w Dr. Venecia Nation- Urology- will consult. Medical Decision Making Medical Decision Making: urinary retention for 1500 cc's, post-renal acute kidney injury with creat increased to 3.8 from 0.5 L renal mass pending further eval. breen in place, continue to hydrate Disposition Doctor Will See Patient In The: Hospital Counseled Patient/Family Regarding: Studies Performed, Diagnosis - Disposition Disposition: HOSPITALIZED Disposition Time: 21:41 Condition: GOOD - Clinical Impression Clinical Impression: Mass of left kidney, Acute urinary retention, Multiple sclerosis, Acute renal insufficiency - Scribe Statement The provider has reviewed the documentation as recorded by the Scribe (Daisha Rick) Provider Attestation: All medical record entries made by the Scribe were at my direction and personally dictated by me. I have reviewed the chart and agree that the record accurately reflects my personal performance of the history, physical exam, medical decision making, and the department course for this patient. I have also personally directed, reviewed, and agree with the discharge instructions and disposition.
[2017-04-09] MEDS ORDERED: Sodium Chloride 0.9% 1,000 ML IV ONE ×2 (20:42→21:54)
[2017-04-09] MEDS ORDERED: Sodium Chloride 0.9% 1,000 ML ONE ×2 (21:00→21:54)
--- NOTE | 2017-04-09 21:24 | CT ---
EXAM: CT Abdomen and Pelvis Without Intravenous Contrast EXAM DATE/TIME: 04/09/2017 7:33 PM CLINICAL HISTORY: 61 years old, male; Condition or disease; Kidney or ureter condition; Other: Urinary retention; Additional info: Urinary retention, ? renal. Duodenal perf 3 wks TECHNIQUE: Axial computed tomography images of the abdomen and pelvis without intravenous contrast. All CT scans at this facility use one or more dose reduction techniques, viz.: automated exposure control; ma/kV adjustment per patient size (including targeted exams where dose is matched to indication; i.e. head); or iterative reconstruction technique. Coronal and sagittal reformatted images were created and reviewed. COMPARISON: CT - ABD PELVIS IV CONTRAST ONLY 2017-03-18 17:19 FINDINGS: Artifacts: Motion artifact degrades image quality. Lower thorax: The lung bases are hyperinflated. There is atelectasis and scarring. The heart is enlarged. There are coronary artery calcifications. There is a small hiatal hernia. ABDOMEN: Liver: unremarkable Gallbladder and bile ducts: Gallbladder is partially distended. There is a stone in the dependent portions.There is prominence of the common duct. Pancreas: unremarkable Spleen: unremarkable Adrenals: unremarkable Kidneys and ureters: Lack of intravenous contrast limits evaluation of the kidneys. There are multiple right renal cysts better visualized on the prior study. There is an exophytic 2.8 x 3 x 3 cm solid left renal mass. There are bilateral nonobstructing renal stones. There is mild bilateral pelvocaliectasis and ureterectasis. There are no ureteral stones. Stomach and bowel: Stomach is incompletely distended which accentuates the gastric wall. Motion limits evaluation of the gastric wall. Duodenum is mildly distended with air and fluid. Rotation is normal. There is fluid and air throughout the small bowel. There are focally dilated small bowel loops in the left abdomen. There is no obstruction. Terminal ileum is distended with fluid. is unremarkable.Colon is incompletely distended which limits evaluation. Appendix: See stomach and bowel PELVIS: Bladder: Bladder is partially distended. There is bladder wall thickening and irregularity. There is a Montanez catheter. Reproductive: Unremarkable ABDOMEN and PELVIS: Intraperitoneal space: Prostate is enlarged. Seminal vesicles are unremarkable.There is no free air or free fluid. Bones/joints: Bony structures are osteopenic with degenerative change. Soft tissues: There is a tiny fat-containing hernia. There is a small fat containing umbilical hernia. Vasculature: There are vascular calcifications. Lymph nodes: There is shotty para-aortic adenopathy. IMPRESSION: 2.8 x 3 x 3 cm solid left renal mass suspicious for malignancy, similar findings seen on the prior study; Enlarged prostate; partially distended bladder with Montanez catheter, bladder wall thickening; mild pelvocaliectasis and ureterectasis may be secondary to enlarged prostate and bladder outlet obstruction; gallstone; possible enteritis; limited evaluation of the stomach due to motion, interval resolution of pneumoperitoneum Additional findings as described above.
--- NOTE | 2017-04-09 22:41 | CP.PCM.HP ---
History of Present Illness - History of Present Illness History of Present Illness: COMPREHENSIVE HISTORY & PHYSICAL EXAM HPI TRANSERRED FROM [facility] WITH HEMATURIA . PAINLESS AND SPONTANEOUS, NO ALEX'S PAST HIST. RECENTLY D/C FROM AFTER DU PERFORATION WITH PATCH HAD ISSUES WITH NEUROGENIC BLADDER UNDER THE CARE OF UROLOGY HAS LEFT KIDNEY MASS MULTIPLE SCLEROSIS AND HAD RECEIVED IMMUNO THERAPY IN [facility] PT HAS NOT EATEN FOR FEW DAYS LATELY THERE WAS DISCHARGE FROM ABD. WOUND AND GREW MRSA PERSONAL HIST: Smoking. N Alcohol. N Allergy N Travel_- . FAMILY HIST : ROS : Constitutional: DEPRESSED, FLAT AFFECT Eyes: Negative for redness, swelling, itching, discharge, vision changes, blurry vision, double vision, glaucoma, cataracts, Ears: Negative for hearing loss, ringing, , tinnitus, vertigo Nose: Negative for rhinorrhea, stuffiness, sniffing, itching, postnasal drip, discoloration, nasal congestion and epistaxis. Throat: Negative for throat clearing, sore throat, hoarseness, difficulty swallowing and difficulty speaking. Respiratory: Negative for cough, , sputum production, chest tightness, wheezing, pleuritic chest pain ,daytime somnolence, chronic cough, hemoptysis, snoring at night, Cardiovascular: Negative for chest pain, palpitations, orthopnea, PND, Edema of legs, leg cramps, angina, claudication, , irregular heartbeat, Neurology: Negative for irritability, muscle weakness, numbness and tingling, seizures, tremors, migraines, slurred speech, syncope, memory loss, mood changes , recurrent headaches Gastrointestinal: Negative for difficulty swallowing, diarrhea, constipation, black stools, rectal bleeding, nausea, flatulence, reflux, poor appetite, changes in bowel habits, abdominal pain Genitourinary: Negative for frequent urination, hematuria, discharge, incontinence, urinary retention, frequent UTI, Psychiatric: POS for depression , Musculoskeletal: Negative for swollen joints, back pain, , neck pain, morning stiffness of joints, . Skin: Negative for rash, ulcers, itching, dry skin and pigmented lesions. P/E: Constitutional: Appears stated age and in no apparent distress. Head: Normocephalic. Ears: External ear canals patent without inflammation. Tympanic membranes intact with normal light reflex and landmark. Eyes: Pupils are central, bilaterally equal, symmetrical and reacts to light with normal movements and no icterus or pallor. Nose: External nares are patent. Mucosa is pink Mouth-Throat: Good general appearance and condition. No post-pharyngeal/oropharyngeal erythema and tonsillar hypertrophy. Good dental hygiene. Neck-Lymphatic: Neck is supple with normal ROM, no thyromegaly, lymph nodes or masses. JVD is normal with no carotid bruit. Lungs: Clear to percussion and auscultation with bilateral normal air entry. Cardiovascular: S1 and S2 are normal with no murmurs, gallops and rub. GI Exam: No hepatomegaly. Abdomen is soft and non-tender. No Organomegaly , masses or hernias are evident and bowel sounds are normal and active. Neurology: Higher function and all cranial nerves intact, with LOWER EXT WEAKNESS Musculoskeletal: No tender spots with normal curvature of the spine with no swelling or restricted ROM of the small and large joints. Extremities: Homans sign absent. Intact pulses with no pitting edema, calf tenderness or skin color changes. Skin: No rash, eruptions or abnormal skin pigmentation LAB/RADIOLOGY: ASSESMENT : HEMATURIA , INFECTION v MALIGNANCY MS MRSA FROM ABD. WOUND COPD NEUROGENIC BLADDER S/P RECENT PATCH FOR PERFORATED DU ACUTE RENAL FAILUR PLAN: IV AB . IV FLUIDS ID/ EVAL Present on Admission - Present on Admission Any Indicators Present on Admission: No Past Patient History - Past Medical History & Family History Past Medical History?: Yes - Past Social History Smoking Status: Former Smoker - CARDIAC Hx Cardiac Disorders: No - PULMONARY Hx Respiratory Disorders: No - NEUROLOGICAL Hx Multiple Sclerosis: Yes - HEENT Hx HEENT Problems: No - RENAL Hx Chronic Kidney Disease: Yes Hx Kidney Stones: Yes - ENDOCRINE/METABOLIC Hx Endocrine Disorders: No - HEMATOLOGICAL/ONCOLOGICAL Hx Blood Disorders: No - INTEGUMENTARY Hx Dermatological Problems: No - MUSCULOSKELETAL/RHEUMATOLOGICAL Hx Musculoskeletal Disorders: No - GASTROINTESTINAL Hx Gastrointestinal Disorders: No - GENITOURINARY/GYNECOLOGICAL Hx Genitourinary Disorders: Yes Hx Hematuria: Yes - PSYCHIATRIC Hx Depression: Yes Hx Substance Use: No - SURGICAL HISTORY Hx Surgeries: Yes Other/Comment: "PERFORATED ULCER" - ANESTHESIA Hx Anesthesia: Yes Hx Anesthesia Reactions: No Hx Malignant Hyperthermia: No Meds Allergies/Adverse Reactions: Allergies Allergy/AdvReac Type Severity Reaction Status Date / Time No Known Allergies Allergy Verified 04/09/17 17:30 Results - Vital Signs Recent Vital Signs: Last Vital Signs Temp 97.3 F L 04/09/17 22:27 Pulse 87 01/08/18 22:27 Resp 18 04/09/17 22:27 BP 158/84 H 04/09/17 22:27 Pulse Ox 98 04/09/17 22:27 - Labs Result Diagrams: 04/10/17 08:42 04/10/17 08:42 Labs: Laboratory Results - last 24 hr 04/09/17 04/09/17 04/09/17 18:26 18:26 18:26 WBC 9.9 D RBC 4.50 Hgb 12.3 Hct 36.8 MCV 81.8 MCH 27.3 MCHC 33.3 RDW 14.7 H Plt Count 273 D MPV 8.4 Neut % (Auto) 84.7 H Lymph % (Auto) 4.5 L [place] % (Auto) 9.3 Eos % (Auto) 1.4 Baso % (Auto) 0.1 Neut # 8.3 H Lymph # 0.4 L [place] # 0.9 H Eos # 0.1 Baso # 0.0 Neutrophils % (Manual) 85 H Lymphocytes % (Manual) 3 L Monocytes % (Manual) 11 H Eosinophils % (Manual) 1 Platelet Estimate Normal RBC Morphology Normal PT 15.4 H INR 1.4 APTT 26 Sodium 131 L Potassium 4.3 Chloride 95 L Carbon Dioxide 27 Anion Gap 14 BUN 100 H* D Creatinine 3.8 H Est GFR ( Amer) 20 Est GFR (Non-Af Amer) 16 Random Glucose 108 Calcium 8.7 Total Bilirubin 0.8 AST 50 ALT 72 D Alkaline Phosphatase 216 H D Total Protein 7.4 Albumin 3.7 Globulin 3.7 Albumin/Globulin Ratio 1.0 Lipase Urine Color Urine Clarity Urine pH Ur Specific [place] Urine Protein Urine Glucose (UA) Urine Ketones Urine Blood Urine Nitrate Urine Bilirubin Urine Urobilinogen Ur Leukocyte Esterase Urine WBC (Auto) Urine RBC (Auto) Amorphous Sediment Urine Bacteria 04/09/17 04/09/17 19:13 19:39 WBC RBC Hgb Hct MCV MCH MCHC RDW Plt Count MPV Neut % (Auto) Lymph % (Auto) [place] % (Auto) Eos % (Auto) Baso % (Auto) Neut # Lymph # [place] # Eos # Baso # Neutrophils % (Manual) Lymphocytes % (Manual) Monocytes % (Manual) Eosinophils % (Manual) Platelet Estimate RBC Morphology PT INR APTT Sodium Potassium Chloride Carbon Dioxide Anion Gap BUN Creatinine Est GFR ( Amer) Est GFR (Non-Af Amer) Random Glucose Calcium Total Bilirubin AST ALT Alkaline Phosphatase Total Protein Albumin Globulin Albumin/Globulin Ratio Lipase 51 Urine Color [place] Urine Clarity Hazy Urine pH 5.0 Ur Specific [place] 1.010 Urine Protein 2+ H Urine Glucose (UA) Normal Urine Ketones Negative Urine Blood 3+ H Urine Nitrate Negative Urine Bilirubin Negative Urine Urobilinogen Normal Ur Leukocyte Esterase Trace Urine WBC (Auto) 19 H Urine RBC (Auto) 33 H Amorphous Sediment Few H Urine Bacteria Occ H
[2017-04-09] MEDS ORDERED: ACETAMINOPHEN 650 MG PO PRN (22:54)
[2017-04-09] MEDS ORDERED: Magnesium Hydroxide Susp 30 ml UD PO PRN (22:54)
[2017-04-09] MEDS: Dextrose 5%/0.45% NS 1,000 ML IV SCH (23:31)
--- NOTE | 2017-04-10 00:04 | CP.PCM.CON ---
History of Present Illness - History of Present Illness History of Present Illness: INFECTIOUS DISEASE CONSULT; HPI; 61 year old male, whose PMHx includes multiple sclerosis, is brought to the ED via EMS after being sent from [facility] for evaluation of hematuria. Patient' s also notes that he is bleeding from his mouth. Patient denies fever, chills, abdominal pain, back pain, dysuria. Patient underwent surgery in March after he was found to have free air in his abdomen. Patient underwent EXPLORATORY LAPAROTOMY WITH A MARITZA PATCH/AND REPAIR OF DUODENAL ULCER WITH PERFORATION on 03/18. Patient previously had a breen catheter placed during his previous admission for urinary retention. CT OF THE ABDOMEN AND PELVIS WITHOUT BY MOUTH OR iv CONTRAST IN ER SHOWED A LEFT RENAL MASS 2.8 X 3 X 3 CM AND ENLARGED PROSTATE WITH DISTENDED BLADDER WALL THICKENING.ALSO IT WAS POSITIVE FOR GALLSTONES, AND ENTERITIS (SEE FULL REPORT ) PATIENT WAS FOUND TO HAVE CREATININE OF 3.8 WITH BUN OF 100. PATIENT WAS FOUND TO HAVE DARK RED AND HEMORRHAGIC URINE. Patient was also reported to have drainage from the postoperative site which was positive for MRSA in subacute rehabilitation INFECTIOUS DISEASE CONSULTATION THEREFORE REQUESTED FOR HEMATURIA /UROSEPSIS/ AND URINARY RETENTION /and postoperative wound infection abdomen. PMH: Depression, Kidney Stones, Multiple Sclerosis, Chronic Kidney Disease - [facility] Procedures SUPPLEMENT DUODENUM WITH AUTOL SUB, OPEN APPROACH (03/18/17) Family History: States: No Known Family Hx - Social History Hx Alcohol Use: No Hx Substance Use: No - Immunization History Hx Tetanus Toxoid Vaccination: No Hx Influenza Vaccination: No Hx Pneumococcal Vaccination: Yes Review Of Systems Constitutional: Negative for: Fever, Chills Gastrointestinal: Negative for: Abdominal Pain Genitourinary: Positive for: Hematuria. Negative for: Dysuria Musculoskeletal: Negative for: Back Pain Past Patient History - Past Medical History & Family History Past Medical History?: Yes - Past Social History Smoking Status: Former Smoker - CARDIAC Hx Cardiac Disorders: No - PULMONARY Hx Respiratory Disorders: No - NEUROLOGICAL Hx Multiple Sclerosis: Yes - HEENT Hx HEENT Problems: No - RENAL Hx Chronic Kidney Disease: Yes Hx Kidney Stones: Yes - ENDOCRINE/METABOLIC Hx Endocrine Disorders: No - HEMATOLOGICAL/ONCOLOGICAL Hx Blood Disorders: No - INTEGUMENTARY Hx Dermatological Problems: No - MUSCULOSKELETAL/RHEUMATOLOGICAL Hx Musculoskeletal Disorders: No - GASTROINTESTINAL Hx Gastrointestinal Disorders: No - GENITOURINARY/GYNECOLOGICAL Hx Genitourinary Disorders: Yes Hx Hematuria: Yes - PSYCHIATRIC Hx Depression: Yes Hx Substance Use: No - SURGICAL HISTORY Hx Surgeries: Yes Other/Comment: "PERFORATED ULCER" - ANESTHESIA Hx Anesthesia: Yes Hx Anesthesia Reactions: No Hx Malignant Hyperthermia: No Meds Allergies/Adverse Reactions: Allergies Allergy/AdvReac Type Severity Reaction Status Date / Time No Known Allergies Allergy Verified 04/09/17 17:30 - Medications Medications: Current Medications Home Med (Acetaminophen [8 Hour]) 650 mg PO Q4 PRN PRN Reason: PAIN, TEMPERATURE 101F & ABOVE Dextrose/Sodium Chloride (Dextrose 5%/0.45% Ns 1000 Ml) 1,000 mls @ 100 mls/hr IV .Q10H TERESE Last Admin: 04/09/17 23:31 Dose: 100 mls/hr Linezolid (Zyvox 600mg/300ml D5w) 600 mg in 300 mls @ 200 mls/hr IVPB Q12 TERESE Cefepime HCl 1 gm/ Dextrose 50 mls @ 100 mls/hr IVPB Q24H TERESE Magnesium Hydroxide (Milk Of Magnesia) 30 ml PO HS PRN PRN Reason: Constipation Multivitamins (Hexavitamin) 1 tab PO DAILY [facility] Nystatin (Nystop Topical Powder) 15 applic TOP BID TERESE Oxybutynin Chloride (Ditropan Tab) 5 mg PO TID TERESE Pantoprazole Sodium (Protonix Ec Tab) 40 mg PO DAILY [facility] Physical Exam - Constitutional Appears: No Acute Distress - Head Exam Head Exam: NORMAL INSPECTION - Eye Exam Eye Exam: EOMI, PERRL - ENT Exam ENT Exam: Normal Oropharynx - Neck Exam Neck exam: Positive for: Normal Inspection - Respiratory Exam Respiratory Exam: Clear to Auscultation Bilateral - Cardiovascular Exam Cardiovascular Exam: REGULAR RHYTHM, +S1, +S2 - GI/Abdominal Exam GI & Abdominal Exam: Hypoactive Bowel Sounds (POST OPTIVE MIDLINE SCAR WITH SOME YELLOWISH DRAINAGE.), Soft - Extremities Exam Extremities exam: Positive for: pedal pulses present. Negative for: calf tenderness, pedal edema - Neurological Exam Neurological exam: Alert - Psychiatric Exam Psychiatric exam: Normal Mood - Skin Skin Exam: Warm Results - Vital Signs Recent Vital Signs: Last Vital Signs Temp 97.3 F L 04/09/17 22:27 Pulse 87 04/09/17 22:27 Resp 18 04/09/17 22:27 BP 158/84 H 04/09/17 22:27 Pulse Ox 98 04/09/17 22:27 - Labs Result Diagrams: 04/09/17 18:26 04/09/17 18:26 Labs: Laboratory Results - last 24 hr 04/09/17 04/09/17 04/09/17 18:26 18:26 18:26 WBC 9.9 D RBC 4.50 Hgb 12.3 Hct 36.8 MCV 81.8 MCH 27.3 MCHC 33.3 RDW 14.7 H Plt Count 273 D MPV 8.4 Neut % (Auto) 84.7 H Lymph % (Auto) 4.5 L [place] % (Auto) 9.3 Eos % (Auto) 1.4 Baso % (Auto) 0.1 Neut # 8.3 H Lymph # 0.4 L [place] # 0.9 H Eos # 0.1 Baso # 0.0 Neutrophils % (Manual) 85 H Lymphocytes % (Manual) 3 L Monocytes % (Manual) 11 H Eosinophils % (Manual) 1 Platelet Estimate Normal RBC Morphology Normal PT 15.4 H INR 1.4 APTT 26 Sodium 131 L Potassium 4.3 Chloride 95 L Carbon Dioxide 27 Anion Gap 14 BUN 100 H* D Creatinine 3.8 H Est GFR ( Amer) 20 Est GFR (Non-Af Amer) 16 Random Glucose 108 Calcium 8.7 Total Bilirubin 0.8 AST 50 ALT 72 D Alkaline Phosphatase 216 H D Total Protein 7.4 Albumin 3.7 Globulin 3.7 Albumin/Globulin Ratio 1.0 Lipase Urine Color Urine Clarity Urine pH Ur Specific [place] Urine Protein Urine Glucose (UA) Urine Ketones Urine Blood Urine Nitrate Urine Bilirubin Urine Urobilinogen Ur Leukocyte Esterase Urine WBC (Auto) Urine RBC (Auto) Amorphous Sediment Urine Bacteria 04/09/17 04/09/17 19:13 19:39 WBC RBC Hgb Hct MCV MCH MCHC RDW Plt Count MPV Neut % (Auto) Lymph % (Auto) [place] % (Auto) Eos % (Auto) Baso % (Auto) Neut # Lymph # [place] # Eos # Baso # Neutrophils % (Manual) Lymphocytes % (Manual) Monocytes % (Manual) Eosinophils % (Manual) Platelet Estimate RBC Morphology PT INR APTT Sodium Potassium Chloride Carbon Dioxide Anion Gap BUN Creatinine Est GFR ( Amer) Est GFR (Non-Af Amer) Random Glucose Calcium Total Bilirubin AST ALT Alkaline Phosphatase Total Protein Albumin Globulin Albumin/Globulin Ratio Lipase 51 Urine Color [place] Urine Clarity Hazy Urine pH 5.0 Ur Specific [place] 1.010 Urine Protein 2+ H Urine Glucose (UA) Normal Urine Ketones Negative Urine Blood 3+ H Urine Nitrate Negative Urine Bilirubin Negative Urine Urobilinogen Normal Ur Leukocyte Esterase Trace Urine WBC (Auto) 19 H Urine RBC (Auto) 33 H Amorphous Sediment Few H Urine Bacteria Occ H Assessment & Plan (1) Acute urinary retention Assessment and Plan: patient's Breen changed as per ER and 1200 mL hemorrhagic urine drained. Blood cultures 2 sets UA urine culture. Start cefepime 1 g once a day daily. Add IV Zyvox 600 mg every 12 hourly for staph and mrsa coverage in view of nephrotoxicity and azotemia. Status: Acute (2) Cystitis Status: Acute (3) Hematuria Status: Acute (4) Acute renal insufficiency Assessment and Plan: BUN 100 /creatinine 3.8 IV fluids as per PMD. Renal insufficiency most likely secondary to obstructive uropathy. Status: Acute (5) Mass of left kidney Assessment and Plan: patient has a left renal mass. aware since last admission on March. Patient was too sick and was supposed to follow-up later with . Status: Chronic (6) Postoperative wound infection Assessment and Plan: wound cultures ordered. History of MRSA in the wound in subacute rehabilitation. Start IV Zyvox 600 every 12 hourly while awaiting cultures. CONTACT ISOLATION.. Case discussed with PMD. Status: Acute
[2017-04-10] MEDS: Linezolid 600 mg in D5W 300 ml 600 MG/300 ML BAG IVPB SCH ×3 (02:04→21:14)
[2017-04-10 08:50] LABS: EOS # 0.3 K/uL (0.0-0.7); LYMPH # 0.4 K/uL (1.0-4.3); MEAN CORPUSCULAR HEMOGLOBIN 27.5 pg (27.0-31.0); MONO # 0.6 K/uL (0.0-0.8); NEUT % 75.6 % (50.0-75.0); RBC 3.74 Mil/uL (4.40-5.90)
[2017-04-10 08:56] LABS: BASO % 0.2 % (0.0-2.0); EOS % 5.6 % (0.0-4.0); LYMPH % 7.7 % (20.0-40.0); MEAN CELL VOLUME 81.5 fL (80.0-94.0); MEAN CORPUSCULAR HGB CONC 33.7 g/dL (33.0-37.0); MEAN PLATELET VOLUME 8.8 fL (7.2-11.7); MONO % 10.9 % (0.0-10.0); NEUT # 3.9 K/uL (1.8-7.0); NRBC % 0.1 % (0.0-2.0); PLATELET COUNT 220 K/uL (130-400); RED CELL DISTRIBUTION WIDTH 14.7 % (11.5-14.5); WHITE BLOOD COUNT 5.2 K/uL (4.8-10.8)
[2017-04-10 08:58] LABS: HEMOGLOBIN 10.3 g/dL (12.0-18.0)
[2017-04-10] MEDS: Pantoprazole 40 mg EC Tab PO SCH (09:15)
[2017-04-10] MEDS: Dextrose 5%/0.45% NS 1,000 ML IV SCH ×2 (09:15→19:55)
[2017-04-10] MEDS: Multiple Vitamins Tab PO SCH (09:15)
[2017-04-10 09:36] LABS: ALB/GLOB RATIO 0.9 (1.0-2.1); ALBUMIN 2.8 g/dL (3.5-5.0); ALT/SGPT 59 U/L (21-72); AST/SGOT 30 U/L (17-59); BLOOD UREA NITROGEN 40 mg/dL (9-20); CALCIUM 8.2 mg/dl (8.6-10.4); GFR AFRICAN-AMERICAN > 60; GFR NON-AFRICAN AMERICAN > 60
[2017-04-10] MEDS ORDERED: Influenza Vaccine 60 mcg/0.5 mL SYR (4YR UP) IM ONE (10:00)
[2017-04-10 10:03] LABS: EOSINOPHIL 1 % (0-4); LYMPHOCYTE 3 % (20-40); MONOCYTE 6 % (0-10); NEUTROPHIL 90 % (50-75); PLATELET ESTIMATE NORMAL (NORMAL); TOTAL CELLS COUNTED 100
[2017-04-10 10:04] LABS: HYPOCHROMIC SLIGHT; OVALOCYTES SLIGHT; POLYCHROMIC SLIGHT
[2017-04-10 10:05] LABS: MICROCYTOSIS SLIGHT
--- NOTE | 2017-04-10 13:43 | RAD ---
PROCEDURE: Radiographs of the chest and abdomen (obstructive series) HISTORY: abd pain prior history of free air from duodenum ulcer COMPARISON: CT abdomen 03/18/2017 TECHNIQUE: AP radiograph of the chest, with upright and supine radiographs of the abdomen. FINDINGS: CHEST: Lungs: Clear. Cardiovascular: Normal size heart. No pulmonary vascular congestion. Pleura: No pleural fluid. No pneumothorax. Other findings: None. ABDOMEN AND PELVIS: Bowel: Mild moderate stool retention. No evidence of mechanical obstruction. Free air: None. Bones: Unremarkable. Other findings: None. IMPRESSION: No persistent or interval recurrence of free air seen as noted on the prior CT report. No evidence of mechanical bowel obstruction. Mild moderate stool retention
--- NOTE | 2017-04-10 14:04 | CP.PCM.PN ---
Subjective - Date & Time of Evaluation Date of Evaluation: 04/10/17 Time of Evaluation: 14:02 - Subjective Subjective: CHIEF COMPLAINTS TODAY : NO SP. COMPLAINTS ROS. HEENT : N. Resp : No cough, wheezing ,pleuritic CP ,or hemoptysis Cardio : No anginal CP, PND, orthopnea, palpitation GI : No abd.pain, n/v ,diarrhea or GI bleeding . POLYSOM TECH : No headache, vertigo, focal deficit. Musculoskel : No joint swelling , Derm : No rash Psych : Normal affect. Ext : No swelling ,calf pain PE. Pt. is alert awake in no distress. V.S As noted in the chart Head ,ear nose,throat and eyes : Normal. Neck : Supple with normal carotids. Lungs: Clear air entry. Heart : S1 & S2 normal with S4. No murmur. Abd : Soft non tender with normal bowel sounds. UPPER ABD SURGICAL WOUND Neuro : Moves all ext. with no localized deficit. Ext : No edema with intact pulses.Non tender calves Derm : No rashes or decubitus ulcer. LABS/RADIOLOGY: ASSESSMENT/PLAN : RENAL FAILURE HAS IMPROVED , BUN 40, CR. 1.0 IV AB EVAL Objective - Vital Signs/Intake and Output Vital Signs (last 24 hours): Temp Pulse Resp BP Pulse Ox 98.1 F 89 20 126/73 96 04/10/17 10:58 04/10/17 10:58 04/10/17 10:58 04/10/17 10:58 04/10/17 10:58 Intake and Output: 04/10/17 04/10/17 11:59 23:59 Intake Total 1050 Output Total 1500 Balance -450 - Medications Medications: Current Medications Home Med (Acetaminophen [8 Hour]) 650 mg PO Q4 PRN PRN Reason: PAIN, TEMPERATURE 101F & ABOVE Dextrose/Sodium Chloride (Dextrose 5%/0.45% Ns 1000 Ml) 1,000 mls @ 100 mls/hr IV .Q10H [facility] Last Admin: 04/10/17 09:15 Dose: Not Given Linezolid (Zyvox 600mg/300ml D5w) 600 mg in 300 mls @ 200 mls/hr IVPB Q12 [facility] Last Admin: 04/10/17 02:04 Dose: 200 mls/hr Cefepime HCl 1 gm/ Dextrose 50 mls @ 100 mls/hr IVPB Q24H [facility] Last Admin: 04/10/17 01:11 Dose: 100 mls/hr Magnesium Hydroxide (Milk Of Magnesia) 30 ml PO HS PRN PRN Reason: Constipation Multivitamins (Hexavitamin) 1 tab PO DAILY [facility] Last Admin: 04/10/17 09:15 Dose: 1 tab Nystatin (Nystop Topical Powder) 15 applic TOP BID [facility] Oxybutynin Chloride (Ditropan Tab) 5 mg PO TID [facility] Last Admin: 04/10/17 09:15 Dose: 5 mg Pantoprazole Sodium (Protonix Ec Tab) 40 mg PO DAILY [facility] Last Admin: 04/10/17 09:15 Dose: 40 mg - Labs Labs: 04/10/17 08:42 04/10/17 08:42 PT 15.4 SECONDS (9.7-12.2) H 04/09/17 18:26 INR 1.4 04/09/17 18:26 APTT 26 SECONDS (21-34) 04/09/17 18:26
--- NOTE | 2017-04-10 14:58 | PCM.URO ---
Urology Progress Note - Objective Lab Studies: Reviewed (retention, renal failure, plans : breen to sd, antibiotics, full note dictated) Lab Results Last 24 Hours: Laboratory Results - last 24 hr 04/09/17 04/09/17 04/09/17 18:26 18:26 18:26 WBC 9.9 D RBC 4.50 Hgb 12.3 Hct 36.8 MCV 81.8 MCH 27.3 MCHC 33.3 RDW 14.7 H Plt Count 273 D MPV 8.4 Neut % (Auto) 84.7 H Lymph % (Auto) 4.5 L [place] % (Auto) 9.3 Eos % (Auto) 1.4 Baso % (Auto) 0.1 Neut # 8.3 H Lymph # 0.4 L [place] # 0.9 H Eos # 0.1 Baso # 0.0 Neutrophils % (Manual) 85 H Lymphocytes % (Manual) 3 L Monocytes % (Manual) 11 H Eosinophils % (Manual) 1 Platelet Estimate Normal RBC Morphology Normal Polychromasia Hypochromasia (manual) Microcytosis (manual) Ovalocytes PT 15.4 H INR 1.4 APTT 26 Sodium 131 L Potassium 4.3 Chloride 95 L Carbon Dioxide 27 Anion Gap 14 BUN 100 H* D Creatinine 3.8 H Est GFR ( Amer) 20 Est GFR (Non-Af Amer) 16 Random Glucose 108 Calcium 8.7 Total Bilirubin 0.8 AST 50 ALT 72 D Alkaline Phosphatase 216 H D Total Protein 7.4 Albumin 3.7 Globulin 3.7 Albumin/Globulin Ratio 1.0 Lipase Urine Color Urine Clarity Urine pH Ur Specific [place] Urine Protein Urine Glucose (UA) Urine Ketones Urine Blood Urine Nitrate Urine Bilirubin Urine Urobilinogen Ur Leukocyte Esterase Urine WBC (Auto) Urine RBC (Auto) Amorphous Sediment Urine Bacteria 04/09/17 04/09/17 04/10/17 19:13 19:39 08:42 WBC 5.2 RBC 3.74 L Hgb 10.3 L D Hct 30.5 L MCV 81.5 MCH 27.5 MCHC 33.7 RDW 14.7 H Plt Count 220 MPV 8.8 Neut % (Auto) 75.6 H Lymph % (Auto) 7.7 L [place] % (Auto) 10.9 H Eos % (Auto) 5.6 H Baso % (Auto) 0.2 Neut # 3.9 Lymph # 0.4 L [place] # 0.6 Eos # 0.3 Baso # 0.0 Neutrophils % (Manual) 90 H Lymphocytes % (Manual) 3 L Monocytes % (Manual) 6 Eosinophils % (Manual) 1 Platelet Estimate Normal RBC Morphology Polychromasia Slight Hypochromasia (manual) Slight Microcytosis (manual) Slight Ovalocytes Slight PT INR APTT Sodium Potassium Chloride Carbon Dioxide Anion Gap BUN Creatinine Est GFR ( Amer) Est GFR (Non-Af Amer) Random Glucose Calcium Total Bilirubin AST ALT Alkaline Phosphatase Total Protein Albumin Globulin Albumin/Globulin Ratio Lipase 51 Urine Color [place] Urine Clarity Hazy Urine pH 5.0 Ur Specific [place] 1.010 Urine Protein 2+ H Urine Glucose (UA) Normal Urine Ketones Negative Urine Blood 3+ H Urine Nitrate Negative Urine Bilirubin Negative Urine Urobilinogen Normal Ur Leukocyte Esterase Trace Urine WBC (Auto) 19 H Urine RBC (Auto) 33 H Amorphous Sediment Few H Urine Bacteria Occ H 04/10/17 08:42 WBC RBC Hgb Hct MCV MCH MCHC RDW Plt Count MPV Neut % (Auto) Lymph % (Auto) [place] % (Auto) Eos % (Auto) Baso % (Auto) Neut # Lymph # [place] # Eos # Baso # Neutrophils % (Manual) Lymphocytes % (Manual) Monocytes % (Manual) Eosinophils % (Manual) Platelet Estimate RBC Morphology Polychromasia Hypochromasia (manual) Microcytosis (manual) Ovalocytes PT INR APTT Sodium 137 Potassium 3.6 Chloride 104 Carbon Dioxide 28 Anion Gap 9 L BUN 40 H Creatinine 1.0 Est GFR ( Amer) > 60 Est GFR (Non-Af Amer) > 60 Random Glucose 119 H Calcium 8.2 L Total Bilirubin 0.5 AST 30 ALT 59 Alkaline Phosphatase 160 H D Total Protein 5.9 L Albumin 2.8 L D Globulin 3.1 Albumin/Globulin Ratio 0.9 L Lipase Urine Color Urine Clarity Urine pH Ur Specific [place] Urine Protein Urine Glucose (UA) Urine Ketones Urine Blood Urine Nitrate Urine Bilirubin Urine Urobilinogen Ur Leukocyte Esterase Urine WBC (Auto) Urine RBC (Auto) Amorphous Sediment Urine Bacteria Intake & Output: Intake & Output 04/09/17 04/10/17 04/10/17 18:59 06:59 18:59 Intake Total 400 650 Output Total 3100 600 Balance -2700 50 Weight 145 lb Intake: Intake, IV Amount 400 400 Right Antecubital 400 400 Oral 250 Output: Urine 3100 600 Urethral (Breen) 900 600 Other: # Bowel Movements 0 Vital Signs: Vital Signs - 24 hr 04/09/17 04/09/17 04/10/17 17:26 22:27 00:00 Temperature 98.4 F 97.3 F L Pulse Rate 100 H 87 Respiratory 18 18 Rate Blood Pressure 119/79 158/84 H O2 Sat by Pulse 99 98 97 Oximetry 04/10/17 04/10/17 04/10/17 00:07 00:44 04:00 Temperature 98 F Pulse Rate 83 Respiratory 20 Rate Blood Pressure 112/67 O2 Sat by Pulse 98 99 97 Oximetry 04/10/17 04/10/17 04/10/17 08:00 08:20 10:58 Temperature 97.8 F 98.1 F Pulse Rate 83 89 Respiratory 20 20 Rate Blood Pressure 139/59 L 126/73 O2 Sat by Pulse 96 99 96 Oximetry
--- NOTE | 2017-04-11 02:17 | CON ---
DATE: 04/10/2017 REASON FOR CONSULTATION: Urinary retention. HISTORY OF PRESENT ILLNESS: Mr. Jose is a very pleasant 61-year-old male. Recently, he was in the hospital; he had originally presented for a perforated ulcer. With voiding dysfunction and frequency, put a Montanez catheter and whether it is overflow incontinence or overflow frequency and urgency whether secondary to BPH, he is 61 years old, we did not get a chance to do urine dynamics testing yet, we are planning for this and cystoscopy, etc., see the previously dictated notes. He also was noted to have a left renal mass, which we are working on. Looks like it is a malignancy, but now it is not the right time for anything surgical for him right now. Meanwhile, when he went home, he was doing okay, but then he presented last night with retention greater than a liter in his bladder and the creatinine above 3 and urology was consulted. Past medical and surgical, all listed on the chart, underlying main problem of the patient is MS. SOCIAL HISTORY: He is . He has a family. REVIEW OF SYSTEMS: As above. PHYSICAL EXAMINATION: GENERAL: He is a well-nourished male, in no apparent distress. VITAL SIGNS: Within normal limits. ABDOMEN: Soft, nontender, now he has normal bowel sounds . GENITOURINARY: Montanez catheter in place. Draining well. LABORATORY DATA: See chart. DIAGNOSES: Renal failure, urinary retention, azotemia, voiding dysfunction, and a left renal mass that is concerning for malignancy. PLAN: 1. For now, we are going to maintain the Montanez. BUN and creatinine is up, then we will discuss the options. We will discuss CIC. We will discuss indwelling Montanez, suprapubic tube. Various options discussed. We will need to consider TURP. Further plans will follow depending on what we find clinically. 2. Regarding the left renal mass, we are going to observe him now, we are going to see how the patient does clinically. So, the plan is as follows: 1. Maintain Montanez catheter. 2. Antibiotic was ordered and then further plans to follow. Thank you for the Urology consultation. Daniel Nation MD [facility] # [id number]
[2017-04-11] MEDS: Dextrose 5%/0.45% NS 1,000 ML IV SCH ×2 (04:43→14:07)
[2017-04-11 07:12] LABS: BASO % 0.3 % (0.0-2.0); EOS # 0.3 K/uL (0.0-0.7); EOS % 6.9 % (0.0-4.0); HEMOGLOBIN 10.2 g/dL (12.0-18.0); LYMPH # 0.6 K/uL (1.0-4.3); LYMPH % 11.4 % (20.0-40.0); MEAN CORPUSCULAR HEMOGLOBIN 27.6 pg (27.0-31.0); MEAN PLATELET VOLUME 8.6 fL (7.2-11.7); MONO # 0.6 K/uL (0.0-0.8); NEUT # 3.5 K/uL (1.8-7.0); NEUT % 69.4 % (50.0-75.0); RBC 3.71 Mil/uL (4.40-5.90); RED CELL DISTRIBUTION WIDTH 14.5 % (11.5-14.5); WHITE BLOOD COUNT 5.1 K/uL (4.8-10.8)
[2017-04-11 07:42] LABS: ALB/GLOB RATIO 0.9 (1.0-2.1); ALBUMIN 2.8 g/dL (3.5-5.0); ALT/SGPT 56 U/L (21-72); AST/SGOT 33 U/L (17-59); BLOOD UREA NITROGEN 10 mg/dL (9-20); CALCIUM 7.8 mg/dl (8.6-10.4); GFR AFRICAN-AMERICAN > 60; GFR NON-AFRICAN AMERICAN > 60
[2017-04-11] MEDS: Linezolid 600 mg in D5W 300 ml 600 MG/300 ML BAG IVPB SCH ×2 (09:41→21:14)
[2017-04-11] MEDS: Multiple Vitamins Tab PO SCH (09:42)
[2017-04-11] MEDS: Pantoprazole 40 mg EC Tab PO SCH (09:42)
--- NOTE | 2017-04-11 13:48 | CP.PCM.PN ---
Subjective - Date & Time of Evaluation Date of Evaluation: 04/11/17 Time of Evaluation: 13:46 - Subjective Subjective: CHIEF COMPLAINTS TODAY : NO SP. COMPLAINTS ROS. HEENT : N. Resp : No cough, wheezing ,pleuritic CP ,or hemoptysis Cardio : No anginal CP, PND, orthopnea, palpitation GI : No abd.pain, n/v ,diarrhea or GI bleeding . PACU RN : No headache, vertigo, focal deficit. Musculoskel : No joint swelling , Derm : No rash Psych : Normal affect. Ext : No swelling ,calf pain PE. Pt. is alert awake in no distress. V.S As noted in the chart Head ,ear nose,throat and eyes : Normal. Neck : Supple with normal carotids. Lungs: Clear air entry. Heart : S1 & S2 normal with S4. No murmur. Abd : Soft non tender with normal bowel sounds. UPPER ABD SURGICAL WOUND Neuro : Moves all ext. with no localized deficit. Ext : No edema with intact pulses.Non tender calves Derm : No rashes or decubitus ulcer. LABS/RADIOLOGY: SEE MICRO REPORT FROM [facility] ON MRSA ASSESSMENT/PLAN : URO/ID EVAL NOTED IV AB AND FLUIDS Objective - Vital Signs/Intake and Output Vital Signs (last 24 hours): Temp Pulse Resp BP Pulse Ox 97.5 F L 83 20 135/80 97 04/11/17 07:00 04/11/17 07:00 04/11/17 07:00 04/11/17 07:00 04/11/17 07:00 Intake and Output: 04/11/17 04/11/17 11:59 23:59 Output Total 1200 Balance -1200 - Medications Medications: Current Medications Acetaminophen (Tylenol 325mg Tab) 650 mg PO Q4 PRN PRN Reason: PAIN, TEMPERATURE 101F & ABOVE Dextrose/Sodium Chloride (Dextrose 5%/0.45% Ns 1000 Ml) 1,000 mls @ 100 mls/hr IV .Q10H [facility] Last Admin: 04/11/17 04:43 Dose: 100 mls/hr Linezolid (Zyvox 600mg/300ml D5w) 600 mg in 300 mls @ 200 mls/hr IVPB Q12 [facility] Last Admin: 04/11/17 09:41 Dose: 200 mls/hr Cefepime HCl 1 gm/ Dextrose 50 mls @ 100 mls/hr IVPB Q24H [facility] Last Admin: 04/10/17 23:47 Dose: 100 mls/hr Magnesium Hydroxide (Milk Of Magnesia) 30 ml PO HS PRN PRN Reason: Constipation Multivitamins (Hexavitamin) 1 tab PO DAILY [facility] Last Admin: 04/11/17 09:42 Dose: 1 tab Nystatin (Nystop Topical Powder) 0 applic TOP BID [facility] Last Admin: 04/11/17 11:55 Dose: 1 applic Oxybutynin Chloride (Ditropan Tab) 5 mg PO TID [facility] Last Admin: 04/11/17 13:29 Dose: 5 mg Pantoprazole Sodium (Protonix Ec Tab) 40 mg PO DAILY [facility] Last Admin: 04/11/17 09:42 Dose: 40 mg - Labs Labs: 04/11/17 07:02 04/11/17 07:02 PT 15.4 SECONDS (9.7-12.2) H 04/09/17 18:26 INR 1.4 04/09/17 18:26 APTT 26 SECONDS (21-34) 04/09/17 18:26
--- NOTE | 2017-04-11 22:23 | PCM.URO ---
Urology Progress Note - General General: No Complaints, Tolerating Diet - Subjective Abdominal Pain: No Nausea: No Vomiting: No Voiding Well: No (catheter in place) Hematuria: No (resolved) Chest Pain: No Fever & Chills: No - Objective Lab Results Last 24 Hours: Laboratory Results - last 24 hr 04/11/17 04/11/17 07:02 07:02 WBC 5.1 RBC 3.71 L Hgb 10.2 L Hct 30.1 L MCV 81.0 MCH 27.6 MCHC 34.0 RDW 14.5 Plt Count 231 MPV 8.6 Neut % (Auto) 69.4 Lymph % (Auto) 11.4 L [place] % (Auto) 12.0 H Eos % (Auto) 6.9 H Baso % (Auto) 0.3 Neut # 3.5 Lymph # 0.6 L [place] # 0.6 Eos # 0.3 Baso # 0.0 Sodium 132 Potassium 3.8 Chloride 101 Carbon Dioxide 26 Anion Gap 8 L BUN 10 Creatinine 0.6 L Est GFR ( Amer) > 60 Est GFR (Non-Af Amer) > 60 Random Glucose 90 Calcium 7.8 L Total Bilirubin 0.5 AST 33 ALT 56 Alkaline Phosphatase 132 H Total Protein 5.8 L Albumin 2.8 L Globulin 3.0 Albumin/Globulin Ratio 0.9 L Intake & Output: Intake & Output 04/11/17 04/11/17 04/12/17 06:59 18:59 06:59 Intake Total 800 Output Total 1200 900 Balance -1200 -100 Intake: Intake, IV Amount 800 Right Antecubital 800 Output: Urine 1200 900 Urethral ([place]) 1200 900 Vital Signs: Vital Signs - 24 hr 04/10/17 04/11/17 04/11/17 23:52 07:00 08:00 Temperature 97.5 F L 97.5 F L Pulse Rate 86 83 Respiratory 18 20 Rate Blood Pressure 137/78 135/80 O2 Sat by Pulse 97 97 97 Oximetry 04/11/17 04/11/17 12:00 15:19 Temperature 97.5 F L Pulse Rate 85 Respiratory 20 Rate Blood Pressure 120/76 O2 Sat by Pulse 97 97 Oximetry - Physical Exam Genitalia: Without Inflammation Urinary Catheter Draining Well: Yes Urine Color: Clear, Yellow - Plan Catheter Care: Yes Intake & Output: Yes Additional Information: Imp: improved re hematuria. L renal mass. Further treatment to be determined, re previous hematuria and re renal mass. Poss cysto t/f. Discussed w pt' - Date & Time of Note Date: 04/11/17 Time: 12:15
--- NOTE | 2017-04-11 23:23 | CP.PCM.PN ---
Subjective - Date & Time of Evaluation Date of Evaluation: 04/11/17 Time of Evaluation: 23:23 - Subjective Subjective: CHIEF COMPLAINTS TODAY : AFEBRILE. NO NEW COMPLAINTS. seen by GU. AGUAYO HEENT : N. Resp : No cough, wheezing ,pleuritic CP ,or hemoptysis Cardio : No anginal CP, PND, orthopnea, palpitation GI : No abd.pain, n/v ,diarrhea or GI bleeding . 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 Musculoskel : No joint swelling , Derm : No rash Psych : Normal affect. Ext : No swelling ,calf pain PE. Pt. is alert awake in no distress. V.S As noted in the chart Head ,ear nose,throat and eyes : Normal. Neck : Supple with normal carotids. Lungs: Clear air entry. Heart : S1 & S2 normal with S4. No murmur. Abd : Soft non tender with normal bowel sounds. UPPER ABD SURGICAL WOUND - YELLOWISH DRAINAGE ON THE DRESSING INCISION SITE Neuro : Moves all ext. with no localized deficit. Ext : No edema with intact pulses.Non tender calves Derm : No rashes or decubitus ulcer. LABS/RADIOLOGY: WOUND CULTURE [id number] cocci in clusters. blood cultures/Urine cultures negative growth. ASSESSMENT/PLAN : IV AB AND FLUIDS Objective - Vital Signs/Intake and Output Vital Signs (last 24 hours): Temp Pulse Resp BP Pulse Ox 97.8 F 75 20 133/77 97 04/11/17 23:02 04/11/17 23:02 04/11/17 23:02 04/11/17 23:02 04/11/17 23:02 Intake and Output: 04/11/17 04/12/17 18:59 06:59 Intake Total 800 Output Total 1200 900 Balance -1200 -100 - Medications Medications: Current Medications Acetaminophen (Tylenol 325mg Tab) 650 mg PO Q4 PRN PRN Reason: PAIN, TEMPERATURE 101F & ABOVE Dextrose/Sodium Chloride (Dextrose 5%/0.45% Ns 1000 Ml) 1,000 mls @ 100 mls/hr IV .Q10H [facility] Last Admin: 04/11/17 14:07 Dose: Not Given Linezolid (Zyvox 600mg/300ml D5w) 600 mg in 300 mls @ 200 mls/hr IVPB Q12 [facility] Last Admin: 04/11/17 21:14 Dose: 200 mls/hr Cefepime HCl 1 gm/ Dextrose 50 mls @ 100 mls/hr IVPB Q24H [facility] Last Admin: 04/10/17 23:47 Dose: 100 mls/hr Magnesium Hydroxide (Milk Of Magnesia) 30 ml PO HS PRN PRN Reason: Constipation Multivitamins (Hexavitamin) 1 tab PO DAILY [facility] Last Admin: 04/11/17 09:42 Dose: 1 tab Nystatin (Nystop Topical Powder) 0 applic TOP BID [facility] Last Admin: 04/11/17 17:31 Dose: 1 applic Oxybutynin Chloride (Ditropan Tab) 5 mg PO TID [facility] Last Admin: 04/11/17 17:28 Dose: 5 mg Pantoprazole Sodium (Protonix Ec Tab) 40 mg PO DAILY [facility] Last Admin: 04/11/17 09:42 Dose: 40 mg - Labs Labs: 04/11/17 07:02 04/11/17 07:02 PT 15.4 SECONDS (9.7-12.2) H 04/09/17 18:26 INR 1.4 04/09/17 18:26 APTT 26 SECONDS (21-34) 04/09/17 18:26 Assessment and Plan (1) Acute urinary retention Status: Acute (2) Cystitis Status: Acute (3) Hematuria Status: Acute (4) Acute renal insufficiency Status: Acute (5) Mass of left kidney Status: Chronic (6) Postoperative wound infection Status: Acute
[2017-04-12] MEDS: Dextrose 5%/0.45% NS 1,000 ML IV SCH ×4 (01:00→20:47)
[2017-04-12] MEDS: Multiple Vitamins Tab PO SCH (10:32)
[2017-04-12] MEDS: Pantoprazole 40 mg EC Tab PO SCH (10:32)
[2017-04-12] MEDS: Linezolid 600 mg in D5W 300 ml 600 MG/300 ML BAG IVPB SCH ×2 (10:34→22:13)
[2017-04-12 10:53] LABS: BASO % 0.3 % (0.0-2.0); EOS # 0.3 K/uL (0.0-0.7); HEMOGLOBIN 11.6 g/dL (12.0-18.0); LYMPH # 0.7 K/uL (1.0-4.3); LYMPH % 12.6 % (20.0-40.0); MEAN CELL VOLUME 81.8 fL (80.0-94.0); MEAN CORPUSCULAR HGB CONC 33.1 g/dL (33.0-37.0); MEAN PLATELET VOLUME 8.7 fL (7.2-11.7); MONO # 0.4 K/uL (0.0-0.8); MONO % 7.4 % (0.0-10.0); NEUT # 4.1 K/uL (1.8-7.0); NEUT % 74.7 % (50.0-75.0); NRBC % 0.1 % (0.0-2.0); RBC 4.28 Mil/uL (4.40-5.90); RED CELL DISTRIBUTION WIDTH 14.5 % (11.5-14.5); WHITE BLOOD COUNT 5.5 K/uL (4.8-10.8)
[2017-04-12 12:09] LABS: ALB/GLOB RATIO 0.9 (1.0-2.1); ALBUMIN 3.2 g/dL (3.5-5.0); ALT/SGPT 52 U/L (21-72); AST/SGOT 35 U/L (17-59); BLOOD UREA NITROGEN 6 mg/dL (9-20); CALCIUM 8.1 mg/dl (8.6-10.4); GFR AFRICAN-AMERICAN > 60; GFR NON-AFRICAN AMERICAN > 60
--- NOTE | 2017-04-12 13:19 | CP.PCM.PN ---
Subjective - Date & Time of Evaluation Date of Evaluation: 04/12/17 Time of Evaluation: 13:18 - Subjective Subjective: CHIEF COMPLAINTS TODAY : NO SP. COMPLAINTS ROS. HEENT : N. Resp : No cough, wheezing ,pleuritic CP ,or hemoptysis Cardio : No anginal CP, PND, orthopnea, palpitation GI : No abd.pain, n/v ,diarrhea or GI bleeding . 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 Musculoskel : No joint swelling , Derm : No rash Psych : Normal affect. Ext : No swelling ,calf pain PE. Pt. is alert awake in no distress. V.S As noted in the chart Head ,ear nose,throat and eyes : Normal. Neck : Supple with normal carotids. Lungs: Clear air entry. Heart : S1 & S2 normal with S4. No murmur. Abd : Soft non tender with normal bowel sounds. UPPER ABD SURGICAL WOUND Neuro : Moves all ext. with no localized deficit. Ext : No edema with intact pulses.Non tender calves Derm : No rashes or decubitus ulcer. LABS/RADIOLOGY: SEE MICRO REPORT FROM [facility] IN NOT MRSA ASSESSMENT/PLAN : URO/ID EVAL NOTED CULTURE WOUND STAF. COAG. NEG , NOT MRSA NO URINE C/S DONE , ORDERED IN ER Objective - Vital Signs/Intake and Output Vital Signs (last 24 hours): Temp Pulse Resp BP Pulse Ox 98.0 F 84 20 150/83 97 04/12/17 07:00 04/12/17 07:00 04/12/17 07:00 04/12/17 07:00 04/12/17 07:00 - Medications Medications: Current Medications Acetaminophen (Tylenol 325mg Tab) 650 mg PO Q4 PRN PRN Reason: PAIN, TEMPERATURE 101F & ABOVE Dextrose/Sodium Chloride (Dextrose 5%/0.45% Ns 1000 Ml) 1,000 mls @ 100 mls/hr IV .Q10H [facility] Last Admin: 04/12/17 10:38 Dose: Not Given Linezolid (Zyvox 600mg/300ml D5w) 600 mg in 300 mls @ 200 mls/hr IVPB Q12 [facility] Last Admin: 04/12/17 10:34 Dose: 200 mls/hr Cefepime HCl 1 gm/ Dextrose 50 mls @ 100 mls/hr IVPB Q24H [facility] Last Admin: 04/11/17 23:55 Dose: 100 mls/hr Magnesium Hydroxide (Milk Of Magnesia) 30 ml PO HS PRN PRN Reason: Constipation Multivitamins (Hexavitamin) 1 tab PO DAILY [facility] Last Admin: 04/12/17 10:32 Dose: 1 tab Nystatin (Nystop Topical Powder) 0 applic TOP BID [facility] Last Admin: 04/12/17 10:32 Dose: 1 applic Oxybutynin Chloride (Ditropan Tab) 5 mg PO TID [facility] Last Admin: 04/12/17 10:32 Dose: 5 mg Pantoprazole Sodium (Protonix Ec Tab) 40 mg PO DAILY [facility] Last Admin: 04/12/17 10:32 Dose: 40 mg - Labs Labs: 04/12/17 10:49 04/12/17 10:49 PT 15.4 SECONDS (9.7-12.2) H 04/09/17 18:26 INR 1.4 04/09/17 18:26 APTT 26 SECONDS (21-34) 04/09/17 18:26
--- NOTE | 2017-04-12 13:23 | CP.PCM.PN ---
Subjective - Date & Time of Evaluation Date of Evaluation: 04/12/17 Time of Evaluation: 13:23 - Subjective Subjective: CHIEF COMPLAINTS TODAY : AFEBRILE. NO NEW COMPLAINTS. seen by DURAN. HEENT : N. Resp : No cough, wheezing ,pleuritic CP ,or hemoptysis Cardio : No anginal CP, PND, orthopnea, palpitation GI : No abd.pain, n/v ,diarrhea or GI bleeding . RADIO ASSEMBLER : No headache, vertigo, focal deficit. Musculoskel : No joint swelling , Derm : No rash Psych : Normal affect. Ext : No swelling ,calf pain PE. Pt. is alert awake in no distress. V.S As noted in the chart Head ,ear nose,throat and eyes : Normal. Neck : Supple with normal carotids. Lungs: Clear air entry. Heart : S1 & S2 normal with S4. No murmur. Abd : Soft non tender with normal bowel sounds. UPPER ABD SURGICAL WOUND - YELLOWISH DRAINAGE ON THE DRESSING INCISION SITE Neuro : Moves all ext. with no localized deficit. Ext : No edema with intact pulses.Non tender calves Derm : No rashes or decubitus ulcer. LABS/RADIOLOGY: WOUND CULTURE [id number] cocci in clusters.- SCN blood cultures/Urine cultures negative growth. ASSESSMENT; .ACUTE URINARY RETENTION. HEMATURIA. LT. KIDNEY MASS. MICHELLE. POST OPT . WOUND INFECTION. (SCN ? SKIN JACK ) HX . MULTIPLE SCLEROSIS. PLAN : IV CEFIPIME 1GM IVPB [id number].04/10/17 IV ZYVOX 600MG IV Q 12HRLY. 04/10/17. PER ? CYSTOSCOPY. CASE DISCUSSED W . Objective - Vital Signs/Intake and Output Vital Signs (last 24 hours): Temp Pulse Resp BP Pulse Ox 98.0 F 84 20 150/83 97 04/12/17 07:00 04/12/17 07:00 04/12/17 07:00 04/12/17 07:00 04/12/17 07:00 Intake and Output: 04/12/17 04/12/17 06:59 18:59 Intake Total 800 Output Total 900 Balance -100 - Medications Medications: Current Medications Acetaminophen (Tylenol 325mg Tab) 650 mg PO Q4 PRN PRN Reason: PAIN, TEMPERATURE 101F & ABOVE Dextrose/Sodium Chloride (Dextrose 5%/0.45% Ns 1000 Ml) 1,000 mls @ 100 mls/hr IV .Q10H [facility] Last Admin: 04/12/17 10:38 Dose: Not Given Linezolid (Zyvox 600mg/300ml D5w) 600 mg in 300 mls @ 200 mls/hr IVPB Q12 [facility] Last Admin: 04/12/17 10:34 Dose: 200 mls/hr Cefepime HCl 1 gm/ Dextrose 50 mls @ 100 mls/hr IVPB Q24H [facility] Last Admin: 04/11/17 23:55 Dose: 100 mls/hr Magnesium Hydroxide (Milk Of Magnesia) 30 ml PO HS PRN PRN Reason: Constipation Multivitamins (Hexavitamin) 1 tab PO DAILY [facility] Last Admin: 04/12/17 10:32 Dose: 1 tab Nystatin (Nystop Topical Powder) 0 applic TOP BID [facility] Last Admin: 04/12/17 10:32 Dose: 1 applic Oxybutynin Chloride (Ditropan Tab) 5 mg PO TID [facility] Last Admin: 04/12/17 10:32 Dose: 5 mg Pantoprazole Sodium (Protonix Ec Tab) 40 mg PO DAILY [facility] Last Admin: 04/12/17 10:32 Dose: 40 mg - Labs Labs: 04/12/17 10:49 04/12/17 10:49 PT 15.4 SECONDS (9.7-12.2) H 04/09/17 18:26 INR 1.4 04/09/17 18:26 APTT 26 SECONDS (21-34) 04/09/17 18:26 Assessment and Plan (1) Acute urinary retention Status: Acute (2) Cystitis Status: Acute (3) Hematuria Status: Acute (4) Acute renal insufficiency Status: Acute (5) Mass of left kidney Status: Chronic (6) Postoperative wound infection Status: Acute
[2017-04-12] MEDS: Mupirocin 2% Ointment (NASAL) NAS SCH (18:04)
[2017-04-13] MEDS ORDERED: Potassium Chloride 20 mEq ER Tab PO ONE (06:00)
--- NOTE | 2017-04-13 10:29 | PCM.URO ---
Urology Progress Note - General General: No Complaints, Tolerating Diet - Subjective Abdominal Pain: No Flank Pain: No Nausea: No Vomiting: No Hematuria: Yes Good Stream: No (breen catheter in place) - Objective Lab Studies: Reviewed (hct=35 creat=0.6 urine culture negative) Lab Results Last 24 Hours: Laboratory Results - last 24 hr 04/12/17 04/12/17 10:49 10:49 WBC 5.5 RBC 4.28 L Hgb 11.6 L Hct 35.0 MCV 81.8 MCH 27.0 MCHC 33.1 RDW 14.5 Plt Count 274 MPV 8.7 Neut % (Auto) 74.7 Lymph % (Auto) 12.6 L [place] % (Auto) 7.4 Eos % (Auto) 5.0 H Baso % (Auto) 0.3 Neut # 4.1 Lymph # 0.7 L [place] # 0.4 Eos # 0.3 Baso # 0.0 Sodium 136 Potassium 3.5 L Chloride 102 Carbon Dioxide 25 Anion Gap 13 BUN 6 L Creatinine 0.6 L Est GFR ( Amer) > 60 Est GFR (Non-Af Amer) > 60 Random Glucose 125 H Calcium 8.1 L Total Bilirubin 0.4 AST 35 ALT 52 Alkaline Phosphatase 128 H Total Protein 6.6 Albumin 3.2 L Globulin 3.4 Albumin/Globulin Ratio 0.9 L Intake & Output: Intake & Output 04/12/17 04/13/17 04/13/17 18:59 06:59 18:59 Intake Total 2400 Output Total 3200 Balance -800 Intake: Intake, IV Amount 1600 Right Antecubital 1600 Oral 800 Output: Urine 3200 Urethral (Breen) 3200 Other: Voiding Method Indwelling Catheter # Bowel Movements 0 Vital Signs: Vital Signs - 24 hr 04/12/17 04/12/17 04/12/17 15:00 20:45 23:19 Temperature 97.7 F 97.5 F L Pulse Rate 98 H 83 Respiratory 20 18 Rate Blood Pressure 154/84 H 108/68 111/70 O2 Sat by Pulse 95 97 Oximetry 04/13/17 08:05 Temperature 97.6 F Pulse Rate 89 Respiratory 20 Rate Blood Pressure 140/86 O2 Sat by Pulse 95 Oximetry - Physical Exam Abdominal Exam: Soft, Non-Tender, Non-Distended Back: No CVA Tenderness Urinary Catheter Draining Well: Yes Urine Color: [place] - Plan Additional Information: Imp: hematuria. retention. L renal mass. further w/ u and rx to follow. poss cysto, poss renal bx, poss renal surgery - Date & Time of Note Date: 04/13/17 Time: 10:30
[2017-04-13] MEDS: Linezolid 600 mg in D5W 300 ml 600 MG/300 ML BAG IVPB SCH ×2 (10:41→21:07)
[2017-04-13] MEDS: Multiple Vitamins Tab PO SCH (10:41)
[2017-04-13] MEDS: Mupirocin 2% Ointment (NASAL) NAS SCH ×2 (10:41→17:07)
[2017-04-13] MEDS: Pantoprazole 40 mg EC Tab PO SCH (10:41)
[2017-04-13 11:28] LABS: BASO % 0.3 % (0.0-2.0); EOS # 0.2 K/uL (0.0-0.7); EOS % 1.9 % (0.0-4.0); HEMOGLOBIN 12.1 g/dL (12.0-18.0); LYMPH # 0.9 K/uL (1.0-4.3); LYMPH % 10.1 % (20.0-40.0); MEAN CORPUSCULAR HEMOGLOBIN 27.7 pg (27.0-31.0); MEAN CORPUSCULAR HGB CONC 34.3 g/dL (33.0-37.0); MEAN PLATELET VOLUME 8.6 fL (7.2-11.7); MONO # 0.5 K/uL (0.0-0.8); MONO % 6.3 % (0.0-10.0); NEUT # 6.9 K/uL (1.8-7.0); NEUT % 81.4 % (50.0-75.0); RBC 4.36 Mil/uL (4.40-5.90); RED CELL DISTRIBUTION WIDTH 14.4 % (11.5-14.5); WHITE BLOOD COUNT 8.4 K/uL (4.8-10.8)
[2017-04-13 11:50] LABS: ALBUMIN 3.4 g/dL (3.5-5.0); ALT/SGPT 56 U/L (21-72); AST/SGOT 30 U/L (17-59); BLOOD UREA NITROGEN 7 mg/dL (9-20); CALCIUM 8.7 mg/dl (8.6-10.4); GFR AFRICAN-AMERICAN > 60; GFR NON-AFRICAN AMERICAN > 60; MAGNESIUM 1.7 mg/dL (1.6-2.3)
--- NOTE | 2017-04-13 14:14 | CP.PCM.PN ---
Subjective - Date & Time of Evaluation Date of Evaluation: 04/13/17 Time of Evaluation: 14:14 - Subjective Subjective: CHIEF COMPLAINTS TODAY : AFEBRILE. NO NEW COMPLAINTS. seen by - FOR CYSTOSCOPY SUNDAY. AT BEDSIDE. ROS. HEENT : N. Resp : No cough, wheezing ,pleuritic CP ,or hemoptysis Cardio : No anginal CP, PND, orthopnea, palpitation GI : No abd.pain, n/v ,diarrhea or GI bleeding . FISH ICER : No headache, vertigo, focal deficit. Musculoskel : No joint swelling , Derm : No rash Psych : Normal affect. Ext : No swelling ,calf pain PE. Pt. is alert awake in no distress. V.S As noted in the chart Head ,ear nose,throat and eyes : Normal. Neck : Supple with normal carotids. Lungs: Clear air entry. Heart : S1 & S2 normal with S4. No murmur. Abd : Soft non tender with normal bowel sounds. UPPER ABD SURGICAL WOUND - YELLOWISH DRAINAGE DECREASING. Neuro : Moves all ext. with no localized deficit. Ext : No edema with intact pulses.Non tender calves Derm : No rashes or decubitus ulcer. LABS/RADIOLOGY: WOUND CULTURE [id number] cocci in clusters.- SCN blood cultures/Urine cultures negative growth. ASSESSMENT; .ACUTE URINARY RETENTION. HEMATURIA. LT. KIDNEY MASS. MICHELLE. POST OPT . WOUND INFECTION. (SCN ? SKIN JACK ) HX . MULTIPLE SCLEROSIS. PLAN : Gray CATHETER CLEAR URINE NOW. HAD TO BE REINSERTED PATIENT UNABLE TO VOID. IV CEFIPIME 1GM IVPB [id number].04/10/17 IV ZYVOX 600MG IV Q 12HRLY. 04/10/17. PER ? CYSTOSCOPY sunday ? BX KIDNEY MASS. CASE DISCUSSED W . Objective - Vital Signs/Intake and Output Vital Signs (last 24 hours): Temp Pulse Resp BP Pulse Ox 97.6 F 89 20 140/86 95 04/13/17 08:05 04/13/17 08:05 04/13/17 08:05 04/13/17 08:05 04/13/17 08:05 Intake and Output: 04/13/17 04/13/17 06:59 18:59 Intake Total 2400 Output Total 3200 700 Balance -800 -700 - Medications Medications: Current Medications Acetaminophen (Tylenol 325mg Tab) 650 mg PO Q4 PRN PRN Reason: PAIN, TEMPERATURE 101F & ABOVE Linezolid (Zyvox 600mg/300ml D5w) 600 mg in 300 mls @ 200 mls/hr IVPB Q12 [facility] Last Admin: 04/13/17 10:41 Dose: 200 mls/hr Cefepime HCl 1 gm/ Dextrose 50 mls @ 100 mls/hr IVPB Q24H [facility] Last Admin: 04/13/17 01:17 Dose: 100 mls/hr Magnesium Hydroxide (Milk Of Magnesia) 30 ml PO HS PRN PRN Reason: Constipation Multivitamins (Hexavitamin) 1 tab PO DAILY [facility] Last Admin: 04/13/17 10:41 Dose: 1 tab Mupirocin (Bactroban 2% Nasal) 0.5 gm JAYCEE BID [facility] Stop: 04/19/17 18:01 Last Admin: 04/13/17 10:41 Dose: 0.5 gm Nystatin (Nystop Topical Powder) 0 applic TOP BID [facility] Last Admin: 04/13/17 13:38 Dose: 1 applic Oxybutynin Chloride (Ditropan Tab) 5 mg PO TID [facility] Last Admin: 04/13/17 13:38 Dose: 5 mg Pantoprazole Sodium (Protonix Ec Tab) 40 mg PO DAILY [facility] Last Admin: 04/13/17 10:41 Dose: 40 mg - Labs Labs: 04/13/17 11:19 04/13/17 11:19 PT 15.4 SECONDS (9.7-12.2) H 04/09/17 18:26 INR 1.4 04/09/17 18:26 APTT 26 SECONDS (21-34) 04/09/17 18:26 Assessment and Plan (1) Acute urinary retention Status: Acute (2) Cystitis Status: Acute (3) Hematuria Status: Acute (4) Acute renal insufficiency Status: Acute (5) Mass of left kidney Status: Chronic (6) Postoperative wound infection Status: Acute
--- NOTE | 2017-04-13 14:22 | CP.PCM.PN ---
Subjective - Date & Time of Evaluation Date of Evaluation: 04/13/17 Time of Evaluation: 14:22 - Subjective Subjective: CHIEF COMPLAINTS TODAY : NO SP. COMPLAINTS ROS. HEENT : N. Resp : No cough, wheezing ,pleuritic CP ,or hemoptysis Cardio : No anginal CP, PND, orthopnea, palpitation GI : No abd.pain, n/v ,diarrhea or GI bleeding . 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 Musculoskel : No joint swelling , Derm : No rash Psych : Normal affect. Ext : No swelling ,calf pain PE. Pt. is alert awake in no distress. V.S As noted in the chart Head ,ear nose,throat and eyes : Normal. Neck : Supple with normal carotids. Lungs: Clear air entry. Heart : S1 & S2 normal with S4. No murmur. Abd : Soft non tender with normal bowel sounds. UPPER ABD SURGICAL WOUND Neuro : Moves all ext. with no localized deficit. Ext : No edema with intact pulses.Non tender calves Derm : No rashes or decubitus ulcer. LABS/RADIOLOGY: SEE MICRO REPORT FROM [facility] IN NOT MRSA ASSESSMENT/PLAN : AWAITING CYSTO WANTS PT HOME Objective - Vital Signs/Intake and Output Vital Signs (last 24 hours): Temp Pulse Resp BP Pulse Ox 97.6 F 89 20 140/86 95 04/13/17 08:05 04/13/17 08:05 04/13/17 08:05 04/13/17 08:05 04/13/17 08:05 Intake and Output: 04/13/17 04/13/17 11:59 23:59 Intake Total 1000 Output Total 2200 700 Balance -1200 -700 - Medications Medications: Current Medications Acetaminophen (Tylenol 325mg Tab) 650 mg PO Q4 PRN PRN Reason: PAIN, TEMPERATURE 101F & ABOVE Linezolid (Zyvox 600mg/300ml D5w) 600 mg in 300 mls @ 200 mls/hr IVPB Q12 [facility] Last Admin: 04/13/17 10:41 Dose: 200 mls/hr Cefepime HCl 1 gm/ Dextrose 50 mls @ 100 mls/hr IVPB Q24H [facility] Last Admin: 04/13/17 01:17 Dose: 100 mls/hr Magnesium Hydroxide (Milk Of Magnesia) 30 ml PO HS PRN PRN Reason: Constipation Multivitamins (Hexavitamin) 1 tab PO DAILY [facility] Last Admin: 04/13/17 10:41 Dose: 1 tab Mupirocin (Bactroban 2% Nasal) 0.5 gm JAYCEE BID [facility] Stop: 04/19/17 18:01 Last Admin: 04/13/17 10:41 Dose: 0.5 gm Nystatin (Nystop Topical Powder) 0 applic TOP BID [facility] Last Admin: 04/13/17 13:38 Dose: 1 applic Oxybutynin Chloride (Ditropan Tab) 5 mg PO TID [facility] Last Admin: 04/13/17 13:38 Dose: 5 mg Pantoprazole Sodium (Protonix Ec Tab) 40 mg PO DAILY [facility] Last Admin: 04/13/17 10:41 Dose: 40 mg - Labs Labs: 04/13/17 11:19 04/13/17 11:19 PT 15.4 SECONDS (9.7-12.2) H 04/09/17 18:26 INR 1.4 04/09/17 18:26 APTT 26 SECONDS (21-34) 04/09/17 18:26
[2017-04-14] MEDS: Mupirocin 2% Ointment (NASAL) NAS SCH ×2 (10:27→17:52)
[2017-04-14] MEDS: Pantoprazole 40 mg EC Tab PO SCH (10:27)
[2017-04-14] MEDS: Linezolid 600 mg in D5W 300 ml 600 MG/300 ML BAG IVPB SCH ×2 (10:27→21:24)
[2017-04-14] MEDS: Multiple Vitamins Tab PO SCH (10:27)
--- NOTE | 2017-04-14 14:08 | CP.PCM.PN ---
Subjective - Date & Time of Evaluation Date of Evaluation: 04/14/17 Time of Evaluation: 14:08 - Subjective Subjective: CHIEF COMPLAINTS TODAY : NO SP. COMPLAINTS ROS. HEENT : N. Resp : No cough, wheezing ,pleuritic CP ,or hemoptysis Cardio : No anginal CP, PND, orthopnea, palpitation GI : No abd.pain, n/v ,diarrhea or GI bleeding . SURGICAL AIDE : No headache, vertigo, focal deficit. Musculoskel : No joint swelling , Derm : No rash Psych : Normal affect. Ext : No swelling ,calf pain PE. Pt. is alert awake in no distress. V.S As noted in the chart Head ,ear nose,throat and eyes : Normal. Neck : Supple with normal carotids. Lungs: Clear air entry. Heart : S1 & S2 normal with S4. No murmur. Abd : Soft non tender with normal bowel sounds. UPPER ABD SURGICAL WOUND Neuro : Moves all ext. with no localized deficit. Ext : No edema with intact pulses.Non tender calves Derm : No rashes or decubitus ulcer. LABS/RADIOLOGY: SEE MICRO REPORT FROM [facility] IN NOT MRSA ASSESSMENT/PLAN : AWAITING CYSTO WANTS PT HOME Objective - Vital Signs/Intake and Output Vital Signs (last 24 hours): Temp Pulse Resp BP Pulse Ox 98.0 F 79 20 137/79 98 04/14/17 07:00 04/14/17 07:00 04/14/17 07:00 04/14/17 07:00 04/14/17 07:00 Intake and Output: 04/14/17 04/14/17 11:59 23:59 Output Total 850 Balance -850 - Medications Medications: Current Medications Acetaminophen (Tylenol 325mg Tab) 650 mg PO Q4 PRN PRN Reason: PAIN, TEMPERATURE 101F & ABOVE Linezolid (Zyvox 600mg/300ml D5w) 600 mg in 300 mls @ 200 mls/hr IVPB Q12 [facility] Last Admin: 04/14/17 10:27 Dose: 200 mls/hr Cefepime HCl 1 gm/ Dextrose 50 mls @ 100 mls/hr IVPB Q24H [facility] Last Admin: 04/13/17 23:43 Dose: 100 mls/hr Magnesium Hydroxide (Milk Of Magnesia) 30 ml PO HS PRN PRN Reason: Constipation Multivitamins (Hexavitamin) 1 tab PO DAILY [facility] Last Admin: 04/14/17 10:27 Dose: 1 tab Mupirocin (Bactroban 2% Nasal) 0.5 gm JAYCEE BID [facility] Stop: 04/19/17 18:01 Last Admin: 04/14/17 10:27 Dose: 0.5 gm Nystatin (Nystop Topical Powder) 0 applic TOP BID [facility] Last Admin: 04/14/17 10:28 Dose: 1 applic Oxybutynin Chloride (Ditropan Tab) 5 mg PO TID [facility] Last Admin: 04/14/17 13:02 Dose: 5 mg Pantoprazole Sodium (Protonix Ec Tab) 40 mg PO DAILY [facility] Last Admin: 04/14/17 10:27 Dose: 40 mg - Labs Labs: 04/13/17 11:19 04/13/17 11:19 PT 15.4 SECONDS (9.7-12.2) H 04/09/17 18:26 INR 1.4 04/09/17 18:26 APTT 26 SECONDS (21-34) 04/09/17 18:26
--- NOTE | 2017-04-14 14:30 | CP.PCM.PN ---
Subjective - Date & Time of Evaluation Date of Evaluation: 04/14/17 Time of Evaluation: 14:30 - Subjective Subjective: CHIEF COMPLAINTS TODAY : AFEBRILE.VSS NO NEW COMPLAINTS. FOLYS URINE-CLARING seen by - FOR CYSTOSCOPY SUNDAY. ROS. HEENT : N. Resp : No cough, wheezing ,pleuritic CP ,or hemoptysis Cardio : No anginal CP, PND, orthopnea, palpitation GI : No abd.pain, n/v ,diarrhea or GI bleeding . BILINGUAL INTERPRETER : No headache, vertigo, focal deficit. Musculoskel : No joint swelling , Derm : No rash Psych : Normal affect. Ext : No swelling ,calf pain PE. Pt. is alert awake in no distress. V.S As noted in the chart Head ,ear nose,throat and eyes : Normal. Neck : Supple with normal carotids. Lungs: Clear air entry. Heart : S1 & S2 normal with S4. No murmur. Abd : Soft non tender with normal bowel sounds. UPPER ABD SURGICAL WOUND - YELLOWISH DRAINAGE DECREASING. Neuro : Moves all ext. with no localized deficit. Ext : No edema with intact pulses.Non tender calves Derm : No rashes or decubitus ulcer. LABS/RADIOLOGY: URINE CULTURE -REPEAT -VE GROWTH WOUND CULTURE [id number] cocci in clusters.- SCN blood cultures/Urine cultures negative growth. ASSESSMENT; .ACUTE URINARY RETENTION. HEMATURIA. LT. KIDNEY MASS. MICHELLE. POST OPT . WOUND INFECTION. (SCN ? SKIN JACK ) HX . MULTIPLE SCLEROSIS. PLAN : Gray CATHETER CLEAR URINE NOW. HAD TO BE REINSERTED PATIENT UNABLE TO VOID. IV CEFIPIME 1GM IVPB [id number].04/10/17 IV ZYVOX 600MG IV Q 12HRLY. 04/10/17. PER ? CYSTOSCOPY sunday ? BX KIDNEY MASS. Objective - Vital Signs/Intake and Output Vital Signs (last 24 hours): Temp Pulse Resp BP Pulse Ox 98.0 F 79 20 137/79 98 04/14/17 07:00 04/14/17 07:00 04/14/17 07:00 04/14/17 07:00 04/14/17 07:00 Intake and Output: 04/14/17 04/14/17 06:59 18:59 Output Total 1425 Balance -1425 - Medications Medications: Current Medications Acetaminophen (Tylenol 325mg Tab) 650 mg PO Q4 PRN PRN Reason: PAIN, TEMPERATURE 101F & ABOVE Linezolid (Zyvox 600mg/300ml D5w) 600 mg in 300 mls @ 200 mls/hr IVPB Q12 [facility] Last Admin: 04/14/17 10:27 Dose: 200 mls/hr Cefepime HCl 1 gm/ Dextrose 50 mls @ 100 mls/hr IVPB Q24H [facility] Last Admin: 04/13/17 23:43 Dose: 100 mls/hr Magnesium Hydroxide (Milk Of Magnesia) 30 ml PO HS PRN PRN Reason: Constipation Multivitamins (Hexavitamin) 1 tab PO DAILY [facility] Last Admin: 04/14/17 10:27 Dose: 1 tab Mupirocin (Bactroban 2% Nasal) 0.5 gm JAYCEE BID [facility] Stop: 04/19/17 18:01 Last Admin: 04/14/17 10:27 Dose: 0.5 gm Nystatin (Nystop Topical Powder) 0 applic TOP BID [facility] Last Admin: 04/14/17 10:28 Dose: 1 applic Oxybutynin Chloride (Ditropan Tab) 5 mg PO TID [facility] Last Admin: 04/14/17 13:02 Dose: 5 mg Pantoprazole Sodium (Protonix Ec Tab) 40 mg PO DAILY [facility] Last Admin: 04/14/17 10:27 Dose: 40 mg - Labs Labs: 04/13/17 11:19 04/13/17 11:19 PT 15.4 SECONDS (9.7-12.2) H 04/09/17 18:26 INR 1.4 04/09/17 18:26 APTT 26 SECONDS (21-34) 04/09/17 18:26 Assessment and Plan (1) Acute urinary retention Status: Acute (2) Cystitis Status: Acute (3) Hematuria Status: Acute (4) Acute renal insufficiency Status: Acute (5) Mass of left kidney Status: Chronic (6) Postoperative wound infection Status: Acute
[2017-04-15] MEDS: Multiple Vitamins Tab PO SCH (09:41)
[2017-04-15] MEDS: Pantoprazole 40 mg EC Tab PO SCH (09:41)
[2017-04-15] MEDS: Mupirocin 2% Ointment (NASAL) NAS SCH ×2 (09:41→17:23)
[2017-04-15] MEDS: Linezolid 600 mg in D5W 300 ml 600 MG/300 ML BAG IVPB SCH (12:51)
--- NOTE | 2017-04-15 15:22 | CP.PCM.PN ---
Subjective - Date & Time of Evaluation Date of Evaluation: 04/15/17 Time of Evaluation: 15:22 - Subjective Subjective: CHIEF COMPLAINTS TODAY : NO SP. COMPLAINTS ROS. HEENT : N. Resp : No cough, wheezing ,pleuritic CP ,or hemoptysis Cardio : No anginal CP, PND, orthopnea, palpitation GI : No abd.pain, n/v ,diarrhea or GI bleeding . 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 Musculoskel : No joint swelling , Derm : No rash Psych : Normal affect. Ext : No swelling ,calf pain PE. Pt. is alert awake in no distress. V.S As noted in the chart Head ,ear nose,throat and eyes : Normal. Neck : Supple with normal carotids. Lungs: Clear air entry. Heart : S1 & S2 normal with S4. No murmur. Abd : Soft non tender with normal bowel sounds. UPPER ABD SURGICAL WOUND Neuro : Moves all ext. with no localized deficit. Ext : No edema with intact pulses.Non tender calves Derm : No rashes or decubitus ulcer. LABS/RADIOLOGY: SEE MICRO REPORT FROM [facility] IN NOT MRSA ASSESSMENT/PLAN : AWAITING CYSTO WANTS PT HOME Objective - Vital Signs/Intake and Output Vital Signs (last 24 hours): Temp Pulse Resp BP Pulse Ox 97.5 F L 81 18 152/77 H 98 04/15/17 07:00 04/15/17 07:00 04/15/17 07:00 04/15/17 07:00 04/15/17 07:00 Intake and Output: 04/15/17 04/15/17 11:59 23:59 Intake Total 630 Output Total 750 650 Balance -750 -20 - Medications Medications: Current Medications Acetaminophen (Tylenol 325mg Tab) 650 mg PO Q4 PRN PRN Reason: PAIN, TEMPERATURE 101F & ABOVE Cefepime HCl 1 gm/ Dextrose 50 mls @ 100 mls/hr IVPB Q24H [facility] Last Admin: 04/15/17 00:07 Dose: 100 mls/hr Magnesium Hydroxide (Milk Of Magnesia) 30 ml PO HS PRN PRN Reason: Constipation Multivitamins (Hexavitamin) 1 tab PO DAILY [facility] Last Admin: 04/15/17 09:41 Dose: 1 tab Mupirocin (Bactroban 2% Nasal) 0.5 gm JAYCEE BID [facility] Stop: 04/19/17 18:01 Last Admin: 04/15/17 09:41 Dose: 0.5 gm Nystatin (Nystop Topical Powder) 0 applic TOP BID [facility] Last Admin: 04/15/17 09:41 Dose: 1 applic Oxybutynin Chloride (Ditropan Tab) 5 mg PO TID [facility] Last Admin: 04/15/17 13:00 Dose: 5 mg Pantoprazole Sodium (Protonix Ec Tab) 40 mg PO DAILY [facility] Last Admin: 04/15/17 09:41 Dose: 40 mg - Labs Labs: 04/13/17 11:19 04/13/17 11:19 PT 15.4 SECONDS (9.7-12.2) H 04/09/17 18:26 INR 1.4 04/09/17 18:26 APTT 26 SECONDS (21-34) 04/09/17 18:26
--- NOTE | 2017-04-15 20:25 | CP.PCM.PN ---
Subjective - Date & Time of Evaluation Date of Evaluation: 04/15/17 Time of Evaluation: 20:25 - Subjective Subjective: CHIEF COMPLAINTS TODAY : AFEBRILE.VSS NO NEW COMPLAINTS. had 2 x loose stoolsas per RN Ms YU seen by - FOR CYSTOSCOPY SUNDAY. ROS. HEENT : N. Resp : No cough, wheezing ,pleuritic CP ,or hemoptysis Cardio : No anginal CP, PND, orthopnea, palpitation GI : No abd.pain, n/v ,diarrhea or GI bleeding . WARP DYEING TENDER : No headache, vertigo, focal deficit. Musculoskel : No joint swelling , Derm : No rash Psych : Normal affect. Ext : No swelling ,calf pain PE. Pt. is alert awake in no distress. V.S As noted in the chart Head ,ear nose,throat and eyes : Normal. Neck : Supple with normal carotids. Lungs: Clear air entry. Heart : S1 & S2 normal with S4. No murmur. Abd : Soft non tender with normal bowel sounds. UPPER ABD SURGICAL WOUND - DRY NOW. Neuro : Moves all ext. with no localized deficit. Ext : No edema with intact pulses.Non tender calves Derm : No rashes or decubitus ulcer. LABS/RADIOLOGY: URINE CULTURE -REPEAT -VE GROWTH WOUND CULTURE [id number]-[id number] cocci in clusters.- SCN blood cultures/Urine cultures negative growth. ASSESSMENT; .ACUTE URINARY RETENTION. HEMATURIA. LT. KIDNEY MASS. MICHELLE. POST OPT . WOUND INFECTION. (SCN ? SKIN JACK ) HX . MULTIPLE SCLEROSIS. PLAN : CHECK STOOL FOR C .DIFFICILE TOXIN. Grya CATHETER CLEAR URINE NOW. IV CEFIPIME 1GM IVPB [id number].04/10/17 DC IV ZYVOX 600MG IV Q 12HRLY. 04/10/17.- 04/15/17 PER ? CYSTOSCOPY sunday ? BX KIDNEY MASS. Objective - Vital Signs/Intake and Output Vital Signs (last 24 hours): Temp Pulse Resp BP Pulse Ox 97.7 F 90 20 124/75 98 04/15/17 15:59 04/15/17 15:59 04/15/17 15:59 04/15/17 15:59 04/15/17 15:59 Intake and Output: 04/15/17 04/16/17 18:59 06:59 Intake Total 730 Output Total 650 Balance 80 - Medications Medications: Current Medications Acetaminophen (Tylenol 325mg Tab) 650 mg PO Q4 PRN PRN Reason: PAIN, TEMPERATURE 101F & ABOVE Cefepime HCl 1 gm/ Dextrose 50 mls @ 100 mls/hr IVPB Q24H [facility] Last Admin: 04/15/17 00:07 Dose: 100 mls/hr Magnesium Hydroxide (Milk Of Magnesia) 30 ml PO HS PRN PRN Reason: Constipation Multivitamins (Hexavitamin) 1 tab PO DAILY [facility] Last Admin: 04/15/17 09:41 Dose: 1 tab Mupirocin (Bactroban 2% Nasal) 0.5 gm JAYCEE BID [facility] Stop: 04/19/17 18:01 Last Admin: 04/15/17 17:23 Dose: 0.5 gm Nystatin (Nystop Topical Powder) 0 applic TOP BID [facility] Last Admin: 04/15/17 09:41 Dose: 1 applic Oxybutynin Chloride (Ditropan Tab) 5 mg PO TID [facility] Last Admin: 04/15/17 17:24 Dose: 5 mg Pantoprazole Sodium (Protonix Ec Tab) 40 mg PO DAILY [facility] Last Admin: 04/15/17 09:41 Dose: 40 mg - Labs Labs: 04/13/17 11:19 04/13/17 11:19 PT 15.4 SECONDS (9.7-12.2) H 04/09/17 18:26 INR 1.4 04/09/17 18:26 APTT 26 SECONDS (21-34) 04/09/17 18:26 Assessment and Plan (1) Acute urinary retention Status: Acute (2) Cystitis Status: Acute (3) Hematuria Status: Acute (4) Acute renal insufficiency Status: Acute (5) Mass of left kidney Status: Chronic (6) Postoperative wound infection Status: Acute
[2017-04-16] MEDS: Pantoprazole 40 mg EC Tab PO SCH (10:28)
[2017-04-16] MEDS: Mupirocin 2% Ointment (NASAL) NAS SCH ×2 (10:28→18:07)
[2017-04-16] MEDS: Multiple Vitamins Tab PO SCH (10:28)
[2017-04-16 11:44] LABS: BASO % 0.4 % (0.0-2.0); EOS # 0.1 K/uL (0.0-0.7); EOS % 1.7 % (0.0-4.0); HEMOGLOBIN 11.5 g/dL (12.0-18.0); LYMPH # 0.7 K/uL (1.0-4.3); LYMPH % 14.4 % (20.0-40.0); MEAN CELL VOLUME 81.7 fL (80.0-94.0); MEAN CORPUSCULAR HEMOGLOBIN 27.9 pg (27.0-31.0); MEAN CORPUSCULAR HGB CONC 34.2 g/dL (33.0-37.0); MEAN PLATELET VOLUME 8.2 fL (7.2-11.7); MONO # 0.4 K/uL (0.0-0.8); MONO % 7.7 % (0.0-10.0); NEUT # 3.9 K/uL (1.8-7.0); NEUT % 75.8 % (50.0-75.0); NRBC % 0.1 % (0.0-2.0); RBC 4.13 Mil/uL (4.40-5.90); RED CELL DISTRIBUTION WIDTH 14.5 % (11.5-14.5); WHITE BLOOD COUNT 5.2 K/uL (4.8-10.8)
[2017-04-16 12:05] LABS: ALBUMIN 3.4 g/dL (3.5-5.0); ALT/SGPT 46 U/L (21-72); AST/SGOT 29 U/L (17-59); BLOOD UREA NITROGEN 10 mg/dL (9-20); CALCIUM 8.7 mg/dl (8.6-10.4); GFR AFRICAN-AMERICAN > 60; GFR NON-AFRICAN AMERICAN > 60; MAGNESIUM 1.9 mg/dL (1.6-2.3)
--- NOTE | 2017-04-16 13:12 | CP.PCM.PN ---
Subjective - Date & Time of Evaluation Date of Evaluation: 04/16/17 Time of Evaluation: 13:12 - Subjective Subjective: CHIEF COMPLAINTS TODAY : NO SP. COMPLAINTS ROS. HEENT : N. Resp : No cough, wheezing ,pleuritic CP ,or hemoptysis Cardio : No anginal CP, PND, orthopnea, palpitation GI : No abd.pain, n/v ,diarrhea or GI bleeding . LUGGAGE ATTENDANT : No headache, vertigo, focal deficit. Musculoskel : No joint swelling , Derm : No rash Psych : Normal affect. Ext : No swelling ,calf pain PE. Pt. is alert awake in no distress. V.S As noted in the chart Head ,ear nose,throat and eyes : Normal. Neck : Supple with normal carotids. Lungs: Clear air entry. Heart : S1 & S2 normal with S4. No murmur. Abd : Soft non tender with normal bowel sounds. UPPER ABD SURGICAL WOUND Neuro : Moves all ext. with no localized deficit. Ext : No edema with intact pulses.Non tender calves Derm : No rashes or decubitus ulcer. LABS/RADIOLOGY: SEE MICRO REPORT FROM [facility] IN NOT MRSA ASSESSMENT/PLAN : AWAITING CYSTO WANTS PT HOME Objective - Vital Signs/Intake and Output Vital Signs (last 24 hours): Temp Pulse Resp BP Pulse Ox 98.1 F 86 20 135/83 98 04/16/17 07:00 04/16/17 07:00 04/16/17 07:00 04/16/17 07:00 04/16/17 07:00 Intake and Output: 04/16/17 04/16/17 11:59 23:59 Output Total 700 Balance -700 - Medications Medications: Current Medications Acetaminophen (Tylenol 325mg Tab) 650 mg PO Q4 PRN PRN Reason: PAIN, TEMPERATURE 101F & ABOVE Cefepime HCl 1 gm/ Dextrose 50 mls @ 100 mls/hr IVPB Q24H [facility] Last Admin: 04/16/17 00:06 Dose: 100 mls/hr Magnesium Hydroxide (Milk Of Magnesia) 30 ml PO HS PRN PRN Reason: Constipation Multivitamins (Hexavitamin) 1 tab PO DAILY [facility] Last Admin: 04/16/17 10:28 Dose: 1 tab Mupirocin (Bactroban 2% Nasal) 0.5 gm JAYCEE BID [facility] Stop: 01/18/18 18:01 Last Admin: 04/16/17 10:28 Dose: 0.5 gm Nystatin (Nystop Topical Powder) 0 applic TOP BID [facility] Last Admin: 04/16/17 10:32 Dose: 1 applic Oxybutynin Chloride (Ditropan Tab) 5 mg PO TID [facility] Last Admin: 04/16/17 10:27 Dose: 5 mg Pantoprazole Sodium (Protonix Ec Tab) 40 mg PO DAILY [facility] Last Admin: 04/16/17 10:28 Dose: 40 mg - Labs Labs: 04/16/17 11:33 04/16/17 11:33 PT 15.4 SECONDS (9.7-12.2) H 04/09/17 18:26 INR 1.4 04/09/17 18:26 APTT 26 SECONDS (21-34) 04/09/17 18:26
[2017-04-16] MEDS ORDERED: Lidocaine 2% Jelly (Uro-Jet) ONE (18:05)
[2017-04-16] MEDS ORDERED: Lactated Ringer's 1,000 ML IV ONE (18:05)
[2017-04-16] MEDS ORDERED: Midazolam 2 MG/2 ML VIAL ONE (18:15)
[2017-04-16] MEDS ORDERED: Propofol 10 mg/ml Inj (20 ML) ONE (18:17)
[2017-04-16] MEDS ORDERED: Lactated Ringer's 1,000 ML IV SCH (18:45)
--- NOTE | 2017-04-16 23:18 | CP.PCM.PN ---
Subjective - Date & Time of Evaluation Date of Evaluation: 04/16/17 Time of Evaluation: 23:18 - Subjective Subjective: CHIEF COMPLAINTS TODAY : AFEBRILE.VSS NO NEW COMPLAINTS. seen by - FOR CYSTOSCOPY SUNDAY. ROS. HEENT : N. Resp : No cough, wheezing ,pleuritic CP ,or hemoptysis Cardio : No anginal CP, PND, orthopnea, palpitation GI : No abd.pain, n/v ,diarrhea or GI bleeding . 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 Musculoskel : No joint swelling , Derm : No rash Psych : Normal affect. Ext : No swelling ,calf pain PE. Pt. is alert awake in no distress. V.S As noted in the chart Head ,ear nose,throat and eyes : Normal. Neck : Supple with normal carotids. Lungs: Clear air entry. Heart : S1 & S2 normal with S4. No murmur. Abd : Soft non tender with normal bowel sounds. UPPER ABD SURGICAL WOUND - DRY NOW. Neuro : Moves all ext. with no localized deficit. Ext : No edema with intact pulses.Non tender calves Derm : No rashes or decubitus ulcer. LABS/RADIOLOGY: URINE CULTURE -REPEAT -VE GROWTH WOUND CULTURE [id number] cocci in clusters.- SCN blood cultures/Urine cultures negative growth. ASSESSMENT; .ACUTE URINARY RETENTION. HEMATURIA-RESOLVED LT. KIDNEY MASS. MICHELLE. POST OPT . WOUND INFECTION. (SCN ? SKIN JACK ) HX . MULTIPLE SCLEROSIS. PLAN : CHECK STOOL FOR C .DIFFICILE TOXIN. Gray CATHETER CLEAR URINE NOW. IV CEFIPIME 1GM IVPB [id number].04/10/17 DC IV ZYVOX 600MG IV Q 12HRLY. 04/10/17.- 04/15/17 PER ? CYSTOSCOPY ? BX KIDNEY MASS. DR JONES ID COVERING ME , PLEASE CALL FOR R/O ABX OR ANY CHANGE IN PTS STATUS. Objective - Vital Signs/Intake and Output Vital Signs (last 24 hours): Temp Pulse Resp BP Pulse Ox 97.5 F L 88 18 168/60 H 97 04/16/17 20:02 04/16/17 20:02 04/16/17 20:02 04/16/17 20:02 04/16/17 20:02 Intake and Output: 04/16/17 04/17/17 18:59 06:59 Output Total 600 525 Balance -600 -525 - Medications Medications: Current Medications Acetaminophen (Tylenol 325mg Tab) 650 mg PO Q4 PRN PRN Reason: PAIN, TEMPERATURE 101F & ABOVE Cefepime HCl 1 gm/ Dextrose 50 mls @ 100 mls/hr IVPB Q24H [facility] Last Admin: 04/16/17 00:06 Dose: 100 mls/hr Lactated Ringer's (Lactated Ringer's) 1,000 mls @ 100 mls/hr IV .Q10H [facility] Magnesium Hydroxide (Milk Of Magnesia) 30 ml PO HS PRN PRN Reason: Constipation Multivitamins (Hexavitamin) 1 tab PO DAILY [facility] Last Admin: 04/16/17 10:28 Dose: 1 tab Mupirocin (Bactroban 2% Nasal) 0.5 gm JAYCEE BID [facility] Stop: 04/19/17 18:01 Last Admin: 04/16/17 18:07 Dose: Not Given Nystatin (Nystop Topical Powder) 0 applic TOP BID [facility] Last Admin: 04/16/17 18:07 Dose: Not Given Oxybutynin Chloride (Ditropan Tab) 5 mg PO TID [facility] Last Admin: 04/16/17 18:07 Dose: Not Given Pantoprazole Sodium (Protonix Ec Tab) 40 mg PO DAILY [facility] Last Admin: 04/16/17 10:28 Dose: 40 mg - Labs Labs: 04/16/17 11:33 04/16/17 11:33 PT 15.4 SECONDS (9.7-12.2) H 04/09/17 18:26 INR 1.4 04/09/17 18:26 APTT 26 SECONDS (21-34) 04/09/17 18:26 Assessment and Plan (1) Acute urinary retention Status: Acute (2) Cystitis Status: Acute (3) Hematuria Status: Acute (4) Acute renal insufficiency Status: Acute (5) Mass of left kidney Status: Chronic (6) Postoperative wound infection Status: Acute
[2017-04-17 01:20] VITALS: RESP 20
[2017-04-17 08:02] LABS: BASO % 0.3 % (0.0-2.0); EOS # 0.1 K/uL (0.0-0.7); EOS % 1.6 % (0.0-4.0); HEMOGLOBIN 11.3 g/dL (12.0-18.0); LYMPH # 0.6 K/uL (1.0-4.3); LYMPH % 10.9 % (20.0-40.0); MEAN CELL VOLUME 81.3 fL (80.0-94.0); MEAN CORPUSCULAR HEMOGLOBIN 27.5 pg (27.0-31.0); MEAN CORPUSCULAR HGB CONC 33.8 g/dL (33.0-37.0); MONO # 0.5 K/uL (0.0-0.8); MONO % 8.1 % (0.0-10.0); NEUT # 4.6 K/uL (1.8-7.0); NEUT % 79.1 % (50.0-75.0); NRBC % 0.1 % (0.0-2.0); RBC 4.12 Mil/uL (4.40-5.90); WHITE BLOOD COUNT 5.8 K/uL (4.8-10.8)
[2017-04-17 08:41] LABS: ALBUMIN 3.3 g/dL (3.5-5.0); ALT/SGPT 45 U/L (21-72); AST/SGOT 27 U/L (17-59); BLOOD UREA NITROGEN 13 mg/dL (9-20); CALCIUM 8.6 mg/dl (8.6-10.4); GFR AFRICAN-AMERICAN > 60; GFR NON-AFRICAN AMERICAN > 60; MAGNESIUM 1.8 mg/dL (1.6-2.3)
[2017-04-17] MEDS: Pantoprazole 40 mg EC Tab PO SCH (10:33)
[2017-04-17] MEDS: Mupirocin 2% Ointment (NASAL) NAS SCH (10:34)
[2017-04-17] MEDS: Multiple Vitamins Tab PO SCH (10:34)
--- NOTE | 2017-04-17 12:05 | CP.PCM.DIS ---
Provider - Provider Date of Admission: 04/11/17 09:04 Attending physician: Dennys Kay MD Time Spent in preparation of Discharge (in minutes): 30 Hospital Course - Lab Results Lab Results: Micro Results 04/09/17 22:51 Blood Blood Culture - Final NO GROWTH AFTER 5 DAYS 04/09/17 22:51 Blood Gram Stain - Final TEST NOT PERFORMED 04/12/17 Unknown Urine,Alex Urine Culture - Final No Growth (<1,000 CFU/ML) 04/10/17 01:00 Naris MRSA Culture (Admit) - Final MRSA DETECTED 04/10/17 00:44 Abdomen Gram Stain - Final 04/10/17 00:44 Abdomen Wound Culture - Final Coagulase Neg Staphylococcus 04/09/17 22:51 Urine,Catheterized Urine Culture - Final No Growth (<1,000 CFU/ML) Most Recent Lab Values WBC 5.8 K/uL (4.8-10.8) 04/17/17 07:51 RBC 4.12 Mil/uL (4.40-5.90) L 04/17/17 07:51 Hgb 11.3 g/dL (12.0-18.0) L 04/17/17 07:51 Hct 33.4 % (35.0-51.0) L 04/17/17 07:51 MCV 81.3 fL (80.0-94.0) 04/17/17 07:51 MCH 27.5 pg (27.0-31.0) 04/17/17 07:51 MCHC 33.8 g/dL (33.0-37.0) 04/17/17 07:51 RDW 15.0 % (11.5-14.5) H 04/17/17 07:51 Plt Count 347 K/uL (130-400) 04/17/17 07:51 MPV 8.0 fL (7.2-11.7) 04/17/17 07:51 Neut % (Auto) 79.1 % (50.0-75.0) H 04/17/17 07:51 Lymph % (Auto) 10.9 % (20.0-40.0) L 04/17/17 07:51 [place] % (Auto) 8.1 % (0.0-10.0) 04/17/17 07:51 Eos % (Auto) 1.6 % (0.0-4.0) 04/17/17 07:51 Baso % (Auto) 0.3 % (0.0-2.0) 04/17/17 07:51 Neut # 4.6 K/uL (1.8-7.0) 04/17/17 07:51 Lymph # 0.6 K/uL (1.0-4.3) L 04/17/17 07:51 [place] # 0.5 K/uL (0.0-0.8) 04/17/17 07:51 Eos # 0.1 K/uL (0.0-0.7) 04/17/17 07:51 Baso # 0.0 K/uL (0.0-0.2) 04/17/17 07:51 Neutrophils % (Manual) 90 % (50-75) H 04/10/17 08:42 Lymphocytes % (Manual) 3 % (20-40) L 04/10/17 08:42 Monocytes % (Manual) 6 % (0-10) 04/10/17 08:42 Eosinophils % (Manual) 1 % (0-4) 04/10/17 08:42 Platelet Estimate Normal (NORMAL) 04/10/17 08:42 RBC Morphology Normal 04/09/17 18:26 Polychromasia Slight 04/10/17 08:42 Hypochromasia (manual) Slight 04/10/17 08:42 Microcytosis (manual) Slight 04/10/17 08:42 Ovalocytes Slight 04/10/17 08:42 PT 15.4 SECONDS (9.7-12.2) H 04/09/17 18:26 INR 1.4 04/09/17 18:26 APTT 26 SECONDS (21-34) 04/09/17 18:26 Sodium 131 mmol/L (132-148) L 04/17/17 07:51 Potassium 4.3 mmol/L (3.6-5.2) 04/17/17 07:51 Chloride 98 mmol/L (98-107) 04/17/17 07:51 Carbon Dioxide 30 mmol/L (22-30) 04/17/17 07:51 Anion Gap 8 (10-20) L 04/17/17 07:51 BUN 13 mg/dL (9-20) 04/17/17 07:51 Creatinine 0.6 mg/dL (0.8-1.5) L 04/17/17 07:51 Est GFR ( Amer) > 60 04/17/17 07:51 Est GFR (Non-Af Amer) > 60 04/17/17 07:51 Random Glucose 89 mg/dL (75-110) 04/17/17 07:51 Calcium 8.6 mg/dl (8.6-10.4) 04/17/17 07:51 Phosphorus 3.7 mg/dL (2.5-4.5) 04/17/17 07:51 Magnesium 1.8 mg/dL (1.6-2.3) 04/17/17 07:51 Total Bilirubin 0.5 mg/dL (0.2-1.3) 04/17/17 07:51 AST 27 U/L (17-59) 04/17/17 07:51 ALT 45 U/L (21-72) 04/17/17 07:51 Alkaline Phosphatase 101 U/L (38-126) 04/17/17 07:51 Total Protein 6.5 g/dL (6.3-8.3) 04/17/17 07:51 Albumin 3.3 g/dL (3.5-5.0) L 04/17/17 07:51 Globulin 3.2 gm/dL (2.2-3.9) 04/17/17 07:51 Albumin/Globulin Ratio 1.0 (1.0-2.1) 04/17/17 07:51 Lipase 51 U/L (23-300) 04/09/17 19:13 Urine Color [place] (YELLOW) 04/09/17 19:39 Urine Clarity Hazy (Clear) 04/09/17 19:39 Urine pH 5.0 (5.0-8.0) 04/09/17 19:39 Ur Specific [place] 1.010 (1.003-1.030) 04/09/17 19:39 Urine Protein 2+ mg/dL (NEGATIVE) H 04/09/17 19:39 Urine Glucose (UA) Normal mg/dL (Normal) 04/09/17 19:39 Urine Ketones Negative mg/dL (NEGATIVE) 04/09/17 19:39 Urine Blood 3+ (NEGATIVE) H 01/08/18 19:39 Urine Nitrate Negative (NEGATIVE) 04/09/17 19:39 Urine Bilirubin Negative (NEGATIVE) 04/09/17 19:39 Urine Urobilinogen Normal mg/dL (0.2-1.0) 04/09/17 19:39 Ur Leukocyte Esterase Trace Tanja/uL (Negative) 04/09/17 19:39 Urine WBC (Auto) 19 /hpf (0-5) H 04/09/17 19:39 Urine RBC (Auto) 33 /hpf (0-3) H 04/09/17 19:39 Amorphous Sediment Few /ul (<OCC) H 04/09/17 19:39 Urine Bacteria Occ (<OCC) H 04/09/17 19:39 - Hospital Course Hospital Course: TRANSERRED FROM [place] WITH HEMATURIA . PAINLESS AND SPONTANEOUS, NO ALEX'S PAST HIST. 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 WOUND AND GREW NON MRSA /ID CONSULTED CYSTO NEG RENAL MASS W/U LATER PER WOUND RESPONDED TO IV AB REFUSED REHAB D/C HOME Discharge Exam - Head Exam Head Exam: NORMAL INSPECTION Discharge Plan - Follow Up Plan Condition: GOOD Disposition: HOME/ ROUTINE
--- NOTE | 2017-04-17 15:15 | CP.PCM.PN ---
Subjective - Date & Time of Evaluation Date of Evaluation: 04/17/17 Time of Evaluation: 15:15 - Subjective Subjective: PATIENT WAS ADMITTED FOR URINARY RETENTION; COMPLAINING OF UNABLE TO PASS A BM FOR 3 DAYS; DENIES CHEST PAIN, SOB NAUSEA OR VOMITING; NO SIGN OF DISTRESS NOTED Objective - Vital Signs/Intake and Output Vital Signs (last 24 hours): Temp Pulse Resp BP Pulse Ox 97.9 F 83 20 127/76 98 04/17/17 08:19 04/17/17 08:19 04/17/17 08:19 04/17/17 08:19 04/17/17 08:19 Intake and Output: 04/17/17 04/17/17 06:59 18:59 Intake Total 500 Output Total 525 1400 Balance -525 -900 - Medications Medications: Current Medications Acetaminophen (Tylenol 325mg Tab) 650 mg PO Q4 PRN PRN Reason: PAIN, TEMPERATURE 101F & ABOVE Cefepime HCl 1 gm/ Dextrose 50 mls @ 100 mls/hr IVPB Q24H [facility] Last Admin: 04/16/17 23:41 Dose: 100 mls/hr Lactated Ringer's (Lactated Ringer's) 1,000 mls @ 100 mls/hr IV .Q10H [facility] Magnesium Hydroxide (Milk Of Magnesia) 30 ml PO HS PRN PRN Reason: Constipation Multivitamins (Hexavitamin) 1 tab PO DAILY [facility] Last Admin: 04/17/17 10:34 Dose: 1 tab Mupirocin (Bactroban 2% Nasal) 0.5 gm JAYCEE BID [facility] Stop: 04/19/17 18:01 Last Admin: 04/17/17 10:34 Dose: 0.5 gm Nystatin (Nystop Topical Powder) 0 applic TOP BID [facility] Last Admin: 04/17/17 10:33 Dose: 1 applic Oxybutynin Chloride (Ditropan Tab) 5 mg PO TID [facility] Last Admin: 04/17/17 13:24 Dose: 5 mg Pantoprazole Sodium (Protonix Ec Tab) 40 mg PO DAILY [facility] Last Admin: 04/17/17 10:33 Dose: 40 mg - Labs Labs: 04/17/17 07:51 04/17/17 07:51 PT 15.4 SECONDS (9.7-12.2) H 04/09/17 18:26 INR 1.4 04/09/17 18:26 APTT 26 SECONDS (21-34) 04/09/17 18:26 Assessment and Plan - Assessment and Plan (Free Text) Assessment: PATIENT IS SEEN AND EXAMINED AT THE BEDSIDE ALEX IN PLACE AND SECURE URINE IS CLEAR ABDOMINAL WOUND HEAL AND SOFT NON DISTENDED DISCUSS WITH DR MIKE AND TRISTA WHO CLEAR PATIENT FOR DC FOLLOW UP WITH DR MIKE IN 1-2 WEEKS AT HIS OFFICE ---CALL FOR APPOINTMENT FOLLOW UP WITH DR MORALES AT HIS OFFICE 1-2 WEEK---CALL FOR APPOINTMENT FOLLOW UP WITH DR GONZALEZ FOR YOUR MISSING APPOINTMENT ---CALL HIS OFFICE TO RESCHEDULE FOR AN APPOINTMENT FOLLOW WITH DR WESTON NEXT WEEK AT HIS OFFICE FOR THE ALEX CATHETER--CALL FOR APPOINTMENTS AT HIS OFFICE ADDRESS THE ALEX CATHETER DURATION ALEX CATHETER CARE Clean your genital area 2 times every day. Clean your catheter and the area around where it was inserted. ... Secure the catheter tube so you do not pull or move the catheter. This helps prevent pain and bladder spasms. ... Keep a closed drainage system. CONTINUE ALL YOUR HOME MEDICATION DIRECTED NEW PRESCRIPTION GIVEN : COLACE 100 MG BY MOUTH TWICE A DAY FOR CONSTIPATION CALL DR WESTON OR DR MIKE OR GO TO THE EMERGENCY ROOM IF SYMPTOMS RETURN OR WORSENING DISCUSS WITH PATIENT WHO AGREE AND VERBALIZED UNDERSTANDING
[2017-04-17 15:45] VITALS: BP 119/74; PULSE 93; TEMP 97.4; O2SAT 99
== END 2017-04-17 16:00 | disposition home or self-care (01) | DRG 690 ==
LOC: C.ER 17:22 → C.9E 21:31 → C.3T 22:47 → C.5S 04-10 10:19 → OBSVTOIN 04-11 09:04
PROVIDERS: ADMIT Internal Medicine Cardiovascular Disease; ATTEND Internal Medicine Cardiovascular Disease
DX: N30.01 Acute cystitis with hematuria (principal); N17.9 Acute kidney failure, unspecified; G35 Multiple sclerosis; N31.9 Neuromuscular dysfunction of bladder, unspecified; T81.4XXA Infection following a procedure, initial encounter; N13.8 Other obstructive and reflux uropathy; F32.9 Major depressive disorder, single episode, unspecified; N18.9 Chronic kidney disease, unspecified; Z87.442 Personal history of urinary calculi; B95.62 Methicillin resistant Staphylococcus aureus infection as the cause of diseases classified elsewhere; J44.9 Chronic obstructive pulmonary disease, unspecified; Z87.891 Personal history of nicotine dependence; Y83.8 Other surgical procedures as the cause of abnormal reaction of the patient, or of later complication, without mention of misadventure at the time of the procedure; N40.1 Benign prostatic hyperplasia with lower urinary tract symptoms; N28.89 Other specified disorders of kidney and ureter

== ENCOUNTER 2017-10-21 21:15 | Inpatient (IN) | payer MEDICARE ==
[2017-10-21] MEDS ORDERED: Sodium Chloride 0.9% 1,000 ML IV ONE (21:40)
[2017-10-21] MEDS ORDERED: Sodium Chloride 0.9% 1,000 ML ONE (21:54)
[2017-10-21 21:58] LABS: BASO % 0.2 % (0.0-2.0); EOS % 0.1 % (0.0-4.0); HEMOGLOBIN 13.1 g/dL (12.0-18.0); LYMPH # 0.9 K/uL (1.0-4.3); LYMPH % 5.9 % (20.0-40.0); MEAN CELL VOLUME 80.7 fL (80.0-94.0); MEAN CORPUSCULAR HGB CONC 33.4 g/dL (33.0-37.0); MEAN PLATELET VOLUME 8.4 fL (7.2-11.7); MONO # 0.9 K/uL (0.0-0.8); MONO % 5.9 % (0.0-10.0); NEUT # 13.4 K/uL (1.8-7.0); NEUT % 87.9 % (50.0-75.0); NRBC % 0.2 % (0.0-2.0); PLATELET COUNT 312 K/uL (130-400); RBC 4.87 Mil/uL (4.40-5.90); RED CELL DISTRIBUTION WIDTH 14.4 % (11.5-14.5)
[2017-10-21 22:00] LABS: INR 1.3; PROTHROMBIN TIME 13.9 SECONDS (9.7-12.2)
[2017-10-21 22:02] LABS: WHITE BLOOD COUNT 15.2 K/uL (4.8-10.8)
[2017-10-21 22:06] LABS: ALB/GLOB RATIO 1.4 (1.0-2.1); ALBUMIN 4.5 g/dL (3.5-5.0); CALCIUM 9.5 mg/dl (8.6-10.4)
[2017-10-21 22:12] LABS: ANISOCYTOSIS SLIGHT; BANDS 2 % (0-2); LYMPHOCYTE 5 % (20-40); MONOCYTE 3 % (0-10); NEUTROPHIL 90 % (50-75); PLATELET ESTIMATE NORMAL (NORMAL); TOTAL CELLS COUNTED 100
[2017-10-21 22:13] LABS: LARGE PLATELETS PRESENT; OVALOCYTES SLIGHT; POIKILOCYTOSIS SLIGHT
[2017-10-21 22:17] LABS: TROPONIN I 0.029 ng/mL (0.00-0.120)
--- NOTE | 2017-10-21 22:20 | C.PDOC ---
History Of Present Illness 61-year-old male brought in by ambulance for complaints of abdominal distension that was noticed tonight. As per and son at bedside, patient has also been vomiting and had urinary and stool incontinence. Patient has a history of advanced multiple sclerosis, and at baseline walks with a walker and is minimally verbal. Patient had a breen catheter in place up until 1 month ago. He also just completed a course of Cipro for UTI. Family reports patient has been more unstable with gait lately. Temperature on arrival is 100.9. Time Seen by Provider: 10/21/17 21:34 Chief Complaint (Nursing): Abdominal Pain History Per: Patient History/Exam Limitations: clinical condition (minimally verbal) Onset/Duration Of Symptoms: Hrs Current Symptoms Are (Timing): Still Present Additional History Per: EMS, Family Past Medical History Reviewed: Historical Data, Nursing Documentation, Vital Signs Vital Signs: Last Vital Signs Temp 97.9 F 10/25/17 04:00 Pulse 53 L 10/25/17 05:00 Resp 13 10/25/17 05:00 BP 129/58 L 10/25/17 04:51 Pulse Ox 100 10/25/17 05:00 - Medical History PMH: Depression, Kidney Stones, Multiple Sclerosis, Chronic Kidney Disease - [facility] Procedures INSPECTION OF BLADDER, ENDO (04/11/17) SUPPLEMENT DUODENUM WITH AUTOL SUB, OPEN APPROACH (03/18/17) Family History: States: No Known Family Hx - Social History Hx Tobacco Use: Yes Hx Alcohol Use: No Hx Substance Use: No - Immunization History Hx Tetanus Toxoid Vaccination: No Hx Influenza Vaccination: No Hx Pneumococcal Vaccination: Yes Review Of Systems Except As Marked, All Systems Reviewed And Found Negative. Constitutional: Positive for: Fever Gastrointestinal: Positive for: Vomiting, Other (Abdominal distension). Negative for: Diarrhea Genitourinary: Positive for: Incontinence (of urine and stool) Neurological: Positive for: Other (Unsteady gait) Physical Exam - Physical Exam Appears: Well, No Acute Distress, Other (Smiling, speaking few words) Skin: Normal Color, Warm, Dry Head: Atraumatic, Normacephalic Eye(s): bilateral: Normal Inspection, PERRL, EOMI Oral Mucosa: Moist Neck: Normal ROM, Supple Chest: Symmetrical Cardiovascular: Rhythm Regular, No Murmur Respiratory: Normal Breath Sounds, No Rales, No Rhonchi, No Wheezing Gastrointestinal/Abdominal: Bowel Sounds (diminished), No Tenderness, Distention (Abdomen is distended and tense), Other (midline laporotomy scar from the xyphoid to umbilicus from emergency exploratory surgery due to ruptured bowel in April) Back: Normal Inspection Extremity: Bilateral: Atraumatic, No Pedal Edema, Normal Color And Temperature Pulses: Left Dorsalis Pedis: Normal, Right Dorsalis Pedis: Normal Neurological/Psych: Other (Awake, alert, unable to assess orientation, pt answers yes/no questions occasionally) ED Course And Treatment - Laboratory Results Result Diagrams: 10/24/17 05:31 10/24/17 05:31 O2 Sat by Pulse Oximetry: 89 (RA) Pulse Ox Interpretation: Abnormal Medical Decision Making Medical Decision Making: Impression: 61 y/o M with abdominal distension and vomiting Differential Diagnosis included but are not limited to: SBO vs. recurrent perforated bowel Plan: --EKG --CMP --Lipase --Troponin I --CBC --PTT --Prothrombin time --Chest X-Ray --Urinalysis --Bladder Scan --IV fluids --CT Abd/Pelvis with IV contrast Discussed with surgical instruments inspector at 10pm, resident will come to evaluate patient in the ED. Bladder scan shows 750cc. Breen catheter ordered. Disposition Doctor Will See Patient In The: Hospital Counseled Patient/Family Regarding: Studies Performed, Diagnosis - Disposition Disposition: HOSPITALIZED Disposition Time: 05:00 Condition: GOOD - Clinical Impression Clinical Impression: Abdominal bloating, Cystitis, Pyelonephritis - Scribe Statement The provider has reviewed the documentation as recorded by the Scribe (Lanny Stanton) Provider Attestation: All medical record entries made by the Parulibe were at my direction and personally dictated by me. I have reviewed the chart and agree that the record accurately reflects my personal performance of the history, physical exam, medical decision making, and the department course for this patient. I have also personally directed, reviewed, and agree with the discharge instructions and disposition.
--- NOTE | 2017-10-21 22:49 | CP.PCM.CON ---
History of Present Illness - History of Present Illness History of Present Illness: 61M w/ PMH of MS and PSH of ex-lap s/p perforated ulcer, presents to the ED today with abdominal pain, bloating, nausea, and 1 episode of NBNB vomiting. Pt is nonverbal and history was obtained by son and at bedside in the ED. On sunday he had a suspected flare-up of his MS and since then he has been unable to ambulate with his walker and has had 3 falls. He is not on any medications for the MS, but is getting Lemtrada infusions with 3 more remaining in October. Since yesterday he has been unable to pass gas, have a bowel movement, or urinate. He was recently diagnosed with a UTI for which he completed a 7 day course of cipro. Admits to subjective fevers, nausea, 1 episode of NBNB vomit. Denies chills, diarrhea, SOB, CP. PMH: MS, kidney mass being followed up by Dr. Nation PSH: Ex-lap s/p perforated ulcer in April ALL: NKDA Soc: heavy smoker for 50 years stopped in march, denies a/d Review of Systems - Review of Systems Systems not reviewed;Unavailable: Other (Nonverbal 2/2 Advancing MS) - Constitutional Constitutional: Fever, Frequent Falls, Weakness. absent: Chills - EENT Eyes: absent: Blurred Vision, Change in Vision Ears: absent: Ear Discharge, Ear Pain Nose/Mouth/Throat: absent: Nasal Congestion, Nasal Discharge - Cardiovascular Cardiovascular: absent: Chest Pain, Dyspnea - Respiratory Respiratory: absent: Cough, Dyspnea - Gastrointestinal Gastrointestinal: Abdominal Pain, Bloating, Nausea, Vomiting. absent: Diarrhea - Genitourinary Genitourinary: Difficulty Urinating, Bladder Distension - Musculoskeletal Musculoskeletal: Muscle Weakness, Stiffness - Integumentary Integumentary: absent: Bleeding Lesions, Changing Lesions - Neurological Neurological: absent: Confusion, Dizziness - Psychiatric Psychiatric: absent: Anxiety, Depression Past Patient History - Past Medical History & Family History Past Medical History?: Yes - Past Social History Smoking Status: Former Smoker - CARDIAC Hx Cardiac Disorders: No - PULMONARY Hx Respiratory Disorders: No - NEUROLOGICAL Hx Multiple Sclerosis: Yes - HEENT Hx HEENT Problems: No - RENAL Hx Chronic Kidney Disease: Yes Hx Kidney Stones: Yes - ENDOCRINE/METABOLIC Hx Endocrine Disorders: No - HEMATOLOGICAL/ONCOLOGICAL Hx Blood Disorders: No - INTEGUMENTARY Hx Dermatological Problems: No - MUSCULOSKELETAL/RHEUMATOLOGICAL Hx Musculoskeletal Disorders: No Hx Falls: No - GASTROINTESTINAL Hx Gastrointestinal Disorders: No - GENITOURINARY/GYNECOLOGICAL Hx Genitourinary Disorders: Yes Hx Hematuria: Yes - PSYCHIATRIC Hx Depression: Yes Hx Substance Use: No - SURGICAL HISTORY Hx Surgeries: Yes Other/Comment: "PERFORATED ULCER" - ANESTHESIA Hx Anesthesia: Yes Hx Anesthesia Reactions: No Hx Malignant Hyperthermia: No Meds Allergies/Adverse Reactions: Allergies Allergy/AdvReac Type Severity Reaction Status Date / Time No Known Allergies Allergy Verified 10/21/17 21:30 Physical Exam - Constitutional Appears: Well, Non-toxic, No Acute Distress - Head Exam Head Exam: ATRAUMATIC, NORMAL INSPECTION, NORMOCEPHALIC - Eye Exam Eye Exam: EOMI, Normal appearance - Respiratory Exam Respiratory Exam: Clear to Auscultation Bilateral, NORMAL BREATHING PATTERN - Cardiovascular Exam Cardiovascular Exam: REGULAR RHYTHM - GI/Abdominal Exam GI & Abdominal Exam: Distended, Normal Bowel Sounds, Soft, Tenderness. absent: Firm, Guarding, Rebound - Exam Additional comments: breen placed - 1100cc dark urine - Neurological Exam Neurological exam: Alert, Motor Sensory Deficit - Skin Skin Exam: Dry, Intact, Normal Color, Warm Additional comments: ex-lap scar Results - Vital Signs Recent Vital Signs: Last Vital Signs Temp 100.9 F H 10/21/17 22:11 Pulse 115 H 10/21/17 21:27 Resp 20 10/21/17 21:27 BP 127/75 10/21/17 21:27 Pulse Ox 89 L 10/21/17 22:27 - Labs Result Diagrams: 10/21/17 21:48 10/21/17 21:48 Labs: Laboratory Results - last 24 hr 10/21/17 10/21/17 10/21/17 21:48 21:48 21:48 WBC 15.2 H D RBC 4.87 Hgb 13.1 Hct 39.3 MCV 80.7 MCH 27.0 MCHC 33.4 RDW 14.4 Plt Count 312 MPV 8.4 Neut % (Auto) 87.9 H Lymph % (Auto) 5.9 L [place] % (Auto) 5.9 Eos % (Auto) 0.1 Baso % (Auto) 0.2 Neut # (Auto) 13.4 H Lymph # (Auto) 0.9 L [place] # (Auto) 0.9 H Eos # (Auto) 0.0 Baso # (Auto) 0.0 Neutrophils % (Manual) 90 H Band Neutrophils % 2 Lymphocytes % (Manual) 5 L Monocytes % (Manual) 3 Platelet Estimate Normal Large Platelets Present Poikilocytosis (manual Slight Anisocytosis (manual) Slight Ovalocytes Slight PT 13.9 H INR 1.3 APTT 25 Sodium 138 Potassium 4.3 Chloride 101 Carbon Dioxide 21 L Anion Gap 21 H BUN 49 H Creatinine 3.0 H Est GFR ( Amer) 26 Est GFR (Non-Af Amer) 21 Random Glucose 194 H Calcium 9.5 Total Bilirubin 0.7 AST 22 ALT 27 Alkaline Phosphatase 84 Troponin I 0.0290 Total Protein 7.8 Albumin 4.5 Globulin 3.3 Albumin/Globulin Ratio 1.4 Lipase 42 Assessment & Plan - Assessment and Plan (Free Text) Assessment: 61M PMH of MS presenting w/ abdominal pain Plan: Clinically improved since arrival because patient had a bowel movement and is passing flatus in the ED Remain NPO, IVF If patient becomes distended/nausea/vomiting will place NGT Breen placed with 1100 cc dark urine - continue to monitor I & Os WBC of 15.2 and Tmax of 100.9 - will continue to monitor with vital signs Q4 and AM labs UA shows UTI - IV Abx per ID recs CT scan shows possible stercoral proctitis, fecal impaction - given Dulcolax suppository CXR - no signs of free air or perforation Will continue with conservative management Medical management of MS per medicine Further recs per Dr. Nelson Sanchez PGY1
[2017-10-21 22:50] LABS: SQUAMOUS EPITHIAL 3 /hpf (0-5); URINE BACTERIA RARE (<OCC); URINE BILIRUBIN NEGATIVE (NEGATIVE); URINE BLOOD 3+ (NEGATIVE); URINE CLARITY Hazy (Clear); URINE COLOR Yellow (YELLOW); URINE GLUCOSE (UA) NORMAL (Normal); URINE LEUKOCYTE ESTERASE 3+ Leu/uL (Negative); URINE PROTEIN 1+ mg/dL (NEGATIVE); URINE UROBILINOGEN NORMAL mg/dL (0.2-1.0); WBC CLUMPS RARE /hpf
[2017-10-21] MEDS ORDERED: Piperacillin/Tazobact 3.375 gm 100 ML IV STA (22:54)
[2017-10-21] MEDS ORDERED: Sodium Chloride 0.9% 1,000 ML IV STA (23:00)
[2017-10-21] MEDS ORDERED: Piperacillin/Tazobact 3.375 gm 100 ML IVPB ONE (23:03)
[2017-10-21] MEDS: Sodium Chloride 0.9% 1,000 ML IV SCH (23:16)
--- NOTE | 2017-10-22 07:12 | CT ---
Date of service: 10/21/2017 PROCEDURE: CT Abdomen and Pelvis without intravenous contrast HISTORY: vom, distended, ? bowel obstr COMPARISON: Comparison is made to the previous study dated 04/09/2017 TECHNIQUE: Axial and reformatted coronal and sagittal CT images of the abdomen and pelvis were obtained without IV or oral contrast administration.. Contrast dose: 0 Radiation dose: Total exam DLP = 611.43 mGy-cm. This CT exam was performed using one or more of the following dose reduction techniques: Automated exposure control, adjustment of the mA and/or kV according to patient size, and/or use of iterative reconstruction technique. FINDINGS: LOWER THORAX: Small airspace opacities at the lung bases are noted may represent atelectasis or less likely aspiration. Diffuse distal esophagus mucosal thickening is noted. There is a trace pericardial effusion. LIVER: Unremarkable. No gross lesion or ductal dilatation. GALLBLADDER AND BILE DUCTS: Gallstone is again noted without evidence of acute cholecystitis PANCREAS: Unremarkable. No gross lesion or ductal dilatation. SPLEEN: Unremarkable. ADRENALS: Unremarkable. No mass. KIDNEYS AND URETERS: Again seen is solid 4 centimeter slightly hyperintense mass lesion protruding from the upper pole of the left kidney which has increased in size since the previous exam. No evidence of obstructing renal calculi or significant hydronephrosis. Foci of vascular calcification are again noted bilaterally. VASCULATURE: Unremarkable. No aortic aneurysm. BOWEL: Moderately distended rectum demonstrate mild diffuse wall thickening and surrounding with mild inflammatory changes. Findings are suspicious for mild stercoral proctitis. [id number] constipation is also noted in the ascending and transverse colon. No evidence of high-grade bowel obstruction. APPENDIX: No evidence of appendicitis. The appendix is not clearly visualized. PERITONEUM: There is trace amount of fluid in the pelvic retroperitoneal space of uncertain etiology. LYMPH NODES: Unremarkable. No enlarged lymph nodes. BLADDER: There is a Montanez catheter extending to the urinary bladder. Small amount of air in the bladder is noted. REPRODUCTIVE: Moderately to markedly enlarged prostate is also noted. BONES: There is lytic destructive bony lesion at the mid and left aspect of the T9 vertebral body measures 5.1 centimeter in the largest AP diameter and 4 centimeter in the transverse diameter extending into the spinal canal and likely compressing on the spinal cord highly suspicious for malignant neoplasm likely osseous metastasis there are also scattered small lytic bony lesion in the rest of the skeleton noted. OTHER FINDINGS: None. IMPRESSION: Moderate constipation. Suspicious for mild stercoral proctitis. Trace lower abdomen and pelvis retroperitoneal fluid of uncertain etiology. Interval increase in the size of solid mass lesion protruding from the upper pole of the left kidney since the previous exam highly suspicious for malignant neoplasm likely renal cell carcinoma. Interval appearance of lytic destructive bony lesion at T9 vertebral body extending to the spinal canal and likely compressing on the spinal cord since the previous exam highly suspicious for osseous metastasis. Further assessment and MRI of the thoracic lumbar spine is recommended. The patient was admitted to the floor last night. The above findings were reported to the nurse taking care of the patient in the 3 tower Mrs. Vega at 7 a.m. on 10/22/2017.
[2017-10-22 08:43] LABS: BASO % 0.2 % (0.0-2.0); EOS # 0.1 K/uL (0.0-0.7); EOS % 0.6 % (0.0-4.0); LYMPH # 1.4 K/uL (1.0-4.3); LYMPH % 13.8 % (20.0-40.0); MEAN CELL VOLUME 80.6 fL (80.0-94.0); MEAN CORPUSCULAR HEMOGLOBIN 27.7 pg (27.0-31.0); MEAN CORPUSCULAR HGB CONC 34.3 g/dL (33.0-37.0); MEAN PLATELET VOLUME 8.3 fL (7.2-11.7); MONO # 0.7 K/uL (0.0-0.8); MONO % 6.9 % (0.0-10.0); NEUT # 7.9 K/uL (1.8-7.0); NEUT % 78.5 % (50.0-75.0); NRBC % 0.1 % (0.0-2.0); RBC 3.84 Mil/uL (4.40-5.90); RED CELL DISTRIBUTION WIDTH 14.3 % (11.5-14.5); WHITE BLOOD COUNT 10.1 K/uL (4.8-10.8)
[2017-10-22 08:45] LABS: HEMOGLOBIN 10.6 g/dL (12.0-18.0)
--- NOTE | 2017-10-22 08:48 | RAD ---
Date of service: 10/21/2017 PROCEDURE: CHEST RADIOGRAPH, 1 VIEW HISTORY: Abdominal pain COMPARISON: 03/20/2017. FINDINGS: LUNGS: The lungs are clear. PLEURA: No pneumothorax or pleural fluid seen. CARDIOVASCULAR: There is mild cardiomegaly. Atherosclerotic aortic arch calcifications are present. OSSEOUS STRUCTURES: No significant abnormalities. VISUALIZED UPPER ABDOMEN: Normal. OTHER FINDINGS: None. IMPRESSION: No active pulmonary disease.
[2017-10-22] MEDS: Multiple Vitamins Tab PO SCH (09:52)
[2017-10-22] MEDS: Sodium Chloride 0.9% 1,000 ML IV SCH (09:57)
[2017-10-22 12:34] LABS: ALB/GLOB RATIO 1.2 (1.0-2.1); ALBUMIN 3.3 g/dL (3.5-5.0); BILIRUBIN,DIRECT 0.3 mg/dL (0.0-0.4); CALCIUM 8.6 mg/dl (8.6-10.4)
--- NOTE | 2017-10-22 13:40 | CP.PCM.HP ---
History of Present Illness - History of Present Illness History of Present Illness: COMPREHENSIVE HISTORY & PHYSICAL EXAM HPI Patient was admitted from emergency room with abdominal distention and 1 time vomiting. Patient was brought to the hospital by ambulance with abdominal distention and vomiting. 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 Patient was given IV fluids. Creatinine was 3.0 and BUN was 46. Urine showed multiple WBCs Patient has history of advanced multiple sclerosis and get some IV infusion medications outpatient. PAST HIST. Patient was admitted recently in the beginning. 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 Currently not sure whether the biopsy was done. PERSONAL HIST: Smoking. Heavy smoking for the last 50 years recently quit Alcohol. N Allergy N Travel_- . FAMILY HIST : ROS : Constitutional: Negative for weight change, chills, Eyes: Negative for redness, swelling, itching, discharge, vision changes, blurry vision, double vision, glaucoma, cataracts, Ears: Negative for hearing loss, ringing, , tinnitus, vertigo Nose: Negative for rhinorrhea, stuffiness, sniffing, itching, postnasal drip, discoloration, nasal congestion and epistaxis. Throat: Negative for throat clearing, sore throat, hoarseness, difficulty swallowing and difficulty speaking. Respiratory: Negative for cough, , sputum production, chest tightness, wheezing, pleuritic chest pain ,daytime somnolence, chronic cough, hemoptysis, snoring at night, Cardiovascular: Negative for chest pain, palpitations, orthopnea, PND, Edema of legs, leg cramps, angina, claudication, , irregular heartbeat, Neurology lower extremities weakness. Gastrointestinal: Negative for difficulty swallowing, diarrhea, constipation, black stools, rectal bleeding, , flatulence, reflux Genitourinary: Negative for frequent urination, hematuria, discharge, Psychiatric: Negative for suicidal tendencies, Musculoskeletal: Negative for swollen joints, back pain, , neck pain, morning stiffness of joints, . Skin: Negative for rash, ulcers, itching, dry skin and pigmented lesions. P/E: Constitutional: Appears stated age and in no apparent distress. Head: Normocephalic. Ears: External ear canals patent without inflammation. Tympanic membranes intact with normal light reflex and landmark. Eyes: Pupils are central, bilaterally equal, symmetrical and reacts to light with normal movements and no icterus or pallor. Nose: External nares are patent. Mucosa is pink Mouth-Throat: Good general appearance and condition. No post-pharyngeal/oropharyngeal erythema and tonsillar hypertrophy. Good dental hygiene. Neck-Lymphatic: Neck is supple with normal ROM, no thyromegaly, lymph nodes or masses. JVD is normal with no carotid bruit. Lungs: Clear to percussion and auscultation with bilateral normal air entry. Cardiovascular: S1 and S2 are normal with no murmurs, gallops and rub. GI Exam: No hepatomegaly. Abdomen is soft and non-tender. No Organomegaly , masses or hernias are evident and bowel sounds are normal and active. Neurology: Higher function and all cranial nerves intact, both lower extremities have 0 power. Musculoskeletal: No tender spots with normal curvature of the spine with no swelling or restricted ROM of the small and large joints. Extremities: Homans sign absent. Intact pulses with no pitting edema, calf tenderness or skin color changes. Skin: No rash, eruptions or abnormal skin pigmentation LAB/RADIOLOGY: ASSESMENT : Urinary tract infection. Acute renal failure. Advanced multiple sclerosis Renal cell carcinoma with possible metastases PLAN: Continue IV antibiotics IV fluids. ID and neurological and surgical follow-up Present on Admission - Present on Admission Any Indicators Present on Admission: No Past Patient History - Past Medical History & Family History Past Medical History?: Yes - Past Social History Smoking Status: Former Smoker - CARDIAC Hx Cardiac Disorders: No - PULMONARY Hx Respiratory Disorders: No - NEUROLOGICAL Hx Multiple Sclerosis: Yes - HEENT Hx HEENT Problems: No - RENAL Hx Chronic Kidney Disease: Yes Hx Kidney Stones: Yes - ENDOCRINE/METABOLIC Hx Endocrine Disorders: No - HEMATOLOGICAL/ONCOLOGICAL Hx Blood Disorders: No - INTEGUMENTARY Hx Dermatological Problems: No - MUSCULOSKELETAL/RHEUMATOLOGICAL Hx Musculoskeletal Disorders: No Hx Falls: No - GASTROINTESTINAL Hx Gastrointestinal Disorders: No - GENITOURINARY/GYNECOLOGICAL Hx Genitourinary Disorders: Yes Hx Hematuria: Yes - PSYCHIATRIC Hx Depression: Yes Hx Substance Use: No - SURGICAL HISTORY Hx Surgeries: Yes Other/Comment: "PERFORATED ULCER" - ANESTHESIA Hx Anesthesia: Yes Hx Anesthesia Reactions: No Hx Malignant Hyperthermia: No Meds Allergies/Adverse Reactions: Allergies Allergy/AdvReac Type Severity Reaction Status Date / Time No Known Allergies Allergy Verified 10/21/17 21:30 Results - Vital Signs Recent Vital Signs: Last Vital Signs Temp 98.5 F 10/22/17 08:00 Pulse 92 H 10/22/17 08:00 Resp 20 10/22/17 08:00 BP 126/64 10/22/17 08:00 Pulse Ox 94 L 10/22/17 08:00 - Labs Result Diagrams: 10/22/17 08:40 10/22/17 12:15 Labs: Laboratory Results - last 24 hr 10/21/17 10/21/17 10/21/17 21:48 21:48 21:48 WBC 15.2 H D RBC 4.87 Hgb 13.1 Hct 39.3 MCV 80.7 MCH 27.0 MCHC 33.4 RDW 14.4 Plt Count 312 MPV 8.4 Neut % (Auto) 87.9 H Lymph % (Auto) 5.9 L Johnston % (Auto) 5.9 Eos % (Auto) 0.1 Baso % (Auto) 0.2 Neut # (Auto) 13.4 H Lymph # (Auto) 0.9 L Johnston # (Auto) 0.9 H Eos # (Auto) 0.0 Baso # (Auto) 0.0 Neutrophils % (Manual) 90 H Band Neutrophils % 2 Lymphocytes % (Manual) 5 L Monocytes % (Manual) 3 Platelet Estimate Normal Large Platelets Present Poikilocytosis (manual Slight Anisocytosis (manual) Slight Ovalocytes Slight ESR PT 13.9 H INR 1.3 APTT 25 Sodium 138 Potassium 4.3 Chloride 101 Carbon Dioxide 21 L Anion Gap 21 H BUN 49 H Creatinine 3.0 H Est GFR ( Amer) 26 Est GFR (Non-Af Amer) 21 Random Glucose 194 H Calcium 9.5 Total Bilirubin 0.7 Direct Bilirubin AST 22 ALT 27 Alkaline Phosphatase 84 Troponin I 0.0290 C-Reactive Protein Total Protein 7.8 Albumin 4.5 Globulin 3.3 Albumin/Globulin Ratio 1.4 Lipase 42 Urine Color Urine Clarity Urine pH Ur Specific [place] Urine Protein Urine Glucose (UA) Urine Ketones Urine Blood Urine Nitrate Urine Bilirubin Urine Urobilinogen Ur Leukocyte Esterase Urine WBC (Auto) Urine RBC (Auto) Urine WBC Clumps (Auto) Ur Squamous Epith Cells Urine Bacteria Hyaline Casts 10/21/17 10/22/1710/22/18 22:40 08:03 08:03 WBC Cancelled RBC Cancelled Hgb Cancelled Hct Cancelled MCV Cancelled MCH Cancelled MCHC Cancelled RDW Cancelled Plt Count Cancelled MPV Cancelled Neut % (Auto) Cancelled Lymph % (Auto) Cancelled Johnston % (Auto) Cancelled Eos % (Auto) Cancelled Baso % (Auto) Cancelled Neut # (Auto) Cancelled Lymph # (Auto) Cancelled Johnston # (Auto) Cancelled Eos # (Auto) Cancelled Baso # (Auto) Cancelled Neutrophils % (Manual) Band Neutrophils % Lymphocytes % (Manual) Monocytes % (Manual) Platelet Estimate Large Platelets Poikilocytosis (manual Anisocytosis (manual) Ovalocytes ESR Cancelled PT INR APTT Sodium Cancelled Potassium Cancelled Chloride Cancelled Carbon Dioxide Cancelled Anion Gap Cancelled BUN Cancelled Creatinine Est GFR ( Amer) Cancelled Est GFR (Non-Af Amer) Cancelled Random Glucose Cancelled Calcium Cancelled Total Bilirubin Cancelled Direct Bilirubin Cancelled AST Cancelled ALT Cancelled Alkaline Phosphatase Cancelled Troponin I C-Reactive Protein 183.50 H Total Protein Cancelled Albumin Cancelled Globulin Cancelled Albumin/Globulin Ratio Cancelled Lipase Urine Color Yellow Urine Clarity Hazy Urine pH 5.0 Ur Specific [place] 1.016 Urine Protein 1+ H Urine Glucose (UA) Normal Urine Ketones Negative Urine Blood 3+ H Urine Nitrate Negative Urine Bilirubin Negative Urine Urobilinogen Normal Ur Leukocyte Esterase 3+ H Urine WBC (Auto) 189 H Urine RBC (Auto) 160 H Urine WBC Clumps (Auto) Rare H Ur Squamous Epith Cells 3 Urine Bacteria Rare Hyaline Casts 3-5 H 10/22/17 10/22/17 08:40 12:15 WBC 10.1 RBC 3.84 L Hgb 10.6 L D Hct 31.0 L MCV 80.6 MCH 27.7 MCHC 34.3 RDW 14.3 Plt Count 246 MPV 8.3 Neut % (Auto) 78.5 H Lymph % (Auto) 13.8 L Johnston % (Auto) 6.9 Eos % (Auto) 0.6 Baso % (Auto) 0.2 Neut # (Auto) 7.9 H Lymph # (Auto) 1.4 Johnston # (Auto) 0.7 Eos # (Auto) 0.1 Baso # (Auto) 0.0 Neutrophils % (Manual) Band Neutrophils % Lymphocytes % (Manual) Monocytes % (Manual) Platelet Estimate Large Platelets Poikilocytosis (manual Anisocytosis (manual) Ovalocytes ESR 73 H PT INR APTT Sodium 138 Potassium 3.6 Chloride 107 Carbon Dioxide 20 L Anion Gap 15 BUN 40 H Creatinine 1.6 H Est GFR ( Amer) 53 Est GFR (Non-Af Amer) 44 Random Glucose 97 Calcium 8.6 Total Bilirubin 0.6 Direct Bilirubin 0.3 AST 20 ALT 28 Alkaline Phosphatase 64 Troponin I C-Reactive Protein Total Protein 6.1 L Albumin 3.3 L D Globulin 2.8 Albumin/Globulin Ratio 1.2 Lipase Urine Color Urine Clarity Urine pH Ur Specific [place] Urine Protein Urine Glucose (UA) Urine Ketones Urine Blood Urine Nitrate Urine Bilirubin Urine Urobilinogen Ur Leukocyte Esterase Urine WBC (Auto) Urine RBC (Auto) Urine WBC Clumps (Auto) Ur Squamous Epith Cells Urine Bacteria Hyaline Casts
--- NOTE | 2017-10-22 13:48 | CP.PCM.CON ---
History of Present Illness - History of Present Illness History of Present Illness: INFECTIOUS DISEASE CONSULT; HPI; 61-year-old male with history of MS, left kidney mass, DX IN APR 2017 WHEN PATIENT WAS HOSPITALIZED FOR RETENTION OF URINE, HEMATURIA, AND POSTOPERATIVE WOUND INFECTION. Pt has , history of perforated duodenal ulcer status post exploratory lap in April 2017, who presented to the ER on 10/21/17 with abdominal pain, distention , nausea and 1 episode of vomiting. As per , on Sunday he had a suspected flareup of his MS and had a fall and since then he has been unable to ambulate with his walker. As per patient had 2 falls on Sunday. Patient presently not on any medications for the MS, but is getting Lemtrada infusions, with 3 more remaining in October. Since yesterday patient has been unable to pass gas or have a bowel movement or urinate. He was recently diagnosed with a UTI by his neurologist who gave him by mouth Cipro for 7 days which he completed 2 days ago. Admits to subjective fevers and nausea and 1 episode of nonbilious nonbloody vomiting. Patient denies any diarrhea, shortness of breath or chest pain. Patient also complaining of inability to move both his lower extremities after the fall. On admission patient was found to have leukocytosis with WBC of 15.2 and creatinine of 3.0/BUN of 49 After appropriate cultures patient was given a dose of Zosyn 3.375. Patient was then started on IV Rocephin 1 g every 24 hourly. INFECTIOUS DISEASE CONSULT WAS REQUESTED BY PMD FOR LEUKOCYTOSIS,SEPSIS? SEPSIS HX OBTAINED FROM . CT ABD/PELVIS W/O PO/OR IV CONTRAST 10/21 -VE SBO ,+VE CONSTIPATION, STERCORAL - PROCTITIS W INCREASE IN SIZE SOLID MASS LEFT UPPER POLE KIDNEY /? SUSPICIOUS FOR MALIGNANT NEOPLASM. ? lYTIC BONY LESION t9 VERTEBRAL BODY COMPRESSING ON SPINAL CORD ? OSSEOUS METASTASES. PMH: MS, kidney mass being followed up by Dr. Nation PSH: Ex-lap s/p perforated ulcer in . ALL: NKDA Soc: heavy smoker for 50 years stopped in march, denies a/d Review of Systems - Constitutional Constitutional: Fever, Frequent Falls. absent: Chills - EENT Eyes: absent: Change in Vision Nose/Mouth/Throat: Dry Mouth. absent: Mouth Lesions, Odynophagia - Cardiovascular Cardiovascular: absent: Chest Pain, Pedal Edema - Respiratory Respiratory: absent: Cough, Dyspnea - Gastrointestinal Gastrointestinal: Abdominal Pain, Bloating, Constipation, Nausea, Vomiting - Genitourinary Genitourinary: Difficulty Urinating, Urinary Incontinence, Bladder Distension - Musculoskeletal Musculoskeletal: Stiffness. absent: Numbness - Neurological Neurological: Frequent Falls, Weakness. absent: Focal Weakness (BILATERAL LOWER EXTREMITIES.), Headaches - Hematologic/Lymphatic Hematologic: As Per HPI. absent: Easy Bleeding, Easy Bruising, Lymphadenopathy Past Patient History - Past Medical History & Family History Past Medical History?: Yes - Past Social History Smoking Status: Former Smoker - CARDIAC Hx Cardiac Disorders: No - PULMONARY Hx Respiratory Disorders: No - NEUROLOGICAL Hx Multiple Sclerosis: Yes - HEENT Hx HEENT Problems: No - RENAL Hx Chronic Kidney Disease: Yes Hx Kidney Stones: Yes - ENDOCRINE/METABOLIC Hx Endocrine Disorders: No - HEMATOLOGICAL/ONCOLOGICAL Hx Blood Disorders: No - INTEGUMENTARY Hx Dermatological Problems: No - MUSCULOSKELETAL/RHEUMATOLOGICAL Hx Musculoskeletal Disorders: No Hx Falls: No - GASTROINTESTINAL Hx Gastrointestinal Disorders: No - GENITOURINARY/GYNECOLOGICAL Hx Genitourinary Disorders: Yes Hx Hematuria: Yes - PSYCHIATRIC Hx Depression: Yes Hx Substance Use: No - SURGICAL HISTORY Hx Surgeries: Yes Other/Comment: "PERFORATED ULCER" - ANESTHESIA Hx Anesthesia: Yes Hx Anesthesia Reactions: No Hx Malignant Hyperthermia: No Meds Allergies/Adverse Reactions: Allergies Allergy/AdvReac Type Severity Reaction Status Date / Time No Known Allergies Allergy Verified 10/21/17 21:30 - Medications Medications: Current Medications Acyclovir (Zovirax) 400 mg PO DAILY [facility] PRN Reason: Protocol Last Admin: 10/22/17 09:53 Dose: 400 mg Famotidine (Pepcid) 20 mg PO DAILY [facility] Last Admin: 10/22/17 09:52 Dose: 20 mg Heparin Sodium (Porcine) (Heparin) 5,000 units SC BID [facility] Last Admin: 10/22/17 09:52 Dose: 5,000 units Sodium Chloride (Sodium Chloride 0.9%) 1,000 mls @ 100 mls/hr IV .Q10H [facility] Last Admin: 10/22/17 09:57 Dose: 100 mls/hr Ceftriaxone Sodium 1 gm/ (Sodium Chloride) 100 mls @ 100 mls/hr IVPB DAILY [facility] PRN Reason: Protocol Last Admin: 10/22/17 09:54 Dose: 100 mls/hr Dextrose/Sodium Chloride (Dextrose 5%/0.45% Ns 1000 Ml) 1,000 mls @ 80 mls/hr IV .[id number] [facility] Multivitamins (Hexavitamin) 1 tab PO DAILY [facility] Last Admin: 10/22/17 09:52 Dose: 1 tab Oxybutynin Chloride (Ditropan Tab) 5 mg PO TID [facility] Last Admin: 10/22/17 09:52 Dose: 5 mg Tamsulosin HCl (Flomax) 0.4 mg PO DAILY [facility] Last Admin: 10/22/17 09:52 Dose: 0.4 mg Physical Exam - Constitutional Appears: No Acute Distress - Head Exam Head Exam: NORMAL INSPECTION - Eye Exam Eye Exam: EOMI, PERRL - ENT Exam ENT Exam: Normal Oropharynx - Neck Exam Neck exam: Positive for: Normal Inspection - Respiratory Exam Respiratory Exam: Clear to Auscultation Bilateral, NORMAL BREATHING PATTERN - Cardiovascular Exam Cardiovascular Exam: REGULAR RHYTHM, +S1, +S2 - GI/Abdominal Exam GI & Abdominal Exam: Distended, Hypoactive Bowel Sounds, Soft - Extremities Exam Extremities exam: Positive for: pedal pulses present. Negative for: calf tenderness, pedal edema - Neurological Exam Neurological exam: Alert, CN II-XII Intact, Oriented x3 - Psychiatric Exam Psychiatric exam: Normal Mood - Skin Skin Exam: Normal Color, Warm Results - Vital Signs Recent Vital Signs: Last Vital Signs Temp 98.5 F 10/22/17 08:00 Pulse 92 H 10/22/17 08:00 Resp 20 10/22/17 08:00 BP 126/64 10/22/17 08:00 Pulse Ox 94 L 10/22/17 08:00 - Labs Result Diagrams: 10/22/17 08:40 10/22/17 12:15 Labs: Laboratory Results - last 24 hr 10/21/17 10/21/17 10/21/17 21:48 21:48 21:48 WBC 15.2 H D RBC 4.87 Hgb 13.1 Hct 39.3 MCV 80.7 MCH 27.0 MCHC 33.4 RDW 14.4 Plt Count 312 MPV 8.4 Neut % (Auto) 87.9 H Lymph % (Auto) 5.9 L [place] % (Auto) 5.9 Eos % (Auto) 0.1 Baso % (Auto) 0.2 Neut # (Auto) 13.4 H Lymph # (Auto) 0.9 L [place] # (Auto) 0.9 H Eos # (Auto) 0.0 Baso # (Auto) 0.0 Neutrophils % (Manual) 90 H Band Neutrophils % 2 Lymphocytes % (Manual) 5 L Monocytes % (Manual) 3 Platelet Estimate Normal Large Platelets Present Poikilocytosis (manual Slight Anisocytosis (manual) Slight Ovalocytes Slight ESR PT 13.9 H INR 1.3 APTT 25 Sodium 138 Potassium 4.3 Chloride 101 Carbon Dioxide 21 L Anion Gap 21 H BUN 49 H Creatinine 3.0 H Est GFR ( Amer) 26 Est GFR (Non-Af Amer) 21 Random Glucose 194 H Calcium 9.5 Total Bilirubin 0.7 Direct Bilirubin AST 22 ALT 27 Alkaline Phosphatase 84 Troponin I 0.0290 C-Reactive Protein Total Protein 7.8 Albumin 4.5 Globulin 3.3 Albumin/Globulin Ratio 1.4 Lipase 42 Urine Color Urine Clarity Urine pH Ur Specific [place] Urine Protein Urine Glucose (UA) Urine Ketones Urine Blood Urine Nitrate Urine Bilirubin Urine Urobilinogen Ur Leukocyte Esterase Urine WBC (Auto) Urine RBC (Auto) Urine WBC Clumps (Auto) Ur Squamous Epith Cells Urine Bacteria Hyaline Casts 10/21/17 10/22/17 10/22/17 22:40 08:03 08:03 WBC Cancelled RBC Cancelled Hgb Cancelled Hct Cancelled MCV Cancelled MCH Cancelled MCHC Cancelled RDW Cancelled Plt Count Cancelled MPV Cancelled Neut % (Auto) Cancelled Lymph % (Auto) Cancelled [place] % (Auto) Cancelled Eos % (Auto) Cancelled Baso % (Auto) Cancelled Neut # (Auto) Cancelled Lymph # (Auto) Cancelled [place] # (Auto) Cancelled Eos # (Auto) Cancelled Baso # (Auto) Cancelled Neutrophils % (Manual) Band Neutrophils % Lymphocytes % (Manual) Monocytes % (Manual) Platelet Estimate Large Platelets Poikilocytosis (manual Anisocytosis (manual) Ovalocytes ESR Cancelled PT INR APTT Sodium Cancelled Potassium Cancelled Chloride Cancelled Carbon Dioxide Cancelled Anion Gap Cancelled BUN Cancelled Creatinine Est GFR ( Amer) Cancelled Est GFR (Non-Af Amer) Cancelled Random Glucose Cancelled Calcium Cancelled Total Bilirubin Cancelled Direct Bilirubin Cancelled AST Cancelled ALT Cancelled Alkaline Phosphatase Cancelled Troponin I C-Reactive Protein 183.50 H Total Protein Cancelled Albumin Cancelled Globulin Cancelled Albumin/Globulin Ratio Cancelled Lipase Urine Color Yellow Urine Clarity Hazy Urine pH 5.0 Ur Specific [place] 1.016 Urine Protein 1+ H Urine Glucose (UA) Normal Urine Ketones Negative Urine Blood 3+ H Urine Nitrate Negative Urine Bilirubin Negative Urine Urobilinogen Normal Ur Leukocyte Esterase 3+ H Urine WBC (Auto) 189 H Urine RBC (Auto) 160 H Urine WBC Clumps (Auto) Rare H Ur Squamous Epith Cells 3 Urine Bacteria Rare Hyaline Casts 3-5 H 10/22/17 10/22/17 08:40 12:15 WBC 10.1 RBC 3.84 L Hgb 10.6 L D Hct 31.0 L MCV 80.6 MCH 27.7 MCHC 34.3 RDW 14.3 Plt Count 246 MPV 8.3 Neut % (Auto) 78.5 H Lymph % (Auto) 13.8 L [place] % (Auto) 6.9 Eos % (Auto) 0.6 Baso % (Auto) 0.2 Neut # (Auto) 7.9 H Lymph # (Auto) 1.4 [place] # (Auto) 0.7 Eos # (Auto) 0.1 Baso # (Auto) 0.0 Neutrophils % (Manual) Band Neutrophils % Lymphocytes % (Manual) Monocytes % (Manual) Platelet Estimate Large Platelets Poikilocytosis (manual Anisocytosis (manual) Ovalocytes ESR 73 H PT INR APTT Sodium 138 Potassium 3.6 Chloride 107 Carbon Dioxide 20 L Anion Gap 15 BUN 40 H Creatinine 1.6 H Est GFR ( Amer) 53 Est GFR (Non-Af Amer) 44 Random Glucose 97 Calcium 8.6 Total Bilirubin 0.6 Direct Bilirubin 0.3 AST 20 ALT 28 Alkaline Phosphatase 64 Troponin I C-Reactive Protein Total Protein 6.1 L Albumin 3.3 L D Globulin 2.8 Albumin/Globulin Ratio 1.2 Lipase Urine Color Urine Clarity Urine pH Ur Specific [place] Urine Protein Urine Glucose (UA) Urine Ketones Urine Blood Urine Nitrate Urine Bilirubin Urine Urobilinogen Ur Leukocyte Esterase Urine WBC (Auto) Urine RBC (Auto) Urine WBC Clumps (Auto) Ur Squamous Epith Cells Urine Bacteria Hyaline Casts Assessment & Plan (1) Leukocytosis Assessment and Plan: PANCULTURE ESR CRP. CONTINUE iv ROCEPHIN 1 G EVERY 24 HOURLY.10/21/17 F/U CULTURES TO ADJUST ANTIBIOTICS MONITOR U/O AND RENAL FUNCTIONS CLOSELY. PER CONSULTANTS. NEUROLOGY CONSULT Status: Acute (2) Abdominal pain Assessment and Plan: ABDOMINAL PAIN IMPROVED AFTER PLACING A Montanez CATHETER. PRESENTLY DISTENTION HAS IMPROVED AND PATIENT FEELS HUNGRY. SURGICAL CONSULT AND F/U NOTED. Status: Acute (3) Acute urinary retention Assessment and Plan: patient had a Montanez cath inserted in the ER patient present urine output good. Urine is joni colored. Status: Acute (4) Acute renal insufficiency Assessment and Plan: on admission creatinine 3.0/BUN 49. today creatinine 1.6/BUN 40. Montanez catheter in place. Status: Acute (5) Mass of left kidney Assessment and Plan: patient has a left kidney mass on the upper pole of the kidney. CT scan of the abdomen shows increasing size of the solid mass suspicious for malignant neoplasm - Renal cell Ca,With lytic bony lesion at T9 vertebral body compressing on spinal cord ?osseous metastasis. CONSULT IN PROGRESS with Dr. Nation. Status: Chronic (6) Multiple sclerosis Assessment and Plan: patient has history of multiple sclerosis. On LEMTRADA infusions PER NEUROLOGIST DR. HOPE. Status: Chronic (7) Neurogenic bladder Assessment and Plan: pATIENT HAS HISTORY OF NEUROGENIC BLADDER. PATIENT HAD HIS Montanez CATHETER REMOVED IN July ,BY DR. NATION iN HIS OFFICE REPORTED BY HIS . PATIENT HAD BEEN VOIDING AFTER THAT. Status: Chronic
[2017-10-22] MEDS: Dextrose 5%/0.45% NS 1,000 ML IV SCH (14:26)
--- NOTE | 2017-10-22 15:08 | MRI ---
Date of service: 10/22/2017 PROCEDURE: MR THORACIC SPINE WITHOUT CONTRAST HISTORY: r/o neoplasm/ spinal cord compression COMPARISON: None available. TECHNIQUE: Multiecho multiplanar sequences were performed through the thoracic spine without the use of intravenous contrast. FINDINGS: ALIGNMENT: There is normal alignment of the thoracic vertebral bodies. There is normal thoracic kyphosis. VERTEBRA: There is abnormal T1 hypo intense and T2/stir hyperintense soft tissue lesion in the T9 vertebral body in the midline and to the left, also involving the left pedicle and lamina. Abnormal soft tissue also extends into the ventral epidural space with mass effect on the conus medullaris and displacement to the right. There is central compression deformity in the T9 vertebral body. The remaining vertebral heights are preserved. MARROW: Abnormal bone marrow signal in the T9 vertebral body, left lamina and pedicle as described above. There is focal T1 hypo intense and T2/stir hyperintense lesion in the left pedicle of T5 and in the anterior superior T6 vertebral body. There is normal bone marrow signal in the remaining thoracic vertebral bodies. Incompletely imaged is T1 hypo intense lesion in the posterior L1 vertebral body. PARASPINAL SOFT TISSUES: The paraspinous soft tissues are normal. CORD: There is compression and rightward displacement of the cord at T9 with abnormal intrinsic T2 signal. DISCS: No disc herniation, spinal canal stenosis, or neuroforaminal narrowing. OTHER FINDINGS: Bilateral small pleural effusions. IMPRESSION: 1. Findings are most compatible with metastatic lesion in the T9 vertebra involving the central and left body, left lamina and pedicle with abnormal dorsal epidural soft tissue and resultant compression and rightward displacement of the spinal cord with focal cord edema/ischemia. 2. Focal metastatic lesions in the left pedicle at T5 and in the anterior superior T6 vertebral body. 3. Incompletely imaged metastatic lesion in the posterior L1 vertebral body. Critical findings were discussed with nurse Galvan on 10/22/2017 at 3:05 p.m.
--- NOTE | 2017-10-22 17:05 | NM ---
Date of service: 10/22/2017 PROCEDURE: Whole Body Bone Scan HISTORY: Increase numbness right lower extremity. COMPARISON: October 22, 2017. MR thoracic spine. Summary of findings on the comparison examination:Findings are most compatible with metastatic lesion in the T9 vertebra involving the central and left body, left lamina and pedicle with abnormal dorsal epidural soft tissue and resultant compression and rightward displacement of the spinal cord with focal cord edema/ischemia. October 21, 2017. CT abdomen and pelvis. Summary of findings on the comparison examination:Interval appearance of lytic destructive bony lesion at T9 vertebral body extending to the spinal canal and likely compressing on the spinal cord since the previous exam highly suspicious for osseous metastasis TECHNIQUE: Following administration of 23.5 miCu of Tc MDP multiplanar whole body images were obtained. FINDINGS: Evidence for bony metastatic disease: Increased uptake T9 consistent with findings on recent cross-sectional imaging studies. Focus of abnormal increased uptake lateral 1st rib on the left. Degenerative uptake: Bilateral lower extremities including knees and feet Physiologic uptake: Normal physiologic activity in the kidneys. Other findings: None. IMPRESSION: Abnormalities T9 vertebral body and the lateral left 1st rib. Findings are suspicious for metastatic disease. No additional abnormalities identified.
[2017-10-23] MEDS: Dextrose 5%/0.45% NS 1,000 ML IV SCH ×4 (02:15→22:17)
[2017-10-23 06:48] LABS: HEMOGLOBIN 10.8 g/dL (12.0-18.0); MEAN CELL VOLUME 79.8 fL (80.0-94.0); MEAN CORPUSCULAR HEMOGLOBIN 27.8 pg (27.0-31.0); MEAN CORPUSCULAR HGB CONC 34.8 g/dL (33.0-37.0); MEAN PLATELET VOLUME 8.4 fL (7.2-11.7); RBC 3.89 Mil/uL (4.40-5.90); WHITE BLOOD COUNT 7.3 K/uL (4.8-10.8)
--- NOTE | 2017-10-23 07:13 | CP.PCM.CON ---
History of Present Illness - History of Present Illness History of Present Illness: CONSULT DICATATED NEW LEG WEAKNESS CORD COMPRESSION T9 METASTATIC DISEASE ?? PRIMARY - SIGNIFICANT SMOKING Hx ALEX STEROID NEURO SURGERY CONSULT WORK UP FOR EXTEND OF DISEASE FALL PRECAUTION Past Patient History - Past Medical History & Family History Past Medical History?: Yes - Past Social History Smoking Status: Former Smoker - CARDIAC Hx Cardiac Disorders: No - PULMONARY Hx Respiratory Disorders: No - NEUROLOGICAL Hx Multiple Sclerosis: Yes - HEENT Hx HEENT Problems: No - RENAL Hx Chronic Kidney Disease: Yes Hx Kidney Stones: Yes - ENDOCRINE/METABOLIC Hx Endocrine Disorders: No - HEMATOLOGICAL/ONCOLOGICAL Hx Blood Disorders: No - INTEGUMENTARY Hx Dermatological Problems: No - MUSCULOSKELETAL/RHEUMATOLOGICAL Hx Musculoskeletal Disorders: No Hx Falls: No - GASTROINTESTINAL Hx Gastrointestinal Disorders: No - GENITOURINARY/GYNECOLOGICAL Hx Genitourinary Disorders: Yes Hx Hematuria: Yes - PSYCHIATRIC Hx Depression: Yes Hx Substance Use: No - SURGICAL HISTORY Hx Surgeries: Yes Other/Comment: "PERFORATED ULCER" - ANESTHESIA Hx Anesthesia: Yes Hx Anesthesia Reactions: No Hx Malignant Hyperthermia: No Meds Allergies/Adverse Reactions: Allergies Allergy/AdvReac Type Severity Reaction Status Date / Time No Known Allergies Allergy Verified 10/21/17 21:30 - Medications Medications: Current Medications Acyclovir (Zovirax) 400 mg PO DAILY [facility] PRN Reason: Protocol Last Admin: 10/22/17 09:53 Dose: 400 mg Dexamethasone (Decadron Inj) 4 mg IV Q8H [facility] Famotidine (Pepcid) 20 mg PO DAILY [facility] Last Admin: 10/22/17 09:52 Dose: 20 mg Heparin Sodium (Porcine) (Heparin) 5,000 units SC BID [facility] Last Admin: 10/22/17 17:26 Dose: 5,000 units Ceftriaxone Sodium 1 gm/ (Sodium Chloride) 100 mls @ 100 mls/hr IVPB DAILY [facility] PRN Reason: Protocol Last Admin: 10/22/17 09:54 Dose: 100 mls/hr Dextrose/Sodium Chloride (Dextrose 5%/0.45% Ns 1000 Ml) 1,000 mls @ 80 mls/hr IV .[id number] [facility] Last Admin: 10/23/17 05:58 Dose: 80 mls/hr Multivitamins (Hexavitamin) 1 tab PO DAILY [facility] Last Admin: 10/22/17 09:52 Dose: 1 tab Oxybutynin Chloride (Ditropan Tab) 5 mg PO TID [facility] Last Admin: 10/22/17 17:27 Dose: 5 mg Tamsulosin HCl (Flomax) 0.4 mg PO DAILY [facility] Last Admin: 10/22/17 09:52 Dose: 0.4 mg Results - Vital Signs Recent Vital Signs: Last Vital Signs Temp 97.8 F 10/23/17 00:02 Pulse 75 10/23/17 00:02 Resp 20 10/23/17 00:02 BP 124/68 10/23/17 00:02 Pulse Ox 97 10/23/17 00:02 - Labs Result Diagrams: 10/23/17 06:38 10/22/17 12:15 Labs: Laboratory Results - last 24 hr 10/22/17 10/22/17 10/22/17 08:03 08:03 08:40 WBC Cancelled 10.1 RBC Cancelled 3.84 L Hgb Cancelled 10.6 L D Hct Cancelled 31.0 L MCV Cancelled 80.6 MCH Cancelled 27.7 MCHC Cancelled 34.3 RDW Cancelled 14.3 Plt Count Cancelled 246 MPV Cancelled 8.3 Neut % (Auto) Cancelled 78.5 H Lymph % (Auto) Cancelled 13.8 L [place] % (Auto) Cancelled 6.9 Eos % (Auto) Cancelled 0.6 Baso % (Auto) Cancelled 0.2 Neut # (Auto) Cancelled 7.9 H Lymph # (Auto) Cancelled 1.4 [place] # (Auto) Cancelled 0.7 Eos # (Auto) Cancelled 0.1 Baso # (Auto) Cancelled 0.0 ESR Cancelled 73 H Sodium Cancelled Potassium Cancelled Chloride Cancelled Carbon Dioxide Cancelled Anion Gap Cancelled BUN Cancelled Creatinine Est GFR ( Amer) Cancelled Est GFR (Non-Af Amer) Cancelled Random Glucose Cancelled Calcium Cancelled Total Bilirubin Cancelled Direct Bilirubin Cancelled AST Cancelled ALT Cancelled Alkaline Phosphatase Cancelled C-Reactive Protein 183.50 H Total Protein Cancelled Albumin Cancelled Globulin Cancelled Albumin/Globulin Ratio Cancelled 10/22/17 10/23/17 12:15 06:38 WBC 7.3 RBC 3.89 L Hgb 10.8 L Hct 31.0 L MCV 79.8 L MCH 27.8 MCHC 34.8 RDW 14.0 Plt Count 255 MPV 8.4 Neut % (Auto) Lymph % (Auto) [place] % (Auto) Eos % (Auto) Baso % (Auto) Neut # (Auto) Lymph # (Auto) [place] # (Auto) Eos # (Auto) Baso # (Auto) ESR Sodium 138 Potassium 3.6 Chloride 107 Carbon Dioxide 20 L Anion Gap 15 BUN 40 H Creatinine 1.6 H Est GFR ( Amer) 53 Est GFR (Non-Af Amer) 44 Random Glucose 97 Calcium 8.6 Total Bilirubin 0.6 Direct Bilirubin 0.3 AST 20 ALT 28 Alkaline Phosphatase 64 C-Reactive Protein Total Protein 6.1 L Albumin 3.3 L D Globulin 2.8 Albumin/Globulin Ratio 1.2
[2017-10-23 08:07] LABS: ALB/GLOB RATIO 1.2 (1.0-2.1); ALBUMIN 3.3 g/dL (3.5-5.0); ALT/SGPT 30 U/L (21-72); AST/SGOT 22 U/L (17-59); BLOOD UREA NITROGEN 22 mg/dL (9-20); CALCIUM 8.8 mg/dl (8.6-10.4); GFR AFRICAN-AMERICAN > 60; GFR NON-AFRICAN AMERICAN > 60
[2017-10-23] MEDS: Dexamethasone 4 mg/1 ml IV SCH ×3 (08:11→22:18)
[2017-10-23] MEDS: Multiple Vitamins Tab PO SCH (11:00)
[2017-10-23 11:45] LABS: INR 1.3; PROTHROMBIN TIME 14.3 SECONDS (9.7-12.2)
--- NOTE | 2017-10-23 12:37 | MRI ---
Date of service: 10/23/2017 PROCEDURE: MRI BRAIN WITHOUT CONTRAST HISTORY: mets- ? primary COMPARISON: None. TECHNIQUE: Multiplanar, multisequence MR images of the brain were obtained without intravenous contrast enhancement. FINDINGS: HEMORRHAGE: None DWI: No evidence of an acute or early subacute infarction. BRAIN PARENCHYMA: There are multifocal T1 hypo intense and T2 hypo intense lesions in the centrum semiovale, [place] radiata and periventricular white matter. There is no mass, mass effect or abnormal extra-axial fluid collection. There is no territorial infarction. VENTRICLES: There is moderate age-related global parenchymal volume loss and proportionate enlargement of the ventricles and cortical sulci. CRANIUM: There is normal bone marrow signal pattern. ORBITS: Grossly unremarkable. PARANASAL SINUSES/MASTOIDS: Predominantly clear. VASCULAR SYSTEM: There are normal signal voids in the larger intracranial arteries. OTHER FINDINGS: None. IMPRESSION: No acute intracranial abnormality. Multifocal supratentorial deep and periventricular white matter lesions are strictly nonspecific, the differential considerations include chronic microangiopathic changes, demyelinating disease including multiple sclerosis, gliosis and vasculitis amongst others. Clinical follow-up is advised.
--- NOTE | 2017-10-23 14:17 | CP.PCM.PN ---
Subjective - Date & Time of Evaluation Date of Evaluation: 10/23/17 Time of Evaluation: 14:14 - Subjective Subjective: patient clinically remains same with loss of power in the lower extremities. MRI of the brain shows multiple sclerosis demanding disease. MRI of the lumbosacral shows metastatic lesions possible lumbar vertebrae. Currently patient is on dexamethasone for possible cord compression. Discussed with neurosurgery planned to go for surgery in a.m. to stabilize the spinal cord and vertebral column. Oncology evaluation for metastatic disease. Plan Patient currently is medically stable for spinal surgery in a.m. Objective - Vital Signs/Intake and Output Vital Signs (last 24 hours): Temp Pulse Resp BP Pulse Ox 97.4 F L 77 20 130/70 95 10/23/17 08:00 10/23/17 08:00 10/23/17 08:00 10/23/17 08:00 10/23/17 08:00 Intake and Output: 10/23/17 10/23/17 11:59 23:59 Intake Total 760 Output Total 700 Balance 60 - Medications Medications: Current Medications Acyclovir (Zovirax) 400 mg PO DAILY [facility] PRN Reason: Protocol Last Admin: 10/23/17 12:26 Dose: 400 mg Dexamethasone (Decadron Inj) 4 mg IV Q8H [facility] Last Admin: 10/23/17 08:11 Dose: 4 mg Famotidine (Pepcid) 20 mg PO DAILY [facility] Last Admin: 10/23/17 11:00 Dose: 20 mg Heparin Sodium (Porcine) (Heparin) 5,000 units SC BID [facility] Last Admin: 10/23/17 11:00 Dose: 5,000 units Ceftriaxone Sodium 1 gm/ (Sodium Chloride) 100 mls @ 100 mls/hr IVPB DAILY [facility] PRN Reason: Protocol Last Admin: 10/23/17 11:00 Dose: 100 mls/hr Dextrose/Sodium Chloride (Dextrose 5%/0.45% Ns 1000 Ml) 1,000 mls @ 80 mls/hr IV .[id number] [facility] Last Admin: 10/23/17 05:58 Dose: 80 mls/hr Multivitamins (Hexavitamin) 1 tab PO DAILY [facility] Last Admin: 10/23/17 11:00 Dose: 1 tab Oxybutynin Chloride (Ditropan Tab) 5 mg PO TID [facility] Last Admin: 10/23/17 11:00 Dose: 5 mg Tamsulosin HCl (Flomax) 0.4 mg PO DAILY [facility] Last Admin: 10/23/17 11:00 Dose: 0.4 mg - Labs Labs: 10/23/17 06:38 10/23/17 06:38 PT 14.3 SECONDS (9.7-12.2) H 10/23/17 11:27 INR 1.3 10/23/17 11:27 APTT 29 SECONDS (21-34) 10/23/17 11:27
--- NOTE | 2017-10-23 15:38 | CT ---
Date of service: 10/23/2017 PROCEDURE: CT Chest, Abdomen and Pelvis without intravenous contrast HISTORY: mets- ? primary COMPARISON: 10/21/2017 CT abdomen and pelvis. 10/22/[address] abdomen and pelvis 12/09/2014 TECHNIQUE: Radiation dose: Total exam DLP = 767 mGy-cm. This CT exam was performed using one or more of the following dose reduction techniques: Automated exposure control, adjustment of the mA and/or kV according to patient size, and/or use of iterative reconstruction technique. FINDINGS: CT CHEST WITHOUT CONTRAST: LUNGS: There are bi basilar dependent atelectatic changes present. Concomitant pleural-based pathology including metastatic pleural based pathology is not excluded in this patient with a left renal mass compatible with renal malignancy and T9 vertebral body lytic lesion with extraosseous assumed metastatic lesion compressing the cord. These findings have been previously noted and previously called up to the current medical personnel per the CT abdomen and pelvic report dated 10/21/2017 Superior to this no pulmonary metastatic nodules are appreciated. MEDIASTINUM: . Normal caliber aorta and pulmonary arterial trunk. Probable top-normal heart size. Minimal pericardial effusion Coronary artery disease LYMPH NODES: Unremarkable. PLEURA: . No pneumothorax. Bilateral dependent small pleural effusions with contiguous subsegmental atelectatic changes and/or consolidation. Findings are referenced above in the lung section BONES: The left sided eccentric lytic lesion with extra osseous metastatic component the T9 vertebral body compressing the cord is renoted and similar to the prior 10/21/2017 images. Please note these findings have been previously noted and previously called up to the current medical personnel per the CT abdomen and pelvic report dated 10/21/2017 Left lateral upper rib lytic lesion -probably the 2nd rib OTHER FINDINGS: None. CT ABDOMEN AND PELVIS: LIVER: Unremarkable. No gross lesion or ductal dilatation. GALLBLADDER AND BILE DUCTS: Large gallstone present probably approximately 14 [id number]-tmtavrxeu no gross dilated ducts. PANCREAS: Unremarkable. No gross lesion or ductal dilatation. SPLEEN: Unremarkable. ADRENALS: Right adrenal nodule 13 mm -inferred as benign probably an adenoma given its similarity since 2014 KIDNEYS AND URETERS: Dominant exophytic left renal mass suspicious for malignancy - -noted previously. . No hydronephrosis. Multiple right renal hypodense masses - and given the sizes of findings on the postcontrast enhanced study 2014-the right renal lesions are probably benign given the similarity since 2014. Nonobstructing calcification less than 5 mm- bilateral perirenal atherosclerotic vascular calcifications. VASCULATURE: Atherosclerotic vascular calcifications present. . No aneurysm seen BOWEL: Patulous rectum with the stool retention. . No obstruction. No gross mural thickening. APPENDIX: Normal appendix. PERITONEUM: Unremarkable. No free fluid. No free air. LYMPH NODES: Unremarkable. No enlarged lymph nodes. BLADDER: Montanez catheter REPRODUCTIVE: Enlarged prostate similar-appearing BONES: T9 osseous lytic lesion with extraosseous soft tissue metastatic pathology suggested -compression on thoracic cord. These findings have been previously noted and previously called up to the current medical personnel per the CT abdomen and pelvic report dated 10/21/2017 OTHER FINDINGS: Fat only containing left groin [id number] IMPRESSION: Known exophytic left renal mass with malignancy. Known T9 vertebral body lytic lesion with extra osseous metastatic soft tissue pathology compressing the thoracic cord at this level these findings have been noted and previously reported to medical personnel on 10/21/2017 per that report. The left lateral expansile assumed metastatic lesion probably is the 2nd rib and also has been noted as a metastatic lesion. A multiple right renal masses are stable since 2014 -benign etiology is inferred here Right adrenal nodule since 2014 compare most compatible with benign etiology
--- NOTE | 2017-10-23 17:11 | CP.PCM.CON ---
History of Present Illness - History of Present Illness History of Present Illness: 61 year old male with a history of multiple sclerosis on alemtuzumab, kidney mass, admitted with worsening lower extremity weakness for 4 days, found to have cord compression, and radiographic metastatic disease. Per his he has been more weak in his legs for several days with inability to weight bare since Sunday. He denies back pain. He has had abdominal bloating and constipation. Imaging revealed a left sided exophytic renal mass, rib and T- spine lesions with T9 cord compression. He has been started on steroids and is for neurosurgery in AM. Past medical history: MS, perforated ulcer Past surgical history: Perferated ulcer repair Family history: Father had cholangiocarcinoma Social history: former 1ppd x 45 years, denies alcohol, and illicit drug use. Allergies: NKA Review of systems: All remaining review of systems including HEENT, cardiovascular, respiratory, gastrointestinal, genitourinary, musculoskeletal, dermatologic, neurologic, and psychiatric are negative unless mentioned in the HPI. Past Patient History - Past Medical History & Family History Past Medical History?: Yes - Past Social History Smoking Status: Former Smoker - CARDIAC Hx Cardiac Disorders: No - PULMONARY Hx Respiratory Disorders: No - NEUROLOGICAL Hx Multiple Sclerosis: Yes - HEENT Hx HEENT Problems: No - RENAL Hx Chronic Kidney Disease: Yes Hx Kidney Stones: Yes - ENDOCRINE/METABOLIC Hx Endocrine Disorders: No - HEMATOLOGICAL/ONCOLOGICAL Hx Blood Disorders: No - INTEGUMENTARY Hx Dermatological Problems: No - MUSCULOSKELETAL/RHEUMATOLOGICAL Hx Musculoskeletal Disorders: No Hx Falls: No - GASTROINTESTINAL Hx Gastrointestinal Disorders: No - GENITOURINARY/GYNECOLOGICAL Hx Genitourinary Disorders: Yes Hx Hematuria: Yes - PSYCHIATRIC Hx Depression: Yes Hx Substance Use: No - SURGICAL HISTORY Hx Surgeries: Yes Other/Comment: "PERFORATED ULCER" - ANESTHESIA Hx Anesthesia: Yes Hx Anesthesia Reactions: No Hx Malignant Hyperthermia: No Meds Allergies/Adverse Reactions: Allergies Allergy/AdvReac Type Severity Reaction Status Date / Time No Known Allergies Allergy Verified 10/21/17 21:30 - Medications Medications: Current Medications Acyclovir (Zovirax) 400 mg PO DAILY [facility] PRN Reason: Protocol Last Admin: 10/23/17 12:26 Dose: 400 mg Dexamethasone (Decadron Inj) 4 mg IV Q8H [facility] Last Admin: 10/23/17 14:28 Dose: 4 mg Famotidine (Pepcid) 20 mg PO DAILY [facility] Last Admin: 10/23/17 11:00 Dose: 20 mg Heparin Sodium (Porcine) (Heparin) 5,000 units SC BID [facility] Last Admin: 10/23/17 17:08 Dose: 5,000 units Ceftriaxone Sodium 1 gm/ (Sodium Chloride) 100 mls @ 100 mls/hr IVPB DAILY [facility] PRN Reason: Protocol Last Admin: 10/23/17 11:00 Dose: 100 mls/hr Dextrose/Sodium Chloride (Dextrose 5%/0.45% Ns 1000 Ml) 1,000 mls @ 80 mls/hr IV .[id number] [facility] Last Admin: 10/23/17 14:28 Dose: Not Given Multivitamins (Hexavitamin) 1 tab PO DAILY [facility] Last Admin: 10/23/17 11:00 Dose: 1 tab Oxybutynin Chloride (Ditropan Tab) 5 mg PO TID [facility] Last Admin: 10/23/17 17:08 Dose: 5 mg Tamsulosin HCl (Flomax) 0.4 mg PO DAILY [facility] Last Admin: 10/23/17 11:00 Dose: 0.4 mg Physical Exam - Head Exam Head Exam: ATRAUMATIC - Eye Exam Eye Exam: Normal appearance - ENT Exam ENT Exam: Mucous Membranes Dry - Respiratory Exam Respiratory Exam: NORMAL BREATHING PATTERN - Cardiovascular Exam Cardiovascular Exam: +S1, +S2 - GI/Abdominal Exam GI & Abdominal Exam: Normal Bowel Sounds - Extremities Exam Extremities exam: Positive for: normal inspection - Neurological Exam Neurological exam: Oriented x3 - Psychiatric Exam Psychiatric exam: Normal Affect, Normal Mood - Skin Skin Exam: Warm Results - Vital Signs Recent Vital Signs: Last Vital Signs Temp 98.4 F 10/23/17 15:48 Pulse 82 10/23/17 15:48 Resp 20 10/23/17 15:48 BP 131/75 10/23/17 15:48 Pulse Ox 94 L 10/23/17 15:48 - Labs Result Diagrams: 10/23/17 06:38 10/23/17 06:38 Labs: Laboratory Results - last 24 hr 10/23/17 10/23/17 10/23/17 06:38 06:38 11:27 WBC 7.3 RBC 3.89 L Hgb 10.8 L Hct 31.0 L MCV 79.8 L MCH 27.8 MCHC 34.8 RDW 14.0 Plt Count 255 MPV 8.4 PT INR APTT Sodium 139 Potassium 4.0 Chloride 107 Carbon Dioxide 22 Anion Gap 14 BUN 22 H Creatinine 0.9 Est GFR ( Amer) > 60 Est GFR (Non-Af Amer) > 60 Random Glucose 92 Calcium 8.8 Total Bilirubin 0.3 AST 22 ALT 30 Alkaline Phosphatase 76 Total Protein 6.0 L Albumin 3.3 L Globulin 2.7 Albumin/Globulin Ratio 1.2 Carcinoembryonic Ag 2.0 10/23/17 11:27 WBC RBC Hgb Hct MCV MCH MCHC RDW Plt Count MPV PT 14.3 H INR 1.3 APTT 29 Sodium Potassium Chloride Carbon Dioxide Anion Gap BUN Creatinine Est GFR ( Amer) Est GFR (Non-Af Amer) Random Glucose Calcium Total Bilirubin AST ALT Alkaline Phosphatase Total Protein Albumin Globulin Albumin/Globulin Ratio Carcinoembryonic Ag Assessment & Plan (1) Cord compression Assessment and Plan: likely secondary to metastatic disease ? renal cell carcinoma on steroids, for decompressive neurosurgery, palliative radiation once surgical wounds healed f/u pathology from neurological procedure Status: Acute (2) Renal mass Assessment and Plan: given bone metastasis, concerning for renal cell carcinoma if confirmed renal cell metastasis, will need to discuss with urology about resection of renal mass Status: Acute (3) Anemia Assessment and Plan: will check retic count, b12, folate, ferritin, FOBT, hgb electropheresis Thank you for this interesting consult. Status: Acute
--- NOTE | 2017-10-23 17:32 | PCM.URO ---
Urology Progress Note - Objective Lab Studies: Reviewed (retention renal mass\ pt for neurosurgery tomorrow and gu will follow along thanks for gu consult) Lab Results Last 24 Hours: Laboratory Results - last 24 hr 10/23/17 10/23/17 10/23/17 06:38 06:38 11:27 WBC 7.3 RBC 3.89 L Hgb 10.8 L Hct 31.0 L MCV 79.8 L MCH 27.8 MCHC 34.8 RDW 14.0 Plt Count 255 MPV 8.4 PT INR APTT Sodium 139 Potassium 4.0 Chloride 107 Carbon Dioxide 22 Anion Gap 14 BUN 22 H Creatinine 0.9 Est GFR ( Amer) > 60 Est GFR (Non-Af Amer) > 60 Random Glucose 92 Calcium 8.8 Total Bilirubin 0.3 AST 22 ALT 30 Alkaline Phosphatase 76 Total Protein 6.0 L Albumin 3.3 L Globulin 2.7 Albumin/Globulin Ratio 1.2 Carcinoembryonic Ag 2.0 10/23/17 11:27 WBC RBC Hgb Hct MCV MCH MCHC RDW Plt Count MPV PT 14.3 H INR 1.3 APTT 29 Sodium Potassium Chloride Carbon Dioxide Anion Gap BUN Creatinine Est GFR ( Amer) Est GFR (Non-Af Amer) Random Glucose Calcium Total Bilirubin AST ALT Alkaline Phosphatase Total Protein Albumin Globulin Albumin/Globulin Ratio Carcinoembryonic Ag Intake & Output: Intake & Output 10/22/17 10/23/17 10/23/17 18:59 06:59 18:59 Intake Total 337 686 3984 Output Total 1000 1200 1900 Balance -200 -280 -140 Intake: Intake, IV Amount 052 211 9377 Right Antecubital 296 118 1779 Oral 300 320 480 Output: Urine 1000 1200 1900 Urethral (Montanez) 1000 1200 1900 Other: # Bowel Movements 0 0 0 Vital Signs: Vital Signs - 24 hr 10/22/17 10/22/17 10/23/17 18:00 20:00 00:02 Temperature 98.6 F 97.8 F Pulse Rate 89 75 Respiratory 18 20 Rate Blood Pressure 124/65 124/68 O2 Sat by Pulse 97 96 97 Oximetry 10/23/17 10/23/17 08:00 15:48 Temperature 97.4 F L 98.4 F Pulse Rate 77 82 Respiratory 20 20 Rate Blood Pressure 130/70 131/75 O2 Sat by Pulse 95 94 L Oximetry
--- NOTE | 2017-10-23 20:31 | CP.PCM.PN ---
Subjective - Date & Time of Evaluation Date of Evaluation: 10/23/17 Time of Evaluation: 20:31 - Subjective Subjective: CHIEF COMPLAINTS TODAY : afebrile, VSS. AWAKE AND RESPONSIVE. B/L LE WEAKNESS. ROS. HEENT : N. Resp : No cough, wheezing ,pleuritic CP ,or hemoptysis Cardio : No anginal CP, PND, orthopnea, palpitation GI : No abd.pain, n/v ,diarrhea or GI bleeding . RESEARCH COORDINATOR : No headache, vertigo, focal deficit. Musculoskel : No joint swelling , Derm : No rash Psych : Normal affect. Ext : No swelling ,calf pain PE. Pt. is alert awake in no distress. V.S As noted in the chart Head ,ear nose,throat and eyes : Normal. Neck : Supple with normal carotids. Lungs: Clear air entry. Heart : S1 & S2 normal with S4. No murmur. Abd : Soft non tender with normal bowel sounds. Neuro : UNABLE TO MOVE LE. BABINSKI UPGOING Ext : No edema with intact pulses.Non tender calves Derm : No rashes or decubitus ulcer. LABS/RADIOLOGY: wbc 7.3, H/H 10.8/31.0 cREATININE 0.9/bun 22 CRP 183.50 ELEVATED U/A - WBC 189,RBC 160, 3+ L BLOOD CULTURES 10/22/17 -VE X 24 HOURS Imaging /RADIOLOGY REVIEWED Objective - Vital Signs/Intake and Output Vital Signs (last 24 hours): Temp Pulse Resp BP Pulse Ox 98.4 F 82 20 131/75 94 L 10/23/17 15:48 10/23/17 15:48 10/23/17 15:48 10/23/17 15:48 10/23/17 15:48 Intake and Output: 10/23/17 10/24/17 18:59 06:59 Intake Total 1760 Output Total 1900 Balance -140 - Medications Medications: Current Medications Acyclovir (Zovirax) 400 mg PO DAILY [facility] PRN Reason: Protocol Last Admin: 10/23/17 12:26 Dose: 400 mg Dexamethasone (Decadron Inj) 4 mg IV Q8H [facility] Last Admin: 10/23/17 14:28 Dose: 4 mg Famotidine (Pepcid) 20 mg PO DAILY [facility] Last Admin: 10/23/17 11:00 Dose: 20 mg Heparin Sodium (Porcine) (Heparin) 5,000 units SC BID [facility] Last Admin: 10/23/17 17:08 Dose: 5,000 units Ceftriaxone Sodium 1 gm/ (Sodium Chloride) 100 mls @ 100 mls/hr IVPB DAILY [facility] PRN Reason: Protocol Last Admin: 10/23/17 11:00 Dose: 100 mls/hr Dextrose/Sodium Chloride (Dextrose 5%/0.45% Ns 1000 Ml) 1,000 mls @ 80 mls/hr IV .[id number] [facility] Last Admin: 10/23/17 14:28 Dose: Not Given Multivitamins (Hexavitamin) 1 tab PO DAILY [facility] Last Admin: 10/23/17 11:00 Dose: 1 tab Oxybutynin Chloride (Ditropan Tab) 5 mg PO TID [facility] Last Admin: 10/23/17 17:08 Dose: 5 mg Tamsulosin HCl (Flomax) 0.4 mg PO DAILY [facility] Last Admin: 10/23/17 11:00 Dose: 0.4 mg - Labs Labs: 10/23/17 06:38 10/23/17 06:38 PT 14.3 SECONDS (9.7-12.2) H 10/23/17 11:27 INR 1.3 10/23/17 11:27 APTT 29 SECONDS (21-34) 10/23/17 11:27 Assessment and Plan (1) Cord compression Assessment & Plan: THORACIC SPINE MRI BONE SCAN REVIEWED-CONSISTENT WITH CORD COMPRESSION-T9/LEFT SECOND RIB LYTIC LESION. Patient seen by neurologist and neurosurgery Patient started on steroids and for OR in a.m. Case discussed with family at bedside Status: Acute (2) Leukocytosis Assessment & Plan: WBC improved 7.3 and H&H stable. Continue IV Rocephin ,increased dose to 1 g every 12 hourly since renal functions improved. Patient for OR in am. Status: Acute (3) Abdominal pain Status: Acute (4) Acute urinary retention Assessment & Plan: PATIENT HAS A Gray CATHETER IN PLACE. PATIENT SEEN BY AND NOTED. Status: Acute (5) Acute renal insufficiency Status: Acute (6) Mass of left kidney Status: Chronic (7) Multiple sclerosis Assessment & Plan: MRI BRAIN SHOWED MULTIPLE WHITE MATTER LESIONS ? MS/ VERSUS DEGENERATIVE DISEASE VERSUS VASCULITIS. Status: Chronic (8) Neurogenic bladder Status: Chronic
--- NOTE | 2017-10-23 21:25 | CARD ---
APPROVED REPORT Date of service: 10/21/2017 EKG Measurement Heart [id number] [id number] <Conclusion> Sinus tachycardia Right bundle branch block Abnormal ECG
[2017-10-24] MEDS: Dextrose 5%/0.45% NS 1,000 ML IV SCH (05:41)
[2017-10-24 05:44] LABS: HEMOGLOBIN 11.7 g/dL (12.0-18.0); MEAN CELL VOLUME 80.6 fL (80.0-94.0); MEAN CORPUSCULAR HEMOGLOBIN 26.6 pg (27.0-31.0); MEAN CORPUSCULAR HGB CONC 33.1 g/dL (33.0-37.0); MEAN PLATELET VOLUME 9.1 fL (7.2-11.7); RBC 4.38 Mil/uL (4.40-5.90); RED CELL DISTRIBUTION WIDTH 14.1 % (11.5-14.5); WHITE BLOOD COUNT 9.3 K/uL (4.8-10.8)
[2017-10-24] MEDS: Dexamethasone 4 mg/1 ml IV SCH ×4 (05:45→22:34)
[2017-10-24] MEDS ORDERED: Bupivacaine Liposomal Inj 20 ml INFIL ONE (06:47)
[2017-10-24] MEDS ORDERED: Lidocaine/Epinephrine 1% 1:100000 10 ML IJ ONE (06:54)
[2017-10-24] MEDS ORDERED: ceFAZolin IV 1 gm in Dextrose 0 GM/0 ML BAG IVPB ONE (06:54)
[2017-10-24] MEDS ORDERED: Absorbable Gelatin Sponge Size 100 ONE (06:54)
[2017-10-24 06:55] LABS: ALB/GLOB RATIO 1.1 (1.0-2.1); ALBUMIN 3.8 g/dL (3.5-5.0); ALT/SGPT 17 U/L (21-72); AST/SGOT 26 U/L (17-59); BLOOD UREA NITROGEN 19 mg/dL (9-20); CALCIUM 9.4 mg/dl (8.6-10.4); GFR AFRICAN-AMERICAN > 60; GFR NON-AFRICAN AMERICAN > 60
[2017-10-24] MEDS ORDERED: ceFAZolin IV 2 gm in Dextrose 0 GM/0 ML BAG IVPB ONE (06:55)
[2017-10-24] MEDS ORDERED: Thrombin Topical 20,000 Intl Units Spray Kit TOP ONE (06:55)
[2017-10-24] MEDS ORDERED: Bacitracin 50,000 UNIT in Sodium Chloride 0.9% Irrig 1,000 ML IR SCH (07:00)
[2017-10-24 07:03] LABS: FOLATE 18.2 ng/mL
[2017-10-24] MEDS ORDERED: Etomidate 20 mg/10ml Inj IV ONE (07:20)
[2017-10-24] MEDS ORDERED: Propofol 10 mg/ml 2,000 MG/200 ML VIAL ONE (07:21)
[2017-10-24] MEDS ORDERED: Propofol 10 mg/ml Inj (20 ML) ONE (07:23)
[2017-10-24] MEDS ORDERED: Phenylephrine 10 mg/ml Inj ONE (07:24)
[2017-10-24] MEDS ORDERED: ePHEDrine 50 mg/ml Inj ONE ×2 (07:24→08:51)
[2017-10-24] MEDS ORDERED: Succinylcholine Chloride 20 mg/ml Syr (5 ml) IV ONE (07:24)
[2017-10-24] MEDS ORDERED: Midazolam 2 MG/2 ML VIAL ONE (07:48)
[2017-10-24] MEDS ORDERED: Thrombin Topical 5,000 Int Units Spray Kit ONE (08:01)
[2017-10-24] MEDS ORDERED: Rocuronium 10 mg/ml (5 ml) ONE (08:13)
[2017-10-24] MEDS ORDERED: Bupivacaine 0.25% 20 ML INJ IJ ONE (08:41)
--- NOTE | 2017-10-24 09:15 | CON ---
DATE: 10/23/2017 ATTENDING PHYSICIAN: Dennys Kay MD REASON FOR CONSULTATION: Leg weakness. CHIEF COMPLAINT: The patient was brought in via ambulance with a history of abdominal distention and leg weakness. Since he carries a history of multiple sclerosis, I was called in to evaluate him for further management. HISTORY OF PRESENT ILLNESS: Mr. Antonio Jose is a 61-year-old right-handed male who is known to me for more than 15 years, been treated for multiple sclerosis. He was wheelchair bound. Lately, he was treated with Lemtrada, been ambulatory with pain, being brought into [facility] with history of abdominal distention and decreased walking. No history of recent fall. However, he had falls frequently in the past. No history of urinary incontinence. He denies any lower back pain. PAST MEDICAL HISTORY: Depression, kidney stone, end-stage multiple sclerosis, chronic renal disease. MEDICATIONS: He is taking SSRI for his depression. PERSONAL HISTORY: He quit smoking recently; however, he had a history of heavy smoking. No history of alcohol use. REVIEW OF SYSTEMS: A 12-point system have been reviewed. From neuro, new leg weakness. PHYSICAL EXAMINATION: VITAL SIGNS: Blood pressure 124/68, mean artery pressure of 86, respiratory rate 18, temperature afebrile. NECK: Supple. No carotid bruits. HEART: Sounds . CHEST: Fair air entry. EXTREMITIES: Both legs are externally rotated. NEUROLOGICAL: Mental status examination: He is awake, alert, oriented to person, place and time. Speech is dysarthric. He moves both upper extremities as per the command. Cranial nerve examination: Visual field, responds to visual threat. Pupils reactive to light. Extraocular movement markedly decreased in all directions. No facial sensory deficit. No facial asymmetry. Hearing seems to be intact. Mouth is moist. Tongue is midline. Good gag. Motor examination: He was able to lift both upper extremities against gravity without any difficulty. However, he was not able to lift both lower extremities by himself any difficulty; however, he could not both lower extremities by him. He is hands to help the thighs to move up. Deep tendon reflexes: Biceps, brachialis, triceps 1+; both knees are 3+; both ankles are 2+. Plantars are upgoing on both sides. Sensory examination: Posterior column is intact. Examination of the spine, no tenderness over the thoracic area and no sensory level as per pinprick. Coordination: Mild bilateral [id number] dysmetria noted. Gait is deferred at this time. WORKUP: MRI of the brain had been reviewed by me, showed metastatic process at the T9 level with cord compression anterior to posterior. He also has metastatic process at other vertebral region. Bone scan showed rib met. EKG, normal sinus rhythm. Blood workup: WBC 7.3, hemoglobin 10.8, hematocrit 31, platelet 255. ESR 73. PT 13.9, INR 1.3, PTT 25. Sodium 138, potassium 3.6, chloride 107, bicarbonate 20. BUN 40, creatinine 1.6. CRP 183.5, total protein 6.1, albumin 3.3. Urinalysis today showed 3+ hematuria, marked wbc and rbc's noted. CONCLUSION: Mr. Antonio Jose has been presenting with paraparesis with no sensory level, probable urinary incontinence and retention. This is probably a metastatic process with unknown primary. The patient is also suffering from end-stage multiple sclerosis, has been under treatment with Lemtrada. However, that treatment is not a cause for this problem. Considering his heavy smoking history, probably primary cause should be worked up. RECOMMENDATIONS: 1. Bed rest. 2. Montanez catheterization. 3. MRI of the brain to rule out any central cause. 4. CT of the chest and abdominal pelvis. 5. Neurosurgery consultation is recommended. The patient's condition will be discussed with his . Tariq Pelayo MD
--- NOTE | 2017-10-24 09:35 | PN ---
DATE: 10/24/2017 LOCATION: The patient is seen in room 66, bed B. TIME OF EVALUATION: 06:35 a.m. NEUROLOGICAL PROBLEM: Cord compression probably metastatic disease with superimposed end-stage demyelinating disease. PHYSICAL EXAMINATION: GENERAL: The patient was seen by neurosurgeon, his documented dictated report is not available in the chart. The patient is scheduled for decompression surgery today this morning. The patient is on steroids. The steroids should be continued for now. VITAL SIGNS: Blood pressure 126/70 with mean atrial pressure of 88, respiratory 16, temperature 97.3 and pulse rate 74 regular. Other medications which has been given during the hospitalization should be continued at present. The patient is cautioned. Fall precautions should be maintained. The patient's condition will be discussed with his . Tariq Pelayo MD
[2017-10-24] MEDS ORDERED: Vancomycin 1 g Inj ONE (10:15)
[2017-10-24] MEDS ORDERED: Sodium Chloride 0.9% 0 ML IV ONE (10:17)
[2017-10-24] MEDS: Multiple Vitamins Tab PO SCH (10:34)
[2017-10-24] MEDS ORDERED: DiphenhydrAMINE 50 mg/ml Inj ONE (10:43)
[2017-10-24] MEDS ORDERED: Dexamethasone 4 mg/1 ml IV SCH (11:00)
[2017-10-24] MEDS ORDERED: DiphenhydrAMINE 50 mg/ml Inj IVP PRN (11:06)
[2017-10-24] MEDS ORDERED: Naloxone 0.4 mg/ml Inj (Adult) IVP PRN (11:06)
[2017-10-24] MEDS ORDERED: HYDROmorphone 0.5 mg/0.5 ml ISec IVP PRN (11:06)
--- NOTE | 2017-10-24 13:40 | OP ---
PROCEDURE DATE: 10/24/2017 SURGEON: Yannick Castro MD. HERD TESTER: Julien Chun MD. 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 OPERATIVE PROCEDURES: Decompressive laminectomy T8-9 with lateral fusion T8-10 with pedicle screw fixation T8-10 harvesting right posterior iliac crest bone marrow, placement of pedicle screw fixation. DESCRIPTION OF PROCEDURE: The patient was brought to the operating room, intubated appropriately, and turned prone onto the Kedar frame. His back was prepped and draped in the usual manner. C-arm fluoroscopy, SSEP and motor evoked potentials were monitored throughout the case. The neuromonitoring demonstrated that motor evoked potentials to the lower extremities could not be obtained. However, the upper extremities were normal. SSEPs were normal. The patient was previously diagnosed with an area in T9 where the vertebral body was infiltrated with what appeared to be tumor causing a significant epidural compression and spinal cord compression. He has had symptoms including inability to move his legs more than trace amounts since Sunday of the week before. He had urinary retention again going back to Sunday. The MRI was done yesterday demonstrating the lesion and it was determined that he had eaten both breakfast and lunch by the time a consult was called, and the fact that this has been ongoing for several days and he would not be taken to the OR in a full stomach for emergency surgery, but it would be delayed till this morning. After prepping and draping, a midline incision was made extending above T8 down below the T10 spinous processes as the muscle and the fascia was stripped off the spinous process and lamina in the exposed region. We identified T9 both radiographically obtaining multiple x-rays accounting up from the sacrum and by direct inspection as the T9 pedicle on the left was completely disrupted and the cortex appeared abnormal. The bone quality was quite abnormal and had gross appearance of being blown out and tumor ridden. At this point, the laminectomy of T8-9 were performed using combination of Leksell rongeurs and Kerrison rongeurs. The spinal cord was decompressed from the tumor by removing the tumor using the combination of blunt dissection with the pituitary rongeurs. The tumor extended into the vertebral body and we removed as much of tumor as possible. There was bleeding from the vertebral body from the tumor site. This was packed with Surgicel and Surgifoam, and we made certain that hemostasis was meticulous before we proceeded downward 04:32. After making certain that the spinal cord was thoroughly decompressed in the area of the tumor. Pedicle screws were placed in T8 and T10 bilaterally in the following manner. We verified our location on x-ray. We then used an awl to open the cortex and then passed the Steffee probe from the pedicle into the vertebral body under x-ray guidance. After sounded the channel and then placed a pedicle screw under x-ray visualization. A 5 x 50 pedicle screws were used in each location. AP and lateral x-rays were taken verifying the locations. The exposed bone of T8 and T10 as well as the remainder of the T9 was decorticated. A trocar was placed in the posterior iliac crest on the right, 90 mL of bone marrow aspirated process using the harvest technique, placed on CONFORM and the contents of an IC chamber and then used as graft material to place over the decorticated bony structures. Two 05:50 rods were then placed over the screw heads. The left caps were tightened appropriately. The dura was then again re-explored making certain that there was no evidence of any further compression. Gelfoam was placed over the exposed dura and two crosslinks were then placed one near the radioisotope technologist and one near the bone screw, they were again tightened and torch. A Hemovac drain was placed through a separate stab wound and the muscle and fascia were re-approximated in multiple layers 0 Vicryl, subcuticular 2-0 Vicryl between the fascia and musculature and above the fascia. Vancomycin powder was placed to decrease the risk of infection. Skin james were applied to the skin edge. Sterile dressings were applied. The patient was turned on to his bed under the process of awakening from anesthesia. Blood loss approximately 750 mL. All counts were correct. The patient received 250 cell saver transfusion only. Yannick Castro MD cc: Dennys Kay MD.
--- NOTE | 2017-10-24 14:12 | CP.PCM.CON ---
<Alesha Nava - Last Filed: 10/24/17 15:44> History of Present Illness - History of Present Illness History of Present Illness: 61 yo M w/ PMHx of recent UTI, MS and perforated bowel, presented to ED on 10/21 w/ complaints of abdominal distension, nausea, vomiting, urinary and fecal incontinence, and B/L LE weakness and instability. MRI revealed cord compression likely 2/2 to metastasis. Pt admitted to ICU s/p decompressive laminectomy T8/9, w/ later fusion and pedicle screw fixation T8//10, POD #0 for further management. Review of Systems - Review of Systems Systems not reviewed;Unavailable: Other (neurodegenerative changes) - Constitutional Constitutional: absent: Fatigue - Cardiovascular Cardiovascular: absent: Chest Pain, Edema - Respiratory Respiratory: absent: Cough, Dyspnea - Gastrointestinal Gastrointestinal: absent: Abdominal Pain, Nausea Past Patient History - Past Medical History & Family History Past Medical History?: Yes - Past Social History Smoking Status: Former Smoker - CARDIAC Hx Cardiac Disorders: No - PULMONARY Hx Respiratory Disorders: No - NEUROLOGICAL Hx Multiple Sclerosis: Yes - HEENT Hx HEENT Problems: No - RENAL Hx Chronic Kidney Disease: Yes Hx Kidney Stones: Yes - ENDOCRINE/METABOLIC Hx Endocrine Disorders: No - HEMATOLOGICAL/ONCOLOGICAL Hx Blood Disorders: No - INTEGUMENTARY Hx Dermatological Problems: No - MUSCULOSKELETAL/RHEUMATOLOGICAL Hx Musculoskeletal Disorders: No Hx Falls: No - GASTROINTESTINAL Hx Gastrointestinal Disorders: No - GENITOURINARY/GYNECOLOGICAL Hx Genitourinary Disorders: Yes Hx Hematuria: Yes - PSYCHIATRIC Hx Depression: Yes Hx Substance Use: No - SURGICAL HISTORY Hx Surgeries: Yes Other/Comment: "PERFORATED ULCER" - ANESTHESIA Hx Anesthesia: Yes Hx Anesthesia Reactions: No Hx Malignant Hyperthermia: No Meds Allergies/Adverse Reactions: Allergies Allergy/AdvReac Type Severity Reaction Status Date / Time No Known Allergies Allergy Verified 10/21/17 21:30 - Medications Medications: Current Medications Acyclovir (Zovirax) 400 mg PO DAILY [facility] PRN Reason: Protocol Last Admin: 10/24/17 10:34 Dose: Not Given Dexamethasone (Decadron Inj) 4 mg IV Q6H [facility] Diphenhydramine HCl (Benadryl) 25 mg IVP Q6 PRN PRN Reason: Itching / Pruritus Famotidine (Pepcid) 20 mg PO DAILY [facility] Last Admin: 10/24/17 10:34 Dose: Not Given Heparin Sodium (Porcine) (Heparin) 5,000 units SC BID [facility] Last Admin: 10/24/17 10:34 Dose: Not Given Hydromorphone/Sodium Chloride (Dilaudid Sales Training Representative) 6 mg IV Q4H PRN; Protocol PRN Reason: Pain, severe (8-10) Dextrose/Sodium Chloride (Dextrose 5%/0.45% Ns 1000 Ml) 1,000 mls @ 80 mls/hr IV .[id number] [facility] Last Admin: 10/24/17 05:41 Dose: Not Given Ceftriaxone Sodium 1 gm/ (Sodium Chloride) 100 mls @ 100 mls/hr IVPB Q12H [facility] PRN Reason: Protocol Last Admin: 10/24/17 05:43 Dose: 100 mls/hr Potassium Chloride/Dextrose/Sod Cl (Potassium Chl 20 Meq In D5-1/2ns) 1,000 mls @ 80 mls/hr IV .[id number] [facility] Multivitamins (Hexavitamin) 1 tab PO DAILY [facility] Last Admin: 10/24/17 10:34 Dose: Not Given Ondansetron HCl (Zofran Inj) 4 mg IVP Q8H PRN PRN Reason: Nausea/Vomiting Oxybutynin Chloride (Ditropan Tab) 5 mg PO TID [facility] Last Admin: 10/24/17 10:32 Dose: Not Given Tamsulosin HCl (Flomax) 0.4 mg PO DAILY [facility] Last Admin: 10/24/17 10:33 Dose: Not Given Physical Exam - Constitutional Appears: Well, Non-toxic - Head Exam Head Exam: ATRAUMATIC, NORMAL INSPECTION, NORMOCEPHALIC - Eye Exam Eye Exam: EOMI Pupil Exam: PERRL - Respiratory Exam Respiratory Exam: Clear to Auscultation Bilateral, NORMAL BREATHING PATTERN - Cardiovascular Exam Cardiovascular Exam: REGULAR RHYTHM - GI/Abdominal Exam GI & Abdominal Exam: Normal Bowel Sounds, Soft. absent: Distended - Neurological Exam Neurological exam: Alert Results - Vital Signs Recent Vital Signs: Last Vital Signs Temp 97.8 F 10/24/17 12:40 Pulse 65 10/24/17 13:10 Resp 20 10/24/17 07:00 BP 126/70 10/24/17 07:00 Pulse Ox 100 10/24/17 13:10 - Labs Result Diagrams: 10/24/17 05:31 10/24/17 05:31 Labs: Laboratory Results - last 24 hr 10/23/17 10/24/17 10/24/17 16:47 05:31 05:31 WBC 9.3 RBC 4.38 L Hgb 11.7 L Hct 35.3 MCV 80.6 MCH 26.6 L MCHC 33.1 RDW 14.1 Plt Count 319 MPV 9.1 Retic Count Sodium 140 Potassium 4.5 Chloride 105 Carbon Dioxide 23 Anion Gap 17 BUN 19 Creatinine 0.7 L Est GFR ( Amer) > 60 Est GFR (Non-Af Amer) > 60 Random Glucose 158 H Calcium 9.4 Ferritin 152.0 Total Bilirubin 0.6 AST 26 ALT 17 L D Alkaline Phosphatase 77 Total Protein 7.4 Albumin 3.8 Globulin 3.6 Albumin/Globulin Ratio 1.1 Vitamin B12 509 Folate 18.2 Blood Type A POSITIVE Antibody Screen Negative 10/24/17 05:31 WBC RBC Hgb Hct MCV MCH MCHC RDW Plt Count MPV Retic Count 1.8 H Sodium Potassium Chloride Carbon Dioxide Anion Gap BUN Creatinine Est GFR ( Amer) Est GFR (Non-Af Amer) Random Glucose Calcium Ferritin Total Bilirubin AST ALT Alkaline Phosphatase Total Protein Albumin Globulin Albumin/Globulin Ratio Vitamin B12 Folate Blood Type Antibody Screen Assessment & Plan - Assessment and Plan (Free Text) Assessment: 61 yo M s/p decompressive laminectomy POD 0 Neuro: s/p cord decompression -neuro checks -decadron 40 q6 -Neurosx Dr. Arambula Heme/Onc: -f/u renal mass? -consult Dr. Pulido GI: -reg diet : Enterococcus faecalis + UTI -rocephin -vanco -ID consult Dr. Ambrocio Urinary retention -flomax .4mg -ditropan 5mg TID -Urology consult Dr. Nation Ppx -heparin 5000 q12 -pepcid 20 -SCD <Felipe Zuñiga S - Last Filed: 10/24/17 18:36> Meds - Medications Medications: Current Medications Acyclovir (Zovirax) 400 mg PO DAILY [facility] PRN Reason: Protocol Last Admin: 10/24/17 10:34 Dose: Not Given Dexamethasone (Decadron Inj) 4 mg IV Q6H [facility] Last Admin: 10/24/17 17:15 Dose: 4 mg Diphenhydramine HCl (Benadryl) 25 mg IVP Q6 PRN PRN Reason: Itching / Pruritus Famotidine (Pepcid) 20 mg PO DAILY [facility] Last Admin: 10/24/17 10:34 Dose: Not Given Heparin Sodium (Porcine) (Heparin) 5,000 units SC BID [facility] Hydromorphone/Sodium Chloride (Dilaudid Sales Training Representative) 6 mg IV Q4H PRN; Protocol PRN Reason: Pain, severe (8-10) Last Admin: 10/24/17 12:05 Dose: 6 mg Ceftriaxone Sodium 1 gm/ (Sodium Chloride) 100 mls @ 100 mls/hr IVPB Q12H [facility] PRN Reason: Protocol Last Admin: 10/24/17 17:15 Dose: 100 mls/hr Potassium Chloride/Dextrose/Sod Cl (Potassium Chl 20 Meq In D5-1/2ns) 1,000 mls @ 80 mls/hr IV .[id number] [facility] Last Admin: 10/24/17 15:04 Dose: 80 mls/hr Vancomycin/Sodium Chloride (Vancomycin 1 Gm/Ns 200 Ml) 1 gm in 200 mls @ 133.333 mls/hr IVPB Q12H [facility] Multivitamins (Hexavitamin) 1 tab PO DAILY [facility] Last Admin: 10/24/17 10:34 Dose: Not Given Ondansetron HCl (Zofran Inj) 4 mg IVP Q8H PRN PRN Reason: Nausea/Vomiting Oxybutynin Chloride (Ditropan Tab) 5 mg PO TID [facility] Last Admin: 10/24/17 16:25 Dose: 5 mg Tamsulosin HCl (Flomax) 0.4 mg PO DAILY [facility] Last Admin: 10/24/17 10:33 Dose: Not Given Results - Vital Signs Recent Vital Signs: Last Vital Signs Temp 97.8 F 10/24/17 12:40 Pulse 74 10/24/17 18:00 Resp 21 10/24/17 18:00 BP 135/64 10/24/17 17:51 Pulse Ox 97 10/24/17 18:00 - Labs Result Diagrams: 10/24/17 05:31 10/24/17 05:31 Labs: Laboratory Results - last 24 hr 10/23/17 10/24/17 10/24/17 16:47 05:31 05:31 WBC 9.3 RBC 4.38 L Hgb 11.7 L Hct 35.3 MCV 80.6 MCH 26.6 L MCHC 33.1 RDW 14.1 Plt Count 319 MPV 9.1 Retic Count Sodium 140 Potassium 4.5 Chloride 105 Carbon Dioxide 23 Anion Gap 17 BUN 19 Creatinine 0.7 L Est GFR ( Amer) > 60 Est GFR (Non-Af Amer) > 60 Random Glucose 158 H Calcium 9.4 Ferritin 152.0 Total Bilirubin 0.6 AST 26 ALT 17 L D Alkaline Phosphatase 77 Total Protein 7.4 Albumin 3.8 Globulin 3.6 Albumin/Globulin Ratio 1.1 Vitamin B12 509 Folate 18.2 Blood Type A POSITIVE Antibody Screen Negative 10/24/17 05:31 WBC RBC Hgb Hct MCV MCH MCHC RDW Plt Count MPV Retic Count 1.8 H Sodium Potassium Chloride Carbon Dioxide Anion Gap BUN Creatinine Est GFR ( Amer) Est GFR (Non-Af Amer) Random Glucose Calcium Ferritin Total Bilirubin AST ALT Alkaline Phosphatase Total Protein Albumin Globulin Albumin/Globulin Ratio Vitamin B12 Folate Blood Type Antibody Screen Attending/Attestation - Attestation I have personally seen and examined this patient.: Yes I have fully participated in the care of the patient.: Yes I have reviewed all pertinent clinical information: Yes Notes (Text): 10/24/17 18:35 patient seen and examined Pt admitted to ICU s/p decompressive laminectomy T8/9, w/ later fusion and pedicle screw fixation T8/9/10 IV steroids IV antibiotics for UTI
--- NOTE | 2017-10-24 14:30 | CP.PCM.PN ---
Subjective - Date & Time of Evaluation Date of Evaluation: 10/24/17 Time of Evaluation: 14:29 - Subjective Subjective: patient is status post laminectomy. As per the chart vital signs are stable Patient had laminectomy done at T8 and 9. Tumor was compressing the spinal cord which was removed as far as possible. Check the pathology and discuss with oncology. Objective - Vital Signs/Intake and Output Vital Signs (last 24 hours): Temp Pulse Resp BP Pulse Ox 97.8 F 71 20 139/65 100 10/24/17 12:40 10/24/17 14:00 10/24/17 07:00 10/24/17 13:51 10/24/17 14:00 Intake and Output: 10/24/17 10/24/17 11:59 23:59 Intake Total 3640 Output Total 800 50 Balance 2840 -50 - Medications Medications: Current Medications Acyclovir (Zovirax) 400 mg PO DAILY [facility] PRN Reason: Protocol Last Admin: 10/24/17 10:34 Dose: Not Given Dexamethasone (Decadron Inj) 4 mg IV Q6H [facility] Diphenhydramine HCl (Benadryl) 25 mg IVP Q6 PRN PRN Reason: Itching / Pruritus Famotidine (Pepcid) 20 mg PO DAILY [facility] Last Admin: 10/24/17 10:34 Dose: Not Given Heparin Sodium (Porcine) (Heparin) 5,000 units SC BID [facility] Hydromorphone/Sodium Chloride (Dilaudid Retail Loan Officer) 6 mg IV Q4H PRN; Protocol PRN Reason: Pain, severe (8-10) Last Admin: 10/24/17 12:05 Dose: 6 mg Ceftriaxone Sodium 1 gm/ (Sodium Chloride) 100 mls @ 100 mls/hr IVPB Q12H [facility] PRN Reason: Protocol Last Admin: 10/24/17 05:43 Dose: 100 mls/hr Potassium Chloride/Dextrose/Sod Cl (Potassium Chl 20 Meq In D5-1/2ns) 1,000 mls @ 80 mls/hr IV .[id number] [facility] Vancomycin HCl 1,000 mg/ (Sodium Chloride) 250 mls @ 166.6 mls/hr IVPB Q12H [facility] PRN Reason: Protocol Multivitamins (Hexavitamin) 1 tab PO DAILY [facility] Last Admin: 10/24/17 10:34 Dose: Not Given Ondansetron HCl (Zofran Inj) 4 mg IVP Q8H PRN PRN Reason: Nausea/Vomiting Oxybutynin Chloride (Ditropan Tab) 5 mg PO TID [facility] Last Admin: 10/24/17 10:32 Dose: Not Given Tamsulosin HCl (Flomax) 0.4 mg PO DAILY [facility] Last Admin: 10/24/17 10:33 Dose: Not Given - Labs Labs: 10/24/17 05:31 10/24/17 05:31 PT 14.3 SECONDS (9.7-12.2) H 10/23/17 11:27 INR 1.3 10/23/17 11:27 APTT 29 SECONDS (21-34) 10/23/17 11:27
[2017-10-24] MEDS: Potassium Ch 20mEq in D5-1/2NS 1,000 ML IV SCH ×2 (15:04→23:00)
[2017-10-24] MEDS ORDERED: POLYETHYLENE GLYCOL 3350 17 GM/Dose PACKET PO ONE (17:45)
--- NOTE | 2017-10-24 21:31 | CP.PCM.PN ---
Subjective - Date & Time of Evaluation Date of Evaluation: 10/24/17 Time of Evaluation: 20:15 - Subjective Subjective: No complaints, pain well controlled s/p Tspine decompression Objective - Vital Signs/Intake and Output Vital Signs (last 24 hours): Temp Pulse Resp BP Pulse Ox 97.5 F L 67 18 134/67 98 10/24/17 20:00 10/24/17 21:00 10/24/17 21:00 10/24/17 20:51 10/24/17 21:00 Intake and Output: 10/24/17 10/25/17 18:59 06:59 Intake Total 3580 160 Output Total 1150 410 Balance 2430 -250 - Medications Medications: Current Medications Acyclovir (Zovirax) 400 mg PO DAILY [facility] PRN Reason: Protocol Last Admin: 10/24/17 10:34 Dose: Not Given Dexamethasone (Decadron Inj) 4 mg IV Q6H [facility] Last Admin: 10/24/17 17:15 Dose: 4 mg Diphenhydramine HCl (Benadryl) 25 mg IVP Q6 PRN PRN Reason: Itching / Pruritus Famotidine (Pepcid) 20 mg PO DAILY [facility] Last Admin: 10/24/17 10:34 Dose: Not Given Heparin Sodium (Porcine) (Heparin) 5,000 units SC BID [facility] Last Admin: 10/24/17 21:06 Dose: 5,000 units Hydromorphone/Sodium Chloride (Dilaudid Battery Hand) 6 mg IV Q4H PRN; Protocol PRN Reason: Pain, severe (8-10) Last Admin: 10/24/17 12:05 Dose: 6 mg Ceftriaxone Sodium 1 gm/ (Sodium Chloride) 100 mls @ 100 mls/hr IVPB Q12H [facility] PRN Reason: Protocol Last Admin: 10/24/17 17:15 Dose: 100 mls/hr Potassium Chloride/Dextrose/Sod Cl (Potassium Chl 20 Meq In D5-1/2ns) 1,000 mls @ 80 mls/hr IV .[id number] [facility] Last Admin: 10/24/17 15:04 Dose: 80 mls/hr Vancomycin/Sodium Chloride (Vancomycin 1 Gm/Ns 200 Ml) 1 gm in 200 mls @ 133.333 mls/hr IVPB Q12H [facility] Multivitamins (Hexavitamin) 1 tab PO DAILY [facility] Last Admin: 10/24/17 10:34 Dose: Not Given Ondansetron HCl (Zofran Inj) 4 mg IVP Q8H [facility] PRN Reason: Nausea/Vomiting Oxybutynin Chloride (Ditropan Tab) 5 mg PO TID [facility] Last Admin: 10/24/17 18:45 Dose: 5 mg Tamsulosin HCl (Flomax) 0.4 mg PO DAILY [facility] Last Admin: 10/24/17 10:33 Dose: Not Given - Labs Labs: 10/24/17 05:31 10/24/17 05:31 PT 14.3 SECONDS (9.7-12.2) H 10/23/17 11:27 INR 1.3 10/23/17 11:27 APTT 29 SECONDS (21-34) 10/23/17 11:27 - Head Exam Head Exam: ATRAUMATIC - Eye Exam Eye Exam: Normal appearance - ENT Exam ENT Exam: Mucous Membranes Dry - Respiratory Exam Respiratory Exam: NORMAL BREATHING PATTERN - Cardiovascular Exam Cardiovascular Exam: +S1, +S2 - GI/Abdominal Exam GI & Abdominal Exam: Normal Bowel Sounds Assessment and Plan (1) Cord compression Assessment & Plan: s/p neurosurgical decompression radiation once surgical wound healed Status: Acute (2) Renal mass Assessment & Plan: suspect renal cell carcinoma; awaiting path from neurosurgery if confirmed renal cell carcinoma, will discuss with urology about primary tumor resection Status: Acute (3) Anemia Assessment & Plan: chronic disease Status: Acute
[2017-10-24] MEDS: Vancomycin 1 gm/NS 200 ml 1 GM/200 ML BAG IVPB SCH (22:34)
--- NOTE | 2017-10-24 23:26 | CP.PCM.PN ---
Subjective - Date & Time of Evaluation Date of Evaluation: 10/24/17 Time of Evaluation: 23:26 - Subjective Subjective: AFEBRILE. VSS S/P T9-LAMINECTOMY WITH T8-T10 FUSION / FIXATION 10/24/17 PAIN CONTROLLED Objective - Vital Signs/Intake and Output Vital Signs (last 24 hours): Temp Pulse Resp BP Pulse Ox 97.5 F L 67 18 134/67 98 10/24/17 20:00 10/24/17 21:00 10/24/17 21:00 10/24/17 20:51 10/24/17 21:00 Intake and Output: 10/24/17 10/25/17 18:59 06:59 Intake Total 3580 160 Output Total 1150 410 Balance 2430 -250 - Medications Medications: Current Medications Acyclovir (Zovirax) 400 mg PO DAILY [facility] PRN Reason: Protocol Last Admin: 10/24/17 10:34 Dose: Not Given Dexamethasone (Decadron Inj) 4 mg IV Q6H [facility] Last Admin: 10/24/17 22:34 Dose: 4 mg Diphenhydramine HCl (Benadryl) 25 mg IVP Q6 PRN PRN Reason: Itching / Pruritus Famotidine (Pepcid) 20 mg PO DAILY [facility] Last Admin: 10/24/17 10:34 Dose: Not Given Heparin Sodium (Porcine) (Heparin) 5,000 units SC BID [facility] Last Admin: 10/24/17 21:06 Dose: 5,000 units Hydromorphone/Sodium Chloride (Dilaudid Loft Patternmaker) 6 mg IV Q4H PRN; Protocol PRN Reason: Pain, severe (8-10) Last Admin: 10/24/17 12:05 Dose: 6 mg Ceftriaxone Sodium 1 gm/ (Sodium Chloride) 100 mls @ 100 mls/hr IVPB Q12H [facility] PRN Reason: Protocol Last Admin: 10/24/17 17:15 Dose: 100 mls/hr Potassium Chloride/Dextrose/Sod Cl (Potassium Chl 20 Meq In D5-1/2ns) 1,000 mls @ 80 mls/hr IV .[id number] [facility] Last Admin: 10/24/17 15:04 Dose: 80 mls/hr Vancomycin/Sodium Chloride (Vancomycin 1 Gm/Ns 200 Ml) 1 gm in 200 mls @ 133.333 mls/hr IVPB Q12H [facility] Last Admin: 10/24/17 22:34 Dose: 133.333 mls/hr Multivitamins (Hexavitamin) 1 tab PO DAILY [facility] Last Admin: 10/24/17 10:34 Dose: Not Given Ondansetron HCl (Zofran Inj) 4 mg IVP Q8H PRN PRN Reason: Nausea/Vomiting Oxybutynin Chloride (Ditropan Tab) 5 mg PO TID [facility] Last Admin: 10/24/17 18:45 Dose: 5 mg Tamsulosin HCl (Flomax) 0.4 mg PO DAILY [facility] Last Admin: 10/24/17 10:33 Dose: Not Given - Labs Labs: 10/24/17 05:31 10/24/17 05:31 PT 14.3 SECONDS (9.7-12.2) H 10/23/17 11:27 INR 1.3 10/23/17 11:27 APTT 29 SECONDS (21-34) 10/23/17 11:27 - Constitutional Appears: No Acute Distress - Head Exam Head Exam: NORMAL INSPECTION - Eye Exam Eye Exam: EOMI, PERRL - ENT Exam ENT Exam: Normal Oropharynx - Neck Exam Neck Exam: Normal Inspection - Respiratory Exam Respiratory Exam: Clear to Ausculation Bilateral, NORMAL BREATHING PATTERN - Cardiovascular Exam Cardiovascular Exam: REGULAR RHYTHM, +S1, +S2 - GI/Abdominal Exam GI & Abdominal Exam: Soft, Normal Bowel Sounds - Extremities Exam Extremities Exam: absent: Calf Tenderness, Pedal Edema - Neurological Exam Neurological Exam: Awake, CN II-XII Intact - Psychiatric Exam Psychiatric exam: Normal Affect - Skin Skin Exam: Normal Color, Warm Assessment and Plan (1) Cord compression Assessment & Plan: STATUS POST t9 LAMINECTOMY/t8-T10 FUSION FIXATION 10/24/17. ANALGESICS PER SURGERY Status: Acute (2) Leukocytosis Assessment & Plan: URINE CULTURE +VE ENTEROCOCCUS FAECALIS S-AMPICILLIN/VANCOMYCIN. bLOOD CULTURES X2 SETS NEGATIVE TO DATE. wbc 9.3, H/H 11.7 CONTINUE iv ROCEPHIN 1 G EVERY 12 HOURLY .10/22/17 ADD IV VANCOMYCIN 1 G EVERY 12 HOURLY 10/24/17. PATIENT GOT ONE DOSE OF CEFAZOLIN / 1 DOSE OF VANCOMYCIN 1 G IN OR 10/24/17. Status: Acute (3) Abdominal pain Status: Acute (4) Acute urinary retention Assessment & Plan: PATIENT PRESENTLY HAS A Gray CATHETER . SEEN BY . Status: Acute (5) Acute renal insufficiency Assessment & Plan: CREATININE 0.7/bun 19 STABLE. Status: Acute (6) Mass of left kidney Status: Chronic (7) Multiple sclerosis Status: Chronic (8) Neurogenic bladder Status: Chronic
[2017-10-25] MEDS: Potassium Ch 20mEq in D5-1/2NS 1,000 ML IV SCH ×2 (05:02→19:30)
[2017-10-25] MEDS: Dexamethasone 4 mg/1 ml IV SCH ×4 (05:31→22:33)
[2017-10-25 06:43] LABS: BASO % 0.1 % (0.0-2.0); HEMOGLOBIN 10.2 g/dL (12.0-18.0); LYMPH # 0.6 K/uL (1.0-4.3); LYMPH % 7.5 % (20.0-40.0); MEAN CELL VOLUME 79.7 fL (80.0-94.0); MEAN CORPUSCULAR HGB CONC 33.9 g/dL (33.0-37.0); MEAN PLATELET VOLUME 8.7 fL (7.2-11.7); MONO # 0.5 K/uL (0.0-0.8); MONO % 5.8 % (0.0-10.0); NEUT % 86.6 % (50.0-75.0); PLATELET COUNT 287 K/uL (130-400); RBC 3.79 Mil/uL (4.40-5.90)
[2017-10-25 07:03] LABS: ALB/GLOB RATIO 1.1 (1.0-2.1); ALT/SGPT 33 U/L (21-72); AST/SGOT 27 U/L (17-59); BLOOD UREA NITROGEN 18 mg/dL (9-20); CALCIUM 8.6 mg/dl (8.6-10.4); GFR AFRICAN-AMERICAN > 60; GFR NON-AFRICAN AMERICAN > 60
[2017-10-25 08:24] LABS: BANDS 1 % (0-2); LYMPHOCYTE 3 % (20-40); MONOCYTE 4 % (0-10); NEUTROPHIL 92 % (50-75); TOTAL CELLS COUNTED 100
[2017-10-25 08:28] LABS: PLATELET ESTIMATE NORMAL (NORMAL)
[2017-10-25] MEDS: Multiple Vitamins Tab PO SCH (08:59)
[2017-10-25] MEDS ORDERED: Pneumococcal 23-Valent Vaccine IM ONE (10:00)
--- NOTE | 2017-10-25 10:24 | CP.PCM.PN ---
Subjective - Date & Time of Evaluation Date of Evaluation: 10/25/17 Time of Evaluation: 10:21 - Subjective Subjective: SPINE Pt resting in ICU. Stable as per nursing. States he's not having much pain. VSS. Hemovac w 110cc out overnight. Sens intact in LE's, but minimal motion (as pre-op). Plan: Pt being transferred to Telemetry. TLSO brace ordered, which pt must have before OOB allowed. Will continue drain another day. Objective - Vital Signs/Intake and Output Vital Signs (last 24 hours): Temp Pulse Resp BP Pulse Ox 97.9 F 65 16 130/66 97 10/25/17 04:00 10/25/17 08:00 10/25/17 08:00 10/25/17 07:51 10/25/17 08:00 Intake and Output: 10/25/17 10/25/17 06:59 18:59 Intake Total 1100 80 Output Total 1680 110 Balance -580 -30 - Medications Medications: Current Medications Acyclovir (Zovirax) 400 mg PO DAILY TERESE PRN Reason: Protocol Last Admin: 10/25/17 08:59 Dose: 400 mg Ascorbic Acid (Vitamin C 500 Mg Tab) 500 mg PO BID REPLACED BY [facility] Dexamethasone (Decadron Inj) 4 mg IV Q6H REPLACED BY [facility] Last Admin: 10/25/17 05:31 Dose: 4 mg Diphenhydramine HCl (Benadryl) 25 mg IVP Q6 PRN PRN Reason: Itching / Pruritus Famotidine (Pepcid) 20 mg PO DAILY REPLACED BY [facility] Last Admin: 10/25/17 08:59 Dose: 20 mg Finasteride (Proscar) 5 mg PO DAILY REPLACED BY [facility] Heparin Sodium (Porcine) (Heparin) 5,000 units SC BID REPLACED BY [facility] Last Admin: 10/25/17 09:01 Dose: 5,000 units Hydromorphone/Sodium Chloride (Dilaudid [employer]) 6 mg IV Q4H PRN; Protocol PRN Reason: Pain, severe (8-10) Last Admin: 10/24/17 12:05 Dose: 6 mg Ceftriaxone Sodium 1 gm/ (Sodium Chloride) 100 mls @ 100 mls/hr IVPB Q12H TERESE PRN Reason: Protocol Last Admin: 10/25/17 05:03 Dose: 100 mls/hr Potassium Chloride/Dextrose/Sod Cl (Potassium Chl 20 Meq In D5-1/2ns) 1,000 mls @ 80 mls/hr IV .[id number] REPLACED BY [facility] Last Admin: 10/25/17 05:02 Dose: 80 mls/hr Vancomycin/Sodium Chloride (Vancomycin 1 Gm/Ns 200 Ml) 1 gm in 200 mls @ 133.333 mls/hr IVPB Q12H REPLACED BY [facility] Last Admin: 10/24/17 22:34 Dose: 133.333 mls/hr Insulin Aspart (Novolog) 0 unit SC ACHS TERESE PRN Reason: Protocol Multivitamins/Vitamin C (Multi-Delyn Liquid) 5 ml PO DAILY REPLACED BY [facility] Ondansetron HCl (Zofran Inj) 4 mg IVP Q8H PRN PRN Reason: Nausea/Vomiting Oxybutynin Chloride (Ditropan Tab) 5 mg PO TID REPLACED BY [facility] Last Admin: 10/25/17 09:00 Dose: 5 mg Senna/Docusate Sodium (Senokot S 50 Mg-8.6 Mg) 1 tab PO DAILY REPLACED BY [facility] Tamsulosin HCl (Flomax) 0.4 mg PO DAILY REPLACED BY [facility] Last Admin: 10/25/17 08:59 Dose: 0.4 mg Zinc Sulfate (Zinc Sulfate 220 Mg Cap) 220 mg PO DAILY REPLACED BY [facility] - Labs Labs: 10/25/17 06:36 10/25/17 06:36 PT 14.3 SECONDS (9.7-12.2) H 10/23/17 11:27 INR 1.3 10/23/17 11:27 APTT 29 SECONDS (21-34) 10/23/17 11:27
[2017-10-25] MEDS: Multiple Vitamins Oral Solution PO SCH (10:42)
[2017-10-25] MEDS: Vancomycin 1 gm/NS 200 ml 1 GM/200 ML BAG IVPB SCH ×2 (10:42→22:33)
[2017-10-25] MEDS: Docusate-Senna 50 mg-8.6 mg Tab PO SCH (10:42)
--- NOTE | 2017-10-25 10:51 | CP.CCUPN ---
Addendum entered and electronically signed by Alesha Nava 10/25/17 12:28: Pt being transferred to [facility] Original Note: <Alesha Nava - Last Filed: 10/25/17 12:27> CCU Subjective - Physician Review Subjective (Free Text): 10/25/17 12:09 61 yo M w/ PMHx of recent UTI, MS and perforated bowel, presented to ED on 10/21 w/ complaints of abdominal distension, nausea, vomiting, urinary and fecal incontinence, and B/L LE weakness and instability. MRI revealed cord compression likely 2/2 to metastasis. Pt admitted to ICU s/p decompressive laminectomy T8/9, w/ later fusion and pedicle screw fixation T8/9/10, POD #1 for further management. No acute events/complaints at this time. Pt waiting for brace before OOB. CCU Objective - Vital Signs / Intake & Output Vital Signs (Last 4 hours): Vital Signs Pulse Resp BP Pulse Ox 10/25/17 10:00 76 14 10/25/17 09:51 98 H 19 130/65 10/25/17 09:00 77 17 98 10/25/17 08:51 73 19 140/54 L 98 10/25/17 08:00 65 16 97 10/25/17 07:51 68 18 130/66 96 10/25/17 07:00 67 20 98 Intake and Output (Last 8hrs): Intake & Output 10/24/17 10/25/17 10/25/17 22:59 06:59 14:59 Intake Total 820 860 700 Output Total 1310 1170 350 Balance -490 -310 350 Intake: Intake, IV Amount 560 860 360 Right Hand 560 860 360 Oral 260 340 Output: Drainage 120 110 Back 120 110 Urine 1190 1060 350 Urethral (Montanez) 1190 1060 350 Emesis 0 0 Other: # Bowel Movements 0 0 - Physical Exam Head: Positive for: Atraumatic, Normocephalic Extroacular Muscles: Positive for: EOMI Mouth: Positive for: Moist Mucous Membranes Respiratory/Chest: Positive for: Clear to Auscultation, Good Air Exchange Cardiovascular: Positive for: Regular Rate and Rhythm. Negative for: Murmurs Upper Extremity: Positive for: Normal Inspection Lower Extremity: Positive for: Normal Inspection Neurological: Positive for: GCS=15 Psychiatric: Positive for: Oriented x 3 - Medications Active Medications: Active Medications Generic Name Dose Route Start Last Admin Trade Name Freq PRN Reason Stop Dose Admin Acyclovir 400 mg 10/23/17 12:15 10/25/17 08:59 Zovirax PO 400 mg DAILY TERESE Administration Protocol Ascorbic Acid 500 mg 10/25/17 10:00 10/25/17 10:41 Vitamin C 500 Mg Tab PO 500 mg BID TERESE Administration Dexamethasone 4 mg 10/24/17 11:00 10/25/17 10:41 Decadron Inj IV 4 mg Q6H TERESE Administration Diphenhydramine HCl 25 mg 10/24/17 11:06 Benadryl IVP Q6 PRN Itching / Pruritus Famotidine 20 mg 10/22/17 10:00 10/25/17 08:59 Pepcid PO 20 mg DAILY TERESE Administration Finasteride 5 mg 10/25/17 10:00 10/25/17 10:41 Proscar PO 5 mg DAILY TERESE Administration Heparin Sodium (Porcine) 5,000 units 10/24/17 22:00 10/25/17 09:01 Heparin SC 5,000 units BID TERESE Administration Hydromorphone/Sodium Chloride 6 mg 10/24/17 11:05 10/24/17 12:05 Dilaudid Swedger IV 6 mg Q4H PRN Administration Pain, severe (8-10) Protocol Ceftriaxone Sodium 1 gm/ 100 mls @ 100 mls/hr 10/24/17 06:00 10/25/17 05:03 Sodium Chloride IVPB 100 mls/hr Q12H TERESE Administration Protocol Potassium Chloride/Dextrose/Sod Cl 1,000 mls @ 80 mls/hr 10/24/17 11:00 10/25 05:02 Potassium Chl 20 Meq In D5-1/2ns IV 80 mls/hr .[id number] TERESE Administration Vancomycin/Sodium Chloride 1 gm in 200 mls @ 133.333 mls/hr 10/24/17 22:45 10:42 Vancomycin 1 Gm/Ns 200 Ml IVPB 133.333 mls/hr Q12H TERESE Administration Insulin Aspart 0 unit 10/25/17 11:30 Novolog SC ACHS TERESE Protocol Multivitamins/Vitamin C 5 ml 10/25/17 10:00 10/25/17 10:42 Multi-Delyn Liquid PO 5 ml DAILY TERESE Administration Ondansetron HCl 4 mg 10/24/17 11:06 Zofran Inj IVP Q8H PRN Nausea/Vomiting Oxybutynin Chloride 5 mg 10/22/17 10:00 10/25/17 09:00 Ditropan Tab PO 5 mg TID TERESE Administration Senna/Docusate Sodium 1 tab 10/25/17 10:00 10/25/17 10:42 Senokot S 50 Mg-8.6 Mg PO 1 tab DAILY TERESE Administration Tamsulosin HCl 0.4 mg 10/22/17 10:00 10/25/17 08:59 Flomax PO 0.4 mg DAILY TERESE Administration Zinc Sulfate 220 mg 10/25/17 10:00 10/25/17 10:41 Zinc Sulfate 220 Mg Cap PO 220 mg DAILY TERESE Administration - Patient Studies Lab Studies: Microbiology Studies 10/22/17 06:20 Blood Culture - Preliminary Blood-Venous NO GROWTH AFTER 3 DAYS 10/22/17 06:20 Blood Culture - Preliminary Blood-Venous NO GROWTH AFTER 3 DAYS 10/22/17 00:20 Urine Culture - Final Urine,Montanez Enterococcus Faecalis Lab Studies 10/25/17 10/25/17 10/23/17 Range/Units 06:36 06:36 11:27 WBC 8.0 (4.8-10.8) K/uL RBC 3.79 L (4.40-5.90) Mil/uL Hgb 10.2 L (12.0-18.0) g/dL Hct 30.2 L (35.0-51.0) % MCV 79.7 L (80.0-94.0) fL MCH 27.0 (27.0-31.0) pg MCHC 33.9 (33.0-37.0) g/dL RDW 14.0 (11.5-14.5) % Plt Count 287 (130-400) K/uL MPV 8.7 (7.2-11.7) fL Neut % (Auto) 86.6 H (50.0-75.0) % Lymph % (Auto) 7.5 L (20.0-40.0) % Jasper % (Auto) 5.8 (0.0-10.0) % Eos % (Auto) 0.0 (0.0-4.0) % Baso % (Auto) 0.1 (0.0-2.0) % Neut # (Auto) 7.0 (1.8-7.0) K/uL Lymph # (Auto) 0.6 L (1.0-4.3) K/uL Jasper # (Auto) 0.5 (0.0-0.8) K/uL Eos # (Auto) 0.0 (0.0-0.7) K/uL Baso # (Auto) 0.0 (0.0-0.2) K/uL Neutrophils % (Manual) 92 H (50-75) % Band Neutrophils % 1 (0-2) % Lymphocytes % (Manual) 3 L (20-40) % Monocytes % (Manual) 4 (0-10) % Platelet Estimate Normal (NORMAL) RBC Morphology Normal Sodium 141 (132-148) mmol/L Potassium 5.2 (3.6-5.2) mmol/L Chloride 106 (98-107) mmol/L Carbon Dioxide 27 (22-30) mmol/L Anion Gap 13 (10-20) BUN 18 (9-20) mg/dL Creatinine 0.7 L (0.8-1.5) mg/dL Est GFR ( Amer) > 60 Est GFR (Non-Af Amer) > 60 Random Glucose 160 H (75-110) mg/dL Calcium 8.6 (8.6-10.4) mg/dl Phosphorus 3.4 (2.5-4.5) mg/dL Magnesium 2.0 (1.6-2.3) mg/dL Total Bilirubin 0.2 (0.2-1.3) mg/dL AST 27 (17-59) U/L ALT 33 (21-72) U/L Alkaline Phosphatase 59 (38-126) U/L Total Protein 5.7 L (6.3-8.3) g/dL Albumin 3.0 L D (3.5-5.0) g/dL Globulin 2.7 (2.2-3.9) gm/dL Albumin/Globulin Ratio 1.1 (1.0-2.1) Serum Immunofixation Detected H (Not Detected) Laboratory Results - last 24 hr 10/23/17 10/25/17 10/25/17 11:27 06:36 06:36 WBC 8.0 RBC 3.79 L Hgb 10.2 L Hct 30.2 L MCV 79.7 L MCH 27.0 MCHC 33.9 RDW 14.0 Plt Count 287 MPV 8.7 Neut % (Auto) 86.6 H Lymph % (Auto) 7.5 L Jasper % (Auto) 5.8 Eos % (Auto) 0.0 Baso % (Auto) 0.1 Neut # (Auto) 7.0 Lymph # (Auto) 0.6 L Jasper # (Auto) 0.5 Eos # (Auto) 0.0 Baso # (Auto) 0.0 Neutrophils % (Manual) 92 H Band Neutrophils % 1 Lymphocytes % (Manual) 3 L Monocytes % (Manual) 4 Platelet Estimate Normal RBC Morphology Normal Sodium 141 Potassium 5.2 Chloride 106 Carbon Dioxide 27 Anion Gap 13 BUN 18 Creatinine 0.7 L Est GFR ( Amer) > 60 Est GFR (Non-Af Amer) > 60 Random Glucose 160 H Calcium 8.6 Phosphorus 3.4 Magnesium 2.0 Total Bilirubin 0.2 AST 27 ALT 33 Alkaline Phosphatase 59 Total Protein 5.7 L Albumin 3.0 L D Globulin 2.7 Albumin/Globulin Ratio 1.1 Serum Immunofixation Detected H Review of Systems - Constitutional Constitutional: absent: Chills, Weakness - Cardiovascular Cardiovascular: absent: Chest Pain, Dyspnea, Edema, Palpitations - Respiratory Respiratory: absent: Cough, Dyspnea - Gastrointestinal Gastrointestinal: absent: Abdominal Pain, Nausea - Musculoskeletal Musculoskeletal: absent: Back Pain Critical Care Progress Note - Nutrition Nutrition: Nutrition Category Date Time Status Regular Diet [DIET] Diets 10/23/17 Dinner Active Assessment/Plan - Assessment and Plan (Free Text) Assessment: 61 yo M s/p decompressive laminectomy POD 1 Neuro: s/p cord decompression -neuro checks -decadron 40 q6 -Neurosx Dr. Arambula Heme/Onc: -f/u renal mass? -consult Dr. Pulido GI: -reg diet Constipation -senna/colace : Enterococcus faecalis + UTI -rocephin -vanco -ID consult Dr. Ambrocio Urinary retention -flomax .4mg -ditropan 5mg TID-neurogenic bladder -Urology consult Dr. Nation Ppx -heparin 5000 q12 -pepcid 20 -SCD Case discussed w/ Dr. Rick PGY1 <Thomas Rick M - Last Filed: 10/26/17 17:05> CCU Objective - Vital Signs / Intake & Output Vital Signs (Last 4 hours): Vital Signs Temp Pulse Resp BP Pulse Ox 10/26/17 15:00 98.2 F 83 20 135/72 96 Intake and Output (Last 8hrs): Intake & Output 10/26/17 10/26/17 10/26/17 06:59 14:59 22:59 Intake Total 660 Output Total 890 40 Balance -890 620 Intake: Intake, IV Amount 660 Right Antecubital 660 Output: Drainage 40 40 Back 40 40 Urine 850 Emesis 0 Other: # Bowel Movements 0 - Medications Active Medications: Active Medications Generic Name Dose Route Start Last Admin Trade Name Freq PRN Reason Stop Dose Admin Acyclovir 400 mg 10/23/17 12:15 10/26/17 09:54 Zovirax PO 400 mg DAILY TERESE Administration Protocol Ascorbic Acid 500 mg 10/25/17 10:00 10/26/17 09:26 Vitamin C 500 Mg Tab PO 500 mg BID TERESE Administration Dexamethasone 4 mg 10/24/17 11:00 10/26/17 10:11 Decadron Inj IV 4 mg Q6H TERESE Administration Diphenhydramine HCl 25 mg 10/24/17 11:06 Benadryl IVP Q6 PRN Itching / Pruritus Famotidine 20 mg 10/22/17 10:00 10/26/17 09:54 Pepcid PO 20 mg DAILY TERESE Administration Finasteride 5 mg 10/25/17 10:00 10/26/17 10:00 Proscar PO 5 mg DAILY TERESE Administration Heparin Sodium (Porcine) 5,000 units 10/25/17 22:00 10/26/17 10:01 Heparin SC 5,000 units Q12 TERESE Administration Ceftriaxone Sodium 1 gm/ 100 mls @ 100 mls/hr 10/24/17 06:00 10/26/17 05:32 Sodium Chloride IVPB 100 mls/hr Q12H TERESE Administration Protocol Potassium Chloride/Dextrose/Sod Cl 1,000 mls @ 80 mls/hr 10/24/17 11:00 10/26 01:25 Potassium Chl 20 Meq In D5-1/2ns IV 80 mls/hr .[id number] TERESE Administration Vancomycin/Sodium Chloride 1 gm in 200 mls @ 133.333 mls/hr 10/24/17 22:45 10:00 Vancomycin 1 Gm/Ns 200 Ml IVPB 133.333 mls/hr Q12H TERESE Administration Insulin Aspart 0 unit 10/25/17 11:30 10/26/17 12:00 Novolog SC Not Given ACHS [facility] Protocol Multivitamins/Vitamin C 5 ml 10/25/17 10:00 10/26/17 09:55 Multi-Delyn Liquid PO 5 ml DAILY TERESE Administration Ondansetron HCl 4 mg 10/24/17 11:06 Zofran Inj IVP Q8H PRN Nausea/Vomiting Oxybutynin Chloride 5 mg 10/22/17 10:00 10/26/17 14:13 Ditropan Tab PO 5 mg TID TERESE Administration Senna/Docusate Sodium 1 tab 10/25/17 10:00 10/26/17 09:54 Senokot S 50 Mg-8.6 Mg PO 1 tab DAILY TREESE Administration Tamsulosin HCl 0.4 mg 10/22/17 10:00 10/26/17 09:26 Flomax PO 0.4 mg DAILY TERESE Administration Zinc Sulfate 220 mg 10/25/17 10:00 10/26/17 09:53 Zinc Sulfate 220 Mg Cap PO 220 mg DAILY TERESE Administration - Patient Studies Lab Studies: Microbiology Studies 10/22/17 06:20 Blood Culture - Preliminary Blood-Venous NO GROWTH AFTER 4 DAYS 10/22/17 06:20 Blood Culture - Preliminary Blood-Venous NO GROWTH AFTER 4 DAYS 10/24/17 14:52 MRSA Culture (Admit) - Final Nose MRSA NOT DETECTED Lab Studies 10/26/17 10/26/17 10/25/17 Range/Units 09:00 06:13 21:28 Hemoglobinopathy Red Blood Count (4.20-5.80) Mill/mcL Hemoglobinopathy Hct (38.5-50.0) % Hemoglobinopathy Hgb (13.2-17.1) g/dL Hemoglobinopathy MCV (80.0-100.0) fL Hemoglobinopathy MCH (27.0-33.0) pg Hemoglobinopathy RDW (11.0-15.0) % Sodium 141 (132-148) mmol/L Potassium 4.7 (3.6-5.2) mmol/L Chloride 106 (98-107) mmol/L Carbon Dioxide 21 L (22-30) mmol/L Anion Gap 18 (10-20) BUN 18 (9-20) mg/dL Creatinine 0.7 L (0.8-1.5) mg/dL Est GFR ( Amer) > 60 Est GFR (Non-Af Amer) > 60 POC Glucose (mg/dL) 151 H 193 H (65-110) mg/dL Random Glucose 131 H (75-110) mg/dL Calcium 9.1 (8.6-10.4) mg/dl Total Bilirubin 0.3 (0.2-1.3) mg/dL AST 27 (17-59) U/L ALT 36 (21-72) U/L Alkaline Phosphatase 71 (38-126) U/L Total Protein 6.2 L (6.3-8.3) g/dL Albumin 3.4 L (3.5-5.0) g/dL Globulin 2.8 (2.2-3.9) gm/dL Albumin/Globulin Ratio 1.2 (1.0-2.1) 10/25/17 10/24/17 Range/Units 16:07 07:43 Hemoglobinopathy Red Blood Count 4.33 (4.20-5.80) Mill/mcL Hemoglobinopathy Hct 36.2 L (38.5-50.0) % Hemoglobinopathy Hgb 11.9 L (13.2-17.1) g/dL Hemoglobinopathy MCV 83.5 (80.0-100.0) fL Hemoglobinopathy MCH 27.5 (27.0-33.0) pg Hemoglobinopathy RDW 14.9 (11.0-15.0) % Sodium (132-148) mmol/L Potassium (3.6-5.2) mmol/L Chloride (98-107) mmol/L Carbon Dioxide (22-30) mmol/L Anion Gap (10-20) BUN (9-20) mg/dL Creatinine (0.8-1.5) mg/dL Est GFR ( Amer) Est GFR (Non-Af Amer) POC Glucose (mg/dL) 159 H (65-110) mg/dL Random Glucose (75-110) mg/dL Calcium (8.6-10.4) mg/dl Total Bilirubin (0.2-1.3) mg/dL AST (17-59) U/L ALT (21-72) U/L Alkaline Phosphatase (38-126) U/L Total Protein (6.3-8.3) g/dL Albumin (3.5-5.0) g/dL Globulin (2.2-3.9) gm/dL Albumin/Globulin Ratio (1.0-2.1) Laboratory Results - last 24 hr 10/24/17 10/25/17 10/25/17 07:43 16:07 21:28 Hemoglobinopathy Red Blood Count 4.33 Hemoglobinopathy Hct 36.2 L Hemoglobinopathy Hgb 11.9 L Hemoglobinopathy MCV 83.5 Hemoglobinopathy MCH 27.5 Hemoglobinopathy RDW 14.9 Sodium Potassium Chloride Carbon Dioxide Anion Gap BUN Creatinine Est GFR ( Amer) Est GFR (Non-Af Amer) POC Glucose (mg/dL) 159 H 193 H Random Glucose Calcium Total Bilirubin AST ALT Alkaline Phosphatase Total Protein Albumin Globulin Albumin/Globulin Ratio 10/26/17 10/26/17 06:13 09:00 Hemoglobinopathy Red Blood Count Hemoglobinopathy Hct Hemoglobinopathy Hgb Hemoglobinopathy MCV Hemoglobinopathy MCH Hemoglobinopathy RDW Sodium 141 Potassium 4.7 Chloride 106 Carbon Dioxide 21 L Anion Gap 18 BUN 18 Creatinine 0.7 L Est GFR ( Amer) > 60 Est GFR (Non-Af Amer) > 60 POC Glucose (mg/dL) 151 H Random Glucose 131 H Calcium 9.1 Total Bilirubin 0.3 AST 27 ALT 36 Alkaline Phosphatase 71 Total Protein 6.2 L Albumin 3.4 L Globulin 2.8 Albumin/Globulin Ratio 1.2 Critical Care Progress Note - Nutrition Nutrition: Nutrition Category Date Time Status Regular Diet [DIET] Diets 10/23/17 Dinner Active Assessment/Plan - Assessment and Plan (Free Text) Assessment: Above patient seen and examined at bedside with above resident. Patient post neurovertebral surgery. -continue treatment as per neurosurgeon -shreya mobilization. pt/ot -resume home medications - Date & Time Date: 10/25/17 Time: 19:00
[2017-10-25] MEDS: (Novolog) Insulin Aspart, Recombinant 100 u/ml 10 ml vial SC SCH ×3 (12:30→21:28)
--- NOTE | 2017-10-25 13:18 | PN ---
DATE: 10/25/2017 TIME OF EVALUATION: 07:15 a.m. SUBJECTIVE: Neurologic problem of cord compression, status post decompression and spinal fusion. Postoperative day #2. PHYSICAL EXAMINATION: GENERAL: The patient has been in good mood. Awake, alert, oriented to person, place, and time. Speech is a little better. Denies any complaints of his back. VITAL SIGNS: Blood pressure 113/65, mean arterial pressure of 81, respiratory rate 18, temperature afebrile with a pulse rate of 67. MOTOR EXAMINATION: Both lower extremities, no movements noted. However, he could appreciate touch, temperature, as well as position sense. Bilateral Babinski sign, which is now changed. The patient is still presenting with upper motor neuron dysfunction. When medically stable, the patient is recommended to be moved to acute rehabilitation. In [place] point of view, the patient has already been treated with Lemtrada. The patient is scheduled to have a second dose of Lemtrada probably soon that can be given as outpatient. That could be scheduled and arranged during outpatient times. Continue the present management. DVT prophylaxis should be continued. The patient will be followed closely with you. Tariq Pelayo MD
--- NOTE | 2017-10-25 13:56 | CP.PCM.PN ---
Subjective - Date & Time of Evaluation Date of Evaluation: 10/25/17 Time of Evaluation: 13:55 - Subjective Subjective: patient is recovering postop #2 Vital signs are stable. No power in the lower extremities so far, but has sensation Urine shows Enterococcus faecalis on 2 IV antibiotics Rocephin plus Vanco Discussed with oncology for further treatment. Objective - Vital Signs/Intake and Output Vital Signs (last 24 hours): Temp Pulse Resp BP Pulse Ox 97.9 F 71 19 148/67 98 10/25/17 04:00 10/25/17 13:00 10/25/17 13:00 10/25/17 12:51 10/25/17 09:00 Intake and Output: 10/25/17 10/25/17 11:59 23:59 Intake Total 1560 300 Output Total 1420 0 Balance 140 300 - Medications Medications: Current Medications Acyclovir (Zovirax) 400 mg PO DAILY [facility] PRN Reason: Protocol Last Admin: 10/25/17 08:59 Dose: 400 mg Ascorbic Acid (Vitamin C 500 Mg Tab) 500 mg PO BID [facility] Last Admin: 10/25/17 10:41 Dose: 500 mg Dexamethasone (Decadron Inj) 4 mg IV Q6H [facility] Last Admin: 10/25/17 10:41 Dose: 4 mg Diphenhydramine HCl (Benadryl) 25 mg IVP Q6 PRN PRN Reason: Itching / Pruritus Famotidine (Pepcid) 20 mg PO DAILY [facility] Last Admin: 10/25/17 08:59 Dose: 20 mg Finasteride (Proscar) 5 mg PO DAILY [facility] Last Admin: 10/25/17 10:41 Dose: 5 mg Heparin Sodium (Porcine) (Heparin) 5,000 units SC BID [facility] Last Admin: 10/25/17 09:01 Dose: 5,000 units Hydromorphone/Sodium Chloride (Dilaudid Babbitter) 6 mg IV Q4H PRN; Protocol PRN Reason: Pain, severe (8-10) Last Admin: 10/24/17 12:05 Dose: 6 mg Ceftriaxone Sodium 1 gm/ (Sodium Chloride) 100 mls @ 100 mls/hr IVPB Q12H TERESE PRN Reason: Protocol Last Admin: 10/25/17 05:03 Dose: 100 mls/hr Potassium Chloride/Dextrose/Sod Cl (Potassium Chl 20 Meq In D5-1/2ns) 1,000 mls @ 80 mls/hr IV .[id number] [facility] Last Admin: 10/25/17 05:02 Dose: 80 mls/hr Vancomycin/Sodium Chloride (Vancomycin 1 Gm/Ns 200 Ml) 1 gm in 200 mls @ 133.333 mls/hr IVPB Q12H [facility] Last Admin: 10/25/17 10:42 Dose: 133.333 mls/hr Insulin Aspart (Novolog) 0 unit SC ACHS TERESE PRN Reason: Protocol Last Admin: 10/25/17 12:30 Dose: 2 u Multivitamins/Vitamin C (Multi-Delyn Liquid) 5 ml PO DAILY [facility] Last Admin: 10/25/17 10:42 Dose: 5 ml Ondansetron HCl (Zofran Inj) 4 mg IVP Q8H PRN PRN Reason: Nausea/Vomiting Oxybutynin Chloride (Ditropan Tab) 5 mg PO TID [facility] Last Admin: 10/25/17 09:00 Dose: 5 mg Senna/Docusate Sodium (Senokot S 50 Mg-8.6 Mg) 1 tab PO DAILY [facility] Last Admin: 10/25/17 10:42 Dose: 1 tab Tamsulosin HCl (Flomax) 0.4 mg PO DAILY [facility] Last Admin: 10/25/17 08:59 Dose: 0.4 mg Zinc Sulfate (Zinc Sulfate 220 Mg Cap) 220 mg PO DAILY [facility] Last Admin: 10/25/17 10:41 Dose: 220 mg - Labs Labs: 10/25/17 06:36 10/25/17 06:36 PT 14.3 SECONDS (9.7-12.2) H 10/23/17 11:27 INR 1.3 10/23/17 11:27 APTT 29 SECONDS (21-34) 10/23/17 11:27
--- NOTE | 2017-10-25 17:37 | RAD ---
Date of service: 10/24/2017 PROCEDURE: Intraoperative Fluoroscopy. HISTORY: SPINAL CORD COMPRESSION FINDINGS: Fluoroscopic assistance was provided for fusion related to spinal cord compression.. Please refer to the operative report from DIOMEDES Samaniego. Total fluoroscopic time (continuous mode) utilized during the procedure 114.5 (seconds) Total exam DLP: 24.95 (mGy)
--- NOTE | 2017-10-25 19:43 | CP.PCM.PN ---
Subjective - Date & Time of Evaluation Date of Evaluation: 10/25/17 Time of Evaluation: 19:43 - Subjective Subjective: CHIEF COMPLAINTS TODAY : s/p OR 10/24/17 POD # 1. AFEBRILE VSS. DENIES ANY PAIN ROS. HEENT : N. Resp : No cough, wheezing ,pleuritic CP ,or hemoptysis Cardio : No anginal CP, PND, orthopnea, palpitation GI : No abd.pain, n/v ,diarrhea or GI bleeding . FRONT END ARCHITECT : No headache, vertigo, focal deficit. Musculoskel : No joint swelling , Derm : No rash Psych : Normal affect. Ext : No swelling ,calf pain PE. Pt. is alert awake in no distress. V.S As noted in the chart Head ,ear nose,throat and eyes : Normal. Neck : Supple with normal carotids. Lungs: Clear air entry. Heart : S1 & S2 normal with S4. No murmur. Abd : Soft non tender with normal bowel sounds. Neuro : Moves all ext. with no localized deficit. Ext : No edema with intact pulses.Non tender calves Derm : No rashes or decubitus ulcer. LABS/RADIOLOGY: wbc 8.0. CREATININE 0.7/bun 18 Objective - Vital Signs/Intake and Output Vital Signs (last 24 hours): Temp Pulse Resp BP Pulse Ox 97.5 F L 90 18 143/76 97 10/25/17 12:00 10/25/17 19:00 10/25/17 19:00 10/25/17 16:51 10/25/17 12:00 Intake and Output: 10/25/17 10/26/17 18:59 06:59 Intake Total 1820 Output Total 1330 Balance 490 - Medications Medications: Current Medications Acyclovir (Zovirax) 400 mg PO DAILY [facility] PRN Reason: Protocol Last Admin: 10/25/17 08:59 Dose: 400 mg Ascorbic Acid (Vitamin C 500 Mg Tab) 500 mg PO BID [facility] Last Admin: 10/25/17 17:17 Dose: 500 mg Dexamethasone (Decadron Inj) 4 mg IV Q6H [facility] Last Admin: 10/25/17 17:18 Dose: 4 mg Diphenhydramine HCl (Benadryl) 25 mg IVP Q6 PRN PRN Reason: Itching / Pruritus Famotidine (Pepcid) 20 mg PO DAILY [facility] Last Admin: 10/25/17 08:59 Dose: 20 mg Finasteride (Proscar) 5 mg PO DAILY [facility] Last Admin: 10/25/17 10:41 Dose: 5 mg Heparin Sodium (Porcine) (Heparin) 5,000 units SC Q12 [facility] Hydromorphone/Sodium Chloride (Dilaudid Stitcher Feeder) 6 mg IV Q4H PRN; Protocol PRN Reason: Pain, severe (8-10) Last Admin: 10/24/17 12:05 Dose: 6 mg Ceftriaxone Sodium 1 gm/ (Sodium Chloride) 100 mls @ 100 mls/hr IVPB Q12H [facility] PRN Reason: Protocol Last Admin: 10/25/17 17:21 Dose: 100 mls/hr Potassium Chloride/Dextrose/Sod Cl (Potassium Chl 20 Meq In D5-1/2ns) 1,000 mls @ 80 mls/hr IV .[id number] [facility] Last Admin: 10/25/17 19:30 Dose: Not Given Vancomycin/Sodium Chloride (Vancomycin 1 Gm/Ns 200 Ml) 1 gm in 200 mls @ 133.333 mls/hr IVPB Q12H [facility] Last Admin: 10/25/17 10:42 Dose: 133.333 mls/hr Insulin Aspart (Novolog) 0 unit SC ACHS [facility] PRN Reason: Protocol Last Admin: 10/25/17 17:20 Dose: 1 u Multivitamins/Vitamin C (Multi-Delyn Liquid) 5 ml PO DAILY [facility] Last Admin: 10/25/17 10:42 Dose: 5 ml Ondansetron HCl (Zofran Inj) 4 mg IVP Q8H PRN PRN Reason: Nausea/Vomiting Oxybutynin Chloride (Ditropan Tab) 5 mg PO TID [facility] Last Admin: 10/25/17 17:17 Dose: 5 mg Senna/Docusate Sodium (Senokot S 50 Mg-8.6 Mg) 1 tab PO DAILY [facility] Last Admin: 10/25/17 10:42 Dose: 1 tab Tamsulosin HCl (Flomax) 0.4 mg PO DAILY [facility] Last Admin: 10/25/17 08:59 Dose: 0.4 mg Zinc Sulfate (Zinc Sulfate 220 Mg Cap) 220 mg PO DAILY [facility] Last Admin: 10/25/17 10:41 Dose: 220 mg - Labs Labs: 10/25/17 06:36 10/25/17 06:36 PT 14.3 SECONDS (9.7-12.2) H 10/23/17 11:27 INR 1.3 10/23/17 11:27 APTT 29 SECONDS (21-34) 10/23/17 11:27 Assessment and Plan (1) Cord compression Assessment & Plan: POD #1 STATUS POST t9 LAMINECTOMY/t8-T10 FUSION FIXATION 10/24/17. LWC PER SURGERY. AWAIT PATH REPORT. AWAIT CULTURES. Status: Acute (2) Leukocytosis Assessment & Plan: IMPROVING LEUKOCYTOSIS. URINE CULTURE +VE ENTEROCOCCUS FAECALIS S-AMPICILLIN/VANCOMYCIN. BLOOD CULTURES X2 SETS NEGATIVE TO DATE. CONTINUE iv ROCEPHIN 1 G EVERY 12 HOURLY .10/22/17 ADD IV VANCOMYCIN 1 G EVERY 12 HOURLY 10/24/17. PATIENT GOT ONE DOSE OF CEFAZOLIN / 1 DOSE OF VANCOMYCIN 1 G IN OR 10/24/17. Status: Acute (3) Abdominal pain Status: Acute (4) Acute urinary retention Status: Acute (5) Acute renal insufficiency Assessment & Plan: PATIENT PRESENTLY HAS A Gray CATHETER IN PLACE Status: Acute (6) Mass of left kidney Assessment & Plan: AWAIT PATH REPORT. PER - Status: Chronic (7) Multiple sclerosis Status: Chronic (8) Neurogenic bladder Status: Chronic
[2017-10-26] MEDS: Potassium Ch 20mEq in D5-1/2NS 1,000 ML IV SCH (01:25)
[2017-10-26] MEDS: Dexamethasone 4 mg/1 ml IV SCH ×3 (05:33→23:59)
[2017-10-26] MEDS: (Novolog) Insulin Aspart, Recombinant 100 u/ml 10 ml vial SC SCH ×2 (07:40→12:00)
--- NOTE | 2017-10-26 09:27 | CP.PCM.PN ---
Subjective - Date & Time of Evaluation Date of Evaluation: 10/26/17 Time of Evaluation: 09:24 - Subjective Subjective: POD 2 no complaints has more strength today breaks gravity with knee extension has some vague sensation,no proprioception wpund clean and dry,drain removed suggest aggressive pt OOb will leave [place] in 2 weeks and follow intermittently Objective - Vital Signs/Intake and Output Vital Signs (last 24 hours): Temp Pulse Resp BP Pulse Ox 97.6 F 67 18 153/80 H 96 10/26/17 07:00 10/26/17 07:00 10/26/17 07:00 10/26/17 07:00 10/26/17 07:00 Intake and Output: 10/26/17 10/26/17 06:59 18:59 Intake Total 660 Output Total 890 40 Balance -890 620 - Medications Medications: Current Medications Acyclovir (Zovirax) 400 mg PO DAILY [facility] PRN Reason: Protocol Last Admin: 10/25/17 08:59 Dose: 400 mg Ascorbic Acid (Vitamin C 500 Mg Tab) 500 mg PO BID [facility] Last Admin: 10/25/17 17:17 Dose: 500 mg Dexamethasone (Decadron Inj) 4 mg IV Q6H [facility] Last Admin: 10/26/17 05:33 Dose: 4 mg Diphenhydramine HCl (Benadryl) 25 mg IVP Q6 PRN PRN Reason: Itching / Pruritus Famotidine (Pepcid) 20 mg PO DAILY [facility] Last Admin: 10/25/17 08:59 Dose: 20 mg Finasteride (Proscar) 5 mg PO DAILY [facility] Last Admin: 10/25/17 10:41 Dose: 5 mg Heparin Sodium (Porcine) (Heparin) 5,000 units SC Q12 [facility] Last Admin: 10/25/17 21:18 Dose: 5,000 units Hydromorphone/Sodium Chloride (Dilaudid Melter Supervisor) 6 mg IV Q4H PRN; Protocol PRN Reason: Pain, severe (8-10) Last Admin: 10/24/17 12:05 Dose: 6 mg Ceftriaxone Sodium 1 gm/ (Sodium Chloride) 100 mls @ 100 mls/hr IVPB Q12H [facility] PRN Reason: Protocol Last Admin: 10/26/17 05:32 Dose: 100 mls/hr Potassium Chloride/Dextrose/Sod Cl (Potassium Chl 20 Meq In D5-1/2ns) 1,000 mls @ 80 mls/hr IV .[id number] [facility] Last Admin: 10/26/17 01:25 Dose: 80 mls/hr Vancomycin/Sodium Chloride (Vancomycin 1 Gm/Ns 200 Ml) 1 gm in 200 mls @ 133.333 mls/hr IVPB Q12H [facility] Last Admin: 10/25/17 22:33 Dose: 133.333 mls/hr Insulin Aspart (Novolog) 0 unit SC ACHS [facility] PRN Reason: Protocol Last Admin: 10/26/17 07:40 Dose: Not Given Multivitamins/Vitamin C (Multi-Delyn Liquid) 5 ml PO DAILY [facility] Last Admin: 10/25/17 10:42 Dose: 5 ml Ondansetron HCl (Zofran Inj) 4 mg IVP Q8H PRN PRN Reason: Nausea/Vomiting Oxybutynin Chloride (Ditropan Tab) 5 mg PO TID [facility] Last Admin: 10/25/17 17:17 Dose: 5 mg Senna/Docusate Sodium (Senokot S 50 Mg-8.6 Mg) 1 tab PO DAILY [facility] Last Admin: 10/25/17 10:42 Dose: 1 tab Tamsulosin HCl (Flomax) 0.4 mg PO DAILY [facility] Last Admin: 10/25/17 08:59 Dose: 0.4 mg Zinc Sulfate (Zinc Sulfate 220 Mg Cap) 220 mg PO DAILY [facility] Last Admin: 10/25/17 10:41 Dose: 220 mg - Labs Labs: 10/25/17 06:36 10/25/17 06:36 PT 14.3 SECONDS (9.7-12.2) H 10/23/17 11:27 INR 1.3 10/23/17 11:27 APTT 29 SECONDS (21-34) 10/23/17 11:27
[2017-10-26] MEDS: Docusate-Senna 50 mg-8.6 mg Tab PO SCH (09:54)
[2017-10-26] MEDS: Multiple Vitamins Oral Solution PO SCH (09:55)
[2017-10-26] MEDS: Vancomycin 1 gm/NS 200 ml 1 GM/200 ML BAG IVPB SCH (10:00)
[2017-10-26 10:22] LABS: MCH 27.5 pg (27.0-33.0); MCV 83.5 fL (80.0-100.0)
[2017-10-26 11:35] LABS: ALB/GLOB RATIO 1.2 (1.0-2.1); ALBUMIN 3.4 g/dL (3.5-5.0); ALT/SGPT 36 U/L (21-72); AST/SGOT 27 U/L (17-59); BLOOD UREA NITROGEN 18 mg/dL (9-20); CALCIUM 9.1 mg/dl (8.6-10.4); GFR AFRICAN-AMERICAN > 60; GFR NON-AFRICAN AMERICAN > 60
--- NOTE | 2017-10-26 11:57 | PN ---
DATE: 10/26/2017 TIME OF EVALUATION: 06:55 a.m. NEUROLOGICAL PROBLEM: Status post decompression and fusion at T8-T9 region with evidence of possible metastatic process. The patient is more awake, alert, oriented to person, place, and time. PHYSICAL EXAMINATION: Paraplegic, some voluntary movement in the toes. Significant Babinski sign. Deep tendon reflexes are 2+ in the knee. Plantars are absent. The patient presenting with status post cord decompression surgery, presenting with paraplegia. His workup consistent with the possible renal cell carcinoma. Still biopsy results are pending. 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 The patient is already seen by oncologist and urologist. The patient has been under workup for the above. Continue the present management and DVT prophylaxis. The patient's condition very well discussed with his yesterday. She is aware of his current problem. The patient will be followed closely with you. Tariq Pelayo MD
--- NOTE | 2017-10-26 12:50 | CP.PCM.PN ---
Subjective - Date & Time of Evaluation Date of Evaluation: 10/25/17 Time of Evaluation: 14:00 - Subjective Subjective: No complaints, more sensation in LE's Objective - Vital Signs/Intake and Output Vital Signs (last 24 hours): Temp Pulse Resp BP Pulse Ox 97.6 F 67 18 153/80 H 96 10/26/17 07:00 10/26/17 07:00 10/26/17 07:00 10/26/17 07:00 10/26/17 07:00 Intake and Output: 10/26/17 10/26/17 06:59 18:59 Intake Total 660 Output Total 890 40 Balance -890 620 - Medications Medications: Current Medications Acyclovir (Zovirax) 400 mg PO DAILY [facility] PRN Reason: Protocol Last Admin: 10/26/17 09:54 Dose: 400 mg Ascorbic Acid (Vitamin C 500 Mg Tab) 500 mg PO BID [facility] Last Admin: 10/26/17 09:26 Dose: 500 mg Dexamethasone (Decadron Inj) 4 mg IV Q6H [facility] Last Admin: 10/26/17 10:11 Dose: 4 mg Diphenhydramine HCl (Benadryl) 25 mg IVP Q6 PRN PRN Reason: Itching / Pruritus Famotidine (Pepcid) 20 mg PO DAILY [facility] Last Admin: 10/26/17 09:54 Dose: 20 mg Finasteride (Proscar) 5 mg PO DAILY [facility] Last Admin: 10/26/17 10:00 Dose: 5 mg Heparin Sodium (Porcine) (Heparin) 5,000 units SC Q12 [facility] Last Admin: 10/26/17 10:01 Dose: 5,000 units Hydromorphone/Sodium Chloride (Dilaudid Medical Laboratory Specialist) 6 mg IV Q4H PRN; Protocol PRN Reason: Pain, severe (8-10) Last Admin: 10/24/17 12:05 Dose: 6 mg Ceftriaxone Sodium 1 gm/ (Sodium Chloride) 100 mls @ 100 mls/hr IVPB Q12H [facility] PRN Reason: Protocol Last Admin: 10/26/17 05:32 Dose: 100 mls/hr Potassium Chloride/Dextrose/Sod Cl (Potassium Chl 20 Meq In D5-1/2ns) 1,000 mls @ 80 mls/hr IV .[id number] [facility] Last Admin: 10/26/17 01:25 Dose: 80 mls/hr Vancomycin/Sodium Chloride (Vancomycin 1 Gm/Ns 200 Ml) 1 gm in 200 mls @ 133.333 mls/hr IVPB Q12H [facility] Last Admin: 10/26/17 10:00 Dose: 133.333 mls/hr Insulin Aspart (Novolog) 0 unit SC ACHS [facility] PRN Reason: Protocol Last Admin: 10/26/17 07:40 Dose: Not Given Multivitamins/Vitamin C (Multi-Delyn Liquid) 5 ml PO DAILY [facility] Last Admin: 10/26/17 09:55 Dose: 5 ml Ondansetron HCl (Zofran Inj) 4 mg IVP Q8H PRN PRN Reason: Nausea/Vomiting Oxybutynin Chloride (Ditropan Tab) 5 mg PO TID [facility] Last Admin: 10/26/17 09:53 Dose: 5 mg Senna/Docusate Sodium (Senokot S 50 Mg-8.6 Mg) 1 tab PO DAILY [facility] Last Admin: 10/26/17 09:54 Dose: 1 tab Tamsulosin HCl (Flomax) 0.4 mg PO DAILY [facility] Last Admin: 10/26/17 09:26 Dose: 0.4 mg Zinc Sulfate (Zinc Sulfate 220 Mg Cap) 220 mg PO DAILY [facility] Last Admin: 10/26/17 09:53 Dose: 220 mg - Labs Labs: 10/25/17 06:36 10/26/17 09:00 PT 14.3 SECONDS (9.7-12.2) H 10/23/17 11:27 INR 1.3 10/23/17 11:27 APTT 29 SECONDS (21-34) 10/23/17 11:27 - Head Exam Head Exam: ATRAUMATIC - Eye Exam Eye Exam: Normal appearance - ENT Exam ENT Exam: Mucous Membranes Dry - Respiratory Exam Respiratory Exam: NORMAL BREATHING PATTERN - Cardiovascular Exam Cardiovascular Exam: +S1, +S2 - GI/Abdominal Exam GI & Abdominal Exam: Normal Bowel Sounds Assessment and Plan (1) Cord compression Assessment & Plan: secondary to metastasis s/p deompressive neurosurgery palliative radiation once surgical wound heals awaiting pathology report; suspect renal primary Status: Acute (2) Renal mass Assessment & Plan: suspect renal cancer; if confirmed, will discuss with urology about primary tumor resection Status: Acute (3) Anemia Assessment & Plan: chronic disease rule out hemoglobinopathy trait given microcytosis; no iron deficiency Status: Acute
--- NOTE | 2017-10-26 12:52 | CP.PCM.PN ---
Subjective - Date & Time of Evaluation Date of Evaluation: 10/26/17 Time of Evaluation: 12:00 - Subjective Subjective: No complaints, some sensation in legs Objective - Vital Signs/Intake and Output Vital Signs (last 24 hours): Temp Pulse Resp BP Pulse Ox 97.6 F 67 18 153/80 H 96 10/26/17 07:00 10/26/17 07:00 10/26/17 07:00 10/26/17 07:00 10/26/17 07:00 Intake and Output: 10/26/17 10/26/17 06:59 18:59 Intake Total 660 Output Total 890 40 Balance -890 620 - Medications Medications: Current Medications Acyclovir (Zovirax) 400 mg PO DAILY [facility] PRN Reason: Protocol Last Admin: 10/26/17 09:54 Dose: 400 mg Ascorbic Acid (Vitamin C 500 Mg Tab) 500 mg PO BID [facility] Last Admin: 10/26/17 09:26 Dose: 500 mg Dexamethasone (Decadron Inj) 4 mg IV Q6H [facility] Last Admin: 10/26/17 10:11 Dose: 4 mg Diphenhydramine HCl (Benadryl) 25 mg IVP Q6 PRN PRN Reason: Itching / Pruritus Famotidine (Pepcid) 20 mg PO DAILY [facility] Last Admin: 10/26/17 09:54 Dose: 20 mg Finasteride (Proscar) 5 mg PO DAILY [facility] Last Admin: 10/26/17 10:00 Dose: 5 mg Heparin Sodium (Porcine) (Heparin) 5,000 units SC Q12 [facility] Last Admin: 10/26/17 10:01 Dose: 5,000 units Hydromorphone/Sodium Chloride (Dilaudid Court Administrator) 6 mg IV Q4H PRN; Protocol PRN Reason: Pain, severe (8-10) Last Admin: 10/24/17 12:05 Dose: 6 mg Ceftriaxone Sodium 1 gm/ (Sodium Chloride) 100 mls @ 100 mls/hr IVPB Q12H [facility] PRN Reason: Protocol Last Admin: 10/26/17 05:32 Dose: 100 mls/hr Potassium Chloride/Dextrose/Sod Cl (Potassium Chl 20 Meq In D5-1/2ns) 1,000 mls @ 80 mls/hr IV .[id number] [facility] Last Admin: 10/26/17 01:25 Dose: 80 mls/hr Vancomycin/Sodium Chloride (Vancomycin 1 Gm/Ns 200 Ml) 1 gm in 200 mls @ 133.333 mls/hr IVPB Q12H [facility] Last Admin: 10/26/17 10:00 Dose: 133.333 mls/hr Insulin Aspart (Novolog) 0 unit SC ACHS [facility] PRN Reason: Protocol Last Admin: 10/26/17 07:40 Dose: Not Given Multivitamins/Vitamin C (Multi-Delyn Liquid) 5 ml PO DAILY [facility] Last Admin: 10/26/17 09:55 Dose: 5 ml Ondansetron HCl (Zofran Inj) 4 mg IVP Q8H PRN PRN Reason: Nausea/Vomiting Oxybutynin Chloride (Ditropan Tab) 5 mg PO TID [facility] Last Admin: 10/26/17 09:53 Dose: 5 mg Senna/Docusate Sodium (Senokot S 50 Mg-8.6 Mg) 1 tab PO DAILY [facility] Last Admin: 10/26/17 09:54 Dose: 1 tab Tamsulosin HCl (Flomax) 0.4 mg PO DAILY [facility] Last Admin: 10/26/17 09:26 Dose: 0.4 mg Zinc Sulfate (Zinc Sulfate 220 Mg Cap) 220 mg PO DAILY [facility] Last Admin: 10/26/17 09:53 Dose: 220 mg - Labs Labs: 10/25/17 06:36 10/26/17 09:00 PT 14.3 SECONDS (9.7-12.2) H 10/23/17 11:27 INR 1.3 10/23/17 11:27 APTT 29 SECONDS (21-34) 10/23/17 11:27 - Head Exam Head Exam: ATRAUMATIC - Eye Exam Eye Exam: Normal appearance - ENT Exam ENT Exam: Mucous Membranes Dry - Respiratory Exam Respiratory Exam: NORMAL BREATHING PATTERN - Cardiovascular Exam Cardiovascular Exam: +S1, +S2 - GI/Abdominal Exam GI & Abdominal Exam: Normal Bowel Sounds Assessment and Plan (1) Cord compression Assessment & Plan: secondary to malignancy s/p decompressive neurosurgery palliative radiation once surgical wound heals suspect renal primary, awaiting pathology Status: Acute (2) Renal mass Assessment & Plan: suspect malignancy if confirmed renal cell primary, will discuss with urology about resection of primary tumor Status: Acute (3) Anemia Assessment & Plan: chronic disease f/u hgb electropheresis no iron deficiency Status: Acute
--- NOTE | 2017-10-26 13:55 | CP.PCM.PN ---
Subjective - Date & Time of Evaluation Date of Evaluation: 10/26/17 Time of Evaluation: 13:53 - Subjective Subjective: patient currently is out of ICU on the floor There is no any specific complaints Patient can move and wiggle toes. Awaiting pathology of the spinal tumor. Discussed extensively with the family further plan and treatment. Continue physical therapy wound healing. Objective - Vital Signs/Intake and Output Vital Signs (last 24 hours): Temp Pulse Resp BP Pulse Ox 97.6 F 67 18 153/80 H 96 10/26/17 07:00 10/26/17 07:00 10/26/17 07:00 10/26/17 07:00 10/26/17 07:00 Intake and Output: 10/26/17 10/26/17 11:59 23:59 Intake Total 660 Output Total 930 Balance -270 - Medications Medications: Current Medications Acyclovir (Zovirax) 400 mg PO DAILY [facility] PRN Reason: Protocol Last Admin: 10/26/17 09:54 Dose: 400 mg Ascorbic Acid (Vitamin C 500 Mg Tab) 500 mg PO BID [facility] Last Admin: 10/26/17 09:26 Dose: 500 mg Dexamethasone (Decadron Inj) 4 mg IV Q6H [facility] Last Admin: 10/26/17 10:11 Dose: 4 mg Diphenhydramine HCl (Benadryl) 25 mg IVP Q6 PRN PRN Reason: Itching / Pruritus Famotidine (Pepcid) 20 mg PO DAILY [facility] Last Admin: 10/26/17 09:54 Dose: 20 mg Finasteride (Proscar) 5 mg PO DAILY [facility] Last Admin: 10/26/17 10:00 Dose: 5 mg Heparin Sodium (Porcine) (Heparin) 5,000 units SC Q12 [facility] Last Admin: 10/26/17 10:01 Dose: 5,000 units Hydromorphone/Sodium Chloride (Dilaudid Premix Concrete Batcher) 6 mg IV Q4H PRN; Protocol PRN Reason: Pain, severe (8-10) Last Admin: 10/24/17 12:05 Dose: 6 mg Ceftriaxone Sodium 1 gm/ (Sodium Chloride) 100 mls @ 100 mls/hr IVPB Q12H [facility] PRN Reason: Protocol Last Admin: 10/26/17 05:32 Dose: 100 mls/hr Potassium Chloride/Dextrose/Sod Cl (Potassium Chl 20 Meq In D5-1/2ns) 1,000 mls @ 80 mls/hr IV .[id number] [facility] Last Admin: 10/26/17 01:25 Dose: 80 mls/hr Vancomycin/Sodium Chloride (Vancomycin 1 Gm/Ns 200 Ml) 1 gm in 200 mls @ 133.333 mls/hr IVPB Q12H [facility] Last Admin: 10/26/17 10:00 Dose: 133.333 mls/hr Insulin Aspart (Novolog) 0 unit SC ACHS [facility] PRN Reason: Protocol Last Admin: 10/26/17 12:00 Dose: Not Given Multivitamins/Vitamin C (Multi-Delyn Liquid) 5 ml PO DAILY [facility] Last Admin: 10/26/17 09:55 Dose: 5 ml Ondansetron HCl (Zofran Inj) 4 mg IVP Q8H PRN PRN Reason: Nausea/Vomiting Oxybutynin Chloride (Ditropan Tab) 5 mg PO TID [facility] Last Admin: 10/26/17 09:53 Dose: 5 mg Senna/Docusate Sodium (Senokot S 50 Mg-8.6 Mg) 1 tab PO DAILY [facility] Last Admin: 10/26/17 09:54 Dose: 1 tab Tamsulosin HCl (Flomax) 0.4 mg PO DAILY [facility] Last Admin: 10/26/17 09:26 Dose: 0.4 mg Zinc Sulfate (Zinc Sulfate 220 Mg Cap) 220 mg PO DAILY [facility] Last Admin: 10/26/17 09:53 Dose: 220 mg - Labs Labs: 10/25/17 06:36 10/26/17 09:00 PT 14.3 SECONDS (9.7-12.2) H 10/23/17 11:27 INR 1.3 10/23/17 11:27 APTT 29 SECONDS (21-34) 10/23/17 11:27
--- NOTE | 2017-10-26 17:37 | PCM.URO ---
Urology Progress Note - Objective Lab Studies: Reviewed (chart reviewed plans to be discussed full note dictated ) Lab Results Last 24 Hours: Laboratory Results - last 24 hr 10/24/17 10/25/17 10/25/17 07:43 16:07 21:28 Hemoglobinopathy Red Blood Count 4.33 Hemoglobinopathy Hct 36.2 L Hemoglobinopathy Hgb 11.9 L Hemoglobinopathy MCV 83.5 Hemoglobinopathy MCH 27.5 Hemoglobinopathy RDW 14.9 Sodium Potassium Chloride Carbon Dioxide Anion Gap BUN Creatinine Est GFR ( Amer) Est GFR (Non-Af Amer) POC Glucose (mg/dL) 159 H 193 H Random Glucose Calcium Total Bilirubin AST ALT Alkaline Phosphatase Total Protein Albumin Globulin Albumin/Globulin Ratio 10/26/17 10/26/17 10/26/17 06:13 09:00 11:49 Hemoglobinopathy Red Blood Count Hemoglobinopathy Hct Hemoglobinopathy Hgb Hemoglobinopathy MCV Hemoglobinopathy MCH Hemoglobinopathy RDW Sodium 141 Potassium 4.7 Chloride 106 Carbon Dioxide 21 L Anion Gap 18 BUN 18 Creatinine 0.7 L Est GFR ( Amer) > 60 Est GFR (Non-Af Amer) > 60 POC Glucose (mg/dL) 151 H 124 H Random Glucose 131 H Calcium 9.1 Total Bilirubin 0.3 AST 27 ALT 36 Alkaline Phosphatase 71 Total Protein 6.2 L Albumin 3.4 L Globulin 2.8 Albumin/Globulin Ratio 1.2 10/26/17 16:23 Hemoglobinopathy Red Blood Count Hemoglobinopathy Hct Hemoglobinopathy Hgb Hemoglobinopathy MCV Hemoglobinopathy MCH Hemoglobinopathy RDW Sodium Potassium Chloride Carbon Dioxide Anion Gap BUN Creatinine Est GFR ( Amer) Est GFR (Non-Af Amer) POC Glucose (mg/dL) 173 H Random Glucose Calcium Total Bilirubin AST ALT Alkaline Phosphatase Total Protein Albumin Globulin Albumin/Globulin Ratio Intake & Output: Intake & Output 10/25/17 10/26/17 10/26/17 18:59 06:59 18:59 Intake Total 1820 660 Output Total 1330 890 40 Balance 490 -890 620 Intake: Intake, IV Amount 840 660 Right Antecubital 660 Right Hand 840 Oral 980 Output: Drainage 120 40 40 Back 120 40 40 Urine 1210 850 Urethral (Montanez) 350 Emesis 0 0 Other: # Bowel Movements 0 0 Vital Signs: Vital Signs - 24 hr 10/25/17 10/25/17 10/25/17 18:00 19:00 20:00 Temperature Pulse Rate 73 90 82 Respiratory 21 18 20 Rate Blood Pressure O2 Sat by Pulse Oximetry 10/25/17 10/25/17 10/25/17 20:45 21:00 21:26 Temperature Pulse Rate 74 82 81 Respiratory 19 26 H 22 Rate Blood Pressure 142/67 142/67 120/64 O2 Sat by Pulse 93 L 95 94 L Oximetry 10/25/17 10/25/17 10/26/17 22:11 23:05 02:54 Temperature 99.9 F H 98.7 F Pulse Rate 72 67 82 Respiratory 20 20 Rate Blood Pressure 147/77 118/69 O2 Sat by Pulse 97 97 Oximetry 10/26/17 10/26/17 07:00 15:00 Temperature 97.6 F 98.2 F Pulse Rate 67 83 Respiratory 18 20 Rate Blood Pressure 153/80 H 135/72 O2 Sat by Pulse 96 96 Oximetry
--- NOTE | 2017-10-26 22:34 | CP.PCM.PN ---
Subjective - Date & Time of Evaluation Date of Evaluation: 10/26/17 Time of Evaluation: 22:34 - Subjective Subjective: CHIEF COMPLAINTS TODAY : s/p OR 10/24/17 POD # 2. AFEBRILE VSS.doing well. DENIES ANY PAIN ROS. HEENT : N. Resp : No cough, wheezing ,pleuritic CP ,or hemoptysis Cardio : No anginal CP, PND, orthopnea, palpitation GI : No abd.pain, n/v ,diarrhea or GI bleeding . 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 Musculoskel : No joint swelling , Derm : No rash Psych : Normal affect. Ext : No swelling ,calf pain PE. Pt. is alert awake in no distress. V.S As noted in the chart Head ,ear nose,throat and eyes : Normal. Neck : Supple with normal carotids. Lungs: Clear air entry. Heart : S1 & S2 normal with S4. No murmur. Abd : Soft non tender with normal bowel sounds. Neuro : B/L LE WEAKNESS +VE UPGOING TOES Ext : No edema with intact pulses.Non tender calves Derm : No rashes or decubitus ulcer. LABS/RADIOLOGY: wbc 8.0. CREATININE 0.7/bun 18 Objective - Vital Signs/Intake and Output Vital Signs (last 24 hours): Temp Pulse Resp BP Pulse Ox 98.2 F 83 20 135/72 96 10/26/17 15:00 10/26/17 15:00 10/26/17 15:00 10/26/17 15:00 10/26/17 15:00 Intake and Output: 10/26/17 10/27/17 18:59 06:59 Intake Total 660 Output Total 40 Balance 620 - Medications Medications: Current Medications Acyclovir (Zovirax) 400 mg PO DAILY [facility] PRN Reason: Protocol Last Admin: 10/26/17 09:54 Dose: 400 mg Ascorbic Acid (Vitamin C 500 Mg Tab) 500 mg PO BID [facility] Last Admin: 10/26/17 21:21 Dose: 500 mg Dexamethasone (Decadron Inj) 4 mg IV Q6H [facility] Last Admin: 10/26/17 10:11 Dose: 4 mg Diphenhydramine HCl (Benadryl) 25 mg IVP Q6 PRN PRN Reason: Itching / Pruritus Famotidine (Pepcid) 20 mg PO DAILY [facility] Last Admin: 10/26/17 09:54 Dose: 20 mg Finasteride (Proscar) 5 mg PO DAILY [facility] Last Admin: 10/26/17 10:00 Dose: 5 mg Heparin Sodium (Porcine) (Heparin) 5,000 units SC Q12 [facility] Last Admin: 10/26/17 10:01 Dose: 5,000 units Ceftriaxone Sodium 1 gm/ (Sodium Chloride) 100 mls @ 100 mls/hr IVPB Q12H [facility] PRN Reason: Protocol Last Admin: 10/26/17 21:21 Dose: 100 mls/hr Potassium Chloride/Dextrose/Sod Cl (Potassium Chl 20 Meq In D5-1/2ns) 1,000 mls @ 80 mls/hr IV .[id number] [facility] Last Admin: 10/26/17 01:25 Dose: 80 mls/hr Vancomycin/Sodium Chloride (Vancomycin 1 Gm/Ns 200 Ml) 1 gm in 200 mls @ 133.333 mls/hr IVPB Q12H [facility] Last Admin: 10/26/17 10:00 Dose: 133.333 mls/hr Insulin Aspart (Novolog) 0 unit SC ACHS [facility] PRN Reason: Protocol Last Admin: 10/26/17 12:00 Dose: Not Given Multivitamins/Vitamin C (Multi-Delyn Liquid) 5 ml PO DAILY [facility] Last Admin: 10/26/17 09:55 Dose: 5 ml Ondansetron HCl (Zofran Inj) 4 mg IVP Q8H PRN PRN Reason: Nausea/Vomiting Oxybutynin Chloride (Ditropan Tab) 5 mg PO TID [facility] Last Admin: 10/26/17 21:20 Dose: 5 mg Senna/Docusate Sodium (Senokot S 50 Mg-8.6 Mg) 1 tab PO DAILY [facility] Last Admin: 10/26/17 09:54 Dose: 1 tab Tamsulosin HCl (Flomax) 0.4 mg PO DAILY [facility] Last Admin: 10/26/17 09:26 Dose: 0.4 mg Zinc Sulfate (Zinc Sulfate 220 Mg Cap) 220 mg PO DAILY [facility] Last Admin: 10/26/17 09:53 Dose: 220 mg - Labs Labs: 10/25/17 06:36 10/26/17 09:00 PT 14.3 SECONDS (9.7-12.2) H 10/23/17 11:27 INR 1.3 07/24/18 11:27 APTT 29 SECONDS (21-34) 10/23/17 11:27 Assessment and Plan (1) Cord compression Assessment & Plan: POD #2 STATUS POST t9 LAMINECTOMY/t8-T10 FUSION FIXATION 10/24/17. LWC PER SURGERY. PT MADE PT STANDUP TODAY. PER ,PT VOIDED URINE. AWAIT PATH REPORT. AWAIT CULTURES. Status: Acute (2) Leukocytosis Assessment & Plan: URINE CULTURE +VE ENTEROCOCCUS FAECALIS S-AMPICILLIN/VANCOMYCIN. BLOOD CULTURES X2 SETS NEGATIVE TO DATE. CONTINUE iv ROCEPHIN 1 G EVERY 12 HOURLY .10/22/17 ADD IV VANCOMYCIN 1 G EVERY 12 HOURLY 10/24/17 F/U VANCO TROUGH LEVEL . Status: Acute (3) Abdominal pain Assessment & Plan: DENIES ABDOMINAL PAIN . HAD A BM TODAY PER . Status: Acute (4) Acute urinary retention Status: Acute (5) Acute renal insufficiency Status: Acute (6) Mass of left kidney Assessment & Plan: AWAIT PATH REPORT OF SPINAL SURGERY. Status: Chronic (7) Multiple sclerosis Status: Chronic (8) Neurogenic bladder Status: Chronic
[2017-10-27] MEDS: Vancomycin 1 gm/NS 200 ml 1 GM/200 ML BAG IVPB SCH ×3 (00:03→22:46)
[2017-10-27] MEDS: (Novolog) Insulin Aspart, Recombinant 100 u/ml 10 ml vial SC SCH ×6 (00:22→22:52)
[2017-10-27] MEDS: Potassium Ch 20mEq in D5-1/2NS 1,000 ML IV SCH (01:58)
--- NOTE | 2017-10-27 05:22 | CON ---
DATE: 10/23/2017 UROLOGY CONSULTATION REASON FOR CONSULTATION: Urinary retention. HISTORY OF PRESENT ILLNESS: Mr. Antonio Jose is a very pleasant gentleman, I know quite well, I had been following him since for about last six months or so from 03/2017. My initial evaluation on the patient was as follows: The patient had presented with an acute abdomen with perforation. At that time, he had postop urinary retention, and we monitored him closely and followed up throughout the hospital, maintaining the indwelling Montanez catheter. He had failed a few voiding trials. Underlying all this, he has multiple sclerosis. He presented with an acute abdomen, and I have been following him through the office. As a separate matter, we have noted the presence of a renal mass. It was about 3 cm in size. I have to check my official records, but it was a relatively small lesion, about 3 x 2. We confirmed the lesion both in the hospital as well, so we have been following him after the initial confirmation for the lesion of the kidney by ultrasound, by CT scan criteria, and we have been observing him. Since the time that he was in the hospital, we then saw him in the office several times. We repeated ultrasound of his kidneys and have been following this known mass. From urology standpoint, we had also been following him for retention. The patient was not able to void until recently. Most recently, the last time when I saw him, the patient and his , she brings him to the office several times, and finally, I decided to give him a voiding trial and he was successful, and the what the reports is since that time, he has been voiding reasonably well with no episodes of retention until now. Now, he presented to the hospital with actually what appears to be a cord compression, and he has been unable to walk. The history here is from the . He is apparently planned for Neurosurgery for surgery tomorrow. He apparently is completely unable to ambulate, and apparently this is not related to the multiple sclerosis. Some other process is going on (see below), but I need to review it in the chart and see what else is being done. PAST MEDICAL AND SURGICAL HISTORY: As listed on the chart. He is the patient of . REVIEW OF SYSTEMS: Listed above. Otherwise, noncontributory. He has baseline multiple sclerosis. On a social note and review of systems' note. Several times he has come to the office, I have seen the patient and his . Each time, the is able to pick him up, move him around. He does not do any ambulation by himself that I have ever seen. His has attended to all his care, and he has been in his routine stable condition. He has been in his usual stable condition until most recently till the above admission process. PHYSICAL EXAMINATION: : Limited physical examination at this point. GENERAL: The patient is currently resting comfortably in his bed. VITAL SIGNS: Noted. ABDOMEN: Overall soft, nontender. Montanez catheter is in place, draining well (this is a relatively new Montanez catheter inserted). At my last office visit with the patient, the patient had a voiding trial and since then he has been able to void. DIAGNOSES: 1. Urinary retention. 2. Hematuria. 3. Voiding dysfunction with urinary retention. 4. New onset of neurologic condition that is preventing ambulation. 5. No renal mass. ASSESSMENT AND PLAN: In summary, a very pleasant gentleman with above history. From Urology standpoint, we are going to monitor the patient closely, leave the Montanez catheter in place. The patient to the OR for the neurosurgeons to evaluate and repair. I had a lengthy discussion with the about further plans. From urology standpoint, we are going to leave the Montanez catheter in place, and then at some point also consider discussing for followup for the renal mass, and then further plans can follow. Daniel Nation MD
[2017-10-27] MEDS: Dexamethasone 4 mg/1 ml IV SCH ×5 (05:25→22:46)
[2017-10-27] MEDS: Docusate-Senna 50 mg-8.6 mg Tab PO SCH (09:36)
[2017-10-27] MEDS: Multiple Vitamins Oral Solution PO SCH (09:54)
[2017-10-27 10:47] LABS: HEMOGLOBIN A 96.9 Percent (>96.0); HEMOGLOBIN A2 2.1 Percent (1.8-3.5)
--- NOTE | 2017-10-27 14:39 | CP.PCM.PN ---
Subjective - Date & Time of Evaluation Date of Evaluation: 10/27/17 Time of Evaluation: 14:38 - Subjective Subjective: currently patient has no complaints. Vital signs are stable afebrile. Physical examination lower extremities very minimal movement of the toes. Improved sensation. Pathology of the tumor removed from the surgery is still pending Continue IV antibiotics for UTI. Discussed with urologist and ID for further plan of treatment Objective - Vital Signs/Intake and Output Vital Signs (last 24 hours): Temp Pulse Resp BP Pulse Ox 97.6 F 76 20 139/76 96 10/27/17 08:00 10/27/17 08:00 10/27/17 08:00 10/27/17 08:00 10/27/17 08:00 Intake and Output: 10/27/17 10/27/17 11:59 23:59 Intake Total 780 Output Total 400 Balance 380 - Medications Medications: Current Medications Acyclovir (Zovirax) 400 mg PO DAILY [facility] PRN Reason: Protocol Last Admin: 10/27/17 09:36 Dose: 400 mg Ascorbic Acid (Vitamin C 500 Mg Tab) 500 mg PO BID [facility] Last Admin: 10/27/17 09:36 Dose: 500 mg Dexamethasone (Decadron Inj) 4 mg IV Q6H [facility] Last Admin: 10/27/17 11:00 Dose: 4 mg Diphenhydramine HCl (Benadryl) 25 mg IVP Q6 PRN PRN Reason: Itching / Pruritus Famotidine (Pepcid) 20 mg PO DAILY [facility] Last Admin: 10/27/17 09:36 Dose: 20 mg Finasteride (Proscar) 5 mg PO DAILY [facility] Last Admin: 10/27/17 09:54 Dose: 5 mg Heparin Sodium (Porcine) (Heparin) 5,000 units SC Q12 [facility] Last Admin: 10/27/17 09:37 Dose: 5,000 units Ceftriaxone Sodium 1 gm/ (Sodium Chloride) 100 mls @ 100 mls/hr IVPB Q12H [facility] PRN Reason: Protocol Last Admin: 10/27/17 06:00 Dose: 100 mls/hr Vancomycin/Sodium Chloride (Vancomycin 1 Gm/Ns 200 Ml) 1 gm in 200 mls @ 133.333 mls/hr IVPB Q12H [facility] Last Admin: 10/27/17 10:45 Dose: 133.333 mls/hr Insulin Aspart (Novolog) 0 unit SC ACHS [facility] PRN Reason: Protocol Last Admin: 10/27/17 12:00 Dose: Not Given Multivitamins/Vitamin C (Multi-Delyn Liquid) 5 ml PO DAILY [facility] Last Admin: 10/27/17 09:54 Dose: 5 ml Ondansetron HCl (Zofran Inj) 4 mg IVP Q8H [facility] PRN Reason: Nausea/Vomiting Oxybutynin Chloride (Ditropan Tab) 5 mg PO TID [facility] Last Admin: 10/27/17 09:36 Dose: 5 mg Senna/Docusate Sodium (Senokot S 50 Mg-8.6 Mg) 1 tab PO DAILY [facility] Last Admin: 10/27/17 09:36 Dose: 1 tab Tamsulosin HCl (Flomax) 0.4 mg PO DAILY [facility] Last Admin: 10/27/17 09:36 Dose: 0.4 mg Zinc Sulfate (Zinc Sulfate 220 Mg Cap) 220 mg PO DAILY [facility] Last Admin: 10/27/17 09:36 Dose: 220 mg - Labs Labs: 10/25/17 06:36 10/26/17 09:00 PT 14.3 SECONDS (9.7-12.2) H 10/23/17 11:27 INR 1.3 10/23/17 11:27 APTT 29 SECONDS (21-34) 10/23/17 11:27
--- NOTE | 2017-10-27 15:56 | CP.PCM.PN ---
Subjective - Date & Time of Evaluation Date of Evaluation: 10/27/17 Time of Evaluation: 15:56 - Subjective Subjective: CHIEF COMPLAINTS TODAY : s/p OR 10/24/17 POD # 3 AFEBRILE no new complaints. very minimal movements of his toes. Sensations intact and feels your touch on lower extremities. ROS. HEENT : N. Resp : No cough, wheezing ,pleuritic CP ,or hemoptysis Cardio : No anginal CP, PND, orthopnea, palpitation GI : No abd.pain, n/v ,diarrhea or GI bleeding . SALT CUTTER : No headache, vertigo, focal deficit. Musculoskel : No joint swelling , Derm : No rash Psych : Normal affect. Ext : No swelling ,calf pain PE. Pt. is alert awake in no distress. V.S As noted in the chart Head ,ear nose,throat and eyes : Normal. Neck : Supple with normal carotids. Lungs: Clear air entry. Heart : S1 & S2 normal with S4. No murmur. Abd : Soft non tender with normal bowel sounds. Neuro : B/L LE WEAKNESS +VE UPGOING TOES Ext : No edema with intact pulses.Non tender calves Derm : No rashes or decubitus ulcer. LABS/RADIOLOGY: MRSA nares nondetected. wbc 8.0. CREATININE 0.7/bun 18 Objective - Vital Signs/Intake and Output Vital Signs (last 24 hours): Temp Pulse Resp BP Pulse Ox 97.6 F 76 20 139/76 96 10/27/17 08:00 10/27/17 08:00 10/27/17 08:00 10/27/17 08:00 10/27/17 08:00 Intake and Output: 10/27/17 10/27/17 06:59 18:59 Intake Total 780 Output Total 1850 Balance -1070 - Medications Medications: Current Medications Acyclovir (Zovirax) 400 mg PO DAILY [facility] PRN Reason: Protocol Last Admin: 10/27/17 09:36 Dose: 400 mg Ascorbic Acid (Vitamin C 500 Mg Tab) 500 mg PO BID [facility] Last Admin: 10/27/17 09:36 Dose: 500 mg Dexamethasone (Decadron Inj) 4 mg IV Q6H [facility] Last Admin: 10/27/17 11:00 Dose: 4 mg Diphenhydramine HCl (Benadryl) 25 mg IVP Q6 PRN PRN Reason: Itching / Pruritus Famotidine (Pepcid) 20 mg PO DAILY [facility] Last Admin: 10/27/17 09:36 Dose: 20 mg Finasteride (Proscar) 5 mg PO DAILY [facility] Last Admin: 10/27/17 09:54 Dose: 5 mg Heparin Sodium (Porcine) (Heparin) 5,000 units SC Q12 [facility] Last Admin: 10/27/17 09:37 Dose: 5,000 units Ceftriaxone Sodium 1 gm/ (Sodium Chloride) 100 mls @ 100 mls/hr IVPB Q12H [facility] PRN Reason: Protocol Last Admin: 10/27/17 06:00 Dose: 100 mls/hr Vancomycin/Sodium Chloride (Vancomycin 1 Gm/Ns 200 Ml) 1 gm in 200 mls @ 133.333 mls/hr IVPB Q12H [facility] Last Admin: 10/27/17 10:45 Dose: 133.333 mls/hr Insulin Aspart (Novolog) 0 unit SC ACHS [facility] PRN Reason: Protocol Last Admin: 10/27/17 12:00 Dose: Not Given Multivitamins/Vitamin C (Multi-Delyn Liquid) 5 ml PO DAILY [facility] Last Admin: 10/27/17 09:54 Dose: 5 ml Ondansetron HCl (Zofran Inj) 4 mg IVP Q8H [facility] PRN Reason: Nausea/Vomiting Oxybutynin Chloride (Ditropan Tab) 5 mg PO TID [facility] Last Admin: 10/27/17 14:00 Dose: 5 mg Senna/Docusate Sodium (Senokot S 50 Mg-8.6 Mg) 1 tab PO DAILY [facility] Last Admin: 10/27/17 09:36 Dose: 1 tab Tamsulosin HCl (Flomax) 0.4 mg PO DAILY [facility] Last Admin: 10/27/17 09:36 Dose: 0.4 mg Zinc Sulfate (Zinc Sulfate 220 Mg Cap) 220 mg PO DAILY [facility] Last Admin: 10/27/17 09:36 Dose: 220 mg - Labs Labs: 10/25/17 06:36 10/26/17 09:00 PT 14.3 SECONDS (9.7-12.2) H 10/23/17 11:27 INR 1.3 10/23/17 11:27 APTT 29 SECONDS (21-34) 10/23/17 11:27 Assessment and Plan (1) Cord compression Assessment & Plan: POD #3 STATUS POST t9 LAMINECTOMY/t8-T10 FUSION FIXATION 10/24/17. LWC PER SURGERY. AWAIT PATH REPORT. AWAIT CULTURES. Status: Acute (2) Leukocytosis Assessment & Plan: URINE CULTURE +VE ENTEROCOCCUS FAECALIS S-AMPICILLIN/VANCOMYCIN. BLOOD CULTURES X2 SETS NEGATIVE TO DATE. CONTINUE iv ROCEPHIN 1 G EVERY 12 HOURLY .10/22/17 ADD IV VANCOMYCIN 1 G EVERY 12 HOURLY 10/24/17 F/U VANCO TROUGH LEVEL . Status: Acute (3) Abdominal pain Status: Acute (4) Acute urinary retention Status: Acute (5) Acute renal insufficiency Status: Acute (6) Mass of left kidney Assessment & Plan: f/u noted... AWAIT PATH REPORT. Status: Chronic (7) Multiple sclerosis Status: Chronic (8) Neurogenic bladder Status: Chronic
[2017-10-28] MEDS: Dexamethasone 4 mg/1 ml IV SCH ×4 (05:27→21:59)
[2017-10-28 07:44] LABS: ALB/GLOB RATIO 1.2 (1.0-2.1); ALBUMIN 2.7 g/dL (3.5-5.0); ALT/SGPT 32 U/L (21-72); AST/SGOT 13 U/L (17-59); BLOOD UREA NITROGEN 19 mg/dL (9-20); CALCIUM 7.9 mg/dl (8.6-10.4); GFR AFRICAN-AMERICAN > 60; GFR NON-AFRICAN AMERICAN > 60
[2017-10-28] MEDS: (Novolog) Insulin Aspart, Recombinant 100 u/ml 10 ml vial SC SCH ×4 (08:00→21:15)
[2017-10-28] MEDS: Docusate-Senna 50 mg-8.6 mg Tab PO SCH (09:36)
[2017-10-28] MEDS: Multiple Vitamins Oral Solution PO SCH (09:38)
--- NOTE | 2017-10-28 10:41 | CP.PCM.PN ---
Subjective - Date & Time of Evaluation Date of Evaluation: 10/28/17 Time of Evaluation: 10:39 - Subjective Subjective: stable unfortunately no neurological improvement wound clean and dry PT OT Objective - Vital Signs/Intake and Output Vital Signs (last 24 hours): Temp Pulse Resp BP Pulse Ox 98.0 F 63 20 127/70 97 10/28/17 07:15 10/28/17 07:40 10/28/17 07:15 10/28/17 07:15 10/28/17 07:15 Intake and Output: 10/28/17 10/28/17 06:59 18:59 Intake Total 780 Output Total 200 Balance 580 - Medications Medications: Current Medications Acyclovir (Zovirax) 400 mg PO DAILY [facility] PRN Reason: Protocol Last Admin: 10/27/17 09:36 Dose: 400 mg Ascorbic Acid (Vitamin C 500 Mg Tab) 500 mg PO BID [facility] Last Admin: 10/28/17 09:36 Dose: 500 mg Dexamethasone (Decadron Inj) 4 mg IV Q6H [facility] Last Admin: 10/28/17 05:27 Dose: 4 mg Diphenhydramine HCl (Benadryl) 25 mg IVP Q6 PRN PRN Reason: Itching / Pruritus Famotidine (Pepcid) 20 mg PO DAILY [facility] Last Admin: 10/28/17 09:36 Dose: 20 mg Finasteride (Proscar) 5 mg PO DAILY [facility] Last Admin: 10/28/17 09:37 Dose: 5 mg Heparin Sodium (Porcine) (Heparin) 5,000 units SC Q12 [facility] Last Admin: 10/28/17 09:37 Dose: 5,000 units Ceftriaxone Sodium 1 gm/ (Sodium Chloride) 100 mls @ 100 mls/hr IVPB Q12H [facility] PRN Reason: Protocol Last Admin: 10/28/17 05:30 Dose: 100 mls/hr Vancomycin/Sodium Chloride (Vancomycin 1 Gm/Ns 200 Ml) 1 gm in 200 mls @ 133.333 mls/hr IVPB Q12H [facility] Last Admin: 10/27/17 22:46 Dose: 133.333 mls/hr Insulin Aspart (Novolog) 0 unit SC ACHS [facility] PRN Reason: Protocol Last Admin: 10/28/17 08:00 Dose: Not Given Multivitamins/Vitamin C (Multi-Delyn Liquid) 5 ml PO DAILY [facility] Last Admin: 10/28/17 09:38 Dose: 5 ml Ondansetron HCl (Zofran Inj) 4 mg IVP Q8H [facility]N PRN Reason: Nausea/Vomiting Oxybutynin Chloride (Ditropan Tab) 5 mg PO TID [facility] Last Admin: 10/28/17 09:40 Dose: 5 mg Senna/Docusate Sodium (Senokot S 50 Mg-8.6 Mg) 1 tab PO DAILY [facility] Last Admin: 10/28/17 09:36 Dose: 1 tab Tamsulosin HCl (Flomax) 0.4 mg PO DAILY [facility] Last Admin: 10/28/17 09:37 Dose: 0.4 mg Zinc Sulfate (Zinc Sulfate 220 Mg Cap) 220 mg PO DAILY [facility] Last Admin: 10/28/17 09:37 Dose: 220 mg - Labs Labs: 10/25/17 06:36 10/28/17 07:04 PT 14.3 SECONDS (9.7-12.2) H 10/23/17 11:27 INR 1.3 10/23/17 11:27 APTT 29 SECONDS (21-34) 10/23/17 11:27
[2017-10-28] MEDS: Vancomycin 1 gm/NS 200 ml 1 GM/200 ML BAG IVPB SCH ×2 (10:45→21:59)
--- NOTE | 2017-10-28 14:57 | CP.PCM.PN ---
Subjective - Date & Time of Evaluation Date of Evaluation: 10/28/17 Time of Evaluation: 14:56 - Subjective Subjective: currently patient is has no complaints Vital signs are stable Physical examination remained same Awaiting pathology report from the resected tumor in the back Objective - Vital Signs/Intake and Output Vital Signs (last 24 hours): Temp Pulse Resp BP Pulse Ox 98.0 F 63 20 127/70 97 10/28/17 07:15 10/28/17 07:40 10/28/17 07:15 10/28/17 07:15 10/28/17 07:15 Intake and Output: 10/28/17 10/28/17 11:59 23:59 Intake Total 780 Output Total 200 Balance 580 - Medications Medications: Current Medications Acyclovir (Zovirax) 400 mg PO DAILY [facility] PRN Reason: Protocol Last Admin: 10/28/17 11:10 Dose: 400 mg Ascorbic Acid (Vitamin C 500 Mg Tab) 500 mg PO BID [facility] Last Admin: 10/28/17 09:36 Dose: 500 mg Dexamethasone (Decadron Inj) 4 mg IV Q6H [facility] Last Admin: 10/28/17 11:12 Dose: 4 mg Diphenhydramine HCl (Benadryl) 25 mg IVP Q6 PRN PRN Reason: Itching / Pruritus Famotidine (Pepcid) 20 mg PO DAILY [facility] Last Admin: 10/28/17 09:36 Dose: 20 mg Finasteride (Proscar) 5 mg PO DAILY [facility] Last Admin: 10/28/17 09:37 Dose: 5 mg Heparin Sodium (Porcine) (Heparin) 5,000 units SC Q12 [facility] Last Admin: 10/28/17 09:37 Dose: 5,000 units Ceftriaxone Sodium 1 gm/ (Sodium Chloride) 100 mls @ 100 mls/hr IVPB Q12H [facility] PRN Reason: Protocol Last Admin: 10/28/17 05:30 Dose: 100 mls/hr Vancomycin/Sodium Chloride (Vancomycin 1 Gm/Ns 200 Ml) 1 gm in 200 mls @ 133.333 mls/hr IVPB Q12H [facility] Last Admin: 10/28/17 10:45 Dose: 133.333 mls/hr Insulin Aspart (Novolog) 0 unit SC ACHS [facility] PRN Reason: Protocol Last Admin: 10/28/17 12:58 Dose: Not Given Multivitamins/Vitamin C (Multi-Delyn Liquid) 5 ml PO DAILY [facility] Last Admin: 10/28/17 09:38 Dose: 5 ml Ondansetron HCl (Zofran Inj) 4 mg IVP Q8H PRN PRN Reason: Nausea/Vomiting Oxybutynin Chloride (Ditropan Tab) 5 mg PO TID [facility] Last Admin: 10/28/17 14:00 Dose: 5 mg Senna/Docusate Sodium (Senokot S 50 Mg-8.6 Mg) 1 tab PO DAILY [facility] Last Admin: 10/28/17 09:36 Dose: 1 tab Tamsulosin HCl (Flomax) 0.4 mg PO DAILY [facility] Last Admin: 10/28/17 09:37 Dose: 0.4 mg Zinc Sulfate (Zinc Sulfate 220 Mg Cap) 220 mg PO DAILY [facility] Last Admin: 10/28/17 09:37 Dose: 220 mg - Labs Labs: 10/25/17 06:36 10/28/17 07:04 PT 14.3 SECONDS (9.7-12.2) H 10/23/17 11:27 INR 1.3 10/23/17 11:27 APTT 29 SECONDS (21-34) 10/23/17 11:27
--- NOTE | 2017-10-28 22:09 | CP.PCM.PN ---
Subjective - Date & Time of Evaluation Date of Evaluation: 10/27/17 Time of Evaluation: 17:20 - Subjective Subjective: No complaints, comfortable. Objective - Vital Signs/Intake and Output Vital Signs (last 24 hours): Temp Pulse Resp BP Pulse Ox 97.9 F 72 20 150/78 97 10/28/17 15:00 10/28/17 20:00 10/28/17 15:00 10/28/17 15:00 10/28/17 15:00 Intake and Output: 10/28/17 10/29/17 18:59 06:59 Output Total 2550 Balance -2550 - Medications Medications: Current Medications Acyclovir (Zovirax) 400 mg PO DAILY [facility] PRN Reason: Protocol Last Admin: 10/28/17 11:10 Dose: 400 mg Ascorbic Acid (Vitamin C 500 Mg Tab) 500 mg PO BID [facility] Last Admin: 10/28/17 17:29 Dose: 500 mg Dexamethasone (Decadron Inj) 4 mg IV Q6H [facility] Last Admin: 10/28/17 21:59 Dose: 4 mg Diphenhydramine HCl (Benadryl) 25 mg IVP Q6 PRN PRN Reason: Itching / Pruritus Famotidine (Pepcid) 20 mg PO DAILY [facility] Last Admin: 10/28/17 09:36 Dose: 20 mg Finasteride (Proscar) 5 mg PO DAILY [facility] Last Admin: 10/28/17 09:37 Dose: 5 mg Ceftriaxone Sodium 1 gm/ (Sodium Chloride) 100 mls @ 100 mls/hr IVPB Q12H [facility] PRN Reason: Protocol Last Admin: 10/28/17 17:30 Dose: 100 mls/hr Vancomycin/Sodium Chloride (Vancomycin 1 Gm/Ns 200 Ml) 1 gm in 200 mls @ 133.333 mls/hr IVPB Q12H [facility] Last Admin: 10/28/17 21:59 Dose: 133.333 mls/hr Insulin Aspart (Novolog) 0 unit SC ACHS [facility] PRN Reason: Protocol Last Admin: 10/28/17 21:15 Dose: Not Given Multivitamins/Vitamin C (Multi-Delyn Liquid) 5 ml PO DAILY [facility] Last Admin: 10/28/17 09:38 Dose: 5 ml Ondansetron HCl (Zofran Inj) 4 mg IVP Q8H PRN PRN Reason: Nausea/Vomiting Oxybutynin Chloride (Ditropan Tab) 5 mg PO TID [facility] Last Admin: 10/28/17 17:29 Dose: 5 mg Senna/Docusate Sodium (Senokot S 50 Mg-8.6 Mg) 1 tab PO DAILY [facility] Last Admin: 10/28/17 09:36 Dose: 1 tab Tamsulosin HCl (Flomax) 0.4 mg PO DAILY [facility] Last Admin: 10/28/17 09:37 Dose: 0.4 mg Zinc Sulfate (Zinc Sulfate 220 Mg Cap) 220 mg PO DAILY [facility] Last Admin: 10/28/17 09:37 Dose: 220 mg - Labs Labs: 10/25/17 06:36 10/28/17 07:04 PT 14.3 SECONDS (9.7-12.2) H 10/23/17 11:27 INR 1.3 10/23/17 11:27 APTT 29 SECONDS (21-34) 10/23/17 11:27 - Head Exam Head Exam: ATRAUMATIC - Eye Exam Eye Exam: Normal appearance - ENT Exam ENT Exam: Mucous Membranes Dry - Respiratory Exam Respiratory Exam: NORMAL BREATHING PATTERN - Cardiovascular Exam Cardiovascular Exam: +S1, +S2 - GI/Abdominal Exam GI & Abdominal Exam: Normal Bowel Sounds Assessment and Plan (1) Cord compression Assessment & Plan: s/p decompressive neurosurgery f/u path outpatient radiation once surgical wounds heal Status: Acute (2) Renal mass Assessment & Plan: suspect renal cell malignancy if neurosurgical path confirms renal carcinoma, ould benefit from resection of primary renal tumor Status: Acute (3) Anemia Assessment & Plan: anemia of chronic disease no evidence of iron deficiency or hemoglobinopathy Status: Acute
[2017-10-29] MEDS: Dexamethasone 4 mg/1 ml IV SCH ×3 (05:06→18:31)
[2017-10-29 07:46] LABS: ALB/GLOB RATIO 1.3 (1.0-2.1); ALBUMIN 2.9 g/dL (3.5-5.0); ALT/SGPT 34 U/L (21-72); AST/SGOT 16 U/L (17-59); BLOOD UREA NITROGEN 24 mg/dL (9-20); CALCIUM 8.6 mg/dl (8.6-10.4); GFR AFRICAN-AMERICAN > 60; GFR NON-AFRICAN AMERICAN > 60
[2017-10-29] MEDS: (Novolog) Insulin Aspart, Recombinant 100 u/ml 10 ml vial SC SCH ×4 (08:16→22:17)
[2017-10-29] MEDS: Docusate-Senna 50 mg-8.6 mg Tab PO SCH (09:18)
[2017-10-29] MEDS: Multiple Vitamins Oral Solution PO SCH (09:19)
[2017-10-29] MEDS: Vancomycin 1 gm/NS 200 ml 1 GM/200 ML BAG IVPB SCH ×2 (11:46→23:08)
--- NOTE | 2017-10-29 12:35 | PN ---
DATE: 10/29/2017 NEUROLOGICAL PROBLEM: Status post decompression for cord compression probably due to renal cell carcinoma. PHYSICAL EXAMINATION: VITAL SIGNS: Blood pressure 130/74, mean atrial pressure of 92, respiratory rate 20, pulse rate 67 regular, and temperature 98.1. NEUROLOGICAL: The patient's mood is normal. Speech is clear. Follows commands. He has movement of the lower extremity, some movement of the left leg than his right leg is noted. Significant loss of posterior column. Hyperreflexic and plantars are upgoing on both sides. Following surgery, the patient does not show any significant improvement as per motor functions as well as sensory function. His workup as well as tissue diagnosis is pending. Continue DVT prophylaxis and physical therapy at the bedside. Monoclonal gammopathy should be followed and waiting for recommendation from oncologist. The patient will be followed closely. Tariq Pelayo MD
--- NOTE | 2017-10-29 13:54 | CP.PCM.PN ---
Subjective - Date & Time of Evaluation Date of Evaluation: 10/29/17 Time of Evaluation: 13:54 - Subjective Subjective: patient clinically remains same. Afebrile vital signs are stable Physical examination no change in the lower extremity power Awaiting pathology report from the resected tumor from the lumbar spine. Patient will need a rehab. Objective - Vital Signs/Intake and Output Vital Signs (last 24 hours): Temp Pulse Resp BP Pulse Ox 98.0 F 78 18 142/70 96 10/29/17 08:21 10/29/17 08:21 10/29/17 08:21 10/29/17 08:21 10/29/17 08:21 Intake and Output: 10/29/17 10/29/17 11:59 23:59 Intake Total 220 Output Total 850 1500 Balance -630 -1500 - Medications Medications: Current Medications Acyclovir (Zovirax) 400 mg PO DAILY [facility] PRN Reason: Protocol Last Admin: 10/29/17 09:18 Dose: 400 mg Ascorbic Acid (Vitamin C 500 Mg Tab) 500 mg PO BID [facility] Last Admin: 10/29/17 09:19 Dose: 500 mg Dexamethasone (Decadron Inj) 4 mg IV Q12H [facility] Last Admin: 10/29/17 07:00 Dose: Not Given Diphenhydramine HCl (Benadryl) 25 mg IVP Q6 PRN PRN Reason: Itching / Pruritus Famotidine (Pepcid) 20 mg PO DAILY [facility] Last Admin: 10/29/17 09:19 Dose: 20 mg Finasteride (Proscar) 5 mg PO DAILY [facility] Last Admin: 10/29/17 09:18 Dose: 5 mg Ceftriaxone Sodium 1 gm/ (Sodium Chloride) 100 mls @ 100 mls/hr IVPB Q12H [facility] PRN Reason: Protocol Last Admin: 10/29/17 05:08 Dose: 100 mls/hr Vancomycin/Sodium Chloride (Vancomycin 1 Gm/Ns 200 Ml) 1 gm in 200 mls @ 133.333 mls/hr IVPB Q12H [facility] Last Admin: 10/29/17 11:46 Dose: 133.333 mls/hr Insulin Aspart (Novolog) 0 unit SC ACHS [facility] PRN Reason: Protocol Last Admin: 10/29/17 11:56 Dose: 1 u Multivitamins/Vitamin C (Multi-Delyn Liquid) 5 ml PO DAILY [facility] Last Admin: 10/29/17 09:19 Dose: 5 ml Ondansetron HCl (Zofran Inj) 4 mg IVP Q8H PRN PRN Reason: Nausea/Vomiting Oxybutynin Chloride (Ditropan Tab) 5 mg PO TID [facility] Last Admin: 10/29/17 13:22 Dose: 5 mg Senna/Docusate Sodium (Senokot S 50 Mg-8.6 Mg) 1 tab PO DAILY [facility] Last Admin: 10/29/17 09:18 Dose: 1 tab Tamsulosin HCl (Flomax) 0.4 mg PO DAILY [facility] Last Admin: 10/29/17 09:19 Dose: 0.4 mg Zinc Sulfate (Zinc Sulfate 220 Mg Cap) 220 mg PO DAILY [facility] Last Admin: 10/29/17 09:18 Dose: 220 mg - Labs Labs: 10/25/17 06:36 10/29/17 07:10 PT 14.3 SECONDS (9.7-12.2) H 10/23/17 11:27 INR 1.3 10/23/17 11:27 APTT 29 SECONDS (21-34) 10/23/17 11:27
--- NOTE | 2017-10-29 14:06 | CP.PCM.PN ---
Subjective - Date & Time of Evaluation Date of Evaluation: 10/29/17 Time of Evaluation: 14:06 - Subjective Subjective: CHIEF COMPLAINTS TODAY : s/p OR 10/24/17 POD # 5 AFEBRILE C/O CONSTIPATION very minimal movements of his toes. Sensations intact and feels your touch on lower extremities. F/U DR MORALES (NEUROSURGERY ) 10/28/17 NOTED ROS. HEENT : N. Resp : No cough, wheezing ,pleuritic CP ,or hemoptysis Cardio : No anginal CP, PND, orthopnea, palpitation GI : No abd.pain, n/v ,diarrhea or GI bleeding . GRADER MEAT : No headache, vertigo, focal deficit. Musculoskel : No joint swelling , Derm : No rash Psych : Normal affect. Ext : No swelling ,calf pain PE. Pt. is alert awake in no distress. V.S As noted in the chart Head ,ear nose,throat and eyes : Normal. Neck : Supple with normal carotids. Lungs: Clear air entry. Heart : S1 & S2 normal with S4. No murmur. Abd : Soft non tender with normal bowel sounds. Neuro : B/L LE WEAKNESS +VE UPGOING TOES Ext : No edema with intact pulses.Non tender calves Derm : No rashes or decubitus ulcer. LABS/RADIOLOGY: MRSA nares nondetected. CREAT 0.8/BUN 24 VANCO TROUGH 9.0 LOW. Objective - Vital Signs/Intake and Output Vital Signs (last 24 hours): Temp Pulse Resp BP Pulse Ox 98.0 F 78 18 142/70 96 10/29/17 08:21 10/29/17 08:21 10/29/17 08:21 10/29/17 08:21 10/29/17 08:21 Intake and Output: 10/29/17 10/29/17 06:59 18:59 Intake Total 1010 Output Total 3400 1500 Balance -2390 -1500 - Medications Medications: Current Medications Acyclovir (Zovirax) 400 mg PO DAILY [facility] PRN Reason: Protocol Last Admin: 10/29/17 09:18 Dose: 400 mg Ascorbic Acid (Vitamin C 500 Mg Tab) 500 mg PO BID [facility] Last Admin: 10/29/17 09:19 Dose: 500 mg Dexamethasone (Decadron Inj) 4 mg IV Q12H [facility] Last Admin: 10/29/17 07:00 Dose: Not Given Diphenhydramine HCl (Benadryl) 25 mg IVP Q6 PRN PRN Reason: Itching / Pruritus Famotidine (Pepcid) 20 mg PO DAILY [facility] Last Admin: 10/29/17 09:19 Dose: 20 mg Finasteride (Proscar) 5 mg PO DAILY [facility] Last Admin: 10/29/17 09:18 Dose: 5 mg Ceftriaxone Sodium 1 gm/ (Sodium Chloride) 100 mls @ 100 mls/hr IVPB Q12H [facility] PRN Reason: Protocol Last Admin: 10/29/17 05:08 Dose: 100 mls/hr Vancomycin/Sodium Chloride (Vancomycin 1 Gm/Ns 200 Ml) 1 gm in 200 mls @ 133.333 mls/hr IVPB Q12H [facility] Last Admin: 10/29/17 11:46 Dose: 133.333 mls/hr Insulin Aspart (Novolog) 0 unit SC ACHS [facility] PRN Reason: Protocol Last Admin: 10/29/17 11:56 Dose: 1 u Multivitamins/Vitamin C (Multi-Delyn Liquid) 5 ml PO DAILY [facility] Last Admin: 10/29/17 09:19 Dose: 5 ml Ondansetron HCl (Zofran Inj) 4 mg IVP Q8H [facility] PRN Reason: Nausea/Vomiting Oxybutynin Chloride (Ditropan Tab) 5 mg PO TID [facility] Last Admin: 10/29/17 13:22 Dose: 5 mg Senna/Docusate Sodium (Senokot S 50 Mg-8.6 Mg) 1 tab PO DAILY [facility] Last Admin: 10/29/17 09:18 Dose: 1 tab Tamsulosin HCl (Flomax) 0.4 mg PO DAILY [facility] Last Admin: 10/29/17 09:19 Dose: 0.4 mg Zinc Sulfate (Zinc Sulfate 220 Mg Cap) 220 mg PO DAILY [facility] Last Admin: 10/29/17 09:18 Dose: 220 mg - Labs Labs: 10/25/17 06:36 10/29/17 07:10 PT 14.3 SECONDS (9.7-12.2) H 10/23/17 11:27 INR 1.3 10/23/17 11:27 APTT 29 SECONDS (21-34) 10/23/17 11:27 Assessment and Plan (1) Cord compression Assessment & Plan: POD #5 STATUS POST t9 LAMINECTOMY/t8-T10 FUSION FIXATION 10/24/17. LWC PER SURGERY. AWAIT PATH REPORT. AWAIT CULTURES. Status: Acute (2) Leukocytosis Status: Acute (3) Abdominal pain Status: Acute (4) Acute urinary retention Status: Acute (5) Acute renal insufficiency Assessment & Plan: URINE CULTURE +VE ENTEROCOCCUS FAECALIS S-AMPICILLIN/VANCOMYCIN. BLOOD CULTURES X2 SETS NEGATIVE TO DATE. CONTINUE iv ROCEPHIN 1 G EVERY 12 HOURLY .10/22/17 INCREASE IV VANCOMYCIN 1250MG EVERY 12 HOURLY 10/24/17 F/U VANCO TROUGH LEVEL PRIOR TO 4TH DOSE AND KEEP BETWEEN 10- 20. REPEAT UA/AND URINE CULTURE TODAY Status: Acute (6) Mass of left kidney Assessment & Plan: AWAIT PATH REPORT OF BX SPINE ON CASE.. Status: Chronic (7) Multiple sclerosis Status: Chronic (8) Neurogenic bladder Assessment & Plan: PT HAS A ALEX PT DEVELOPED RETENTION. Status: Chronic
[2017-10-30] MEDS: Dexamethasone 4 mg/1 ml IV SCH ×2 (05:58→17:49)
[2017-10-30 07:15] LABS: URINE BILIRUBIN NEGATIVE (NEGATIVE); URINE BLOOD NEGATIVE (NEGATIVE); URINE CLARITY Clear (Clear); URINE COLOR Yellow (YELLOW); URINE GLUCOSE (UA) NORMAL (Normal); URINE LEUKOCYTE ESTERASE NEG Leu/uL (Negative); URINE PROTEIN NEGATIVE (NEGATIVE); URINE UROBILINOGEN NORMAL mg/dL (0.2-1.0)
[2017-10-30] MEDS: (Novolog) Insulin Aspart, Recombinant 100 u/ml 10 ml vial SC SCH ×4 (07:35→22:48)
[2017-10-30] MEDS: Docusate-Senna 50 mg-8.6 mg Tab PO SCH (10:10)
[2017-10-30 11:16] LABS: BASO % 0.1 % (0.0-2.0); HEMOGLOBIN 11.6 g/dL (12.0-18.0); LYMPH # 0.9 K/uL (1.0-4.3); LYMPH % 7.5 % (20.0-40.0); MEAN CORPUSCULAR HEMOGLOBIN 27.9 pg (27.0-31.0); MEAN PLATELET VOLUME 8.3 fL (7.2-11.7); MONO # 0.6 K/uL (0.0-0.8); MONO % 4.9 % (0.0-10.0); NEUT # 10.9 K/uL (1.8-7.0); NEUT % 87.5 % (50.0-75.0); RBC 4.17 Mil/uL (4.40-5.90); RED CELL DISTRIBUTION WIDTH 14.4 % (11.5-14.5)
[2017-10-30 11:26] LABS: PLATELET COUNT 446 K/uL (130-400); WHITE BLOOD COUNT 12.4 K/uL (4.8-10.8)
[2017-10-30 11:45] LABS: ANISOCYTOSIS SLIGHT; HYPOCHROMIC SLIGHT; LYMPHOCYTE 9 % (20-40); MONOCYTE 5 % (0-10); NEUTROPHIL 86 % (50-75); PLATELET ESTIMATE NORMAL (NORMAL); POIKILOCYTOSIS SLIGHT; TOTAL CELLS COUNTED 100
[2017-10-30] MEDS: Multiple Vitamins Oral Solution PO SCH (12:10)
--- NOTE | 2017-10-30 13:50 | CP.PCM.PN ---
Subjective - Date & Time of Evaluation Date of Evaluation: 10/30/17 Time of Evaluation: 13:50 - Subjective Subjective: patient clinically remains same. Afebrile vital signs are stable Physical examination no change in the lower extremity power Awaiting pathology report from the resected tumor from the lumbar spine. Patient will need a rehab. Objective - Vital Signs/Intake and Output Vital Signs (last 24 hours): Temp Pulse Resp BP Pulse Ox 97.4 F L 67 20 155/82 H 97 10/30/17 07:00 10/30/17 07:40 10/30/17 07:00 10/30/17 07:00 10/30/17 07:00 Intake and Output: 10/30/17 10/30/17 11:59 23:59 Intake Total 220 Output Total 600 Balance -380 - Medications Medications: Current Medications Acyclovir (Zovirax) 400 mg PO DAILY [facility] PRN Reason: Protocol Last Admin: 10/30/17 12:09 Dose: 400 mg Ascorbic Acid (Vitamin C 500 Mg Tab) 500 mg PO BID [facility] Last Admin: 10/30/17 10:10 Dose: 500 mg Dexamethasone (Decadron Inj) 4 mg IV Q12H [facility] Last Admin: 10/30/17 05:58 Dose: 4 mg Diphenhydramine HCl (Benadryl) 25 mg IVP Q6 PRN PRN Reason: Itching / Pruritus Famotidine (Pepcid) 20 mg PO DAILY [facility] Last Admin: 10/30/17 10:09 Dose: 20 mg Finasteride (Proscar) 5 mg PO DAILY [facility] Last Admin: 10/30/17 12:17 Dose: 5 mg Ceftriaxone Sodium 1 gm/ (Sodium Chloride) 100 mls @ 100 mls/hr IVPB Q12H [facility] PRN Reason: Protocol Last Admin: 10/30/17 05:14 Dose: 100 mls/hr Vancomycin HCl 1,250 mg/ (Sodium Chloride) 250 mls @ 166.6 mls/hr IVPB Q12H [facility] PRN Reason: Protocol Last Admin: 10/30/17 10:10 Dose: 166.6 mls/hr Insulin Aspart (Novolog) 0 unit SC ACHS [facility] PRN Reason: Protocol Last Admin: 10/30/17 12:02 Dose: Not Given Multivitamins/Vitamin C (Multi-Delyn Liquid) 5 ml PO DAILY [facility] Last Admin: 10/30/17 12:10 Dose: 5 ml Ondansetron HCl (Zofran Inj) 4 mg IVP Q8H [facility] PRN Reason: Nausea/Vomiting Oxybutynin Chloride (Ditropan Tab) 5 mg PO TID [facility] Last Admin: 10/30/17 13:41 Dose: 5 mg Senna/Docusate Sodium (Senokot S 50 Mg-8.6 Mg) 1 tab PO DAILY [facility] Last Admin: 10/30/17 10:10 Dose: 1 tab Tamsulosin HCl (Flomax) 0.4 mg PO DAILY [facility] Last Admin: 10/30/17 10:10 Dose: 0.4 mg Zinc Sulfate (Zinc Sulfate 220 Mg Cap) 220 mg PO DAILY [facility] Last Admin: 10/30/17 10:10 Dose: 220 mg - Labs Labs: 10/30/17 11:01 10/29/17 07:10 PT 14.3 SECONDS (9.7-12.2) H 10/23/17 11:27 INR 1.3 10/23/17 11:27 APTT 29 SECONDS (21-34) 10/23/17 11:27
--- NOTE | 2017-10-30 15:02 | PCM.URO ---
Urology Progress Note - Objective Lab Studies: Reviewed (pathology still pending will discuss further plans /no gu changes) Lab Results Last 24 Hours: Laboratory Results - last 24 hr 10/29/17 10/29/17 10/30/17 16:02 21:18 06:03 WBC RBC Hgb Hct MCV MCH MCHC RDW Plt Count MPV Neut % (Auto) Lymph % (Auto) [place] % (Auto) Eos % (Auto) Baso % (Auto) Neut # (Auto) Lymph # (Auto) [place] # (Auto) Eos # (Auto) Baso # (Auto) Neutrophils % (Manual) Lymphocytes % (Manual) Monocytes % (Manual) Platelet Estimate Hypochromasia (manual) Poikilocytosis (manual Anisocytosis (manual) POC Glucose (mg/dL) 111 H 170 H 109 Urine Color Urine Clarity Urine pH Ur Specific [place] Urine Protein Urine Glucose (UA) Urine Ketones Urine Blood Urine Nitrate Urine Bilirubin Urine Urobilinogen Ur Leukocyte Esterase Urine WBC (Auto) Urine RBC (Auto) 10/30/17 10/30/17 10/30/17 07:05 11:01 11:17 WBC 12.4 H D RBC 4.17 L Hgb 11.6 L Hct 34.2 L MCV 82.0 D MCH 27.9 MCHC 34.0 RDW 14.4 Plt Count 446 H D MPV 8.3 Neut % (Auto) 87.5 H Lymph % (Auto) 7.5 L [place] % (Auto) 4.9 Eos % (Auto) 0.0 Baso % (Auto) 0.1 Neut # (Auto) 10.9 H Lymph # (Auto) 0.9 L [place] # (Auto) 0.6 Eos # (Auto) 0.0 Baso # (Auto) 0.0 Neutrophils % (Manual) 86 H Lymphocytes % (Manual) 9 L Monocytes % (Manual) 5 Platelet Estimate Normal Hypochromasia (manual) Slight Poikilocytosis (manual Slight Anisocytosis (manual) Slight POC Glucose (mg/dL) 134 H Urine Color Yellow Urine Clarity Clear Urine pH 6.0 Ur Specific [place] 1.013 Urine Protein Negative Urine Glucose (UA) Normal Urine Ketones Negative Urine Blood Negative Urine Nitrate Negative Urine Bilirubin Negative Urine Urobilinogen Normal Ur Leukocyte Esterase Neg Urine WBC (Auto) 1 Urine RBC (Auto) < 1 Intake & Output: Intake & Output 10/29/17 10/30/17 10/30/17 18:59 06:59 18:59 Intake Total 770 220 Output Total 0832 338 6231 Balance -959 -709 -2000 Intake: Intake, IV Amount 100 Left Antecubital 100 Oral 770 120 Output: Urine [id number] Urethral ([place]) 0251 447 4156 Stool 1 Other: # Bowel Movements 0 1 Vital Signs: Vital Signs - 24 hr 10/29/17 10/29/17 10/30/17 16:00 23:10 00:14 Temperature 97.9 F Pulse Rate 76 66 80 Respiratory 20 Rate Blood Pressure 125/70 O2 Sat by Pulse 97 Oximetry 10/30/17 10/30/17 10/30/17 04:32 07:00 07:40 Temperature 97.4 F L Pulse Rate 66 74 67 Respiratory 20 Rate Blood Pressure 155/82 H O2 Sat by Pulse 97 Oximetry
--- NOTE | 2017-10-30 18:41 | CP.PCM.PN ---
Subjective - Date & Time of Evaluation Date of Evaluation: 10/29/17 Time of Evaluation: 20:05 - Subjective Subjective: No complaints. Objective - Vital Signs/Intake and Output Vital Signs (last 24 hours): Temp Pulse Resp BP Pulse Ox 98.1 F 82 20 144/75 95 10/30/17 15:44 10/30/17 15:44 10/30/17 15:44 10/30/17 15:44 10/30/17 15:44 Intake and Output: 10/30/17 10/30/17 06:59 18:59 Intake Total 220 Output Total 600 2000 Balance -380 -2000 - Medications Medications: Current Medications Acyclovir (Zovirax) 400 mg PO DAILY [facility] PRN Reason: Protocol Last Admin: 10/30/17 12:09 Dose: 400 mg Ascorbic Acid (Vitamin C 500 Mg Tab) 500 mg PO BID [facility] Last Admin: 10/30/17 17:49 Dose: 500 mg Dexamethasone (Decadron Inj) 4 mg IV Q12H [facility] Last Admin: 10/30/17 17:49 Dose: 4 mg Diphenhydramine HCl (Benadryl) 25 mg IVP Q6 PRN PRN Reason: Itching / Pruritus Famotidine (Pepcid) 20 mg PO DAILY [facility] Last Admin: 10/30/17 10:09 Dose: 20 mg Finasteride (Proscar) 5 mg PO DAILY [facility] Last Admin: 10/30/17 12:17 Dose: 5 mg Ceftriaxone Sodium 1 gm/ (Sodium Chloride) 100 mls @ 100 mls/hr IVPB Q12H [facility] PRN Reason: Protocol Last Admin: 10/30/17 17:48 Dose: 100 mls/hr Vancomycin HCl 1,250 mg/ (Sodium Chloride) 250 mls @ 166.6 mls/hr IVPB Q12H [facility] PRN Reason: Protocol Last Admin: 10/30/17 10:10 Dose: 166.6 mls/hr Insulin Aspart (Novolog) 0 unit SC ACHS [facility] PRN Reason: Protocol Last Admin: 10/30/17 17:50 Dose: Not Given Multivitamins/Vitamin C (Multi-Delyn Liquid) 5 ml PO DAILY [facility] Last Admin: 10/30/17 12:10 Dose: 5 ml Ondansetron HCl (Zofran Inj) 4 mg IVP Q8H [facility] PRN Reason: Nausea/Vomiting Oxybutynin Chloride (Ditropan Tab) 5 mg PO TID [facility] Last Admin: 10/30/17 17:50 Dose: 5 mg Senna/Docusate Sodium (Senokot S 50 Mg-8.6 Mg) 1 tab PO DAILY [facility] Last Admin: 10/30/17 10:10 Dose: 1 tab Tamsulosin HCl (Flomax) 0.4 mg PO DAILY [facility] Last Admin: 10/30/17 10:10 Dose: 0.4 mg Zinc Sulfate (Zinc Sulfate 220 Mg Cap) 220 mg PO DAILY [facility] Last Admin: 10/30/17 10:10 Dose: 220 mg - Labs Labs: 10/30/17 11:01 10/29/17 07:10 PT 14.3 SECONDS (9.7-12.2) H 10/23/17 11:27 INR 1.3 10/23/17 11:27 APTT 29 SECONDS (21-34) 10/23/17 11:27 - Head Exam Head Exam: ATRAUMATIC - Eye Exam Eye Exam: Normal appearance - ENT Exam ENT Exam: Mucous Membranes Dry - Respiratory Exam Respiratory Exam: NORMAL BREATHING PATTERN - Cardiovascular Exam Cardiovascular Exam: +S1, +S2 - GI/Abdominal Exam GI & Abdominal Exam: Normal Bowel Sounds Assessment and Plan (1) Cord compression Assessment & Plan: s/p decompressive surgery radiation when surgical wounds heal Status: Acute (2) Renal mass Assessment & Plan: likely renal carcinoma urologic resection if confirmed renal cell malignancy Status: Acute (3) Anemia Assessment & Plan: chronic disease Status: Acute
--- NOTE | 2017-10-30 18:44 | CP.PCM.PN ---
Subjective - Date & Time of Evaluation Date of Evaluation: 10/30/17 Time of Evaluation: 15:00 - Subjective Subjective: No complaints, family at bedside. path sent to [facility] for 2nd opinion; ? eosinophilic renal cell carcinoma Objective - Vital Signs/Intake and Output Vital Signs (last 24 hours): Temp Pulse Resp BP Pulse Ox 98.1 F 82 20 144/75 95 10/30/17 15:44 10/30/17 15:44 10/30/17 15:44 10/30/17 15:44 10/30/17 15:44 Intake and Output: 10/30/17 10/30/17 06:59 18:59 Intake Total 220 Output Total 600 2000 Balance -380 -2000 - Medications Medications: Current Medications Acyclovir (Zovirax) 400 mg PO DAILY [facility] PRN Reason: Protocol Last Admin: 10/30/17 12:09 Dose: 400 mg Ascorbic Acid (Vitamin C 500 Mg Tab) 500 mg PO BID [facility] Last Admin: 10/30/17 17:49 Dose: 500 mg Dexamethasone (Decadron Inj) 4 mg IV Q12H [facility] Last Admin: 10/30/17 17:49 Dose: 4 mg Diphenhydramine HCl (Benadryl) 25 mg IVP Q6 PRN PRN Reason: Itching / Pruritus Famotidine (Pepcid) 20 mg PO DAILY [facility] Last Admin: 10/30/17 10:09 Dose: 20 mg Finasteride (Proscar) 5 mg PO DAILY [facility] Last Admin: 10/30/17 12:17 Dose: 5 mg Ceftriaxone Sodium 1 gm/ (Sodium Chloride) 100 mls @ 100 mls/hr IVPB Q12H [facility] PRN Reason: Protocol Last Admin: 10/30/17 17:48 Dose: 100 mls/hr Vancomycin HCl 1,250 mg/ (Sodium Chloride) 250 mls @ 166.6 mls/hr IVPB Q12H [facility] PRN Reason: Protocol Last Admin: 10/30/17 10:10 Dose: 166.6 mls/hr Insulin Aspart (Novolog) 0 unit SC ACHS [facility] PRN Reason: Protocol Last Admin: 10/30/17 17:50 Dose: Not Given Multivitamins/Vitamin C (Multi-Delyn Liquid) 5 ml PO DAILY [facility] Last Admin: 10/30/17 12:10 Dose: 5 ml Ondansetron HCl (Zofran Inj) 4 mg IVP Q8H [facility]N PRN Reason: Nausea/Vomiting Oxybutynin Chloride (Ditropan Tab) 5 mg PO TID [facility] Last Admin: 10/30/17 17:50 Dose: 5 mg Senna/Docusate Sodium (Senokot S 50 Mg-8.6 Mg) 1 tab PO DAILY [facility] Last Admin: 10/30/17 10:10 Dose: 1 tab Tamsulosin HCl (Flomax) 0.4 mg PO DAILY [facility] Last Admin: 10/30/17 10:10 Dose: 0.4 mg Zinc Sulfate (Zinc Sulfate 220 Mg Cap) 220 mg PO DAILY [facility] Last Admin: 10/30/17 10:10 Dose: 220 mg - Labs Labs: 10/30/17 11:01 10/29/17 07:10 PT 14.3 SECONDS (9.7-12.2) H 10/23/17 11:27 INR 1.3 10/23/17 11:27 APTT 29 SECONDS (21-34) 10/23/17 11:27 - Head Exam Head Exam: ATRAUMATIC - Eye Exam Eye Exam: Normal appearance - ENT Exam ENT Exam: Mucous Membranes Dry - Respiratory Exam Respiratory Exam: NORMAL BREATHING PATTERN - Cardiovascular Exam Cardiovascular Exam: +S1, +S2 - GI/Abdominal Exam GI & Abdominal Exam: Normal Bowel Sounds Assessment and Plan (1) Cord compression Assessment & Plan: s/p decompressive neurosurgery outpatient radiation once surgical wounds heal Status: Acute (2) Renal mass Assessment & Plan: suspect renal cell malignancy if neurosurgical path confirms renal carcinoma, would benefit from resection of primary renal tumor Status: Acute (3) Anemia Assessment & Plan: anemia of chronic disease no evidence of iron deficiency or hemoglobinopathy Status: Acute
[2017-10-30 23:02] LABS: URINE BACTERIA RARE (<OCC); URINE BILIRUBIN NEGATIVE (NEGATIVE); URINE BLOOD NEGATIVE (NEGATIVE); URINE CLARITY Clear (Clear); URINE COLOR Yellow (YELLOW); URINE GLUCOSE (UA) NORMAL (Normal); URINE LEUKOCYTE ESTERASE NEG Leu/uL (Negative); URINE PROTEIN NEGATIVE (NEGATIVE); URINE UROBILINOGEN NORMAL mg/dL (0.2-1.0)
--- NOTE | 2017-10-30 23:26 | CP.PCM.PN ---
Subjective - Date & Time of Evaluation Date of Evaluation: 10/30/17 Time of Evaluation: 23:26 - Subjective Subjective: CHIEF COMPLAINTS TODAY : s/p OR 10/24/17 POD # 6 AFEBRILE NO NEW COMPLAINTS. ON IV ABX ROS. HEENT : N. Resp : No cough, wheezing ,pleuritic CP ,or hemoptysis Cardio : No anginal CP, PND, orthopnea, palpitation GI : No abd.pain, n/v ,diarrhea or GI bleeding . 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 Musculoskel : No joint swelling , Derm : No rash Psych : Normal affect. Ext : No swelling ,calf pain PE. Pt. is alert awake in no distress. V.S As noted in the chart Head ,ear nose,throat and eyes : Normal. Neck : Supple with normal carotids. Lungs: Clear air entry. Heart : S1 & S2 normal with S4. No murmur. Abd : Soft non tender with normal bowel sounds. Neuro : B/L LE WEAKNESS +VE UPGOING TOES Ext : No edema with intact pulses.Non tender calves Derm : No rashes or decubitus ulcer. LABS/RADIOLOGY: MRSA nares nondetected. CREAT 0.8/BUN 24 VANCO TROUGH 9.0 LOW. Objective - Vital Signs/Intake and Output Vital Signs (last 24 hours): Temp Pulse Resp BP Pulse Ox 98.1 F 79 20 144/75 95 10/30/17 15:44 10/30/17 16:45 10/30/17 15:44 10/30/17 15:44 10/30/17 15:44 Intake and Output: 10/30/17 10/31/17 18:59 06:59 Intake Total 350 Output Total 2000 999 Balance -2000 -650 - Medications Medications: Current Medications Acyclovir (Zovirax) 400 mg PO DAILY [facility] PRN Reason: Protocol Last Admin: 10/30/17 12:09 Dose: 400 mg Ascorbic Acid (Vitamin C 500 Mg Tab) 500 mg PO BID [facility] Last Admin: 10/30/17 17:49 Dose: 500 mg Dexamethasone (Decadron Inj) 4 mg IV Q12H [facility] Last Admin: 10/30/17 17:49 Dose: 4 mg Diphenhydramine HCl (Benadryl) 25 mg IVP Q6 PRN PRN Reason: Itching / Pruritus Famotidine (Pepcid) 20 mg PO DAILY [facility] Last Admin: 10/30/17 10:09 Dose: 20 mg Finasteride (Proscar) 5 mg PO DAILY [facility] Last Admin: 10/30/17 12:17 Dose: 5 mg Ceftriaxone Sodium 1 gm/ (Sodium Chloride) 100 mls @ 100 mls/hr IVPB Q12H [facility] PRN Reason: Protocol Last Admin: 10/30/17 17:48 Dose: 100 mls/hr Vancomycin HCl 1,250 mg/ (Sodium Chloride) 250 mls @ 166.6 mls/hr IVPB Q12H [facility] PRN Reason: Protocol Last Admin: 10/30/17 21:20 Dose: 166.6 mls/hr Insulin Aspart (Novolog) 0 unit SC ACHS [facility] PRN Reason: Protocol Last Admin: 10/30/17 22:48 Dose: Not Given Multivitamins/Vitamin C (Multi-Delyn Liquid) 5 ml PO DAILY [facility] Last Admin: 10/30/17 12:10 Dose: 5 ml Ondansetron HCl (Zofran Inj) 4 mg IVP Q8H PRN PRN Reason: Nausea/Vomiting Oxybutynin Chloride (Ditropan Tab) 5 mg PO TID [facility] Last Admin: 10/30/17 17:50 Dose: 5 mg Senna/Docusate Sodium (Senokot S 50 Mg-8.6 Mg) 1 tab PO DAILY [facility] Last Admin: 10/30/17 10:10 Dose: 1 tab Tamsulosin HCl (Flomax) 0.4 mg PO DAILY [facility] Last Admin: 10/30/17 10:10 Dose: 0.4 mg Zinc Sulfate (Zinc Sulfate 220 Mg Cap) 220 mg PO DAILY [facility] Last Admin: 10/30/17 10:10 Dose: 220 mg - Labs Labs: 10/30/17 11:01 10/29/17 07:10 PT 14.3 SECONDS (9.7-12.2) H 10/23/17 11:27 INR 1.3 10/23/17 11:27 APTT 29 SECONDS (21-34) 10/23/17 11:27 Assessment and Plan (1) Cord compression Assessment & Plan: S/P LAMINECTOMY AND DECOMPRESSION. PATH AWAITED . Status: Acute (2) Leukocytosis Status: Acute (3) Abdominal pain Assessment & Plan: RESOLVED Status: Acute (4) Acute urinary retention Status: Acute (5) Acute renal insufficiency Assessment & Plan: S/P FOLYS F/U REPEAT UA/URINE CULTURE. ON IV ABX. Status: Acute (6) Mass of left kidney Assessment & Plan: NOTED. Status: Chronic (7) Multiple sclerosis Status: Chronic (8) Neurogenic bladder Status: Chronic
[2017-10-31] MEDS: Dexamethasone 4 mg/1 ml IV SCH ×3 (06:28→17:44)
[2017-10-31] MEDS: (Novolog) Insulin Aspart, Recombinant 100 u/ml 10 ml vial SC SCH ×2 (08:40→17:19)
[2017-10-31] MEDS: Docusate-Senna 50 mg-8.6 mg Tab PO SCH (10:32)
[2017-10-31] MEDS: Multiple Vitamins Oral Solution PO SCH (10:33)
--- NOTE | 2017-10-31 13:58 | CP.PCM.PN ---
Subjective - Date & Time of Evaluation Date of Evaluation: 10/31/17 Time of Evaluation: 13:57 - Subjective Subjective: patient clinically remains same. Vital signs are stable afebrile Physical examination very minimal movement of the toes. Awaiting pathology report for her resected tumor. Discussed with the oncologist patient may need resection of the renal tumor. In the meantime patient will be going to rehab. Objective - Vital Signs/Intake and Output Vital Signs (last 24 hours): Temp Pulse Resp BP Pulse Ox 98.1 F 74 18 130/78 99 10/31/17 08:42 10/31/17 08:42 10/31/17 08:42 10/31/17 08:42 10/31/17 08:42 Intake and Output: 10/31/17 10/31/17 11:59 23:59 Intake Total 220 Output Total 1400 Balance -1180 - Medications Medications: Current Medications Acyclovir (Zovirax) 400 mg PO DAILY [facility] PRN Reason: Protocol Last Admin: 10/31/17 10:33 Dose: 400 mg Ascorbic Acid (Vitamin C 500 Mg Tab) 500 mg PO BID [facility] Last Admin: 10/31/17 10:32 Dose: 500 mg Dexamethasone (Decadron Inj) 4 mg IV Q12H [facility] Last Admin: 10/31/17 06:28 Dose: 4 mg Diphenhydramine HCl (Benadryl) 25 mg IVP Q6 PRN PRN Reason: Itching / Pruritus Famotidine (Pepcid) 20 mg PO DAILY [facility] Last Admin: 10/31/17 10:32 Dose: 20 mg Finasteride (Proscar) 5 mg PO DAILY [facility] Last Admin: 10/31/17 10:41 Dose: 5 mg Vancomycin HCl 1,250 mg/ (Sodium Chloride) 250 mls @ 166.6 mls/hr IVPB Q12H [facility] PRN Reason: Protocol Last Admin: 10/31/17 10:31 Dose: 166.6 mls/hr Insulin Aspart (Novolog) 0 unit SC ACHS [facility] PRN Reason: Protocol Last Admin: 10/31/17 08:40 Dose: Not Given Multivitamins/Vitamin C (Multi-Delyn Liquid) 5 ml PO DAILY [facility] Last Admin: 10/31/17 10:33 Dose: 5 ml Ondansetron HCl (Zofran Inj) 4 mg IVP Q8H PRN PRN Reason: Nausea/Vomiting Oxybutynin Chloride (Ditropan Tab) 5 mg PO TID [facility] Last Admin: 10/31/17 10:33 Dose: 5 mg Senna/Docusate Sodium (Senokot S 50 Mg-8.6 Mg) 1 tab PO DAILY [facility] Last Admin: 10/31/17 10:32 Dose: 1 tab Tamsulosin HCl (Flomax) 0.4 mg PO DAILY [facility] Last Admin: 10/31/17 10:32 Dose: 0.4 mg Zinc Sulfate (Zinc Sulfate 220 Mg Cap) 220 mg PO DAILY [facility] Last Admin: 10/31/17 10:32 Dose: 220 mg - Labs Labs: 10/30/17 11:01 10/29/17 07:10 PT 14.3 SECONDS (9.7-12.2) H 10/23/17 11:27 INR 1.3 10/23/17 11:27 APTT 29 SECONDS (21-34) 10/23/17 11:27
--- NOTE | 2017-10-31 14:47 | PCM.URO ---
Urology Progress Note - General General: Tolerating Diet - Subjective Abdominal Pain: No Flank Pain: No Nausea: No Vomiting: No Voiding Well: No (catheter in place) Hematuria: No Chest Pain: No Fever & Chills: No Other: weak lower extremeties - Objective Lab Results Last 24 Hours: Laboratory Results - last 24 hr 10/30/17 10/30/17 10/30/17 16:34 18:49 21:22 POC Glucose (mg/dL) 150 H 168 H Urine Color Yellow Urine Clarity Clear Urine pH 6.0 Ur Specific [place] 1.015 Urine Protein Negative Urine Glucose (UA) Normal Urine Ketones Negative Urine Blood Negative Urine Nitrate Negative Urine Bilirubin Negative Urine Urobilinogen Normal Ur Leukocyte Esterase Neg Urine WBC (Auto) < 1 Urine Bacteria Rare 10/31/17 10/31/17 06:10 10:58 POC Glucose (mg/dL) 139 H 140 H Urine Color Urine Clarity Urine pH Ur Specific [place] Urine Protein Urine Glucose (UA) Urine Ketones Urine Blood Urine Nitrate Urine Bilirubin Urine Urobilinogen Ur Leukocyte Esterase Urine WBC (Auto) Urine Bacteria Intake & Output: Intake & Output 10/30/17 10/31/17 10/31/17 18:59 06:59 18:59 Intake Total 570 Output Total 2000 2400 Balance -2000 Intake: Intake, IV Amount 450 Left Antecubital 350 Left Hand 100 Oral 120 Output: Urine 1999 2400 Urethral ([place]anez) 1999 2400 Stool 1 Other: # Bowel Movements 1 Vital Signs: Vital Signs - 24 hr 10/30/17 10/30/17 10/30/17 15:44 16:45 23:10 Temperature 98.1 F 97.4 F L Pulse Rate 82 79 67 Respiratory 20 20 Rate Blood Pressure 144/75 117/70 O2 Sat by Pulse 95 97 Oximetry 10/31/17 10/31/17 10/31/17 00:01 04:05 04:15 Temperature 98.1 F Pulse Rate 64 80 59 L Respiratory 20 Rate Blood Pressure 139/75 O2 Sat by Pulse 99 Oximetry 10/31/17 08:42 Temperature 98.1 F Pulse Rate 74 Respiratory 18 Rate Blood Pressure 130/78 O2 Sat by Pulse 99 Oximetry - Physical Exam Abdominal Exam: Soft, Non-Tender, Non-Distended Back: No CVA Tenderness Urinary Catheter Draining Well: Yes Urine Color: Yellow - Plan Catheter Care: Yes Additional Information: IMP: stable at present. 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 Retention. Rec/P: Multiple problems to address, including LE paraparesis, retnetion, renal cancer. Poss benefit of nephrectomy. Rx for retention. Rehab/PT. Discussed w pt and - Date & Time of Note Date: 10/31/17 Time: 14:47
--- NOTE | 2017-10-31 15:39 | CP.PCM.PCO ---
Physician Communication Note - Physician Communication Note Physician Communication Note: pathology called ref. biopsy result - still pending ,
--- NOTE | 2017-10-31 15:40 | CP.PCM.PCO ---
Physician Communication Note - Physician Communication Note Physician Communication Note: as per Dr. Anthony craft can be d/c'd upon discharge to [facility] , no antiobiotics
[2017-10-31 15:52] VITALS: BP 121/74; RESP 20; TEMP 98.4; O2SAT 97
[2017-10-31 16:36] VITALS: PULSE 85
--- NOTE | 2017-10-31 16:44 | CP.PCM.PN ---
Subjective - Date & Time of Evaluation Date of Evaluation: 10/31/17 Time of Evaluation: 12:00 Objective - Vital Signs/Intake and Output Vital Signs (last 24 hours): Temp Pulse Resp BP Pulse Ox 98.4 F 85 20 121/74 97 10/31/17 15:51 10/31/17 16:00 10/31/17 15:51 10/31/17 15:51 10/31/17 15:51 Intake and Output: 10/31/17 10/31/17 06:59 18:59 Intake Total 570 510 Output Total 2400 1700 Balance -1830 -1190 - Medications Medications: Current Medications Acyclovir (Zovirax) 400 mg PO DAILY [facility] PRN Reason: Protocol Last Admin: 10/31/17 10:33 Dose: 400 mg Ascorbic Acid (Vitamin C 500 Mg Tab) 500 mg PO BID [facility] Last Admin: 10/31/17 10:32 Dose: 500 mg Dexamethasone (Decadron Inj) 4 mg IV Q12H [facility] Last Admin: 10/31/17 06:28 Dose: 4 mg Diphenhydramine HCl (Benadryl) 25 mg IVP Q6 PRN PRN Reason: Itching / Pruritus Famotidine (Pepcid) 20 mg PO DAILY [facility] Last Admin: 10/31/17 10:32 Dose: 20 mg Finasteride (Proscar) 5 mg PO DAILY [facility] Last Admin: 10/31/17 10:41 Dose: 5 mg Vancomycin HCl 1,250 mg/ (Sodium Chloride) 250 mls @ 166.6 mls/hr IVPB Q12H [facility] PRN Reason: Protocol Last Admin: 10/31/17 10:31 Dose: 166.6 mls/hr Insulin Aspart (Novolog) 0 unit SC ACHS [facility] PRN Reason: Protocol Last Admin: 10/31/17 08:40 Dose: Not Given Multivitamins/Vitamin C (Multi-Delyn Liquid) 5 ml PO DAILY [facility] Last Admin: 10/31/17 10:33 Dose: 5 ml Ondansetron HCl (Zofran Inj) 4 mg IVP Q8H PRN PRN Reason: Nausea/Vomiting Oxybutynin Chloride (Ditropan Tab) 5 mg PO TID [facility] Last Admin: 10/31/17 14:33 Dose: 5 mg Senna/Docusate Sodium (Senokot S 50 Mg-8.6 Mg) 1 tab PO DAILY [facility] Last Admin: 10/31/17 10:32 Dose: 1 tab Tamsulosin HCl (Flomax) 0.4 mg PO DAILY [facility] Last Admin: 10/31/17 10:32 Dose: 0.4 mg Zinc Sulfate (Zinc Sulfate 220 Mg Cap) 220 mg PO DAILY [facility] Last Admin: 10/31/17 10:32 Dose: 220 mg - Labs Labs: 10/30/17 11:01 10/29/17 07:10 PT 14.3 SECONDS (9.7-12.2) H 10/23/17 11:27 INR 1.3 10/23/17 11:27 APTT 29 SECONDS (21-34) 10/23/17 11:27
--- NOTE | 2017-10-31 17:52 | CP.PCM.PN ---
Subjective - Date & Time of Evaluation Date of Evaluation: 10/31/17 Time of Evaluation: 17:52 - Subjective Subjective: CHIEF COMPLAINTS TODAY : s/p OR 10/24/17 POD # 7 AFEBRILE,AAO NO NEW COMPLAINTS. CLINICALLY SAME. ROS. HEENT : N. Resp : No cough, wheezing ,pleuritic CP ,or hemoptysis Cardio : No anginal CP, PND, orthopnea, palpitation GI : No abd.pain, n/v ,diarrhea or GI bleeding . 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 Musculoskel : No joint swelling , Derm : No rash Psych : Normal affect. Ext : No swelling ,calf pain PE. Pt. is alert awake in no distress. V.S As noted in the chart Head ,ear nose,throat and eyes : Normal. Neck : Supple with normal carotids. Lungs: Clear air entry. Heart : S1 & S2 normal with S4. No murmur. Abd : Soft non tender with normal bowel sounds. Neuro : B/L LE WEAKNESS +VE UPGOING TOES Ext : No edema with intact pulses.Non tender calves Derm : No rashes or decubitus ulcer. LABS/RADIOLOGY: reviewed Objective - Vital Signs/Intake and Output Vital Signs (last 24 hours): Temp Pulse Resp BP Pulse Ox 98.4 F 85 20 121/74 97 10/31/17 15:51 10/31/17 16:00 10/31/17 15:51 10/31/17 15:51 10/31/17 15:51 Intake and Output: 10/31/17 10/31/17 06:59 18:59 Intake Total 570 510 Output Total 2400 1700 Balance -1830 -1190 - Medications Medications: Current Medications Acyclovir (Zovirax) 400 mg PO DAILY [facility] PRN Reason: Protocol Last Admin: 10/31/17 10:33 Dose: 400 mg Ascorbic Acid (Vitamin C 500 Mg Tab) 500 mg PO BID [facility] Last Admin: 10/31/17 17:18 Dose: 500 mg Dexamethasone (Decadron Inj) 4 mg IV Q12H [facility] Last Admin: 10/31/17 17:44 Dose: Not Given Diphenhydramine HCl (Benadryl) 25 mg IVP Q6 PRN PRN Reason: Itching / Pruritus Famotidine (Pepcid) 20 mg PO DAILY [facility] Last Admin: 10/31/17 10:32 Dose: 20 mg Finasteride (Proscar) 5 mg PO DAILY [facility] Last Admin: 10/31/17 10:41 Dose: 5 mg Vancomycin HCl 1,250 mg/ (Sodium Chloride) 250 mls @ 166.6 mls/hr IVPB Q12H [facility] PRN Reason: Protocol Last Admin: 10/31/17 10:31 Dose: 166.6 mls/hr Insulin Aspart (Novolog) 0 unit SC ACHS [facility] PRN Reason: Protocol Last Admin: 10/31/17 17:19 Dose: Not Given Multivitamins/Vitamin C (Multi-Delyn Liquid) 5 ml PO DAILY [facility] Last Admin: 10/31/17 10:33 Dose: 5 ml Ondansetron HCl (Zofran Inj) 4 mg IVP Q8H PRN PRN Reason: Nausea/Vomiting Oxybutynin Chloride (Ditropan Tab) 5 mg PO TID [facility] Last Admin: 10/31/17 17:18 Dose: 5 mg Senna/Docusate Sodium (Senokot S 50 Mg-8.6 Mg) 1 tab PO DAILY [facility] Last Admin: 10/31/17 10:32 Dose: 1 tab Tamsulosin HCl (Flomax) 0.4 mg PO DAILY [facility] Last Admin: 10/31/17 10:32 Dose: 0.4 mg Zinc Sulfate (Zinc Sulfate 220 Mg Cap) 220 mg PO DAILY [facility] Last Admin: 10/31/17 10:32 Dose: 220 mg - Labs Labs: 10/30/17 11:01 10/29/17 07:10 PT 14.3 SECONDS (9.7-12.2) H 10/23/17 11:27 INR 1.3 10/23/17 11:27 APTT 29 SECONDS (21-34) 10/23/17 11:27 Assessment and Plan (1) Cord compression Assessment & Plan: POD #7 STATUS POST T9 LAMINECTOMY/T8-T10 FUSION FIXATION 10/24/17. LWC PER SURGERY. Status: Acute (2) Leukocytosis Status: Acute (3) Abdominal pain Status: Acute (4) Acute urinary retention Assessment & Plan: S/P FOLYS F/U REPEAT UA/URINE CULTURE. ON IV ABX. Status: Acute (5) Acute renal insufficiency Status: Acute (6) Mass of left kidney Status: Chronic (7) Multiple sclerosis Status: Chronic (8) Neurogenic bladder Status: Chronic - Assessment and Plan (Free Text) Plan: Case discussed with the nurse practitioner . Once we have arranged ARON, you can DC all antibiotics. Urinalysis repeat APPEARS to be clear with no pyuria. Will follow cultures as outpatient. Case discussed with was at the bedside and agrees for subacute rehabilitation to [facility]. CASE DISCUSSED WITH PMD.
--- NOTE | 2017-10-31 19:42 | CP.PCM.PN ---
Subjective - Date & Time of Evaluation Date of Evaluation: 10/31/17 Time of Evaluation: 10:00 - Subjective Subjective: No complaints. Objective - Vital Signs/Intake and Output Vital Signs (last 24 hours): Temp Pulse Resp BP Pulse Ox 98.4 F 85 20 121/74 97 10/31/17 15:51 10/31/17 16:00 10/31/17 15:51 10/31/17 15:51 10/31/17 15:51 Intake and Output: 10/31/17 11/01/17 18:59 06:59 Intake Total 510 Output Total 1999 Balance -1490 - Labs Labs: 10/30/17 11:01 10/29/17 07:10 PT 14.3 SECONDS (9.7-12.2) H 10/23/17 11:27 INR 1.3 10/23/17 11:27 APTT 29 SECONDS (21-34) 10/23/17 11:27 - Head Exam Head Exam: ATRAUMATIC - Eye Exam Eye Exam: Normal appearance - ENT Exam ENT Exam: Mucous Membranes Dry - Respiratory Exam Respiratory Exam: NORMAL BREATHING PATTERN - Cardiovascular Exam Cardiovascular Exam: +S1, +S2 - GI/Abdominal Exam GI & Abdominal Exam: Normal Bowel Sounds Assessment and Plan (1) Cord compression Assessment & Plan: s/p decompressive surgery outpatient radiotherapy Status: Acute (2) Renal mass Assessment & Plan: likely renal cell carcinoma urology f/u Status: Acute (3) Anemia Assessment & Plan: chronic disease Status: Acute
--- NOTE | 2017-11-03 14:44 | CP.PCM.DIS ---
Provider - Provider Date of Admission: 10/21/17 23:43 Attending physician: Dennys Kay MD Time Spent in preparation of Discharge (in minutes): 35 Hospital Course - Lab Results Lab Results: Micro Results 10/30/17 07:05 Urine,Breen Urine Culture - Final No Growth (<1,000 CFU/ML) 10/22/17 06:20 Blood-Venous Blood Culture - Final NO GROWTH AFTER 5 DAYS 10/22/17 06:20 Blood-Venous Gram Stain - Final TEST NOT PERFORMED 10/22/17 06:20 Blood-Venous Blood Culture - Final NO GROWTH AFTER 5 DAYS 10/22/17 06:20 Blood-Venous Gram Stain - Final TEST NOT PERFORMED 10/25/17 22:21 Nose MRSA Culture - Final MRSA NOT DETECTED 10/24/17 14:52 Nose MRSA Culture (Admit) - Final MRSA NOT DETECTED 10/22/17 00:20 Urine,Breen Urine Culture - Final Enterococcus Faecalis Most Recent Lab Values WBC 12.4 K/uL (4.8-10.8) H D 10/30/17 11:01 RBC 4.17 Mil/uL (4.40-5.90) L 10/30/17 11:01 Hgb 11.6 g/dL (12.0-18.0) L 10/30/17 11:01 Hct 34.2 % (35.0-51.0) L 10/30/17 11:01 MCV 82.0 fL (80.0-94.0) D 10/30/17 11:01 MCH 27.9 pg (27.0-31.0) 10/30/17 11:01 MCHC 34.0 g/dL (33.0-37.0) 10/30/17 11:01 RDW 14.4 % (11.5-14.5) 10/30/17 11:01 Plt Count 446 K/uL (130-400) H D 10/30/17 11:01 MPV 8.3 fL (7.2-11.7) 10/30/17 11:01 Neut % (Auto) 87.5 % (50.0-75.0) H 10/30/17 11:01 Lymph % (Auto) 7.5 % (20.0-40.0) L 10/30/17 11:01 [place] % (Auto) 4.9 % (0.0-10.0) 10/30/17 11:01 Eos % (Auto) 0.0 % (0.0-4.0) 10/30/17 11:01 Baso % (Auto) 0.1 % (0.0-2.0) 10/30/17 11:01 Neut # (Auto) 10.9 K/uL (1.8-7.0) H 10/30/17 11:01 Lymph # (Auto) 0.9 K/uL (1.0-4.3) L 10/30/17 11:01 [place] # (Auto) 0.6 K/uL (0.0-0.8) 10/30/17 11:01 Eos # (Auto) 0.0 K/uL (0.0-0.7) 10/30/17 11:01 Baso # (Auto) 0.0 K/uL (0.0-0.2) 10/30/17 11:01 Neutrophils % (Manual) 86 % (50-75) H 10/30/17 11:01 Band Neutrophils % 1 % (0-2) 10/25/17 06:36 Lymphocytes % (Manual) 9 % (20-40) L 10/30/17 11:01 Monocytes % (Manual) 5 % (0-10) 10/30/17 11:01 Platelet Estimate Normal (NORMAL) 10/30/17 11:01 Large Platelets Present 10/21/17 21:48 RBC Morphology Normal 10/25/17 06:36 Hypochromasia (manual) Slight 10/30/17 11:01 Poikilocytosis (manual Slight 10/30/17 11:01 Anisocytosis (manual) Slight 10/30/17 11:01 Ovalocytes Slight 10/21/17 21:48 ESR 73 mm/hr (0-15) H 10/22/17 08:40 Retic Count 1.8 % (0.5-1.5) H 10/24/17 05:31 Hemoglobin A 96.9 Percent (>96.0) 10/24/17 07:43 Hemoglobin A2 2.1 Percent (1.8-3.5) 10/24/17 07:43 Hemoglobin C 0.0 Percent (0.0-0.0) 10/24/17 07:43 Hemoglobin F () <1.0 Percent (<2.0) 10/24/17 07:43 Hemoglobin S 0.0 Percent (0.0-0.0) 10/24/17 07:43 Variant Hemoglobin 0.0 Percent (0.0-0.0) 10/24/17 07:43 Hemoglobinopathy Red Blood Count 4.33 Mill/mcL (4.20-5.80) 10/24/17 07:43 Hemoglobinopathy Hct 36.2 % (38.5-50.0) L 10/24/17 07:43 Hemoglobinopathy Hgb 11.9 g/dL (13.2-17.1) L 10/24/17 07:43 Hemoglobinopathy MCV 83.5 fL (80.0-100.0) 10/24/17 07:43 Hemoglobinopathy MCH 27.5 pg (27.0-33.0) 10/24/17 07:43 Hemoglobinopathy RDW 14.9 % (11.0-15.0) 10/24/17 07:43 Hemoglobinopathy Interp See note 10/24/17 07:43 PT 14.3 SECONDS (9.7-12.2) H 10/23/17 11:27 INR 1.3 10/23/17 11:27 APTT 29 SECONDS (21-34) 10/23/17 11:27 Sodium 137 mmol/L (132-148) 10/29/17 07:10 Potassium 4.7 mmol/L (3.6-5.2) 10/29/17 07:10 Chloride 103 mmol/L (98-107) 10/29/17 07:10 Carbon Dioxide 25 mmol/L (22-30) 10/29/17 07:10 Anion Gap 13 (10-20) 10/29/17 07:10 BUN 24 mg/dL (9-20) H 10/29/17 07:10 Creatinine 0.8 mg/dL (0.8-1.5) 10/29/17 07:10 Est GFR ( Amer) > 60 10/29/17 07:10 Est GFR (Non-Af Amer) > 60 10/29/17 07:10 POC Glucose (mg/dL) 113 mg/dL (65-110) H 10/31/17 16:04 Random Glucose 134 mg/dL (75-110) H 10/29/17 07:10 Calcium 8.6 mg/dl (8.6-10.4) 10/29/17 07:10 Phosphorus 3.4 mg/dL (2.5-4.5) 10/25/17 06:36 Magnesium 2.0 mg/dL (1.6-2.3) 10/25/17 06:36 Ferritin 152.0 ng/mL 10/24/17 05:31 Total Bilirubin 0.2 mg/dL (0.2-1.3) 10/29/17 07:10 Direct Bilirubin 0.3 mg/dL (0.0-0.4) 10/22/17 12:15 AST 16 U/L (17-59) L D 10/29/17 07:10 ALT 34 U/L (21-72) 10/29/17 07:10 Alkaline Phosphatase 55 U/L (38-126) 10/29/17 07:10 Troponin I 0.0290 ng/mL (0.00-0.120) 10/21/17 21:48 C-Reactive Protein 183.50 mg/L (0.0-9.9) H 10/22/17 08:03 Total Protein 5.2 g/dL (6.3-8.3) L 10/29/17 07:10 Albumin 2.9 g/dL (3.5-5.0) L 10/29/17 07:10 Globulin 2.2 gm/dL (2.2-3.9) 10/29/17 07:10 Albumin/Globulin Ratio 1.3 (1.0-2.1) 10/29/17 07:10 Lipase 42 U/L (23-300) 10/21/17 21:48 Carcinoembryonic Ag 2.0 ng/mL (0-3.0) 10/23/17 11:27 Vitamin B12 509 pg/mL (239-931) 10/24/17 05:31 Folate 18.2 ng/mL 10/24/17 05:31 Urine Color Yellow (YELLOW) 10/30/17 18:49 Urine Clarity Clear (Clear) 10/30/17 18:49 Urine pH 6.0 (5.0-8.0) 10/30/17 18:49 Ur Specific [place] 1.015 (1.003-1.030) 10/30/17 18:49 Urine Protein Negative mg/dL (NEGATIVE) 10/30/17 18:49 Urine Glucose (UA) Normal mg/dL (Normal) 10/30/17 18:49 Urine Ketones Negative mg/dL (NEGATIVE) 10/30/17 18:49 Urine Blood Negative (NEGATIVE) 10/30/17 18:49 Urine Nitrate Negative (NEGATIVE) 10/30/17 18:49 Urine Bilirubin Negative (NEGATIVE) 10/30/17 18:49 Urine Urobilinogen Normal mg/dL (0.2-1.0) 10/30/17 18:49 Ur Leukocyte Esterase Neg [place]/uL (Negative) 10/30/17 18:49 Urine WBC (Auto) < 1 /hpf (0-5) 10/30/17 18:49 Urine RBC (Auto) < 1 /hpf (0-3) 10/30/17 07:05 Urine WBC Clumps (Auto) Rare /hpf (NONE) H 10/21/17 22:40 Ur Squamous Epith Cells 3 /hpf (0-5) 10/21/17 22:40 Urine Bacteria Rare (<OCC) 10/30/17 18:49 Hyaline Casts 3-5 /lpf (0-2) H 10/21/17 22:40 Vancomycin Trough 9.0 ug/mL (5.0-10.0) 10/29/17 11:30 Serum Immunofixation Detected (Not Detected) H 10/23/17 11:27 Urine Immunofixation Detected (Not Detected) H 10/23/17 11:29 Blood Type A POSITIVE 10/23/17 16:47 Antibody Screen Negative 10/23/17 16:47 - Hospital Course Hospital Course: Patient was admitted from emergency room with abdominal distention and 1 time vomiting. Patient was brought to the hospital by ambulance with abdominal distention and vomiting. 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 Patient was given IV fluids. Creatinine was 3.0 and BUN was 46. Urine showed multiple WBCs Patient has history of advanced multiple sclerosis and get some IV infusion medications outpatient. PAST HIST. Patient was admitted recently in the beginning. 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 Currently not sure whether the biopsy was done. infectious disease and neurosurgery and neurology oncology services were consulted. 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 There was very minimal improvement neurologically of the lower extremity. There is also bacteriuria in the urine and patient was given IV antibiotics with improvement. As per the oncologist patient will need partial nephrectomy after the wounds have healed from the back surgery. Currently patient is stable no symptoms except for lower extremities weakness will be transferred to rehab for further treatment and follow-up of pathology. Discharge Exam - Head Exam Head Exam: ATRAUMATIC Discharge Plan - Follow Up Plan Condition: GOOD Disposition: REHAB FACILITY/REHAB UNIT Instructions: How to Care for Your Breen Catheter, Male, Breen Catheter, Male, Spinal Fusion (DC), Laminectomy (DC), Urinary Tract Infection in Men (DC) Additional Instructions: Please admit patient under Dr. Kay office - Call Dr. Kay upon patient arrival to the facility Please follow up with Dr. Gonzalez office in 1 week- please call and make appointment and arrange transportation Please follow up with Dr. Nation office ref. breen cath , keep breen cath in until seen by Dr. Nation continue medication as per med. rec. All management as per Dr. Kay Referrals: Dennys Kay MD [Staff Provider] - Julien Chun MD [Staff Provider] - Kingston Nation MD [Staff Provider] -
== END 2017-10-31 19:03 | DRG 29 ==
LOC: C.ER 21:15 → C.3T 23:43 → C.9S 10-24 10:57 → C.9I 10-24 11:26 → C.3T 10-25 21:49 → C.6T 10-25 21:52
PROVIDERS: ADMIT Internal Medicine Cardiovascular Disease; ATTEND Internal Medicine Cardiovascular Disease
PROC: 0RG6071 Fusion of Thoracic Vertebral Joint with Autologous Tissue Substitute, Posterior Approach, Posterior Column, Open Approach (ICD-10-PCS; 2017-10-24)
PROC: 00NX0ZZ Release Thoracic Spinal Cord, Open Approach (ICD-10-PCS; 2017-10-24)
PROC: 0PH404Z Insertion of Internal Fixation Device into Thoracic Vertebra, Open Approach (ICD-10-PCS; 2017-10-24)
PROC: 07DR0ZZ Extraction of Iliac Bone Marrow, Open Approach (ICD-10-PCS; 2017-10-24)
PROC: 00BX0ZZ Excision of Thoracic Spinal Cord, Open Approach (ICD-10-PCS; principal; 2017-10-24 07:45)
DX: C79.49 Secondary malignant neoplasm of other parts of nervous system (principal); C79.51 Secondary malignant neoplasm of bone; G95.20 Unspecified cord compression; C64.9 Malignant neoplasm of unspecified kidney, except renal pelvis; N12 Tubulo-interstitial nephritis, not specified as acute or chronic; N17.9 Acute kidney failure, unspecified; G82.20 Paraplegia, unspecified; F17.200 Nicotine dependence, unspecified, uncomplicated; D64.9 Anemia, unspecified; G35 Multiple sclerosis; K27.9 Peptic ulcer, site unspecified, unspecified as acute or chronic, without hemorrhage or perforation; N18.9 Chronic kidney disease, unspecified; N30.91 Cystitis, unspecified with hematuria; N31.9 Neuromuscular dysfunction of bladder, unspecified; W19.XXXA Unspecified fall, initial encounter; K59.00 Constipation, unspecified; Z80.0 Family history of malignant neoplasm of digestive organs; Z87.11 Personal history of peptic ulcer disease; Z87.442 Personal history of urinary calculi; Z99.3 Dependence on wheelchair

== ENCOUNTER 2017-12-14 17:38 | Inpatient (IN) | payer MEDICARE ==
[2017-12-14 18:40] LABS: BASO % 0.5 % (0.0-2.0); EOS # 0.1 K/uL (0.0-0.7); EOS % 1.5 % (0.0-4.0); HEMOGLOBIN 11.1 g/dL (12.0-18.0); LYMPH # 1.2 K/uL (1.0-4.3); LYMPH % 16.4 % (20.0-40.0); MEAN CELL VOLUME 82.9 fL (80.0-94.0); MEAN CORPUSCULAR HEMOGLOBIN 28.2 pg (27.0-31.0); MONO # 0.7 K/uL (0.0-0.8); MONO % 10.1 % (0.0-10.0); NEUT # 5.1 K/uL (1.8-7.0); NEUT % 71.5 % (50.0-75.0); RBC 3.95 Mil/uL (4.40-5.90); RED CELL DISTRIBUTION WIDTH 16.2 % (11.5-14.5); WHITE BLOOD COUNT 7.2 K/uL (4.8-10.8)
[2017-12-14 18:43] LABS: VENOUS BLOOD GAS BASE EXCESS 4.2 mmol/L (0.0-2.0); VENOUS BLOOD GAS PCO2 50 mmHg (40-60); VENOUS BLOOD GAS PO2 19 mm/Hg (30-55); VENOUS BLOOD PH 7.39 (7.32-7.43)
[2017-12-14 18:52] LABS: ALB/GLOB RATIO 1.2 (1.0-2.1); ALBUMIN 3.7 g/dL (3.5-5.0); BLOOD UREA NITROGEN 15 mg/dL (9-20); CALCIUM 9.3 mg/dl (8.6-10.4); GFR NON-AFRICAN AMERICAN > 60
[2017-12-14 18:54] LABS: ALT/SGPT 43 U/L (21-72); AST/SGOT 36 U/L (17-59)
--- NOTE | 2017-12-14 20:10 | CP.PCM.HP ---
History of Present Illness - History of Present Illness History of Present Illness: COMPREHENSIVE HISTORY & PHYSICAL EXAM Patient admitted from home through the emergency room with nonhealing ulcer on the left heel and spiking temperature 101 at home. 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 Currently the family do not want any aggressive treatment for the cancer of the kidneys. Due to the paraplegia patient has no movement of the lower extremities and recently patient started developing a black on the left heel which has increased in size with some discharge and since yesterday patient had been spiking 101 temperature at home. Patient was evaluated by wound care nurse and advised to deep debridement and IV antibiotics. Patient was evaluated in the ER and agreed with the therapy and was admitted in the hospital. PAST HIST. Patient has history of MS and history of cord compression with paraplegia. History of mild hypertension history of urinary and fecal incontinence. PERSONAL HIST: Smoking. Previously heavy smoker Alcohol. N Allergy N Travel_- . FAMILY HIST : ROS : Constitutional: Negative for weight change, chills, Eyes: Negative for redness, swelling, itching, discharge, vision changes, blurry vision, double vision, glaucoma, cataracts, Ears: Negative for hearing loss, ringing, , tinnitus, vertigo Nose: Negative for rhinorrhea, stuffiness, sniffing, itching, postnasal drip, discoloration, nasal congestion and epistaxis. Throat: Negative for throat clearing, sore throat, hoarseness, difficulty swallowing and difficulty speaking. Respiratory: Negative for cough, , sputum production, chest tightness, wheezing, pleuritic chest pain ,daytime somnolence, chronic cough, hemoptysis, snoring at night, Cardiovascular: Negative for chest pain, palpitations, orthopnea, PND, Edema of legs, leg cramps, angina, claudication, , irregular heartbeat, Neurology no power in the lower extremities has sensation present upper extremities are normal higher functions are intact. Gastrointestinal: Negative for difficulty swallowing, diarrhea, constipation, black stools, rectal bleeding, nausea, flatulence, reflux, poor appetite urinary and fecal incontinence Genitourinary: Negative for frequent urination, hematuria, discharge, incontinence, urinary retention, frequent UTI, Psychiatric : Negative for depression, anxiety/panic, suicidal tendencies, Musculoskeletal: Negative for swollen joints, back pain, , neck pain, morning stiffness of joints, . Skin: Negative for rash, ulcers, itching, dry skin and pigmented lesions. P/E: Constitutional: Appears stated age and in no apparent distress. Head: Normocephalic. Ears: External ear canals patent without inflammation. Tympanic membranes intact with normal light reflex and landmark. Eyes: Pupils are central, bilaterally equal, symmetrical and reacts to light with normal movements and no icterus or pallor. Nose: External nares are patent. Mucosa is pink Mouth-Throat: Good general appearance and condition. No post-pharyngeal/oropharyngeal erythema and tonsillar hypertrophy. Good dental hygiene. Neck-Lymphatic: Neck is supple with normal ROM, no thyromegaly, lymph nodes or masses. JVD is normal with no carotid bruit. Lungs: Clear to percussion and auscultation with bilateral normal air entry. Cardiovascular: S1 and S2 are normal with no murmurs, gallops and rub. GI Exam: No hepatomegaly. Abdomen is soft and non-tender. No Organomegaly , masses or hernias are evident and bowel sounds are normal and active. Neurology: Higher function and all cranial nerves intact, with no gross motor or sensory deficit. Of upper extremity no power in the lower extremity. Reflexes are down lower extreme Musculoskeletal: No tender spots with normal curvature of the spine with no swelling or restricted ROM of the small and large joints. Extremities: Homans sign absent. Intact pulses with no pitting edema, calf tenderness or skin color changes. Skin: There is a superficial ulcer with a black on the left heel with surrounding cellulitis LAB/RADIOLOGY: ASSESMENT : Decubitus ulcer on the left heel secondary to paraplegia. Multiple sclerosis Renal cell carcinoma with metastases. Urinary and fecal incontinence PLAN: See orders Present on Admission - Present on Admission Any Indicators Present on Admission: No Past Patient History - Past Medical History & Family History Past Medical History?: Yes - Past Social History Smoking Status: Former Smoker - CARDIAC Hx Cardiac Disorders: No - PULMONARY Hx Respiratory Disorders: No - NEUROLOGICAL Hx Multiple Sclerosis: Yes - HEENT Hx HEENT Problems: No - RENAL Hx Chronic Kidney Disease: Yes Hx Kidney Stones: Yes - ENDOCRINE/METABOLIC Hx Endocrine Disorders: No - HEMATOLOGICAL/ONCOLOGICAL Hx Blood Disorders: No - INTEGUMENTARY Hx Dermatological Problems: No - MUSCULOSKELETAL/RHEUMATOLOGICAL Hx Musculoskeletal Disorders: No Hx Falls: No - GASTROINTESTINAL Hx Gastrointestinal Disorders: No - GENITOURINARY/GYNECOLOGICAL Hx Genitourinary Disorders: Yes Hx Hematuria: Yes - PSYCHIATRIC Hx Depression: Yes Hx Substance Use: No - SURGICAL HISTORY Hx Surgeries: Yes Other/Comment: "PERFORATED ULCER" - ANESTHESIA Hx Anesthesia: Yes Hx Anesthesia Reactions: No Hx Malignant Hyperthermia: No Meds Allergies/Adverse Reactions: Allergies Allergy/AdvReac Type Severity Reaction Status Date / Time No Known Allergies Allergy Verified 12/14/17 18:00 Results - Vital Signs Recent Vital Signs: Last Vital Signs Temp 97.8 F 12/14/17 18:39 Pulse 96 H 12/14/17 18:39 Resp 18 12/14/17 18:39 BP 136/77 12/14/17 18:39 Pulse Ox 98 12/14/17 18:39 - Labs Result Diagrams: 12/14/17 18:31 12/14/17 18:31 Labs: Laboratory Results - last 24 hr 12/14/17 12/14/17 12/14/17 18:31 18:31 18:37 WBC 7.2 RBC 3.95 L Hgb 11.1 L Hct 32.8 L MCV 82.9 MCH 28.2 MCHC 34.0 RDW 16.2 H Plt Count 401 H MPV 8.0 Neut % (Auto) 71.5 Lymph % (Auto) 16.4 L [place] % (Auto) 10.1 H Eos % (Auto) 1.5 Baso % (Auto) 0.5 Neut # (Auto) 5.1 Lymph # (Auto) 1.2 [place] # (Auto) 0.7 Eos # (Auto) 0.1 Baso # (Auto) 0.0 pO2 19 L VBG pH 7.39 VBG pCO2 50 VBG HCO3 26.3 VBG Total CO2 31.8 H VBG O2 Sat (Calc) 36.2 L VBG Base Excess 4.2 H VBG Potassium 3.7 Glucose 102 Lactate 1.4 Sodium 140 140.0 Potassium 4.3 Chloride 103 108.0 H Carbon Dioxide 28 Anion Gap 14 BUN 15 Creatinine 0.6 L Est GFR ( Amer) > 60 Est GFR (Non-Af Amer) > 60 Random Glucose 107 Calcium 9.3 Total Bilirubin 0.5 AST 36 ALT 43 Alkaline Phosphatase 94 Total Protein 6.8 Albumin 3.7 Globulin 3.1 Albumin/Globulin Ratio 1.2 Venous Blood Potassium 3.7
[2017-12-14] MEDS ORDERED: Piperacillin/Tazobact 3.375 gm 100 ML IVPB ONE (20:29)
[2017-12-14] MEDS: Piperacill/Tazo 3.375gm in Dex 3.375 GM/50 ML BAG IVPB SCH (20:36)
--- NOTE | 2017-12-14 21:33 | C.PDOC ---
History Of Present Illness 62-year-old male, PMHx includes spinal stenosis, presents to the emergency department with complaints of ulcer to hid tight heel ongoing for the past several days. Patient also has a fever of 101 x2 days, prompting visit. No medications taken. Chief Complaint (Nursing): Abnormal Skin Integrity History Per: Patient History/Exam Limitations: no limitations Past Medical History Reviewed: Historical Data, Nursing Documentation, Vital Signs Vital Signs: Last Vital Signs Temp 97.7 F 12/15/17 07:48 Pulse 80 12/15/17 07:48 Resp 20 12/15/17 07:48 BP 140/80 12/15/17 07:48 Pulse Ox 97 12/15/17 07:48 - Medical History PMH: Depression, Kidney Stones, Multiple Sclerosis, Chronic Kidney Disease - [facility] Procedures EXCISION OF THORACIC SPINAL CORD, OPEN APPROACH (10/21/17) EXTRACTION OF ILIAC BONE MARROW, OPEN APPROACH (10/21/17) FUSION THOR JT W AUTOL SUB, POST APPR P COL, OPEN (10/21/17) INSERTION OF INT FIX INTO THOR VERTEBRA, OPEN APPROACH (10/21/17) INSPECTION OF BLADDER, ENDO (04/11/17) RELEASE THORACIC SPINAL CORD, OPEN APPROACH (10/21/17) SUPPLEMENT DUODENUM WITH AUTOL SUB, OPEN APPROACH (03/18/17) Family History: States: No Known Family Hx - Social History Hx Tobacco Use: Yes Hx Alcohol Use: No Hx Substance Use: No - Immunization History Hx Tetanus Toxoid Vaccination: No Hx Influenza Vaccination: No Hx Pneumococcal Vaccination: Yes Review Of Systems Constitutional: Positive for: Fever Gastrointestinal: Negative for: Nausea, Vomiting Musculoskeletal: Positive for: Foot Pain Physical Exam - Physical Exam Appears: Non-toxic, No Acute Distress Skin: Warm, Dry, No Rash Head: Atraumatic Eye(s): bilateral: Normal Inspection Nose: Normal Oral Mucosa: Moist Lips: Normal Appearing Neck: Normal ROM Cardiovascular: Rhythm Regular, No Murmur Respiratory: Normal Breath Sounds, No Accessory Muscle Use Extremity: Normal ROM, No Deformity, Other (Left foot: small abscess to lateral malleolus. Right heel 4cm blister/ulcer) Pulses: Left Dorsalis Pedis: Normal, Right Dorsalis Pedis: Normal Neurological/Psych: Oriented x3, Normal Speech ED Course And Treatment - Laboratory Results Result Diagrams: 12/14/17 18:31 12/14/17 18:31 O2 Sat by Pulse Oximetry: 97 Pulse Ox Interpretation: Normal (RA) Disposition - Disposition Disposition: HOSPITALIZED Disposition Time: 19:15 Condition: STABLE - Clinical Impression Clinical Impression: Abscess of right foot - Scribe Statement The provider has reviewed the documentation as recorded by the Scribe (Becca Dorado) Provider Attestation: All medical record entries made by the Scribe were at my direction and personally dictated by me. I have reviewed the chart and agree that the record accurately reflects my personal performance of the history, physical exam, medical decision making, and the department course for this patient. I have also personally directed, reviewed, and agree with the discharge instructions and disposition.
[2017-12-15] MEDS: Piperacill/Tazo 3.375gm in Dex 3.375 GM/50 ML BAG IVPB SCH ×4 (03:30→20:50)
[2017-12-15 04:39] LABS: SQUAMOUS EPITHIAL 1 /hpf (0-5); URINE BACTERIA OCC (<OCC); URINE BILIRUBIN NEGATIVE (NEGATIVE); URINE BLOOD 3+ (NEGATIVE); URINE CLARITY Turbid (Clear); URINE COLOR Yellow (YELLOW); URINE GLUCOSE (UA) NORMAL (Normal); URINE LEUKOCYTE ESTERASE 3+ Leu/uL (Negative); URINE PROTEIN 2+ mg/dL (NEGATIVE); URINE UROBILINOGEN NORMAL mg/dL (0.2-1.0); WBC CLUMPS MANY /hpf
[2017-12-15 07:50] VITALS: RESP 20
--- NOTE | 2017-12-15 08:20 | RAD ---
Date of service: 12/14/2017 PROCEDURE: Right Foot Radiographs. HISTORY: r/o osteo of right heel COMPARISON: None. FINDINGS: BONES: No acute fracture are periosteal reaction. JOINTS: Mildly narrowed. SOFT TISSUES: Normal. OTHER FINDINGS: Tiny Achilles enthesophyte. Small inferior plantar calcaneal spur. IMPRESSION: No demonstrated fracture or dislocation. No findings to suggest acute osteomyelitis.
[2017-12-15] MEDS: Dexamethasone 4 mg/1 ml IV SCH ×2 (09:37→18:15)
[2017-12-15] MEDS: Multiple Vitamins Tab PO SCH (09:38)
[2017-12-15] MEDS: Docusate-Senna 50 mg-8.6 mg Tab PO SCH (09:51)
--- NOTE | 2017-12-15 10:54 | RAD ---
Date of service: 12/15/2017 HISTORY: R/O PNEUMONIA COMPARISON: Chest radiograph dated 10/21/2017. FINDINGS: LUNGS: No active pulmonary disease. PLEURA: No significant pleural effusion identified, no pneumothorax apparent. CARDIOVASCULAR: Atherosclerotic aortic calcifications. Cardiomediastinal silhouette stably enlarged. OSSEOUS STRUCTURES: New posterior fusion of the mid/lower thoracic spine. Otherwise unchanged. VISUALIZED UPPER ABDOMEN: Normal. OTHER FINDINGS: None. IMPRESSION: No active disease.
--- NOTE | 2017-12-15 15:30 | CP.PCM.PN ---
Subjective - Date & Time of Evaluation Date of Evaluation: 12/15/17 Time of Evaluation: 15:28 - Subjective Subjective: COMPREHENSIVE HISTORY & PHYSICAL EXAM Patient admitted from home through the emergency room with nonhealing ulcer on the left heel and spiking temperature 101 at home. 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 Currently the family do not want any aggressive treatment for the cancer of the kidneys. Due to the paraplegia patient has no movement of the lower extremities and recently patient started developing a black on the left heel which has increased in size with some discharge and since yesterday patient had been spiking 101 temperature at home. Patient was evaluated by wound care nurse and advised to deep debridement and IV antibiotics. Patient was evaluated in the ER and agreed with the therapy and was admitted in the hospital. PAST HIST. Patient has history of MS and history of cord compression with paraplegia. History of mild hypertension history of urinary and fecal incontinence. PERSONAL HIST: Smoking. Previously heavy smoker Alcohol. N Allergy N Travel_- . FAMILY HIST : ROS : Constitutional: Negative for weight change, chills, Eyes: Negative for redness, swelling, itching, discharge, vision changes, blurry vision, double vision, glaucoma, cataracts, Ears: Negative for hearing loss, ringing, , tinnitus, vertigo Nose: Negative for rhinorrhea, stuffiness, sniffing, itching, postnasal drip, discoloration, nasal congestion and epistaxis. Throat: Negative for throat clearing, sore throat, hoarseness, difficulty swallowing and difficulty speaking. Respiratory: Negative for cough, , sputum production, chest tightness, wheezing, pleuritic chest pain ,daytime somnolence, chronic cough, hemoptysis, snoring at night, Cardiovascular: Negative for chest pain, palpitations, orthopnea, PND, Edema of legs, leg cramps, angina, claudication, , irregular heartbeat, Neurology no power in the lower extremities has sensation present upper extremities are normal higher functions are intact. Gastrointestinal: Negative for difficulty swallowing, diarrhea, constipation, black stools, rectal bleeding, nausea, flatulence, reflux, poor appetite urinary and fecal incontinence Genitourinary: Negative for frequent urination, hematuria, discharge, incontinence, urinary retention, frequent UTI, Psychiatric : Negative for depression, anxiety/panic, suicidal tendencies, Musculoskeletal: Negative for swollen joints, back pain, , neck pain, morning stiffness of joints, . Skin: Negative for rash, ulcers, itching, dry skin and pigmented lesions. P/E: Constitutional: Appears stated age and in no apparent distress. Head: Normocephalic. Ears: External ear canals patent without inflammation. Tympanic membranes intact with normal light reflex and landmark. Eyes: Pupils are central, bilaterally equal, symmetrical and reacts to light with normal movements and no icterus or pallor. Nose: External nares are patent. Mucosa is pink Mouth-Throat: Good general appearance and condition. No post-pharyngeal/oropharyngeal erythema and tonsillar hypertrophy. Good dental hygiene. Neck-Lymphatic: Neck is supple with normal ROM, no thyromegaly, lymph nodes or masses. JVD is normal with no carotid bruit. Lungs: Clear to percussion and auscultation with bilateral normal air entry. Cardiovascular: S1 and S2 are normal with no murmurs, gallops and rub. GI Exam: No hepatomegaly. Abdomen is soft and non-tender. No Organomegaly , masses or hernias are evident and bowel sounds are normal and active. Neurology: Higher function and all cranial nerves intact, with no gross motor or sensory deficit. Of upper extremity no power in the lower extremity. Reflexes are down lower extreme Musculoskeletal: No tender spots with normal curvature of the spine with no swelling or restricted ROM of the small and large joints. Extremities: Homans sign absent. Intact pulses with no pitting edema, calf tenderness or skin color changes. Skin: There is a superficial ulcer with a black on the left heel with surrounding cellulitis LAB/RADIOLOGY: ASSESMENT : Decubitus ulcer on the left heel secondary to paraplegia. Multiple sclerosis Renal cell carcinoma with metastases. Urinary and fecal incontinence PLAN: See orders Objective - Vital Signs/Intake and Output Vital Signs (last 24 hours): Temp Pulse Resp BP Pulse Ox 97.7 F 80 20 140/80 97 12/15/17 07:48 12/15/17 07:48 12/15/17 07:48 12/15/17 07:48 12/15/17 12:21 - Medications Medications: Current Medications Ascorbic Acid (Vitamin C 500 Mg Tab) 500 mg PO DAILY [facility] Last Admin: 12/15/17 09:38 Dose: 500 mg Dexamethasone (Decadron Inj) 4 mg IV BID [facility] Last Admin: 09/15/18 09:37 Dose: 4 mg Famotidine (Pepcid) 40 mg PO DAILY [facility] Last Admin: 12/15/17 09:51 Dose: 40 mg Finasteride (Proscar) 5 mg PO DAILY [facility] Last Admin: 12/15/17 09:51 Dose: 5 mg Heparin Sodium (Porcine) (Heparin) 5,000 units SC Q12 [facility] Last Admin: 12/15/17 09:40 Dose: 5,000 units Piperacillin Sod/Tazobactam Sod (Zosyn 3.375 Gm Iv Premix) 3.375 gm in 50 mls @ 100 mls/hr IVPB Q6H [facility] PRN Reason: Protocol Last Admin: 12/15/17 13:34 Dose: 100 mls/hr Multivitamins (Hexavitamin) 1 tab PO DAILY [facility] Last Admin: 12/15/17 09:38 Dose: 1 tab Senna/Docusate Sodium (Senokot S 50 Mg-8.6 Mg) 1 tab PO DAILY [facility] Last Admin: 12/15/17 09:51 Dose: 1 tab Tamsulosin HCl (Flomax) 0.4 mg PO DAILY [facility] Last Admin: 12/15/17 09:38 Dose: 0.4 mg Zinc Sulfate (Zinc Sulfate 220 Mg Cap) 220 mg PO DAILY [facility] Last Admin: 12/15/17 09:38 Dose: 220 mg - Labs Labs: 12/14/17 18:31 12/14/17 18:31
[2017-12-15] MEDS ORDERED: Bacitracin 500 Units/gm Oint Foilpak UD TOP ONE (15:37)
--- NOTE | 2017-12-15 17:52 | CP.PCM.CON ---
History of Present Illness - History of Present Illness History of Present Illness: INFECTIOUS DISEASE CONSULT HPI; 62-year-old male with history of multiple sclerosis, history of cord compression with paraplegia and metastatic renal cell carcinoma was admitted because off Right heel ulcer which has increased in size and slightly discoloration noted by the visiting Wound nurse. Patient was also seen spiking temperature to 101 at home. Patient was appropriately cultured and started on IV antibiotics by PMD. Infectious disease consult requested for right heel decubitus ulcer and elevated temperatures. PMH MULTIPLE SCLEROSIS,, HISTORY OF PARAPLEGIA CORD COMPRESSION SECONDARY TO METASTATIC RENAL CELL CANCER, HTN, HX OF URINARY AND FECAL INCONTINENCE. PSH; HX GASTRIC SURGERY, SPINAL SURGERY. ALLERGY; NKA. SOCIAL HISTORY; HEAVY SMOKER IN THE PAST, DENIES ALCOHOL OR SUBSTANCE ABUSE. FH; NONCONTRIBUTORY. IMMUNIZATIONS; Hx Tetanus Toxoid Vaccination: No Hx Influenza Vaccination: No Hx Pneumococcal Vaccination: Yes Review of Systems - Constitutional Constitutional: Chills, Fever - EENT Nose/Mouth/Throat: absent: Mouth Lesions, Odynophagia - Cardiovascular Cardiovascular: absent: Chest Pain, Dyspnea - Respiratory Respiratory: absent: Cough, Hemoptysis - Gastrointestinal Gastrointestinal: absent: Abdominal Pain, Constipation, Diarrhea, Nausea - Genitourinary Genitourinary: Pyuria, Freq UTI - Musculoskeletal Musculoskeletal: As Per HPI, Muscle Weakness (PARAPLEGIA BELOW THE WAIST.) - Neurological Neurological: As Per HPI ([place]), Focal Weakness (BILATERAL LOWER LEG WEAKNESS. iNCONTINENCE FECAL AND URINE.) - Hematologic/Lymphatic Hematologic: As Per HPI. absent: Easy Bleeding, Easy Bruising, Lymphadenopathy Past Patient History - Past Medical History & Family History Past Medical History?: Yes - Past Social History Smoking Status: Former Smoker - CARDIAC Hx Cardiac Disorders: No - PULMONARY Hx Respiratory Disorders: No - NEUROLOGICAL Hx Multiple Sclerosis: Yes - HEENT Hx HEENT Problems: No - RENAL Hx Chronic Kidney Disease: Yes Hx Kidney Stones: Yes - ENDOCRINE/METABOLIC Hx Endocrine Disorders: No - HEMATOLOGICAL/ONCOLOGICAL Hx Blood Disorders: No - INTEGUMENTARY Hx Dermatological Problems: No - MUSCULOSKELETAL/RHEUMATOLOGICAL Hx Musculoskeletal Disorders: No Hx Falls: No - GASTROINTESTINAL Hx Gastrointestinal Disorders: No - GENITOURINARY/GYNECOLOGICAL Hx Genitourinary Disorders: Yes Hx Hematuria: Yes - PSYCHIATRIC Hx Depression: Yes Hx Substance Use: No - SURGICAL HISTORY Hx Surgeries: Yes Other/Comment: "PERFORATED ULCER" - ANESTHESIA Hx Anesthesia: Yes Hx Anesthesia Reactions: No Hx Malignant Hyperthermia: No Meds Allergies/Adverse Reactions: Allergies Allergy/AdvReac Type Severity Reaction Status Date / Time No Known Allergies Allergy Verified 12/14/17 18:00 - Medications Medications: Current Medications Ascorbic Acid (Vitamin C 500 Mg Tab) 500 mg PO DAILY [facility] Last Admin: 12/15/17 09:38 Dose: 500 mg Dexamethasone (Decadron Inj) 4 mg IV BID [facility] Last Admin: 12/15/17 09:37 Dose: 4 mg Famotidine (Pepcid) 40 mg PO DAILY [facility] Last Admin: 12/15/17 09:51 Dose: 40 mg Finasteride (Proscar) 5 mg PO DAILY [facility] Last Admin: 12/15/17 09:51 Dose: 5 mg Heparin Sodium (Porcine) (Heparin) 5,000 units SC Q12 [facility] Last Admin: 12/15/17 09:40 Dose: 5,000 units Piperacillin Sod/Tazobactam Sod (Zosyn 3.375 Gm Iv Premix) 3.375 gm in 50 mls @ 100 mls/hr IVPB Q6H [facility] PRN Reason: Protocol Last Admin: 12/15/17 13:34 Dose: 100 mls/hr Multivitamins (Hexavitamin) 1 tab PO DAILY [facility] Last Admin: 12/15/17 09:38 Dose: 1 tab Senna/Docusate Sodium (Senokot S 50 Mg-8.6 Mg) 1 tab PO DAILY [facility] Last Admin: 12/15/17 09:51 Dose: 1 tab Tamsulosin HCl (Flomax) 0.4 mg PO DAILY [facility] Last Admin: 12/15/17 09:38 Dose: 0.4 mg Zinc Sulfate (Zinc Sulfate 220 Mg Cap) 220 mg PO DAILY [facility] Last Admin: 12/15/17 09:38 Dose: 220 mg Physical Exam - Constitutional Appears: No Acute Distress - Eye Exam Eye Exam: EOMI, PERRL - ENT Exam ENT Exam: Normal Oropharynx - Neck Exam Neck exam: Positive for: Normal Inspection - Respiratory Exam Respiratory Exam: Decreased Breath Sounds, NORMAL BREATHING PATTERN - Cardiovascular Exam Cardiovascular Exam: REGULAR RHYTHM, +S1, +S2 - GI/Abdominal Exam GI & Abdominal Exam: Normal Bowel Sounds, Soft. absent: Tenderness - Extremities Exam Extremities exam: Positive for: pedal edema, pedal pulses present (RT HEEL ULCER 7CM X 5CM SKIN MACERATION WITH SEROSANGUINEOUS DRAINAGE. NO PROBE TO THE BONE.). Negative for: calf tenderness - Neurological Exam Neurological exam: Alert, CN II-XII Intact - Psychiatric Exam Psychiatric exam: Normal Mood - Skin Skin Exam: Normal Color, Warm Results - Vital Signs Recent Vital Signs: Last Vital Signs Temp 98.2 F 12/15/17 15:30 Pulse 83 12/15/17 15:30 Resp 20 12/15/17 15:30 BP 125/70 12/15/17 15:30 Pulse Ox 97 12/15/17 15:30 - Labs Result Diagrams: 12/16/17 17:13 12/16/17 17:13 Labs: Laboratory Results - last 24 hr 12/14/17 12/14/17 12/14/17 18:31 18:31 18:37 WBC 7.2 RBC 3.95 L Hgb 11.1 L Hct 32.8 L MCV 82.9 MCH 28.2 MCHC 34.0 RDW 16.2 H Plt Count 401 H MPV 8.0 Neut % (Auto) 71.5 Lymph % (Auto) 16.4 L [place] % (Auto) 10.1 H Eos % (Auto) 1.5 Baso % (Auto) 0.5 Neut # (Auto) 5.1 Lymph # (Auto) 1.2 [place] # (Auto) 0.7 Eos # (Auto) 0.1 Baso # (Auto) 0.0 pO2 19 L VBG pH 7.39 VBG pCO2 50 VBG HCO3 26.3 VBG Total CO2 31.8 H VBG O2 Sat (Calc) 36.2 L VBG Base Excess 4.2 H VBG Potassium 3.7 Glucose 102 Lactate 1.4 Sodium 140 140.0 Potassium 4.3 Chloride 103 108.0 H Carbon Dioxide 28 Anion Gap 14 BUN 15 Creatinine 0.6 L Est GFR ( Amer) > 60 Est GFR (Non-Af Amer) > 60 Random Glucose 107 Calcium 9.3 Total Bilirubin 0.5 AST 36 ALT 43 Alkaline Phosphatase 94 Total Protein 6.8 Albumin 3.7 Globulin 3.1 Albumin/Globulin Ratio 1.2 Venous Blood Potassium 3.7 Urine Color Urine Clarity Urine pH Ur Specific [place] Urine Protein Urine Glucose (UA) Urine Ketones Urine Blood Urine Nitrate Urine Bilirubin Urine Urobilinogen Ur Leukocyte Esterase Urine WBC (Auto) Urine RBC (Auto) Urine WBC Clumps (Auto) Ur Squamous Epith Cells Urine Bacteria Urine Yeast (Budding) 12/15/17 04:30 WBC RBC Hgb Hct MCV MCH MCHC RDW Plt Count MPV Neut % (Auto) Lymph % (Auto) [place] % (Auto) Eos % (Auto) Baso % (Auto) Neut # (Auto) Lymph # (Auto) [place] # (Auto) Eos # (Auto) Baso # (Auto) pO2 VBG pH VBG pCO2 VBG HCO3 VBG Total CO2 VBG O2 Sat (Calc) VBG Base Excess VBG Potassium Glucose Lactate Sodium Potassium Chloride Carbon Dioxide Anion Gap BUN Creatinine Est GFR ( Amer) Est GFR (Non-Af Amer) Random Glucose Calcium Total Bilirubin AST ALT Alkaline Phosphatase Total Protein Albumin Globulin Albumin/Globulin Ratio Venous Blood Potassium Urine Color Yellow Urine Clarity Turbid Urine pH 5.0 Ur Specific [place] 1.026 Urine Protein 2+ H Urine Glucose (UA) Normal Urine Ketones Negative Urine Blood 3+ H Urine Nitrate Negative Urine Bilirubin Negative Urine Urobilinogen Normal Ur Leukocyte Esterase 3+ H Urine WBC (Auto) 1276 H Urine RBC (Auto) 188 H Urine WBC Clumps (Auto) Many H Ur Squamous Epith Cells 1 Urine Bacteria Occ H Urine Yeast (Budding) Many H - Imaging and Cardiology X-RAY LEFT FOOT Status: Report reviewed by me Assessment & Plan (1) Abscess of right foot Status: Acute (2) Neurogenic bladder Status: Chronic (3) Multiple sclerosis Status: Chronic (4) History of spinal cord compression Status: Acute (5) H/O renal cell cancer Status: Acute - Assessment and Plan (Free Text) Plan: PLAN; PANCULTURES. WOUND CULTURE UA/URINE CULTURE. ESR. CRP. CONTINUE iv zOSYN 3.375-iv PIGGYBACK EVERY 6 HOURLY 12/14/17 ADD IV DIFLUCAN 200 MG iv PIGGYBACK ONCE A DAY DAILY FOR [facility]. PODIATRY CONSULT PER ATTENDING. LWC. fOLLOW-UP CULTURES TO ADJUST ANTIBIOTICS. WILL FOLLOW ALONG WITH YOU..
[2017-12-15] MEDS: Fluconazole IV 200mg/100 ml NS 100 ML IVPB SCH (19:48)
[2017-12-16] MEDS: Piperacill/Tazo 3.375gm in Dex 3.375 GM/50 ML BAG IVPB SCH ×4 (01:30→21:17)
[2017-12-16 09:24] LABS: BASO % 0.3 % (0.0-2.0); HEMOGLOBIN 11.4 g/dL (12.0-18.0); LYMPH # 1.6 K/uL (1.0-4.3); LYMPH % 16.8 % (20.0-40.0); MEAN CELL VOLUME 82.3 fL (80.0-94.0); MEAN CORPUSCULAR HEMOGLOBIN 27.9 pg (27.0-31.0); MEAN CORPUSCULAR HGB CONC 33.9 g/dL (33.0-37.0); MEAN PLATELET VOLUME 8.1 fL (7.2-11.7); MONO # 0.5 K/uL (0.0-0.8); MONO % 4.8 % (0.0-10.0); NEUT # 7.4 K/uL (1.8-7.0); NEUT % 78.1 % (50.0-75.0); NRBC % 0.1 % (0.0-2.0); RBC 4.1 Mil/uL (4.40-5.90); RED CELL DISTRIBUTION WIDTH 16.1 % (11.5-14.5); WHITE BLOOD COUNT 9.5 K/uL (4.8-10.8)
[2017-12-16] MEDS: Docusate-Senna 50 mg-8.6 mg Tab PO SCH (09:32)
[2017-12-16] MEDS: Dexamethasone 4 mg/1 ml IV SCH (09:32)
[2017-12-16] MEDS: Multiple Vitamins Tab PO SCH (09:33)
[2017-12-16 09:41] LABS: ALB/GLOB RATIO 1.2 (1.0-2.1); ALBUMIN 3.7 g/dL (3.5-5.0); ALT/SGPT 33 U/L (21-72); AST/SGOT 18 U/L (17-59); BLOOD UREA NITROGEN 13 mg/dL (9-20); CALCIUM 9.8 mg/dl (8.6-10.4); GFR NON-AFRICAN AMERICAN > 60
--- NOTE | 2017-12-16 15:10 | CP.PCM.PN ---
Subjective - Date & Time of Evaluation Date of Evaluation: 12/16/17 Time of Evaluation: 15:06 - Subjective Subjective: CHIEF COMPLAINTS TODAY : Patient clinically remains the same with paraplegia and ulcer on the left heel. There is a bleeding yesterday of the left big toe nail, the nursing staff was unable to explain the reason of the bleeding as patient is paraplegic and does not move his extremities. ROS. HEENT : N. Resp : No cough, wheezing ,pleuritic CP ,or hemoptysis Cardio : No anginal CP, PND, orthopnea, palpitation GI : No abd.pain, n/v ,diarrhea or GI bleeding . [employer] : No headache, vertigo, Musculoskel : No joint swelling , Derm : No rash Psych : Normal affect. Ext : No swelling ,calf pain PE. Pt. is alert awake in no distress. V.S As noted in the chart Head ,ear nose,throat and eyes : Normal. Neck : Supple with normal carotids. Lungs: Clear air entry. Heart : S1 & S2 normal with S4. No murmur. Abd : Soft non tender with normal bowel sounds. Neuro : Paraplegia. Ext : No edema with intact pulses.Non tender calves Derm : Left heel shows half in each circular ulcer with a black which is collapsed with blackish bluish discoloration and surrounding cellulitis. Left big toenail has a clotted blood LABS/RADIOLOGY: ASSESSMENT/PLAN : Continue IV antibiotics and local wound care. Podiatric evaluation for the nail Urology evaluation as patient is getting conflicting medications for his bladder Objective - Vital Signs/Intake and Output Vital Signs (last 24 hours): Temp Pulse Resp BP Pulse Ox 98 F 91 H 20 130/77 97 12/16/17 08:44 12/16/17 08:44 12/16/17 08:44 12/16/17 08:44 12/16/17 00:00 Intake and Output: 12/16/17 12/16/17 11:59 23:59 Intake Total 350 Output Total 300 Balance 50 - Medications Medications: Current Medications Ascorbic Acid (Vitamin C 500 Mg Tab) 500 mg PO DAILY [facility] Last Admin: 12/16/17 09:33 Dose: 500 mg Famotidine (Pepcid) 40 mg PO DAILY [facility] Last Admin: 12/16/17 09:33 Dose: 40 mg Finasteride (Proscar) 5 mg PO DAILY [facility] Last Admin: 12/16/17 09:33 Dose: 5 mg Heparin Sodium (Porcine) (Heparin) 5,000 units SC Q12 [facility] Last Admin: 12/16/17 09:33 Dose: 5,000 units Piperacillin Sod/Tazobactam Sod (Zosyn 3.375 Gm Iv Premix) 3.375 gm in 50 mls @ 100 mls/hr IVPB Q6H [facility] PRN Reason: Protocol Last Admin: 12/16/17 13:31 Dose: 100 mls/hr Fluconazole (Diflucan Iv 200 Mg/100 Ml Ns) 100 mls @ 100 mls/hr IVPB Q24H [facility] PRN Reason: Protocol Last Admin: 12/15/17 19:48 Dose: 100 mls/hr Multivitamins (Hexavitamin) 1 tab PO DAILY [facility] Last Admin: 12/16/17 09:33 Dose: 1 tab Senna/Docusate Sodium (Senokot S 50 Mg-8.6 Mg) 1 tab PO DAILY [facility] Last Admin: 12/16/17 09:32 Dose: 1 tab Tamsulosin HCl (Flomax) 0.4 mg PO DAILY [facility] Last Admin: 12/16/17 09:32 Dose: 0.4 mg Zinc Sulfate (Zinc Sulfate 220 Mg Cap) 220 mg PO DAILY [facility] Last Admin: 12/16/17 09:33 Dose: 220 mg - Labs Labs: 12/16/17 09:02 12/16/17 09:02
[2017-12-16 17:29] LABS: BASO % 0.1 % (0.0-2.0); HEMOGLOBIN 11.3 g/dL (12.0-18.0); LYMPH # 0.9 K/uL (1.0-4.3); LYMPH % 10.3 % (20.0-40.0); MEAN CELL VOLUME 81.8 fL (80.0-94.0); MEAN CORPUSCULAR HEMOGLOBIN 27.9 pg (27.0-31.0); MEAN CORPUSCULAR HGB CONC 34.1 g/dL (33.0-37.0); MONO # 0.4 K/uL (0.0-0.8); MONO % 4.5 % (0.0-10.0); NEUT # 7.6 K/uL (1.8-7.0); NEUT % 85.1 % (50.0-75.0); PLATELET COUNT 456 K/uL (130-400); RBC 4.06 Mil/uL (4.40-5.90); RED CELL DISTRIBUTION WIDTH 16.1 % (11.5-14.5); WHITE BLOOD COUNT 8.9 K/uL (4.8-10.8)
[2017-12-16 17:42] LABS: ALB/GLOB RATIO 1.1 (1.0-2.1); ALBUMIN 3.4 g/dL (3.5-5.0); ALT/SGPT 31 U/L (21-72); AST/SGOT 14 U/L (17-59); BLOOD UREA NITROGEN 15 mg/dL (9-20); CALCIUM 9.6 mg/dl (8.6-10.4); GFR NON-AFRICAN AMERICAN > 60
[2017-12-16 18:11] LABS: BANDS 3 % (0-2); LYMPHOCYTE 15 % (20-40); MONOCYTE 3 % (0-10); MYELOCYTE 2 % (0-0); NEUTROPHIL 77 % (50-75); PLATELET ESTIMATE SLIGHTLY INCREASED (NORMAL); TOTAL CELLS COUNTED 100
[2017-12-16 18:12] LABS: ANISOCYTOSIS SLIGHT; HYPOCHROMIC SLIGHT; LARGE PLATELETS PRESENT; OVALOCYTES SLIGHT; POIKILOCYTOSIS SLIGHT
--- NOTE | 2017-12-16 18:51 | CP.PCM.CON ---
Addendum entered and electronically signed by Enrrique Herbert DPM 12/16/17 19: 18: Right foot X-ray reviewed (12/14): No signs of osseous anomalies Left foot 3 views X-ray ordered Original Note: History of Present Illness - History of Present Illness History of Present Illness: Podiatry consult notes for attending dr. Cerrato; 62 y/o M patient with PMH of multiple sclerosis and 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 Patient states that a month ago he started to develop ulcers in his LE. He states that he has an attack of MS which caused him to be bedridden currently. Patient states that he has MS since 10 years. patient states that He doesn't feel his lower extremities and doesn't have pain. patient states that yesterday he tripped down and his left toe nail got avulsed. patient denies any current F/N/V/C or SOB. Patient denies any pedal complaint at this time. PMH: Multiple sclerosis and paraplegia secondary to cord compression tumor from metastatic renal cell carcinoma, HTN PSH: Spinal surgery and gastric surgery. Allergies: NKDA. Social Hx: Ex-smoker (used to smoke 2 packs since he was 16 y and he quit 1 year ago). Denies ETOH or illicit drug use. Review of Systems - Review of Systems Review of Systems: As per HPI Past Patient History - Past Medical History & Family History Past Medical History?: Yes - Past Social History Smoking Status: Former Smoker - CARDIAC Hx Cardiac Disorders: No - PULMONARY Hx Respiratory Disorders: No - NEUROLOGICAL Hx Multiple Sclerosis: Yes - HEENT Hx HEENT Problems: No - RENAL Hx Chronic Kidney Disease: Yes Hx Kidney Stones: Yes - ENDOCRINE/METABOLIC Hx Endocrine Disorders: No - HEMATOLOGICAL/ONCOLOGICAL Hx Blood Disorders: No - INTEGUMENTARY Hx Dermatological Problems: No - MUSCULOSKELETAL/RHEUMATOLOGICAL Hx Musculoskeletal Disorders: No Hx Falls: No - GASTROINTESTINAL Hx Gastrointestinal Disorders: No - GENITOURINARY/GYNECOLOGICAL Hx Genitourinary Disorders: Yes Hx Hematuria: Yes - PSYCHIATRIC Hx Depression: Yes Hx Substance Use: No - SURGICAL HISTORY Hx Surgeries: Yes Other/Comment: "PERFORATED ULCER" - ANESTHESIA Hx Anesthesia: Yes Hx Anesthesia Reactions: No Hx Malignant Hyperthermia: No Meds Allergies/Adverse Reactions: Allergies Allergy/AdvReac Type Severity Reaction Status Date / Time No Known Allergies Allergy Verified 12/14/17 18:00 - Medications Medications: Current Medications Ascorbic Acid (Vitamin C 500 Mg Tab) 500 mg PO DAILY [facility] Last Admin: 12/16/17 09:33 Dose: 500 mg Famotidine (Pepcid) 40 mg PO DAILY [facility] Last Admin: 12/16/17 09:33 Dose: 40 mg Finasteride (Proscar) 5 mg PO DAILY [facility] Last Admin: 12/16/17 09:33 Dose: 5 mg Heparin Sodium (Porcine) (Heparin) 5,000 units SC Q12 [facility] Last Admin: 12/16/17 09:33 Dose: 5,000 units Piperacillin Sod/Tazobactam Sod (Zosyn 3.375 Gm Iv Premix) 3.375 gm in 50 mls @ 100 mls/hr IVPB Q6H [facility] PRN Reason: Protocol Last Admin: 12/16/17 13:31 Dose: 100 mls/hr Fluconazole (Diflucan Iv 200 Mg/100 Ml Ns) 100 mls @ 100 mls/hr IVPB Q24H [facility] PRN Reason: Protocol Last Admin: 12/15/17 19:48 Dose: 100 mls/hr Multivitamins (Hexavitamin) 1 tab PO DAILY [facility] Last Admin: 12/16/17 09:33 Dose: 1 tab Senna/Docusate Sodium (Senokot S 50 Mg-8.6 Mg) 1 tab PO DAILY [facility] Last Admin: 12/16/17 09:32 Dose: 1 tab Tamsulosin HCl (Flomax) 0.4 mg PO DAILY [facility] Last Admin: 12/16/17 09:32 Dose: 0.4 mg Zinc Sulfate (Zinc Sulfate 220 Mg Cap) 220 mg PO DAILY [facility] Last Admin: 12/16/17 09:33 Dose: 220 mg Physical Exam - Constitutional Appears: Non-toxic - Head Exam Head Exam: ATRAUMATIC, NORMOCEPHALIC - Extremities Exam Additional comments: LE focused exam: Vasc: DP/PT 2/4 b/l. Cap refill < 3 sec in all digits, Temp gradient warm to cool b/l from proximal to distal. +1 pitting edema present in the foot and extending up to the mid-calf b/l. Neuro: Both gross and protective sensations are lost b/l. Derm: Right heel ulcer 7.5cm X 4.5 cm X 0.2 cm. Base is necrotic granular 50: 50. No malodor, minimal serous drainage, No probing to bone, no undermining and no erythema. Right lower leg lateral side shows a bruised red area but no ulceration. Right hallux toe nail is avulsed with the nail bed is clean, granular, no drainage or malodour. Left Lower leg medial area shows a bruised red area but no ulceration. Left lateral malleolous show an ulcer [id number] Base is fibrotic granular 50 :50. No malodor, minimal serous drainage, No probing to bone, no undermining and minimal erythema erythema. Right 4th interspace, medial side of R 5th toe and underside of R 4th toe are cracked and opened but no drainage or malodor. MSK: Muscle power diminished in all groups 2/5. No pain on palpating the srikanth- ulcerative areas. - Neurological Exam Neurological exam: Alert, Oriented x3 - Psychiatric Exam Psychiatric exam: Normal Affect, Normal Mood Results - Vital Signs Recent Vital Signs: Last Vital Signs Temp 97.7 F 12/16/17 17:38 Pulse 86 12/16/17 17:38 Resp 20 12/16/17 17:38 BP 134/80 12/16/17 17:38 Pulse Ox 97 12/16/17 17:38 - Labs Result Diagrams: 12/16/17 17:13 12/16/17 17:13 Labs: Laboratory Results - last 24 hr 12/16/17 12/16/17 12/16/17 09:02 09:02 17:13 WBC 9.5 8.9 RBC 4.10 L 4.06 L Hgb 11.4 L 11.3 L Hct 33.7 L 33.2 L MCV 82.3 81.8 MCH 27.9 27.9 MCHC 33.9 34.1 RDW 16.1 H 16.1 H Plt Count 434 H 456 H MPV 8.1 8.0 Neut % (Auto) 78.1 H 85.1 H Lymph % (Auto) 16.8 L 10.3 L [place] % (Auto) 4.8 4.5 Eos % (Auto) 0.0 0.0 Baso % (Auto) 0.3 0.1 Neut # (Auto) 7.4 H 7.6 H Lymph # (Auto) 1.6 0.9 L [place] # (Auto) 0.5 0.4 Eos # (Auto) 0.0 0.0 Baso # (Auto) 0.0 0.0 Neutrophils % (Manual) 77 H Band Neutrophils % 3 H Lymphocytes % (Manual) 15 L Monocytes % (Manual) 3 Myelocytes % 2 H Platelet Estimate Slightly increased H Large Platelets Present Hypochromasia (manual) Slight Poikilocytosis (manual Slight Anisocytosis (manual) Slight Ovalocytes Slight Sodium 141 Potassium 4.5 Chloride 104 Carbon Dioxide 28 Anion Gap 14 BUN 13 Creatinine 0.5 L Est GFR ( Amer) > 60 Est GFR (Non-Af Amer) > 60 Random Glucose 143 H Calcium 9.8 Total Bilirubin 0.3 AST 18 ALT 33 Alkaline Phosphatase 101 Total Protein 6.7 Albumin 3.7 Globulin 3.0 Albumin/Globulin Ratio 1.2 12/16/17 17:13 WBC RBC Hgb Hct MCV MCH MCHC RDW Plt Count MPV Neut % (Auto) Lymph % (Auto) [place] % (Auto) Eos % (Auto) Baso % (Auto) Neut # (Auto) Lymph # (Auto) [place] # (Auto) Eos # (Auto) Baso # (Auto) Neutrophils % (Manual) Band Neutrophils % Lymphocytes % (Manual) Monocytes % (Manual) Myelocytes % Platelet Estimate Large Platelets Hypochromasia (manual) Poikilocytosis (manual Anisocytosis (manual) Ovalocytes Sodium 140 Potassium 4.2 Chloride 103 Carbon Dioxide 26 Anion Gap 16 BUN 15 Creatinine 0.5 L Est GFR ( Amer) > 60 Est GFR (Non-Af Amer) > 60 Random Glucose 193 H Calcium 9.6 Total Bilirubin 0.3 AST 14 L D ALT 31 Alkaline Phosphatase 92 Total Protein 6.4 Albumin 3.4 L Globulin 3.0 Albumin/Globulin Ratio 1.1 Assessment & Plan - Assessment and Plan (Free Text) Assessment: 62 y/o M patient seen and evaluated at the bedside for bilateral foot ulcers Plan: Patient seen and evaluated at the bed side. Plan discussed in details with attending Dr. salina Acosta, labs and vitals reviewed; afebrile, no leukocytosis Ordered 3 views X-ray B/L. ID Dr. Cruz is on-board. Patient to stay in multipodus boot while he is on bed. Patient wounds dressed using DSD and xeroform for the right heel ulcer. betadine DSD for the right hallux and 4th left interspace. DSD for the rest. Wound culture from left foot ulcers collected and sent to labs. Wound culture taken yesterday from the right heel ulcer. Podiatry will continue to follow up the patient while in house. - Date & Time Date: 12/16/17 Time: 18:42
[2017-12-16] MEDS: Fluconazole IV 200mg/100 ml NS 100 ML IVPB SCH (19:00)
--- NOTE | 2017-12-16 23:56 | CP.PCM.PN ---
Subjective - Date & Time of Evaluation Date of Evaluation: 12/16/17 Time of Evaluation: 23:56 - Subjective Subjective: CHIEF COMPLAINTS TODAY : afebrile, vss awake/and alert rt hulux toe nail bleeding as reported by this pm to the staff, rt heel ulcer +ve dressing +ve minimal sero- sanguinous discharge+ve necrotic base. left lateral /medial malleolus ulceration ,dry ROS. HEENT : N. Resp : No cough, wheezing ,pleuritic CP ,or hemoptysis Cardio : No anginal CP, PND, orthopnea, palpitation GI : No abd.pain, n/v ,diarrhea or GI bleeding . [employer] : No headache, vertigo, focal deficit. Musculoskel : No joint swelling , Derm : No rash Psych : Normal affect. Ext : No swelling ,calf pain . RT FOOT IN DRESSING LT FOOT IN DRESSING B/L MULTIPODUS BOOTS +VE PE. Pt. is alert awake in no distress. V.S As noted in the chart Head ,ear nose,throat and eyes : Normal. Neck : Supple with normal carotids. Lungs: Clear air entry. Heart : S1 & S2 normal with S4. No murmur. Abd : Soft non tender with normal bowel sounds. Neuro : Moves all ext. with no localized deficit. Ext : No edema with intact pulses.Non tender calves RT FOOT IN DRESSING LT FOOT IN DRESSING B/L MULTIPODUS BOOTS +VE Derm : No rashes or decubitus ulcer. LABS/RADIOLOGY: reviewed CXR NAD. RT FOOT XRAY - NO OSSEOUS PROCESS Objective - Vital Signs/Intake and Output Vital Signs (last 24 hours): Temp Pulse Resp BP Pulse Ox 97.7 F 86 20 134/80 97 12/16/17 17:38 12/16/17 17:38 12/16/17 17:38 12/16/17 17:38 12/16/17 17:38 Intake and Output: 12/16/17 12/17/17 18:59 06:59 Intake Total 200 Balance 200 - Medications Medications: Current Medications Ascorbic Acid (Vitamin C 500 Mg Tab) 500 mg PO DAILY [facility] Last Admin: 12/16/17 09:33 Dose: 500 mg Famotidine (Pepcid) 40 mg PO DAILY [facility] Last Admin: 12/16/17 09:33 Dose: 40 mg Finasteride (Proscar) 5 mg PO DAILY [facility] Last Admin: 12/16/17 09:33 Dose: 5 mg Heparin Sodium (Porcine) (Heparin) 5,000 units SC Q12 [facility] Last Admin: 12/16/17 21:16 Dose: 5,000 units Piperacillin Sod/Tazobactam Sod (Zosyn 3.375 Gm Iv Premix) 3.375 gm in 50 mls @ 100 mls/hr IVPB Q6H [facility] PRN Reason: Protocol Last Admin: 12/16/17 21:17 Dose: 100 mls/hr Fluconazole (Diflucan Iv 200 Mg/100 Ml Ns) 100 mls @ 100 mls/hr IVPB Q24H [facility] PRN Reason: Protocol Last Admin: 12/16/17 19:00 Dose: 100 mls/hr Multivitamins (Hexavitamin) 1 tab PO DAILY [facility] Last Admin: 12/16/17 09:33 Dose: 1 tab Senna/Docusate Sodium (Senokot S 50 Mg-8.6 Mg) 1 tab PO DAILY [facility] Last Admin: 12/16/17 09:32 Dose: 1 tab Tamsulosin HCl (Flomax) 0.4 mg PO DAILY [facility] Last Admin: 12/16/17 09:32 Dose: 0.4 mg Zinc Sulfate (Zinc Sulfate 220 Mg Cap) 220 mg PO DAILY [facility] Last Admin: 12/16/17 09:33 Dose: 220 mg - Labs Labs: 12/16/17 17:13 12/16/17 17:13 Assessment and Plan (1) Abscess of right foot Status: Acute (2) H/O renal cell cancer Status: Acute (3) History of spinal cord compression Status: Acute (4) Multiple sclerosis Status: Acute (5) Neurogenic bladder Status: Chronic - Assessment and Plan (Free Text) Plan: CONTINUE iv zOSYN 3.375-iv PIGGYBACK EVERY 6 HOURLY 12/14/17 ON IV DIFLUCAN 200 MG iv PIGGYBACK ONCE A DAY DAILY FOR PROBABLE CANDIDURIA. LWC PER DR ENGLE AND WOUND CARE fOLLOW-UP CULTURES TO ADJUST ANTIBIOTICS. CASE DISCUSSED WITH PMD.
[2017-12-17] MEDS: Piperacill/Tazo 3.375gm in Dex 3.375 GM/50 ML BAG IVPB SCH ×4 (02:10→20:17)
[2017-12-17] MEDS: Multiple Vitamins Tab PO SCH (10:50)
[2017-12-17] MEDS: Docusate-Senna 50 mg-8.6 mg Tab PO SCH (10:50)
--- NOTE | 2017-12-17 12:43 | CP.PCM.CON ---
Past Patient History - Past Medical History & Family History Past Medical History?: Yes - Past Social History Smoking Status: Former Smoker - CARDIAC Hx Cardiac Disorders: No - PULMONARY Hx Respiratory Disorders: No - NEUROLOGICAL Hx Multiple Sclerosis: Yes - HEENT Hx HEENT Problems: No - RENAL Hx Chronic Kidney Disease: Yes Hx Kidney Stones: Yes - ENDOCRINE/METABOLIC Hx Endocrine Disorders: No - HEMATOLOGICAL/ONCOLOGICAL Hx Blood Disorders: No - INTEGUMENTARY Hx Dermatological Problems: No - MUSCULOSKELETAL/RHEUMATOLOGICAL Hx Musculoskeletal Disorders: No Hx Falls: No - GASTROINTESTINAL Hx Gastrointestinal Disorders: No - GENITOURINARY/GYNECOLOGICAL Hx Genitourinary Disorders: Yes Hx Hematuria: Yes - PSYCHIATRIC Hx Depression: Yes Hx Substance Use: No - SURGICAL HISTORY Hx Surgeries: Yes Other/Comment: "PERFORATED ULCER" - ANESTHESIA Hx Anesthesia: Yes Hx Anesthesia Reactions: No Hx Malignant Hyperthermia: No Meds Allergies/Adverse Reactions: Allergies Allergy/AdvReac Type Severity Reaction Status Date / Time No Known Allergies Allergy Verified 12/14/17 18:00 - Medications Medications: Current Medications Ascorbic Acid (Vitamin C 500 Mg Tab) 500 mg PO DAILY [facility] Last Admin: 12/17/17 10:50 Dose: 500 mg Famotidine (Pepcid) 40 mg PO DAILY [facility] Last Admin: 12/17/17 10:50 Dose: 40 mg Finasteride (Proscar) 5 mg PO DAILY [facility] Last Admin: 12/17/17 10:50 Dose: 5 mg Heparin Sodium (Porcine) (Heparin) 5,000 units SC Q12 [facility] Last Admin: 12/17/17 10:50 Dose: 5,000 units Piperacillin Sod/Tazobactam Sod (Zosyn 3.375 Gm Iv Premix) 3.375 gm in 50 mls @ 100 mls/hr IVPB Q6H [facility] PRN Reason: Protocol Last Admin: 12/17/17 09:30 Dose: 100 mls/hr Fluconazole (Diflucan Iv 200 Mg/100 Ml Ns) 100 mls @ 100 mls/hr IVPB Q24H [facility] PRN Reason: Protocol Last Admin: 12/16/17 19:00 Dose: 100 mls/hr Multivitamins (Hexavitamin) 1 tab PO DAILY [facility] Last Admin: 12/17/17 10:50 Dose: 1 tab Senna/Docusate Sodium (Senokot S 50 Mg-8.6 Mg) 1 tab PO DAILY [facility] Last Admin: 12/17/17 10:50 Dose: 1 tab Tamsulosin HCl (Flomax) 0.4 mg PO DAILY [facility] Last Admin: 12/17/17 10:50 Dose: 0.4 mg Zinc Sulfate (Zinc Sulfate 220 Mg Cap) 220 mg PO DAILY [facility] Last Admin: 12/17/17 10:49 Dose: 220 mg Results - Vital Signs Recent Vital Signs: Last Vital Signs Temp 97.6 F 12/17/17 07:51 Pulse 76 12/17/17 07:51 Resp 20 12/17/17 07:51 BP 151/82 H 12/17/17 07:51 Pulse Ox 97 12/17/17 07:51 - Labs Result Diagrams: 12/16/17 17:13 12/16/17 17:13 Labs: Laboratory Results - last 24 hr 12/16/17 12/16/17 17:13 17:13 WBC 8.9 RBC 4.06 L Hgb 11.3 L Hct 33.2 L MCV 81.8 MCH 27.9 MCHC 34.1 RDW 16.1 H Plt Count 456 H MPV 8.0 Neut % (Auto) 85.1 H Lymph % (Auto) 10.3 L [place] % (Auto) 4.5 Eos % (Auto) 0.0 Baso % (Auto) 0.1 Neut # (Auto) 7.6 H Lymph # (Auto) 0.9 L [place] # (Auto) 0.4 Eos # (Auto) 0.0 Baso # (Auto) 0.0 Neutrophils % (Manual) 77 H Band Neutrophils % 3 H Lymphocytes % (Manual) 15 L Monocytes % (Manual) 3 Myelocytes % 2 H Platelet Estimate Slightly increased H Large Platelets Present Hypochromasia (manual) Slight Poikilocytosis (manual Slight Anisocytosis (manual) Slight Ovalocytes Slight Sodium 140 Potassium 4.2 Chloride 103 Carbon Dioxide 26 Anion Gap 16 BUN 15 Creatinine 0.5 L Est GFR ( Amer) > 60 Est GFR (Non-Af Amer) > 60 Random Glucose 193 H Calcium 9.6 Total Bilirubin 0.3 AST 14 L D ALT 31 Alkaline Phosphatase 92 Total Protein 6.4 Albumin 3.4 L Globulin 3.0 Albumin/Globulin Ratio 1.1 Assessment & Plan - Assessment and Plan (Free Text) Assessment: IMP: URINARY RETENTION PARAPLEGIA NEUROGENIC BLADDER METASTATIC RENAL CARCINOMA FULL NOTE TBD ys - Date & Time Date: 12/17/17 Time: 12:43
--- NOTE | 2017-12-17 13:55 | RAD ---
Date of service: 12/17/2017 PROCEDURE: Left Foot Radiographs. HISTORY: To R/O osteomyelitis COMPARISON: None. FINDINGS: BONES: Normal. No fracture. JOINTS: Normal. SOFT TISSUES: Normal. OTHER FINDINGS: None. IMPRESSION: Normal left foot radiographs. No plain radiographic evidence of osteomyelitis.
--- NOTE | 2017-12-17 14:06 | CP.PCM.PN ---
Subjective - Date & Time of Evaluation Date of Evaluation: 12/17/17 Time of Evaluation: 14:05 - Subjective Subjective: CHIEF COMPLAINTS TODAY : IMROVING ROS. HEENT : N. Resp : No cough, wheezing ,pleuritic CP ,or hemoptysis Cardio : No anginal CP, PND, orthopnea, palpitation GI : No abd.pain, n/v ,diarrhea or GI bleeding . 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 Ext : No swelling ,calf pain PE. Pt. is alert awake in no distress. V.S As noted in the chart Head ,ear nose,throat and eyes : Normal. Neck : Supple with normal carotids. Lungs: Clear air entry. Heart : S1 & S2 normal with S4. No murmur. Abd : Soft non tender with normal bowel sounds. Neuro : Paraplegia. Ext : No edema with intact pulses.Non tender calves Derm : Left heel shows half in each circular ulcer with a black which is collapsed with blackish bluish discoloration and surrounding cellulitis. Left big toenail has a clotted blood LABS/RADIOLOGY: C/S PENDING ASSESSMENT/PLAN : Continue IV antibiotics and local wound care. Objective - Vital Signs/Intake and Output Vital Signs (last 24 hours): Temp Pulse Resp BP Pulse Ox 97.6 F 76 20 151/82 H 97 12/17/17 07:51 12/17/17 07:51 12/17/17 07:51 12/17/17 07:51 12/17/17 07:51 Intake and Output: 12/17/17 12/17/17 11:59 23:59 Intake Total 230 Output Total 600 Balance -370 - Medications Medications: Current Medications Ascorbic Acid (Vitamin C 500 Mg Tab) 500 mg PO DAILY [facility] Last Admin: 12/17/17 10:50 Dose: 500 mg Famotidine (Pepcid) 40 mg PO DAILY [facility] Last Admin: 12/17/17 10:50 Dose: 40 mg Finasteride (Proscar) 5 mg PO DAILY [facility] Last Admin: 12/17/17 10:50 Dose: 5 mg Heparin Sodium (Porcine) (Heparin) 5,000 units SC Q12 [facility] Last Admin: 12/17/17 10:50 Dose: 5,000 units Piperacillin Sod/Tazobactam Sod (Zosyn 3.375 Gm Iv Premix) 3.375 gm in 50 mls @ 100 mls/hr IVPB Q6H [facility] PRN Reason: Protocol Last Admin: 12/17/17 09:30 Dose: 100 mls/hr Fluconazole (Diflucan Iv 200 Mg/100 Ml Ns) 100 mls @ 100 mls/hr IVPB Q24H [facility] PRN Reason: Protocol Last Admin: 12/16/17 19:00 Dose: 100 mls/hr Multivitamins (Hexavitamin) 1 tab PO DAILY [facility] Last Admin: 12/17/17 10:50 Dose: 1 tab Senna/Docusate Sodium (Senokot S 50 Mg-8.6 Mg) 1 tab PO DAILY [facility] Last Admin: 12/17/17 10:50 Dose: 1 tab Tamsulosin HCl (Flomax) 0.4 mg PO DAILY [facility] Last Admin: 12/17/17 10:50 Dose: 0.4 mg Zinc Sulfate (Zinc Sulfate 220 Mg Cap) 220 mg PO DAILY [facility] Last Admin: 12/17/17 10:49 Dose: 220 mg - Labs Labs: 12/16/17 17:13 12/16/17 17:13
--- NOTE | 2017-12-17 15:38 | CP.PCM.PN ---
Subjective - Date & Time of Evaluation Date of Evaluation: 12/17/17 Time of Evaluation: 11:10 - Subjective Subjective: Podiatry progress note: Dr. Cerrato 62 year old male was evaluated this morning for diffuse bilateral feet ulceration. Patient denies of any acute overnight events. Denies of any pain to his bilateral feet. Patient is AAOx3 and appears in NAD. Denies of recent F/N/V/ C/SOB/CP/headache. No other pedal complains. Objective - Vital Signs/Intake and Output Vital Signs (last 24 hours): Temp Pulse Resp BP Pulse Ox 97.6 F 76 20 151/82 H 97 12/17/17 07:51 12/17/17 07:51 12/17/17 07:51 12/17/17 07:51 12/17/17 07:51 Intake and Output: 12/17/17 12/17/17 06:59 18:59 Intake Total 430 Output Total 600 Balance -170 - Medications Medications: Current Medications Ascorbic Acid (Vitamin C 500 Mg Tab) 500 mg PO DAILY [facility] Last Admin: 12/17/17 10:50 Dose: 500 mg Famotidine (Pepcid) 40 mg PO DAILY [facility] Last Admin: 12/17/17 10:50 Dose: 40 mg Finasteride (Proscar) 5 mg PO DAILY [facility] Last Admin: 12/17/17 10:50 Dose: 5 mg Heparin Sodium (Porcine) (Heparin) 5,000 units SC Q12 [facility] Last Admin: 12/17/17 10:50 Dose: 5,000 units Piperacillin Sod/Tazobactam Sod (Zosyn 3.375 Gm Iv Premix) 3.375 gm in 50 mls @ 100 mls/hr IVPB Q6H [facility] PRN Reason: Protocol Last Admin: 12/17/17 15:23 Dose: 100 mls/hr Fluconazole (Diflucan Iv 200 Mg/100 Ml Ns) 100 mls @ 100 mls/hr IVPB Q24H [facility] PRN Reason: Protocol Last Admin: 12/16/17 19:00 Dose: 100 mls/hr Multivitamins (Hexavitamin) 1 tab PO DAILY [facility] Last Admin: 12/17/17 10:50 Dose: 1 tab Senna/Docusate Sodium (Senokot S 50 Mg-8.6 Mg) 1 tab PO DAILY [facility] Last Admin: 12/17/17 10:50 Dose: 1 tab Tamsulosin HCl (Flomax) 0.4 mg PO DAILY [facility] Last Admin: 12/17/17 10:50 Dose: 0.4 mg Zinc Sulfate (Zinc Sulfate 220 Mg Cap) 220 mg PO DAILY [facility] Last Admin: 12/17/17 10:49 Dose: 220 mg - Labs Labs: 12/16/17 17:13 12/16/17 17:13 - Constitutional Appears: Well, Non-toxic, No Acute Distress - Extremities Exam Additional comments: LE focused exam: Vasc: DP/PT 2/4 b/l. Cap refill < 3 sec in all digits, Temp gradient warm to cool b/l from proximal to distal. +1 pitting edema present in the foot and extending up to the mid-calf b/l. Neuro: Both gross and protective sensations are lost b/l. Derm: Right heel ulcer 7.5cm X 4.5 cm X 0.2 cm. Base is necrotic granular 50: 50. No malodor, minimal serous drainage, No probing to bone, no undermining and no erythema. Right lower leg lateral side shows a bruised red area but no ulceration. Right hallux toe nail is avulsed with the nail bed is clean, granular, no drainage or malodour. Left Lower leg medial area shows a bruised red area but no ulceration. Left lateral malleolous show an ulcer [id number] Base is fibrotic granular 50 :50. No malodor, minimal serous drainage, No probing to bone, no undermining and minimal erythema erythema. Right 4th interspace, medial side of R 5th toe and underside of R 4th toe are cracked and opened but no drainage or malodor. MSK: Muscle power diminished in all groups 2/5. No pain on palpating the srikanth- ulcerative areas. - Neurological Exam Neurological Exam: Alert, Awake, Oriented x3 - Psychiatric Exam Psychiatric exam: Normal Affect, Normal Mood Assessment and Plan - Assessment and Plan (Free Text) Assessment: 62 y/o M patient seen and evaluated at the bedside for bilateral foot ulcers Plan: Patient seen and evaluated at the bed side. Plan discussed in details with attending Dr. Cerrato Chart, labs and vitals reviewed; afebrile, no leukocytosis X-rays reveal no signs of acute osseous anomalies ID Dr. Cruz is on-board. Patient to stay in multipodus boot while he is on bed. Patient wounds dressed using DSD and xeroform for the right heel ulcer. betadine DSD for the right hallux and 4th left interspace. DSD for the rest. Wound culture from left foot ulcers collected - pending Wound culture from right foot - pending Podiatry will continue to follow up the patient while in house.
[2017-12-17 18:32] LABS: SQUAMOUS EPITHIAL < 1 /hpf (0-5); URINE BACTERIA RARE (<OCC); URINE BILIRUBIN NEGATIVE (NEGATIVE); URINE BLOOD NEGATIVE (NEGATIVE); URINE CLARITY Clear (Clear); URINE COLOR Straw (YELLOW); URINE GLUCOSE (UA) NORMAL (Normal); URINE LEUKOCYTE ESTERASE NEG Leu/uL (Negative); URINE PROTEIN NEGATIVE (NEGATIVE); URINE UROBILINOGEN NORMAL mg/dL (0.2-1.0)
[2017-12-17] MEDS: Fluconazole IV 200mg/100 ml NS 100 ML IVPB SCH (18:56)
--- NOTE | 2017-12-17 20:36 | CP.PCM.PN ---
Subjective - Date & Time of Evaluation Date of Evaluation: 12/17/17 Time of Evaluation: 20:36 - Subjective Subjective: CHIEF COMPLAINTS TODAY : afebrile, vss awake/and alert S/P rt hulux toe nail AVULSION rt heel ulcer +ve dressing +ve minimal sero- sanguinous discharge+ve necrotic base. left lateral /medial malleolus ulceration ,dry PODIATRY F/U NOTED AND APPRECIATED. ROS. HEENT : N. Resp : No cough, wheezing ,pleuritic CP ,or hemoptysis Cardio : No anginal CP, PND, orthopnea, palpitation GI : No abd.pain, n/v ,diarrhea or GI bleeding . 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 Musculoskel : No joint swelling , Derm : No rash Psych : Normal affect. Ext : No swelling ,calf pain . RT FOOT IN DRESSING LT FOOT IN DRESSING B/L MULTIPODUS BOOTS +VE PE. Pt. is alert awake in no distress. V.S As noted in the chart Head ,ear nose,throat and eyes : Normal. Neck : Supple with normal carotids. Lungs: Clear air entry. Heart : S1 & S2 normal with S4. No murmur. Abd : Soft non tender with normal bowel sounds. Neuro : Moves all ext. with no localized deficit. Ext : No edema with intact pulses.Non tender calves RT FOOT IN DRESSING LT FOOT IN DRESSING B/L MULTIPODUS BOOTS +VE Derm : No rashes or decubitus ulcer. LABS/RADIOLOGY: reviewed RT FOOT CULTURE -VE GROWTH X 24HRS BLOOD CULTURE -VE X 3 dayss. URINE CULTURE 50,000- 100,000 multiple sp ? contaminant CXR NAD. RT FOOT XRAY - NO OSSEOUS PROCESS LT. FOOT XRAY -NO ACUTE FRACTURE Objective - Vital Signs/Intake and Output Vital Signs (last 24 hours): Temp Pulse Resp BP Pulse Ox 97.7 F 80 20 151/84 H 97 12/17/17 16:00 12/17/17 16:00 12/17/17 16:00 12/17/17 16:00 12/17/17 16:00 Intake and Output: 12/17/17 12/18/17 18:59 06:59 Intake Total 550 Output Total 950 Balance -400 - Medications Medications: Current Medications Ascorbic Acid (Vitamin C 500 Mg Tab) 500 mg PO DAILY [facility] Last Admin: 12/17/17 10:50 Dose: 500 mg Bacitracin (Bacitracin) 0 gm TOP DAILY [facility] Famotidine (Pepcid) 40 mg PO DAILY [facility] Last Admin: 12/17/17 10:50 Dose: 40 mg Finasteride (Proscar) 5 mg PO DAILY [facility] Last Admin: 12/17/17 10:50 Dose: 5 mg Heparin Sodium (Porcine) (Heparin) 5,000 units SC Q12 [facility] Last Admin: 12/17/17 10:50 Dose: 5,000 units Piperacillin Sod/Tazobactam Sod (Zosyn 3.375 Gm Iv Premix) 3.375 gm in 50 mls @ 100 mls/hr IVPB Q6H [facility] PRN Reason: Protocol Last Admin: 12/17/17 20:17 Dose: 100 mls/hr Fluconazole (Diflucan Iv 200 Mg/100 Ml Ns) 100 mls @ 100 mls/hr IVPB Q24H [facility] PRN Reason: Protocol Last Admin: 12/17/17 18:56 Dose: 100 mls/hr Multivitamins (Hexavitamin) 1 tab PO DAILY [facility] Last Admin: 12/17/17 10:50 Dose: 1 tab Senna/Docusate Sodium (Senokot S 50 Mg-8.6 Mg) 1 tab PO DAILY [facility] Last Admin: 12/17/17 10:50 Dose: 1 tab Tamsulosin HCl (Flomax) 0.4 mg PO DAILY [facility] Last Admin: 12/17/17 10:50 Dose: 0.4 mg Zinc Sulfate (Zinc Sulfate 220 Mg Cap) 220 mg PO DAILY [facility] Last Admin: 12/17/17 10:49 Dose: 220 mg - Labs Labs: 12/16/17 17:13 12/16/17 17:13 Assessment and Plan (1) Abscess of right foot Status: Acute (2) Neurogenic bladder Status: Chronic (3) Multiple sclerosis Status: Chronic (4) History of spinal cord compression Status: Acute (5) H/O renal cell cancer Status: Acute - Assessment and Plan (Free Text) Plan: CASE DISCUSSED WITH SPIN TANK TENDER MR RODRIGUEZ. CONTINUE iv ZOSYN 3.375-iv PIGGYBACK EVERY 6 HOURLY 12/14/17 ON IV DIFLUCAN 200 MG iv PIGGYBACK ONCE A DAY DAILY FOR PROBABLE CANDIDURIA. LWC PER DR ENGLE AND WOUND CARE fOLLOW-UP REPEAT CULTURES BY PODIATRY TO ADJUST ANTIBIOTICS. F/U REPEAT UA/ URINE CULTURES CASE DISCUSSED WITH STAFF/AND AT BEDSIDE.
[2017-12-18] MEDS: Piperacill/Tazo 3.375gm in Dex 3.375 GM/50 ML BAG IVPB SCH ×4 (01:54→20:35)
[2017-12-18] MEDS: Docusate-Senna 50 mg-8.6 mg Tab PO SCH (10:00)
[2017-12-18] MEDS: Bacitracin Ointment 30 GM TUBE TOP SCH (10:00)
[2017-12-18] MEDS: Multiple Vitamins Tab PO SCH (10:01)
--- NOTE | 2017-12-18 12:36 | CP.PCM.PN ---
Subjective - Date & Time of Evaluation Date of Evaluation: 12/18/17 Time of Evaluation: 12:34 - Subjective Subjective: Podiatry progress note: Dr. Cerrato 62 year old male was evaluated this morning for diffuse bilateral feet ulceration. Patient denies of any acute overnight events. Denies of any pain to his bilateral feet. Patient is AAOx3 and appears in NAD. Denies of recent F/N/V/ C/SOB/CP/headache. No other pedal complains. Objective - Vital Signs/Intake and Output Vital Signs (last 24 hours): Temp Pulse Resp BP Pulse Ox 97.9 F 88 20 146/86 96 12/18/17 07:58 12/18/17 07:58 12/18/17 07:58 12/18/17 07:58 12/18/17 07:58 Intake and Output: 12/18/17 12/18/17 06:59 18:59 Intake Total 1090 Output Total 1500 Balance -410 - Medications Medications: Current Medications Ascorbic Acid (Vitamin C 500 Mg Tab) 500 mg PO DAILY [facility] Last Admin: 12/18/17 10:01 Dose: 500 mg Bacitracin (Bacitracin) 0 gm TOP DAILY [facility] Last Admin: 12/18/17 10:00 Dose: 1 applic Famotidine (Pepcid) 40 mg PO DAILY [facility] Last Admin: 12/18/17 10:00 Dose: 40 mg Finasteride (Proscar) 5 mg PO DAILY [facility] Last Admin: 12/18/17 10:00 Dose: 5 mg Heparin Sodium (Porcine) (Heparin) 5,000 units SC Q12 [facility] Last Admin: 12/18/17 10:01 Dose: 5,000 units Piperacillin Sod/Tazobactam Sod (Zosyn 3.375 Gm Iv Premix) 3.375 gm in 50 mls @ 100 mls/hr IVPB Q6H [facility] PRN Reason: Protocol Last Admin: 12/18/17 09:23 Dose: 100 mls/hr Fluconazole (Diflucan Iv 200 Mg/100 Ml Ns) 100 mls @ 100 mls/hr IVPB Q24H [facility] PRN Reason: Protocol Last Admin: 12/17/17 18:56 Dose: 100 mls/hr Multivitamins (Hexavitamin) 1 tab PO DAILY [facility] Last Admin: 12/18/17 10:01 Dose: 1 tab Senna/Docusate Sodium (Senokot S 50 Mg-8.6 Mg) 1 tab PO DAILY [facility] Last Admin: 12/18/17 10:00 Dose: 1 tab Tamsulosin HCl (Flomax) 0.4 mg PO DAILY [facility] Last Admin: 12/18/17 10:03 Dose: 0.4 mg Zinc Sulfate (Zinc Sulfate 220 Mg Cap) 220 mg PO DAILY [facility] Last Admin: 12/18/17 10:01 Dose: 220 mg - Labs Labs: 12/16/17 17:13 12/16/17 17:13 - Constitutional Appears: Well, Non-toxic, No Acute Distress - Extremities Exam Additional comments: LE focused exam: Vasc: DP/PT 2/4 b/l. Cap refill < 3 sec in all digits, Temp gradient warm to cool b/l from proximal to distal. +1 pitting edema present in the foot and extending up to the mid-calf b/l. Neuro: Both gross and protective sensations are lost b/l. Derm: Right heel ulcer 7.5cm X 4.5 cm X 0.2 cm. Base is necrotic granular 50: 50. No malodor, minimal serous drainage, No probing to bone, no undermining and no erythema. Right lower leg lateral side shows a bruised red area but no ulceration. Right hallux toe nail is avulsed with the nail bed is clean, granular, no drainage or malodour. Left Lower leg medial area shows a bruised red area but no ulceration. Left lateral malleolous show an ulcer [id number] Base is fibrotic granular 50 :50. No malodor, minimal serous drainage, No probing to bone, no undermining and minimal erythema erythema. Right 4th interspace, medial side of R 5th toe and underside of R 4th toe are cracked and opened but no drainage or malodor. MSK: Muscle power diminished in all groups 2/5. No pain on palpating the srikanth- ulcerative areas. - Neurological Exam Neurological Exam: Alert, Awake, Oriented x3 - Psychiatric Exam Psychiatric exam: Normal Affect, Normal Mood Assessment and Plan - Assessment and Plan (Free Text) Assessment: 62 year old male patient was evaluated at bedside for bilateral foot ulcers Plan: Patient seen and evaluated at the bedside with attending Dr. Cerrato Chart, labs and vitals reviewed; afebrile, no leukocytosis X-rays reveal no signs of acute osseous anomalies ID Dr. Cruz is on-board - recs appreciated Patient to stay in multipodus boot while he is on bed. Patient wounds dressed using DSD and xeroform for the right heel ulcer. betadine DSD for the right hallux and 4th left interspace. DSD for the rest. Wound culture from left foot ulcers collected - pending Wound culture from right foot - pending Podiatry will continue to follow up the patient while in house.
--- NOTE | 2017-12-18 13:12 | CP.PCM.PN ---
Subjective - Date & Time of Evaluation Date of Evaluation: 12/18/17 Time of Evaluation: 13:11 - Subjective Subjective: CHIEF COMPLAINTS TODAY : IMROVING ROS. HEENT : N. Resp : No cough, wheezing ,pleuritic CP ,or hemoptysis Cardio : No anginal CP, PND, orthopnea, palpitation GI : No abd.pain, n/v ,diarrhea or GI bleeding . PLEATER HAND : No headache, vertigo, Musculoskel : No joint swelling , Derm : No rash Psych : Normal affect. Ext : No swelling ,calf pain PE. Pt. is alert awake in no distress. V.S As noted in the chart Head ,ear nose,throat and eyes : Normal. Neck : Supple with normal carotids. Lungs: Clear air entry. Heart : S1 & S2 normal with S4. No murmur. Abd : Soft non tender with normal bowel sounds. Neuro : Paraplegia. Ext : No edema with intact pulses.Non tender calves Derm : Left heel shows half in each circular ulcer with a black which is collapsed with blackish bluish discoloration and surrounding cellulitis. Left big toenail has a clotted blood and avulse LABS/RADIOLOGY: C/S PENDING ASSESSMENT/PLAN : Continue IV antibiotics and local wound care. Objective - Vital Signs/Intake and Output Vital Signs (last 24 hours): Temp Pulse Resp BP Pulse Ox 97.9 F 88 20 146/86 96 12/18/17 07:58 12/18/17 07:58 12/18/17 07:58 12/18/17 07:58 12/18/17 07:58 Intake and Output: 12/18/17 12/18/17 11:59 23:59 Intake Total 290 Output Total 1000 Balance -710 - Medications Medications: Current Medications Ascorbic Acid (Vitamin C 500 Mg Tab) 500 mg PO DAILY [facility] Last Admin: 12/18/17 10:01 Dose: 500 mg Bacitracin (Bacitracin) 0 gm TOP DAILY [facility] Last Admin: 12/18/17 10:00 Dose: 1 applic Famotidine (Pepcid) 40 mg PO DAILY [facility] Last Admin: 12/18/17 10:00 Dose: 40 mg Finasteride (Proscar) 5 mg PO DAILY [facility] Last Admin: 12/18/17 10:00 Dose: 5 mg Heparin Sodium (Porcine) (Heparin) 5,000 units SC Q12 [facility] Last Admin: 12/18/17 10:01 Dose: 5,000 units Piperacillin Sod/Tazobactam Sod (Zosyn 3.375 Gm Iv Premix) 3.375 gm in 50 mls @ 100 mls/hr IVPB Q6H [facility] PRN Reason: Protocol Last Admin: 12/18/17 09:23 Dose: 100 mls/hr Fluconazole (Diflucan Iv 200 Mg/100 Ml Ns) 100 mls @ 100 mls/hr IVPB Q24H [facility] PRN Reason: Protocol Last Admin: 12/17/17 18:56 Dose: 100 mls/hr Multivitamins (Hexavitamin) 1 tab PO DAILY [facility] Last Admin: 12/18/17 10:01 Dose: 1 tab Senna/Docusate Sodium (Senokot S 50 Mg-8.6 Mg) 1 tab PO DAILY [facility] Last Admin: 12/18/17 10:00 Dose: 1 tab Tamsulosin HCl (Flomax) 0.4 mg PO DAILY [facility] Last Admin: 12/18/17 10:03 Dose: 0.4 mg Zinc Sulfate (Zinc Sulfate 220 Mg Cap) 220 mg PO DAILY [facility] Last Admin: 12/18/17 10:01 Dose: 220 mg - Labs Labs: 12/16/17 17:13 12/16/17 17:13
--- NOTE | 2017-12-18 13:16 | CP.PCM.PN ---
Subjective - Date & Time of Evaluation Date of Evaluation: 12/18/17 Time of Evaluation: 13:16 - Subjective Subjective: CHIEF COMPLAINTS TODAY : afebrile, vss awake/and alert S/P rt hulux toe nail AVULSION rt heel ulcer +ve dressing +ve minimal sero- sanguinous discharge+ve necrotic base. left lateral /medial malleolus ulceration ,dry DR ENGLE F/U NOTED AND APPRECIATED. ROS. HEENT : N. Resp : No cough, wheezing ,pleuritic CP ,or hemoptysis Cardio : No anginal CP, PND, orthopnea, palpitation GI : No abd.pain, n/v ,diarrhea or GI bleeding . 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 Musculoskel : No joint swelling , Derm : No rash Psych : Normal affect. Ext : No swelling ,calf pain . RT FOOT IN DRESSING LT FOOT IN DRESSING B/L MULTIPODUS BOOTS +VE PE. Pt. is alert awake in no distress. V.S As noted in the chart Head ,ear nose,throat and eyes : Normal. Neck : Supple with normal carotids. Lungs: Clear air entry. Heart : S1 & S2 normal with S4. No murmur. Abd : Soft non tender with normal bowel sounds. Neuro : Moves all ext. with no localized deficit. Ext : No edema with intact pulses.Non tender calves RT FOOT IN DRESSING LT FOOT IN DRESSING B/L MULTIPODUS BOOTS +VE Derm : No rashes or decubitus ulcer. LABS/RADIOLOGY: reviewed FOOT CULTURE +VE GP-COCCI (HEAVY GROWTH ) BLOOD CULTURE -VE X 3 dayss. URINE CULTURE 50,000- 100,000 multiple sp ? contaminant CXR NAD. Objective - Vital Signs/Intake and Output Vital Signs (last 24 hours): Temp Pulse Resp BP Pulse Ox 97.9 F 88 20 146/86 96 12/18/17 07:58 12/18/17 07:58 12/18/17 07:58 12/18/17 07:58 12/18/17 07:58 Intake and Output: 12/18/17 12/18/17 06:59 18:59 Intake Total 1090 Output Total 1500 Balance -410 - Medications Medications: Current Medications Ascorbic Acid (Vitamin C 500 Mg Tab) 500 mg PO DAILY [facility] Last Admin: 12/18/17 10:01 Dose: 500 mg Bacitracin (Bacitracin) 0 gm TOP DAILY [facility] Last Admin: 12/18/17 10:00 Dose: 1 applic Famotidine (Pepcid) 40 mg PO DAILY [facility] Last Admin: 12/18/17 10:00 Dose: 40 mg Finasteride (Proscar) 5 mg PO DAILY [facility] Last Admin: 12/18/17 10:00 Dose: 5 mg Heparin Sodium (Porcine) (Heparin) 5,000 units SC Q12 [facility] Last Admin: 12/18/17 10:01 Dose: 5,000 units Piperacillin Sod/Tazobactam Sod (Zosyn 3.375 Gm Iv Premix) 3.375 gm in 50 mls @ 100 mls/hr IVPB Q6H [facility] PRN Reason: Protocol Last Admin: 12/18/17 09:23 Dose: 100 mls/hr Fluconazole (Diflucan Iv 200 Mg/100 Ml Ns) 100 mls @ 100 mls/hr IVPB Q24H [facility] PRN Reason: Protocol Last Admin: 12/17/17 18:56 Dose: 100 mls/hr Multivitamins (Hexavitamin) 1 tab PO DAILY [facility] Last Admin: 12/18/17 10:01 Dose: 1 tab Senna/Docusate Sodium (Senokot S 50 Mg-8.6 Mg) 1 tab PO DAILY [facility] Last Admin: 12/18/17 10:00 Dose: 1 tab Tamsulosin HCl (Flomax) 0.4 mg PO DAILY [facility] Last Admin: 12/18/17 10:03 Dose: 0.4 mg Zinc Sulfate (Zinc Sulfate 220 Mg Cap) 220 mg PO DAILY [facility] Last Admin: 12/18/17 10:01 Dose: 220 mg - Labs Labs: 12/16/17 17:13 12/16/17 17:13 Assessment and Plan (1) Abscess of right foot Status: Acute (2) Neurogenic bladder Status: Chronic (3) Multiple sclerosis Status: Chronic (4) History of spinal cord compression Status: Acute (5) H/O renal cell cancer Status: Acute - Assessment and Plan (Free Text) Plan: ADD IV VANCOMYCIN 1 G iv PIGGYBACK EVERY 12 HOURLY FOR STAPH/STREP/MRSA COVERAGE.12/19/17. CONTINUE iv ZOSYN 3.375-iv PIGGYBACK EVERY 6 HOURLY 12/14/17 DC IV DIFLUCAN LWC PER DR ENGLE AND WOUND CARE fOLLOW-UP REPEAT CULTURES BY PODIATRY TO ADJUST ANTIBIOTICS. F/U REPEAT UA/ URINE CULTURES CASE DISCUSSED WITH STAFF/AND AT BEDSIDE.
[2017-12-18] MEDS: Fluconazole IV 200mg/100 ml NS 100 ML IVPB SCH (18:03)
[2017-12-19] MEDS: Vancomycin 1 gm/NS 200 ml 1 GM/200 ML BAG IVPB SCH ×2 (01:38→12:42)
[2017-12-19] MEDS: Piperacill/Tazo 3.375gm in Dex 3.375 GM/50 ML BAG IVPB SCH ×4 (03:31→20:20)
[2017-12-19] MEDS: Docusate-Senna 50 mg-8.6 mg Tab PO SCH (09:15)
[2017-12-19] MEDS: Multiple Vitamins Tab PO SCH (09:15)
[2017-12-19] MEDS: Bacitracin Ointment 30 GM TUBE TOP SCH (10:40)
--- NOTE | 2017-12-19 11:11 | CP.PCM.PN ---
Subjective - Date & Time of Evaluation Date of Evaluation: 12/19/17 Time of Evaluation: 11:08 - Subjective Subjective: Podiatry progress note: Dr. Cerrato 62 year old male was evaluated this morning for diffuse bilateral feet ulceration. Patient seen with at bedside. Patient denies of any acute overnight events. Denies of any pain to his bilateral feet. Patient is AAOx3 and appears in NAD. Denies of recent F/N/V/C/SOB/CP/headache. No other pedal complains. Objective - Vital Signs/Intake and Output Vital Signs (last 24 hours): Temp Pulse Resp BP Pulse Ox 97.8 F 88 20 145/77 95 12/19/17 08:21 12/19/17 08:21 12/19/17 08:21 12/19/17 08:21 12/19/17 08:21 Intake and Output: 12/19/17 12/19/17 06:59 18:59 Intake Total 250 490 Output Total 1000 Balance 250 -510 - Medications Medications: Current Medications Ascorbic Acid (Vitamin C 500 Mg Tab) 500 mg PO DAILY [facility] Last Admin: 12/19/17 09:15 Dose: 500 mg Bacitracin (Bacitracin) 0 gm TOP DAILY [facility] Last Admin: 12/19/17 10:40 Dose: Not Given Famotidine (Pepcid) 40 mg PO DAILY [facility] Last Admin: 12/19/17 09:15 Dose: 40 mg Finasteride (Proscar) 5 mg PO DAILY [facility] Last Admin: 12/19/17 09:15 Dose: 5 mg Heparin Sodium (Porcine) (Heparin) 5,000 units SC Q12 [facility] Last Admin: 12/19/17 09:15 Dose: 5,000 units Piperacillin Sod/Tazobactam Sod (Zosyn 3.375 Gm Iv Premix) 3.375 gm in 50 mls @ 100 mls/hr IVPB Q6H [facility] PRN Reason: Protocol Last Admin: 12/19/17 09:14 Dose: 100 mls/hr Vancomycin/Sodium Chloride (Vancomycin 1 Gm/Ns 200 Ml) 1 gm in 200 mls @ 166.6 mls/hr IVPB Q12H [facility] PRN Reason: Protocol Stop: 12/24/17 01:01 Last Admin: 12/19/17 01:38 Dose: 166.6 mls/hr Multivitamins (Hexavitamin) 1 tab PO DAILY [facility] Last Admin: 12/19/17 09:15 Dose: 1 tab Senna/Docusate Sodium (Senokot S 50 Mg-8.6 Mg) 1 tab PO DAILY [facility] Last Admin: 12/19/17 09:15 Dose: 1 tab Tamsulosin HCl (Flomax) 0.4 mg PO DAILY [facility] Last Admin: 12/19/17 09:15 Dose: 0.4 mg Zinc Sulfate (Zinc Sulfate 220 Mg Cap) 220 mg PO DAILY [facility] Last Admin: 12/19/17 09:15 Dose: 220 mg - Labs Labs: 12/16/17 17:13 12/16/17 17:13 - Constitutional Appears: Well, Non-toxic, No Acute Distress - Extremities Exam Additional comments: LE focused exam: Vasc: DP/PT 2/4 b/l. Cap refill < 3 sec in all digits, Temp gradient warm to cool b/l from proximal to distal. +1 pitting edema present in the foot and extending up to the mid-calf b/l. Neuro: Both gross and protective sensations are lost b/l. Derm: Right heel ulcer 7.5cm X 4.5 cm X 0.2 cm. Base is necrotic granular 50: 50. No malodor, minimal serous drainage, No probing to bone, no undermining and no erythema. Right lower leg lateral side shows a bruised red area but no ulceration. Right hallux toe nail is avulsed with the nail bed is clean, granular, no drainage or malodour. Left Lower leg medial area shows a bruised red area but no ulceration. Left lateral malleolous show an ulcer [id number] Base is fibrotic granular 50 :50. No malodor, minimal serous drainage, No probing to bone, no undermining and minimal erythema erythema. Right 4th interspace, medial side of R 5th toe and underside of R 4th toe are cracked and opened but no drainage or malodor. MSK: Muscle power diminished in all groups 2/5. No pain on palpating the srikanth- ulcerative areas. - Neurological Exam Neurological Exam: Alert, Awake, Oriented x3 - Psychiatric Exam Psychiatric exam: Normal Affect, Normal Mood Assessment and Plan - Assessment and Plan (Free Text) Assessment: 62 year old male patient was evaluated at bedside for bilateral foot ulcers Plan: Patient seen and evaluated at the bedside Discussed plan with attending Dr. Cerrato Chart, labs and vitals reviewed; afebrile, no leukocytosis X-rays reveal no signs of acute osseous anomalies ID Dr. Cruz is on-board - recs appreciated - abx as per ID Patient to stay in multipodus boot while he is on bed. Patient wounds dressed using DSD and xeroform for the right heel ulcer. betadine DSD for the right hallux and 4th left interspace. DSD for the rest. Wound culture from left foot ulcers collected - Coag neg. Staph Wound culture from right foot - Coag neg. Staph Patient is stable from podiatry standpoint Podiatry will continue to follow up the patient while in house.
--- NOTE | 2017-12-19 11:46 | CP.PCM.PN ---
Subjective - Date & Time of Evaluation Date of Evaluation: 12/19/17 Time of Evaluation: 11:46 - Subjective Subjective: CHIEF COMPLAINTS TODAY : afebrile, vss awake/and alert S/P rt hulux toe nail AVULSION rt heel ulcer +ve dressing +ve minimal sero- sanguinous discharge+ve necrotic base. left lateral /medial malleolus ulceration ,dry ROS. ON OBSERVAION HEENT : N. Resp : No cough, wheezing ,pleuritic CP ,or hemoptysis Cardio : No anginal CP, PND, orthopnea, palpitation GI : No abd.pain, n/v ,diarrhea or GI bleeding . 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 Musculoskel : No joint swelling , Derm : No rash Psych : Normal affect. Ext : No swelling ,calf pain . RT FOOT IN DRESSING LT FOOT IN DRESSING B/L MULTIPODUS BOOTS +VE PE. Pt. is alert awake in no distress. V.S As noted in the chart Head ,ear nose,throat and eyes : Normal. Neck : Supple with normal carotids. Lungs: Clear air entry. Heart : S1 & S2 normal with S4. No murmur. Abd : Soft non tender with normal bowel sounds. Neuro : Moves all ext. with no localized deficit. Ext : No edema with intact pulses.Non tender calves RT FOOT IN DRESSING LT FOOT IN DRESSING B/L MULTIPODUS BOOTS +VE Derm : No rashes or decubitus ulcer. LABS/RADIOLOGY: reviewed FOOT CULTURE +VE GP-COCCI STAPH COAGULASE-NEGATIVE ? SKIN JACK GRAM-POSITIVE COCCI #2--P BLOOD CULTURE -VE X 3 dayss. URINE CULTURE 50,000- 100,000 multiple sp ? contaminant Objective - Vital Signs/Intake and Output Vital Signs (last 24 hours): Temp Pulse Resp BP Pulse Ox 97.8 F 88 20 145/77 95 12/19/17 08:21 12/19/17 08:21 12/19/17 08:21 12/19/17 08:21 12/19/17 08:21 Intake and Output: 12/19/17 12/19/17 06:59 18:59 Intake Total 250 490 Output Total 1000 Balance 250 -510 - Medications Medications: Current Medications Ascorbic Acid (Vitamin C 500 Mg Tab) 500 mg PO DAILY [facility] Last Admin: 12/19/17 09:15 Dose: 500 mg Bacitracin (Bacitracin) 0 gm TOP DAILY [facility] Last Admin: 12/19/17 10:40 Dose: Not Given Famotidine (Pepcid) 40 mg PO DAILY [facility] Last Admin: 12/19/17 09:15 Dose: 40 mg Finasteride (Proscar) 5 mg PO DAILY [facility] Last Admin: 12/19/17 09:15 Dose: 5 mg Heparin Sodium (Porcine) (Heparin) 5,000 units SC Q12 [facility] Last Admin: 12/19/17 09:15 Dose: 5,000 units Piperacillin Sod/Tazobactam Sod (Zosyn 3.375 Gm Iv Premix) 3.375 gm in 50 mls @ 100 mls/hr IVPB Q6H [facility] PRN Reason: Protocol Last Admin: 12/19/17 09:14 Dose: 100 mls/hr Vancomycin/Sodium Chloride (Vancomycin 1 Gm/Ns 200 Ml) 1 gm in 200 mls @ 166.6 mls/hr IVPB Q12H [facility] PRN Reason: Protocol Stop: 12/24/17 01:01 Last Admin: 12/19/17 01:38 Dose: 166.6 mls/hr Multivitamins (Hexavitamin) 1 tab PO DAILY [facility] Last Admin: 12/19/17 09:15 Dose: 1 tab Senna/Docusate Sodium (Senokot S 50 Mg-8.6 Mg) 1 tab PO DAILY [facility] Last Admin: 12/19/17 09:15 Dose: 1 tab Tamsulosin HCl (Flomax) 0.4 mg PO DAILY [facility] Last Admin: 12/19/17 09:15 Dose: 0.4 mg Zinc Sulfate (Zinc Sulfate 220 Mg Cap) 220 mg PO DAILY [facility] Last Admin: 12/19/17 09:15 Dose: 220 mg - Labs Labs: 12/16/17 17:13 12/16/17 17:13 Assessment and Plan (1) Abscess of right foot Assessment & Plan: DC IV VANCOMYCIN DC iv ZOSYN 3.375-iv PIGGYBACK EVERY 6 HOURLY 12/14/17- 12/19/17 PO aUGMENTIN 875 BY MOUTH TWICE A DAY X7DAYS PO FLORSAR 250 MG CAPSULE,1 CAPS OD DAILY X 7DAYS. LWC PER DR ENGLE AND WOUND CARE fOLLOW-UP BY PODIATRY OPD.. Status: Acute (2) Neurogenic bladder Assessment & Plan: PATIENT HAS A Gray. REPORTED BY SHE REFUSED INTERMITTENT CATHETERIZATION SUGGESTED BY gu. Status: Chronic (3) Multiple sclerosis Status: Chronic (4) History of spinal cord compression Assessment & Plan: PATIENT HAS PARAPLEGIA. pATIENT TO CHANGE POSITION BKVI-AT-ANEX EVERY 2 HOURS. dISCUSSED WITH NURSES AND STAFF TO GIVE A BRIDGE /WEDGE TO THE PATIENT TO PREVENT SACRAL DECUBITUS ULCERS.. Status: Acute (5) H/O renal cell cancer Status: Acute
--- NOTE | 2017-12-19 14:06 | CP.PCM.DIS ---
Provider - Provider Date of Admission: 12/14/17 20:04 Attending physician: Dennys Kay MD Time Spent in preparation of Discharge (in minutes): 35 Hospital Course - Lab Results Lab Results: Micro Results 12/14/17 21:12 Abscess - Foot-Right Gram Stain - Final 12/14/17 21:12 Abscess - Foot-Right Wound Culture - Final Coagulase Neg Staphylococcus 12/16/17 21:23 Foot - Left Gram Stain - Final 12/16/17 21:23 Foot - Left Wound Culture - Preliminary Coagulase Neg Staphylococcus Gram Positive Cocci#2 12/14/17 18:15 Blood Blood Culture - Preliminary NO GROWTH AFTER 4 DAYS 12/14/17 18:15 Blood Blood Culture - Preliminary NO GROWTH AFTER 4 DAYS 12/17/17 18:24 Urine Urine Culture - Final No Growth (<1,000 CFU/ML) 12/15/17 04:30 Urine Urine Culture - Final 50-100,000 CFU/ML. MULTIPLE SPECIES. SUGGEST REPEAT SPECIMEN. Most Recent Lab Values WBC 8.9 K/uL (4.8-10.8) 12/16/17 17:13 RBC 4.06 Mil/uL (4.40-5.90) L 12/16/17 17:13 Hgb 11.3 g/dL (12.0-18.0) L 12/16/17 17:13 Hct 33.2 % (35.0-51.0) L 12/16/17 17:13 MCV 81.8 fL (80.0-94.0) 12/16/17 17:13 MCH 27.9 pg (27.0-31.0) 12/16/17 17:13 MCHC 34.1 g/dL (33.0-37.0) 12/16/17 17:13 RDW 16.1 % (11.5-14.5) H 12/16/17 17:13 Plt Count 456 K/uL (130-400) H 12/16/17 17:13 MPV 8.0 fL (7.2-11.7) 12/16/17 17:13 Neut % (Auto) 85.1 % (50.0-75.0) H 12/16/17 17:13 Lymph % (Auto) 10.3 % (20.0-40.0) L 12/16/17 17:13 Wilkinson % (Auto) 4.5 % (0.0-10.0) 12/16/17 17:13 Eos % (Auto) 0.0 % (0.0-4.0) 12/16/17 17:13 Baso % (Auto) 0.1 % (0.0-2.0) 12/16/17 17:13 Neut # (Auto) 7.6 K/uL (1.8-7.0) H 12/16/17 17:13 Lymph # (Auto) 0.9 K/uL (1.0-4.3) L 12/16/17 17:13 Wilkinson # (Auto) 0.4 K/uL (0.0-0.8) 12/16/17 17:13 Eos # (Auto) 0.0 K/uL (0.0-0.7) 12/16/17 17:13 Baso # (Auto) 0.0 K/uL (0.0-0.2) 12/16/17 17:13 Neutrophils % (Manual) 77 % (50-75) H 12/16/17 17:13 Band Neutrophils % 3 % (0-2) H 12/16/17 17:13 Lymphocytes % (Manual) 15 % (20-40) L 12/16/17 17:13 Monocytes % (Manual) 3 % (0-10) 12/16/17 17:13 Myelocytes % 2 % (0-0) H 12/16/17 17:13 Platelet Estimate Slightly increased (NORMAL) H 12/16/17 17:13 Large Platelets Present 12/16/17 17:13 Hypochromasia (manual) Slight 12/16/17 17:13 Poikilocytosis (manual Slight 12/16/17 17:13 Anisocytosis (manual) Slight 12/16/17 17:13 Ovalocytes Slight 12/16/17 17:13 pO2 19 mm/Hg (30-55) L 12/14/17 18:37 VBG pH 7.39 (7.32-7.43) 12/14/17 18:37 VBG pCO2 50 mmHg (40-60) 12/14/17 18:37 VBG HCO3 26.3 mmol/L 12/14/17 18:37 VBG Total CO2 31.8 mmol/L (22-28) H 12/14/17 18:37 VBG O2 Sat (Calc) 36.2 % (40-65) L 12/14/17 18:37 VBG Base Excess 4.2 mmol/L (0.0-2.0) H 12/14/17 18:37 VBG Potassium 3.7 mmol/L (3.6-5.2) 12/14/17 18:37 Sodium 140.0 mmol/l (132-148) 12/14/17 18:37 Chloride 108.0 mmol/L (98-107) H 12/14/17 18:37 Glucose 102 mg/dl (75-110) 12/14/17 18:37 Lactate 1.4 mmol/L (0.7-2.1) 12/14/17 18:37 Sodium 140 mmol/L (132-148) 12/16/17 17:13 Potassium 4.2 mmol/L (3.6-5.2) 12/16/17 17:13 Chloride 103 mmol/L (98-107) 12/16/17 17:13 Carbon Dioxide 26 mmol/L (22-30) 12/16/17 17:13 Anion Gap 16 (10-20) 12/16/17 17:13 BUN 15 mg/dL (9-20) 12/16/17 17:13 Creatinine 0.5 mg/dL (0.8-1.5) L 12/16/17 17:13 Est GFR ( Amer) > 60 12/16/17 17:13 Est GFR (Non-Af Amer) > 60 12/16/17 17:13 Random Glucose 193 mg/dL (75-110) H 12/16/17 17:13 Calcium 9.6 mg/dl (8.6-10.4) 12/16/17 17:13 Total Bilirubin 0.3 mg/dL (0.2-1.3) 12/16/17 17:13 AST 14 U/L (17-59) L D 12/16/17 17:13 ALT 31 U/L (21-72) 12/16/17 17:13 Alkaline Phosphatase 92 U/L (38-126) 12/16/17 17:13 Total Protein 6.4 g/dL (6.3-8.3) 12/16/17 17:13 Albumin 3.4 g/dL (3.5-5.0) L 18 17:13 Globulin 3.0 gm/dL (2.2-3.9) 18 17:13 Albumin/Globulin Ratio 1.1 (1.0-2.1) 18 17:13 Venous Blood Potassium 3.7 mmol/L (3.6-5.2) 12/14/17 18:37 Urine Color Straw (YELLOW) 12/17/17 18:24 Urine Clarity Clear (Clear) 12/17/17 18:24 Urine pH 7.0 (5.0-8.0) 18 18:24 Ur Specific [place] 1.013 (1.003-1.030) 12/17/17 18:24 Urine Protein Negative mg/dL (NEGATIVE) 12/17/17 18:24 Urine Glucose (UA) Normal mg/dL (Normal) 12/17/17 18:24 Urine Ketones Negative mg/dL (NEGATIVE) 12/17/17 18:24 Urine Blood Negative (NEGATIVE) 12/17/17 18:24 Urine Nitrate Negative (NEGATIVE) 12/17/17 18:24 Urine Bilirubin Negative (NEGATIVE) 12/17/17 18:24 Urine Urobilinogen Normal mg/dL (0.2-1.0) 12/17/17 18:24 Ur Leukocyte Esterase Neg Tanja/uL (Negative) 18 18:24 Urine WBC (Auto) 3 /hpf (0-5) 18 18:24 Urine RBC (Auto) 3 /hpf (0-3) 12/17/17 18:24 Urine WBC Clumps (Auto) Many /hpf (NONE) H 12/15/17 04:30 Ur Squamous Epith Cells < 1 /hpf (0-5) 18 18:24 Urine Bacteria Rare (<OCC) 12/17/17 18:24 Urine Yeast (Budding) Many /hpf (NEGATIVE) H 12/15/17 04:30 - Hospital Course Hospital Course: Patient has a history of multiple sclerosis and 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 Currently the family do not want any aggressive treatment for the cancer of the kidneys. Due to the paraplegia patient has no movement of the lower extremities and recently patient started developing a black on the left heel which has increased in size with some discharge and since yesterday patient had been spiking 101 temperature at home. Patient was evaluated by wound care nurse and advised to deep debridement and IV antibiotics. Patient was evaluated in the ER and agreed with the therapy and was admitted in the hospital. Patient was admitted on the floor. Podiatry consult and ID consults were obtained patient was given local wound care. Cultures of the wound did not reveal any definite organism. There was gram-positive cocci isolation was pending before discharge. Patient was discharged on Augmentin and will follow the culture outpatient. The wound was superficial and did not require any debridement as per the color artist. Patient will go home will continue his present medications and wound care. Discharge Exam - Head Exam Head Exam: ATRAUMATIC, NORMOCEPHALIC Discharge Plan - Discharge Medications Prescriptions: Amoxicillin/Clavulanate [Augmentin 875 MG-125 MG] 1 tab PO BID #14 tab Bacillus Coagulans [Probiotic] 1 each PO BID 14 Days capsule.dr - Follow Up Plan Condition: STABLE Disposition: HOME/ ROUTINE Instructions: Multiple Sclerosis, Adult (DC), Abscess (GEN) Referrals: Dennys Kay MD [Staff Provider] -
[2017-12-19 15:57] VITALS: BP 150/77; PULSE 82; TEMP 98.9; O2SAT 97
--- NOTE | 2017-12-20 10:08 | CON ---
DATE: 12/17/2017 UROLOGY CONSULTATION Urology consultation is requested by Dennys Kay MD. Urology consultation is filled by Dr. Alis Nation. REASON FOR CONSULTATION: Urinary retention. HISTORY OF PRESENT ILLNESS: The patient is a 62-year-old male with urinary retention. The patient is in otherwise fair to poor health. The patient presented to the emergency room with an infection of the foot. The patient has had fever. Mr. Jose has history of renal cell carcinoma. He has vertebral metastasis. He underwent laminectomy at [facility]. He has persistent paraplegia. The patient has history of multiple sclerosis. He has history of depression. Review of the chart reveals history of urolithiasis as well. The patient has had urinary retention. He also has had constipation secondary to neurogenic bowel as well. He has no recent hematuria. The patient has had an indwelling Montanez catheter. The patient has had Infectious Disease care with occupational as well as medical care and consultation. The patient has been treated with antibiotic therapy since admission. The patient previously smoked. He reports no abdominal pain. No chest pain. No shortness of breath. The patient has been treated with tamsulosin and finasteride for BPH. PHYSICAL EXAMINATION: GENERAL: The patient is a well-developed, well-nourished male appearing his stated age. The patient is awake and alert. ABDOMEN: Soft, nontender, and nondistended. No mass or organomegaly. BACK: No CVA tenderness. GENITALIA: Without inflammation. Urine is clear via the Montanez catheter. LABORATORY DATA: Reviewed. Hematocrit 32.8, white blood count 7200, platelet count 121,000. BUN 15, creatinine 0.6. Urinalysis reveals 1276 white blood cells and 188 red blood cells. Occasional bacteria. Many yeast. FURTHER LABORATORY DATA: Urine culture revealed multiple species. Blood cultures, no growth. IMPRESSION: A 62-year-old male with, 1. Paraplegia. 2. Metastatic renal cell carcinoma. 3. Urinary retention. 4. Multiple sclerosis. 5. Probable urinary tract infection. RECOMMENDATIONS AND PLAN: Monitor the urine output. Monitor urine culture. Consider trial of voiding. Options of therapy regarding urinary retention have been reviewed with the patient and his . Possible intermittent catheterization. Possible trocar cystostomy. Possible indwelling Montanez catheter if retention occurs. Further therapy to follow according to the results above as well as the patient's clinical course. Thank you for recommending the patient for Urology consultation. Further therapy regarding the patient's lower extremity infection, regarding foot infection as per Infectious Disease and Podiatry. Thank you for recommending the patient for Urology consultation. Ronald MD Chapis cc: MD Bolivar Cheema MD
== END 2017-12-19 22:39 | disposition home or self-care (01) | DRG 593 ==
LOC: C.ER 17:38 → C.9E 20:04 → C.3T 20:47
PROVIDERS: ADMIT Internal Medicine Cardiovascular Disease; ATTEND Internal Medicine Cardiovascular Disease
DX: L89.622 Pressure ulcer of left heel, stage 2 (principal); G82.20 Paraplegia, unspecified; C64.9 Malignant neoplasm of unspecified kidney, except renal pelvis; L02.611 Cutaneous abscess of right foot; G95.29 Other cord compression; L89.612 Pressure ulcer of right heel, stage 2; G35 Multiple sclerosis; I12.9 Hypertensive chronic kidney disease with stage 1 through stage 4 chronic kidney disease, or unspecified chronic kidney disease; N18.9 Chronic kidney disease, unspecified; N31.9 Neuromuscular dysfunction of bladder, unspecified; R33.9 Retention of urine, unspecified; M48.00 Spinal stenosis, site unspecified; N39.498 Other specified urinary incontinence; R15.9 Full incontinence of feces